=== PATIENT | male | born 1940 | race Caucasian/White ===

== ENCOUNTER 2017-03-24 10:57 | Inpatient (IN) | payer MEDICARE ==
[2017-03-24] MEDS ORDERED: SODIUM CHLORIDE 0.9% 500 ML IV STA (11:04)
[2017-03-24] MEDS ORDERED: DIPH,PERTUS(ACELL)TETVAC-LF 0.5 ML VIAL IM ONE (11:04)
--- NOTE | 2017-03-24 11:08 | ED ---
General Adult HPI <Lizz Birmingham - Last Filed: 03/24/17 13:44> - General Source: RN notes reviewed <Pablo Baker - Last Filed: 03/24/17 17:13> - General Stated complaint: Fall Time Seen by Provider: 03/24/17 10:57 - History of Present Illness Initial comments: This is a 76-year-old male presents emergency department after having passed out at [facility]. Patient states he just walked 4 miles which is not that unusual for him. Patient states she got into [facility] started feeling lightheaded and started feeling as though he might pass out. Patient states he should've sat down but he did not he fell forward and now has 3 lacerations on the right frontal aspect of his head. Patient denied any headache prior to the fall. Patient denies any numbness or weakness prior to the fall. Patient states he has a little bit of left-sided neck pain at this time. Patient denied any chest pain or palpitations or shortness of breath prior to the fall. Patient states she has had no recent nausea vomiting diarrhea. Patient states he normally does not eat in the morning and today was no different he had nothing to eat this morning. Patient denies any abdominal pain patient denies any back pain. Currently patient denies any symptoms besides left-sided neck pain. (Pablo Baker) - Related Data Home Medications Medication Instructions Recorded Confirmed Ascorbic Acid [Vitamin C] 500 mg PO DAILY 03/24/17 03/24/17 Calcium/Magnesium/Zinc 1 tab PO DAILY 03/24/17 03/24/17 [Vxevuwr-Ckwoqabhr-Bxhf Tablet] Glucosamine Sulfate 500 mg PO DAILY 03/24/17 03/24/17 Multivitamins, Thera [Multivitamin 1 tab PO DAILY 03/24/17 03/24/17 (formulary)] [place]-3 Fatty Acids/Fish Oil [Fish 1 cap PO DAILY 03/24/17 03/24/17 Oil 1,000 mg Softgel] Potassium 99 mg PO DAILY 03/24/17 03/24/17 Allergies Allergy/AdvReac Type Severity Reaction Status Date / Time No Known Allergies Allergy Verified 03/24/17 11:33 Review of Systems ROS Other: All systems not noted in ROS Statement are negative. <Lizz Birmingham - Last Filed: 08/10/17 13:44> ROS Other: All systems not noted in ROS Statement are negative. <Pablo Baker - Last Filed: 03/24/17 17:13> ROS Statement: Those systems with pertinent positive or pertinent negative responses have been documented in the HPI. General Exam <Lizz Birmingham - Last Filed: 03/24/17 13:44> <Pablo Baker - Last Filed: 03/24/17 17:13> - General Exam Comments Initial Comments: GENERAL: Patient is well-developed and well-nourished. Patient is nontoxic and well- hydrated and is in mild distress. ENT: Neck is soft and supple. No significant lymphadenopathy is noted. Oropharynx is clear. Moist mucous membranes. Neck has full range of motion without eliciting any pain. EYES: The sclera were anicteric and conjunctiva were pink and moist. Extraocular movements were intact and pupils were equal round and reactive to light. Eyelids were unremarkable. PULMONARY: Unlabored respirations. Good breath sounds bilaterally. No audible rales rhonchi or wheezing was noted. CARDIOVASCULAR: There is a regular rate and rhythm without any murmurs gallops or rubs. ABDOMEN: Soft and nontender with normal bowel sounds. No palpable organomegaly was noted. There is no palpable pulsatile mass. SKIN: Patient has a laceration in the middle of his forehead between his eyebrows that measures about 2 cm in length. Patient also has a laceration to the lateral aspect of his upper right eyelid which measures about 2-1/2 cm in length. Patient has a third laceration on the right parietal region of the scalp which measures about 1.5 cm. Patient has an abrasion to the right knee is superficial NEUROLOGIC: Patient is alert and oriented x3. Cranial nerves II through XII are grossly intact. Motor and sensory are also intact. Normal speech, volume and content. Symmetrical smile. Cerebellar exam grossly intact. MUSCULOSKELETAL: Normal extremities with adequate strength and full range of motion. No lower extremity swelling or edema. No calf tenderness. LYMPHATICS: No significant lymphadenopathy is noted PSYCHIATRIC: Normal psychiatric evaluation. Normal interpersonal interactions appears functionally intact in deals appropriately with others. No signs of depression. No signs of anxiety. (Pablo Baker) Procedures - Laceration Laceration #1 Consent Obtained: verbal consent Time Out Performed: Yes Indication: laceration Site: face, other (Medial forehead) Description: linear Depth: simple, single layer Pre-repair: irrigated extensively Size of Sutures: other (Dermabond) Laceration #2 Consent Obtained: verbal consent Time Out Performed: Yes Indication: laceration Site: face (Right forehead) Description: linear Pre-repair: irrigated extensively Size of Sutures: other (Dermabond) Laceration #3 Consent Obtained: verbal consent Time Out Performed: Yes Indication: laceration Site: eyelid (Right) Description: linear Depth: simple, single layer Size of Sutures: other (Dermabond) <Lizz Birmingham - Last Filed: 03/24/17 13:44> Medical Decision Making - Lab Data Result diagrams: 03/24/17 11:07 03/24/17 11:07 <Lizz Birmingham - Last Filed: 03/24/17 13:44> - Lab Data Result diagrams: 03/24/17 11:07 03/24/17 11:07 <Pablo Baker - Last Filed: 03/24/17 17:13> - Medical Decision Making EKG shows atrial fibrillation 72 bpm QRS is 94 Q-T intervals 410 QTC is 448. Patient's EKG shows no ST segment elevation or depression. CT of the brain and C-spine are negative. Lacerations were repaired. Patient's chest x-ray possible lymphadenopathy.. Patient has been asymptomatic I spoke with Dr. Madrid I admitted the patient I wrote admit orders. Patient converted to a normal sinus rhythm and EKG was showed a normal sinus rhythm at 69 bpm NV interval is on a 148 QRS is 96 QT interval 422 QTC is 452. Patient's EKG shows no ST segment elevation or depression or T-wave abnormality she noted. (Pablo Baker) - Lab Data Lab Results 03/24/17 03/24/17 03/24/17 Range/Units 11:07 11:07 11:07 WBC 4.4 (3.8-10.6) k/uL RBC 3.73 L (4.30-5.90) m/uL Hgb 12.8 L (13.0-17.5) gm/dL Hct 35.5 L (39.0-53.0) % MCV 95.2 (80.0-100.0) fL MCH 34.4 (25.0-35.0) pg MCHC 36.1 (31.0-37.0) g/dL RDW 14.7 (11.5-15.5) % Plt Count 153 (150-450) k/uL Neutrophils % 49 % Lymphocytes % 35 % Monocytes % 4 % Eosinophils % 8 % Basophils % 1 % Neutrophils # 2.1 (1.3-7.7) k/uL Lymphocytes # 1.5 (1.0-4.8) k/uL Monocytes # 0.2 (0-1.0) k/uL Eosinophils # 0.4 (0-0.7) k/uL Basophils # 0.0 (0-0.2) k/uL PT (9.0-12.0) sec INR (<1.2) APTT (22.0-30.0) sec Sodium 140 (137-145) mmol/L Potassium 4.1 (3.5-5.1) mmol/L Chloride 106 (98-107) mmol/L Carbon Dioxide 25 (22-30) mmol/L Anion Gap 9 mmol/L BUN 18 (9-20) mg/dL Creatinine 0.90 (0.66-1.25) mg/dL Est GFR (MDRD) Af Amer >60 (>60 ml/min/1.73 sqM) Est GFR (MDRD) Non-Af >60 (>60 ml/min/1.73 sqM) Glucose 134 H (74-99) mg/dL Calcium 9.3 (8.4-10.2) mg/dL Magnesium 1.9 (1.6-2.3) mg/dL Total Bilirubin 0.9 (0.2-1.3) mg/dL AST 25 (17-59) U/L ALT 35 (21-72) U/L Alkaline Phosphatase 72 (38-126) U/L Total Creatine Kinase 41 L (55-170) U/L CK-MB (CK-2) 1.8 (0.0-2.4) ng/mL CK-MB (CK-2) Rel Index 4.4 Troponin I <0.012 (0.000-0.034) ng/mL Total Protein 5.9 L (6.3-8.2) g/dL Albumin 3.6 (3.5-5.0) g/dL Urine Color Urine Appearance (Clear) Urine pH (5.0-8.0) Ur Specific [place] (1.001-1.035) Urine Protein (Negative) Urine Glucose (UA) (Negative) Urine Ketones (Negative) Urine Blood (Negative) Urine Nitrite (Negative) Urine Bilirubin (Negative) Urine Urobilinogen (<2.0) mg/dL Ur Leukocyte Esterase (Negative) 03/24/17 03/24/17 Range/Units 11:07 13:45 WBC (3.8-10.6) k/uL RBC (4.30-5.90) m/uL Hgb (13.0-17.5) gm/dL Hct (39.0-53.0) % MCV (80.0-100.0) fL MCH (25.0-35.0) pg MCHC (31.0-37.0) g/dL RDW (11.5-15.5) % Plt Count (150-450) k/uL Neutrophils % % Lymphocytes % % Monocytes % % Eosinophils % % Basophils % % Neutrophils # (1.3-7.7) k/uL Lymphocytes # (1.0-4.8) k/uL Monocytes # (0-1.0) k/uL Eosinophils # (0-0.7) k/uL Basophils # (0-0.2) k/uL PT 10.4 (9.0-12.0) sec INR 1.0 (<1.2) APTT 20.1 L (22.0-30.0) sec Sodium (137-145) mmol/L Potassium (3.5-5.1) mmol/L Chloride (98-107) mmol/L Carbon Dioxide (22-30) mmol/L Anion Gap mmol/L BUN (9-20) mg/dL Creatinine (0.66-1.25) mg/dL Est GFR (MDRD) Af Amer (>60 ml/min/1.73 sqM) Est GFR (MDRD) Non-Af (>60 ml/min/1.73 sqM) Glucose (74-99) mg/dL Calcium (8.4-10.2) mg/dL Magnesium (1.6-2.3) mg/dL Total Bilirubin (0.2-1.3) mg/dL AST (17-59) U/L ALT (21-72) U/L Alkaline Phosphatase (38-126) U/L Total Creatine Kinase (55-170) U/L CK-MB (CK-2) (0.0-2.4) ng/mL CK-MB (CK-2) Rel Index Troponin I (0.000-0.034) ng/mL Total Protein (6.3-8.2) g/dL Albumin (3.5-5.0) g/dL Urine Color Yellow Urine Appearance Clear (Clear) Urine pH 8.5 H (5.0-8.0) Ur Specific [place] 1.011 (1.001-1.035) Urine Protein Negative (Negative) Urine Glucose (UA) Negative (Negative) Urine Ketones 1+ H (Negative) Urine Blood Negative (Negative) Urine Nitrite Negative (Negative) Urine Bilirubin Negative (Negative) Urine Urobilinogen <2.0 (<2.0) mg/dL Ur Leukocyte Esterase Negative (Negative) Disposition <Lizz Birmingham - Last Filed: 03/24/17 13:44> Time of Disposition: 14:20 <Pablo Baker - Last Filed: 03/24/17 17:13> Clinical Impression: Syncope, Multiple lacerations, New onset a-fib Disposition: ADMITTED IP TO THIS HOSP
[2017-03-24 11:25] LABS: Basophils % (A) 1 %; CH 34.2; Eosinophils # (A) 0.4 k/uL (0-0.7); Eosinophils % (A) 8 %; HCT 35.5 % (39.0-53.0); HDW 3.22; HGB 12.8 gm/dL (13.0-17.5); Luc # (Auto) 0.16; Luc % (Auto) 4; Lymphocytes # (A) 1.5 k/uL (1.0-4.8); Lymphocytes % (A) 35 %; MCH 34.4 pg (25.0-35.0); MCHC 36.1 g/dL (31.0-37.0); MCV 95.2 fL (80.0-100.0); Mean Platelet Volume 7.5; Monocytes # (A) 0.2 k/uL (0-1.0); Monocytes % (A) 4 %; Neutrophils # (A) 2.1 k/uL (1.3-7.7); Neutrophils % (A) 49 %; RBC 3.73 m/uL (4.30-5.90); RDW 14.7 % (11.5-15.5); WBC 4.4 k/uL (3.8-10.6)
[2017-03-24 11:37] LABS: Prothrombin Time 10.4 sec (9.0-12.0)
[2017-03-24 11:39] LABS: ALT 35 U/L (21-72); AST 25 U/L (17-59); Alkaline Phosphatase 72 U/L (38-126); Anion Gap 9 mmol/L; Blood Urea Nitrogen 18 mg/dL (9-20); Calcium 9.3 mg/dL (8.4-10.2); Carbon Dioxide 25 mmol/L (22-30); Chloride 106 mmol/L (98-107); Glucose 134 mg/dL (74-99); Magnesium 1.9 mg/dL (1.6-2.3); Non-African American GFR(MDRD) >60 (>60 ml/min/1.73 sqM); Potassium 4.1 mmol/L (3.5-5.1); Sodium 140 mmol/L (137-145); Total Bilirubin 0.9 mg/dL (0.2-1.3); Total Protein 5.9 g/dL (6.3-8.2)
[2017-03-24 12:01] LABS: Partial Thromboplastin Time 20.1 sec (22.0-30.0)
[2017-03-24 12:03] LABS: Creatine Kinase 41 U/L (55-170)
--- NOTE | 2017-03-24 12:13 | CT ---
EXAMINATION TYPE: CT brain bruce petersen DATE OF EXAM: 03/24/2017 COMPARISON: NONE HISTORY: fall injury with headache and neck pain CT DLP: 1650 mGycm. Automated Exposure Control for Dose Reduction was Utilized. TECHNIQUE: CT scan of the head and cervical spine are performed without contrast. FINDINGS: There is no acute intracranial hemorrhage or midline shift identified. There is ventricul ar and sulcal prominence consistent with diffuse cerebral atrophy.. The globes are intact and the vi sualized sinuses are clear. The calvarium is intact. There is small right frontal acute scalp hematom a near axial image 31. Scattered foci of air right masseter and temporal level is noted of uncertain etiology. Cervical spine is visualized in its entirety from C1 through upper thoracic levels and demonstrates s atisfactory alignment without evidence of acute fracture or dislocation. Prevertebral soft tissue ap pears within normal limits. The C1-C2 articulation is within normal limits on the coronal images. Osseous structures are demineralized. Vertebral body heights are maintained. Disc space heights are f airly well preserved. Calcified the C2-C3 level is noted. There is no significant spurring identified . Review of axial images shows multilevel uncovertebral facet degenerative changes bilaterally, contr ibuting to multilevel neural foraminal narrowing. Thyroid gland is felt within normal limits. Visuali zed lung apices are clear. IMPRESSION: 1. There is no acute fracture or dislocation evident in the cervical spine. 2. No acute intracranial hemorrhage or midline shift is seen.
[2017-03-24 12:15] LABS: Creatine Kinase MB 1.8 ng/mL (0.0-2.4); Troponin I <0.012 ng/mL (0.000-0.034)
--- NOTE | 2017-03-24 13:18 | XR ---
EXAMINATION TYPE: XR chest 2V DATE OF EXAM: 03/24/2017 COMPARISON: NONE HISTORY: Chest pain after fall. TECHNIQUE: Frontal and lateral views of the chest are obtained. FINDINGS: There is background of chronic emphysematous change. There is suspected tiny left pleural effusion with blunting of posterior costophrenic angle. There is no suspicious focal airspace opacit y or pneumothorax seen bilaterally. There is however suspicious left suprahilar nodular opacity adjac ent to aortic knob. There is bilateral hilar prominence appreciated on frontal and lateral images. Th e cardiac silhouette size is within normal limits with atherosclerotic thoracic aorta. The osseous structures are demineralized. IMPRESSION: Chronic emphysematous change with tiny left pleural effusion and no definitive suspiciou s focal acute process. Cannot exclude left suprahilar nodule and hilar adenopathy versus pulmonary ar jakob enlargement, CT follow-up is advised.
[2017-03-24] MEDS: TOPICAL SKIN ADHESIVE 1 EACH AMP TOPICAL ONE ×2 (13:25→13:26)
[2017-03-24] MEDS ORDERED: TOPICAL SKIN ADHESIVE 1 EACH AMP TOPICAL ONE (13:26)
[2017-03-24 14:08] LABS: Appearance,Urine Clear (Clear); Bilirubin,Urine Negative (Negative); Glucose,Urine (UA) Negative (Negative); Ketones,Urine 1+ (Negative); Leukocyte Esterase,Urine Negative (Negative); Nitrite,Urine Negative (Negative); PH, Urine 8.5 (5.0-8.0); Protein,Urine Negative (Negative); Specific Gravity,Urine 1.011 (1.001-1.035); UA Billing (MACRO vs. MICRO) CHEM; Urobilinogen,Urine <2.0 mg/dL (<2.0)
[2017-03-24] MEDS ORDERED: HEPARIN SODIUM,PORCINE 5,000 UNIT/ML 1 ML VIAL IV ONE (14:17)
[2017-03-24] MEDS ORDERED: NITROGLYCERIN SL TABS 0.4 MG TAB SUBLINGUAL PRN (14:20)
[2017-03-24] MEDS: HEPARIN SODIUM,PORCINE/D5W PMX 25,000 UNIT in DEXTROSE/WATER 1 500ML.BAG IV SCH (14:32)
[2017-03-24] MEDS: SODIUM CHLORIDE 0.9% 1,000 ML IV SCH (14:32)
--- NOTE | 2017-03-24 18:47 | P.HPIM ---
History of Present Illness Patient is a pleasant 76-year-old gentleman came in after he passed out at [employer]. Patient walked [employer] for 4 mild which is not uncommon for him. Patient is a very pleasant healthy gentleman with no major medical problems in the past. Patient was lightheaded. On upon arrival to ER patient has multiple lacerations now presently not bleeding for which she is receiving local wound care. Patient had 3 lacerations on the right frontal aspect of the forehead. CAT scan of the head did not show any intracranial bleed. Patient denied any seizure-like activity. Patient is found to be in atrial fibrillation by the time he arrived to ER its rate controlled but in A. fib. Patient orthostatics are positive. Patient blood pressure was extremely low with systolics as low as 70 when he EMS arrived at the scene. Patient received IV normal saline. Patient has positive orthostatic vitals although denied any diarrhea, fever, chills patient has some dry cough 2 days ago. Although patient admits to have some occasional episodes of palpitations recently for about a week. On and off. Patient is presently sinus rhythm spontaneously converted without any medications. Patient's John Vasc2 score is 1. Patient is presently on IV heparin. We will obtain echocardiogram monitored overnight possibly day of discharge tomorrow. Cardiology evaluation tomorrow. Review of Systems REVIEW OF SYSTEMS: CONSTITUTIONAL: No fever, no malaise, no fatigue. HEENT: No recent visual problems or hearing problems. Denied any sore throat. CARDIOVASCULAR: No chest pain, orthopnea, PND, . PULMONARY: No shortness of breath, no cough, no hemoptysis. GASTROINTESTINAL: No diarrhea, no nausea, no vomiting, no abdominal pain. Normoactive bowel sounds. NEUROLOGICAL: No headaches, no weakness, no numbness. HEMATOLOGICAL: Denies any bleeding or petechiae. GENITOURINARY: Denies any burning micturition, frequency, or urgency. MUSCULOSKELETAL/RHEUMATOLOGICAL: Denies any joint pain, swelling, or any muscle pain. ENDOCRINE: Denies any polyuria or polydipsia. The rest of the 14-point review of systems is negative. 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 History of Any Multi-Drug Resistant Organisms: None Reported Past Surgical History: Hernia Repair Additional Past Surgical History / Comment(s): Pt states he has had 3 inguinal hernia repairs but does not recall laterality, skin cancer removed L arm. Past Anesthesia/Blood Transfusion Reactions: No Reported Reaction Smoking Status: Never smoker - Past Family History Father Family Medical History: CVA/TIA, Myocardial Infarction ([place]) Additional Family Medical History / Comment(s): Pt did not have much contact with his father for years but knows that his father had MIs and strokes. He at the age of 65yrs. Mother Family Medical History: No Reported History Additional Family Medical History / Comment(s): Mother was healthy and at the age of 86yrs. Medications and Allergies Home Medications Medication Instructions Recorded Confirmed Type Ascorbic Acid [Vitamin C] 500 mg PO DAILY 03/24/17 03/24/17 History Calcium/Magnesium/Zinc 1 tab PO DAILY 03/24/17 03/24/17 History [Mmxrobh-Tjmvygekh-Zxzh Tablet] Glucosamine Sulfate 500 mg PO DAILY 03/24/17 03/24/17 History Multivitamins, Thera [Multivitamin 1 tab PO DAILY 03/24/17 03/24/17 History (formulary)] [place]-3 Fatty Acids/Fish Oil [Fish 1 cap PO DAILY 03/24/17 03/24/17 History Oil 1,000 mg Softgel] Potassium 99 mg PO DAILY 03/24/17 03/24/17 History Allergies Allergy/AdvReac Type Severity Reaction Status Date / Time No Known Allergies Allergy Verified 03/24/17 11:33 Physical Exam Vitals: Vital Signs Temp Pulse Pulse Resp BP BP Pulse Ox 03/24/17 17:00 98.1 F 70 20 103/56 99 03/24/17 16:30 71 20 112/55 99 03/24/17 15:30 86 20 127/53 99 03/24/17 14:56 97.5 F L 70 14 104/61 98 03/24/17 14:20 98.3 F 75 20 105/58 100 03/24/17 13:30 68 20 109/59 99 03/24/17 12:42 70 18 106/63 99 03/24/17 11:29 70 20 117/58 98 03/24/17 11:14 72 18 95/65 99 Intake and Output 03/24/17 03/24/17 03/24/17 06:59 14:59 22:59 Output Total 400 Balance -400 Output: Urine 400 Other: Weight 80.739 kg 73.3 kg Patient Weight 03/25/17 06:59 Weight 73.3 kg PHYSICAL EXAMINATION: GENERAL: The patient is alert and oriented x3, not in any acute distress. Well developed, well nourished. HEENT: Pupils are round and equally reacting to light. EOMI. No scleral icterus. No conjunctival pallor. Normocephalic, atraumatic. No pharyngeal erythema. No thyromegaly. CARDIOVASCULAR: S1 and S2 present. No murmurs, rubs, or gallops. PULMONARY: Chest is clear to auscultation, no wheezing or crackles. ABDOMEN: Soft, nontender, nondistended, normoactive bowel sounds. No palpable organomegaly. MUSCULOSKELETAL: No joint swelling or deformity. EXTREMITIES: No cyanosis, clubbing, or pedal edema. NEUROLOGICAL: Gross neurological examination did not reveal any focal deficits. SKIN: No rashes. Results CBC & Chem 7: 03/24/17 11:07 03/24/17 11:07 Labs: Abnormal Lab Results - Last 24 Hours (Table) 03/24/17 03/24/17 03/24/17 Range/Units 11:07 11:07 11:07 RBC 3.73 L (4.30-5.90) m/uL Hgb 12.8 L (13.0-17.5) gm/dL Hct 35.5 L (39.0-53.0) % APTT (22.0-30.0) sec Glucose 134 H (74-99) mg/dL Total Creatine Kinase 41 L (55-170) U/L Total Protein 5.9 L (6.3-8.2) g/dL Urine pH (5.0-8.0) Urine Ketones (Negative) 03/24/17 03/24/17 Range/Units 11:07 13:45 RBC (4.30-5.90) m/uL Hgb (13.0-17.5) gm/dL Hct (39.0-53.0) % APTT 20.1 L (22.0-30.0) sec Glucose (74-99) mg/dL Total Creatine Kinase (55-170) U/L Total Protein (6.3-8.2) g/dL Urine pH 8.5 H (5.0-8.0) Urine Ketones 1+ H (Negative) Thrombosis Risk Factor Assmnt - Choose All That Apply Any of the Below Risk Factors Present?: Yes Other Risk Factors: Yes Each Risk Factor Represents 2 Points: Malignancy Each Risk Factor Represents 3 Points: Age 75 years or older Other congenital or acquired thrombophilia - If yes, enter type in comment: No Thrombosis Risk Factor Assessment Total Risk Factor Score: 5 Thrombosis Risk Factor Assessment Level: High Risk Assessment and Plan Plan: #1 syncopal episode: Appears to be secondary to atrial fibrillation although patient has positive orthostatic vitals. Patient will be continued on IV fluids. Patient is not requiring any medications for atrial fibrillation patient probably has proximal A. fib. Patient will be continued on anti- correlation for now. Monitor overnight. Echocardiogram tomorrow morning. #2 atrial fibrillation presently rate controlled patient is presently sinus rhythm #3 multiple laceration for which local Wound Care, #4 squamous cell skin cancer of the left arm which was removed. In the past
[2017-03-24 19:08] LABS: Creatine Kinase 62 U/L (55-170)
[2017-03-24 19:22] LABS: Creatine Kinase MB 2.6 ng/mL (0.0-2.4); Troponin I <0.012 ng/mL (0.000-0.034)
[2017-03-24] MEDS ORDERED: HEPARIN SODIUM,PORCINE 5,000 UNIT/ML 1 ML VIAL IV STA (21:58)
[2017-03-24 22:39] LABS: Cholesterol 150 mg/dL (<200); HDL Cholesterol 42 mg/dL (40-60)
[2017-03-24 23:34] LABS: Creatine Kinase 60 U/L (55-170)
[2017-03-24 23:46] LABS: Troponin I <0.012 ng/mL (0.000-0.034)
[2017-03-24 23:47] LABS: Creatine Kinase MB 2.8 ng/mL (0.0-2.4)
[2017-03-25] MEDS: SODIUM CHLORIDE 0.9% 1,000 ML IV SCH ×4 (07:42→08:00)
[2017-03-25 08:01] VITALS: RESP 18
[2017-03-25] MEDS: HEPARIN SODIUM,PORCINE/D5W PMX 25,000 UNIT in DEXTROSE/WATER 1 500ML.BAG IV SCH (08:49)
[2017-03-25] MEDS ORDERED: ASPIRIN 325 MG TAB PO SCH (09:00)
--- NOTE | 2017-03-25 11:43 | P.CRDCN ---
History of Present Illness Consult date: 03/25/17 Requesting physician: Kevin Madrid Consult reason: sycope Chief complaint: Syncope History of present illness: This is a pleasant 76-year-old gentleman with no prior documented history of hypertension, no diabetes, no hyperlipidemia, he is a nonsmoker, states he used to drink alcohol heavily in the past but has not done so for over 15 years, he presents to the hospital following a syncopal episode. According to the patient he walks long distances regularly, yesterday morning he walked approximately 4 miles, went in to [facility], states that he became extremely lightheaded and shortly thereafter passed out and fell down onto the floor. He denies any significant dizziness prior to passing out, no palpitations. Patient states he does get episodes in this past one week where he feels in his chest that he's anxious, does not describe it as palpitations, but states he gets an anxious feeling that comes and goes. On presentation here the initial EKG showed atrial fibrillation with a slow ventricular response. Subsequent EKG performed this morning shows a sinus bradycardia with no specific changes. Patient does state he's had one similar episode to this in the past, he states that he chipped a tooth at that time. Chest x-ray reveals chronic emphysema changes with tiny left pleural effusion and no definite suspicious focal process. Cannot exclude left suprahilar nodule and hilar adenopathy. CAT scan of the head neck and spine did not reveal any acute fracture or dislocation. Blood pressure on arrival here 95/60 with a heart rate in the 70s, 99% on room air. Orthostatics were obtained which did not come back to be significant. WBC 4.4, hemoglobin 12.8, platelet count 153, potassium 4.1, BUN 18, creatinine 0.9. Troponins have been negative 3. Patient is currently in a normal sinus rhythm with a heart rate in the 50s. He' s also initiated on a heparin drip, IV fluids going at 100 mL per hour. 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 History of Any Multi-Drug Resistant Organisms: None Reported Past Surgical History: Hernia Repair Additional Past Surgical History / Comment(s): Pt states he has had 3 inguinal hernia repairs but does not recall laterality, skin cancer removed L arm. Past Anesthesia/Blood Transfusion Reactions: No Reported Reaction Smoking Status: Never smoker - Past Family History Father Family Medical History: CVA/TIA, Myocardial Infarction ([place]) Additional Family Medical History / Comment(s): Pt did not have much contact with his father for years but knows that his father had MIs and strokes. He at the age of 65yrs. Mother Family Medical History: No Reported History Additional Family Medical History / Comment(s): Mother was healthy and at the age of 86yrs. Medications and Allergies Home Medications Medication Instructions Recorded Confirmed Type Ascorbic Acid [Vitamin C] 500 mg PO DAILY 03/24/17 03/24/17 History Calcium/Magnesium/Zinc 1 tab PO DAILY 03/24/17 03/24/17 History [Obolynl-Puamsrare-Ajwy Tablet] Glucosamine Sulfate 500 mg PO DAILY 03/24/17 03/24/17 History Multivitamins, Thera [Multivitamin 1 tab PO DAILY 03/24/17 03/24/17 History (formulary)] [place]-3 Fatty Acids/Fish Oil [Fish 1 cap PO DAILY 03/24/17 03/24/17 History Oil 1,000 mg Softgel] Potassium 99 mg PO DAILY 03/24/17 03/24/17 History Allergies Allergy/AdvReac Type Severity Reaction Status Date / Time No Known Allergies Allergy Verified 03/24/17 11:33 Physical Exam Vitals: Vital Signs Temp Pulse Pulse Pulse Pulse Pulse Resp 03/25/17 11:18 98.1 F 53 L 18 03/25/17 07:58 97 F L 58 L 18 03/25/17 04:00 97 F L 60 16 03/24/17 23:44 74 16 03/24/17 23:43 98 F 74 16 03/24/17 20:00 97.4 F L 71 16 03/24/17 18:45 72 80 65 03/24/17 17:00 98.1 F 70 20 03/24/17 16:30 71 20 03/24/17 15:30 86 20 03/24/17 14:56 97.5 F L 70 14 03/24/17 14:20 98.3 F 75 20 03/24/17 13:30 68 20 03/24/17 12:42 70 18 BP BP BP BP BP Pulse Ox 03/25/17 11:18 104/58 100 03/25/17 07:58 99/61 96 03/25/17 04:00 103/55 98 03/24/17 23:44 03/24/17 23:43 112/57 100 03/24/17 20:00 96/53 100 03/24/17 18:45 105/63 99/65 98/59 03/24/17 17:00 103/56 99 03/24/17 16:30 112/55 99 03/24/17 15:30 127/53 99 03/24/17 14:56 104/61 98 03/24/17 14:20 105/58 100 03/24/17 13:30 109/59 99 03/24/17 12:42 106/63 99 Intake and Output 03/24/17 03/25/17 03/25/17 22:59 06:59 14:59 Intake Total 334.314 955 233.157 Output Total 100 Balance 234.314 955 233.157 Intake: IV 955 Heparin Sodium,Porcine/ 155 D5w Pmx 25,000 unit In Dextrose/Water 1 500ml. bag @ 12 UNITS/KG/HR 19. 37 mls/hr IV .Q24H [facility] Rx #:[id number] Sodium Chloride 0.9% 1, 800 000 ml @ 100 mls/hr IV . Q10H [facility]URI Rx#:[id number] Intake, IV Titration 154.314 233.157 Amount Heparin Sodium,Porcine/ 154.314 233.157 D5w Pmx 25,000 unit In Dextrose/Water 1 500ml. bag @ 12 UNITS/KG/HR 19. 37 mls/hr IV .Q24H [facility] Rx #:[id number] Oral 180 Output: Urine 100 Other: Voiding Method Toilet Toilet Toilet Urinal Urinal Urinal # Voids 1 1 Weight 73.3 kg 70.9 kg PHYSICAL EXAMINATION: HEENT: Head is atraumatic, normocephalic. Pupils equal, round. Neck is supple. There is no elevated jugular venous pressure. HEART EXAMINATION: Heart S1, S2 normal. No murmur or gallop heard. CHEST EXAMINATION: Lungs are clear to auscultation and precussion. No chest wall tenderness is noted on palpation or with deep breathing. ABDOMEN: Soft, nontender. Bowel sounds are heard. No organomegaly noted. EXTREMITIES: 2+ peripheral pulses with no evidence of peripheral edema and no calf tenderness noted. NEUROLOGIC patient is awake, alert and oriented -3. . Results 03/24/17 11:07 03/24/17 11:07 Cardiac Enzymes 03/24/17 03/24/17 03/24/17 Range/Units 11:07 11:07 18:11 AST 25 (17-59) U/L CK-MB (CK-2) 1.8 2.6 H* (0.0-2.4) ng/mL Troponin I <0.012 <0.012 (0.000-0.034) ng/mL 03/24/17 Range/Units 22:57 AST (17-59) U/L CK-MB (CK-2) 2.8 H* (0.0-2.4) ng/mL Troponin I <0.012 (0.000-0.034) ng/mL Coagulation 03/24/17 03/24/17 03/25/17 Range/Units 11:07 20:42 04:20 PT 10.4 (9.0-12.0) sec APTT 20.1 L 42.7 H 54.2 H (22.0-30.0) sec Lipids 03/24/17 Range/Units 06:00 Triglycerides 91 (<150) mg/dL Cholesterol 150 (<200) mg/dL HDL Cholesterol 42 (40-60) mg/dL Comprehensive Metabolic Panel 03/24/17 Range/Units 11:07 Sodium 140 (137-145) mmol/L Potassium 4.1 (3.5-5.1) mmol/L Chloride 106 (98-107) mmol/L Carbon Dioxide 25 (22-30) mmol/L BUN 18 (9-20) mg/dL Creatinine 0.90 (0.66-1.25) mg/dL Glucose 134 H (74-99) mg/dL Calcium 9.3 (8.4-10.2) mg/dL AST 25 (17-59) U/L ALT 35 (21-72) U/L Alkaline Phosphatase 72 (38-126) U/L Total Protein 5.9 L (6.3-8.2) g/dL Albumin 3.6 (3.5-5.0) g/dL Current Medications Generic Name Dose Route Start Last Admin Trade Name Freq PRN Reason Stop Dose Admin Aspirin 325 mg 03/25/17 09:00 03/25/17 07:58 Aspirin PO 325 mg DAILY MAYURI Administration Heparin Sodium/Dextrose 25,000 500 mls @ 19.37 mls/hr 03/24/17 14:30 08:49 unit/ IV Solution IV 14 units/kg/hr .Q24H MAYURI 22.6 mls/hr Protocol Administration 12 UNITS/KG/HR Sodium Chloride 1,000 mls @ 20 mls/hr 03/24/17 14:30 03/25/17 08:00 Saline 0.9% IV Not Given .Q24H [facility]URI Sodium Chloride 1,000 mls @ 100 mls/hr 03/24/17 19:00 03/25/17 07:58 Saline 0.9% IV 100 mls/hr .Q10H MAYURI Administration Nitroglycerin 0.4 mg 03/24/17 14:20 Nitrostat SUBLINGUAL Q5M PRN Chest Pain Intake and Output 03/24/17 03/25/17 03/25/17 22:59 06:59 14:59 Intake Total 334.314 955 233.157 Output Total 100 Balance 234.314 955 233.157 Intake: IV 955 Heparin Sodium,Porcine/ 155 D5w Pmx 25,000 unit In Dextrose/Water 1 500ml. bag @ 12 UNITS/KG/HR 19. 37 mls/hr IV .Q24H [facility] Rx #:[id number] Sodium Chloride 0.9% 1, 800 000 ml @ 100 mls/hr IV . Q10H MAUYRI Rx#:[id number] Intake, IV Titration 154.314 233.157 Amount Heparin Sodium,Porcine/ 154.314 233.157 D5w Pmx 25,000 unit In Dextrose/Water 1 500ml. bag @ 12 UNITS/KG/HR 19. 37 mls/hr IV .Q24H [facility] Rx #:[id number] Oral 180 Output: Urine 100 Other: Voiding Method Toilet Toilet Toilet Urinal Urinal Urinal # Voids 1 1 Weight 73.3 kg 70.9 kg 03/24/17 11:07 03/24/17 11:07 EKG Interpretations (text) Initial EKG shows atrial fibrillation with a slow ventricular response. Subsequent EKG shows a normal sinus rhythm with no acute changes. Assessment and Plan Plan: Assessment and plan #1 syncopal episode, rule out cardiac causes. Patient was noted to be in atrial fibrillation with a slow ventricular response on arrival here, it is possible that the patient may be in and out of atrial fibrillation and may be having postconversion pauses. We will continue to monitor. #2 no prior documented history of hypertension, no diabetes, no hyperlipidemia, patient is a nonsmoker #3 atrial fibrillation, appears to be of new onset, paroxysmal in nature. Plan We will obtain an echocardiogram with Doppler study. We will also request a free T4 and TSH level be obtained. Continue to monitor for any bradycardia arrhythmias or pauses. Continue IV heparin, see if the patient has coverage for one of the newer anticoagulants. Further recommendations to follow. DNP note has been reviewed, I agree with a documented findings and plan of care. Patient was seen and examined.
[2017-03-25 15:32] VITALS: BMI 21.8
[2017-03-25 15:43] VITALS: BP 102/65; PULSE 57; TEMP 97.8
--- NOTE | 2017-03-25 17:01 | P.DS ---
Providers Date of admission: 03/24/17 14:20 Attending physician: Kevin Madrid Consults: 03/24/17 14:20 Consult Physician Urgent Consulting Provider: [facility] Consult Reason/Comments: New-onset A. fib Do you want consulting provider notified?: Yes Primary care physician: Josue Nolasco [facility] Course: Patient is on-year-old gentleman admitted for atrial fibrillation and syncopal episode. Patient is presently rate controlled spontaneous reconverted to sinus rhythm. Patient was a valid by cardiology and cleared for discharge. Echocardiogram results are pending. TSH essentially within normal limits. Cardiology is recommending aspirin 81 mg patient will be discharged on 81 mg of aspirin. #1 syncopal episode: Appears to be secondary to atrial fibrillation although patient has positive orthostatic vitals. Patient received IV fluids as today #2 atrial fibrillation presently rate controlled patient is presently sinus rhythm as postconversion pauses. #3 multiple laceration for which local Wound Care, #4 squamous cell skin cancer of the left arm which was removed. In the past Plan - Discharge Summary New Discharge Prescriptions: New Aspirin 81 mg PO DAILY #30 chewable No Action Multivitamins, Thera [Multivitamin (formulary)] 1 tab PO DAILY Glucosamine Sulfate 500 mg PO DAILY Ascorbic Acid [Vitamin C] 500 mg PO DAILY Potassium 99 mg PO DAILY [place]-3 Fatty Acids/Fish Oil [Fish Oil 1,000 mg Softgel] 1 cap PO DAILY Calcium/Magnesium/Zinc [Xwbtioh-Iqkjzmhif-Hoku Tablet] 1 tab PO DAILY Discharge Medication List Ascorbic Acid [Vitamin C] 500 mg PO DAILY 03/24/17 [History] Calcium/Magnesium/Zinc [Elfkdzl-Bcuchkusg-Gmfe Tablet] 1 tab PO DAILY 03/24/17 [ History] Glucosamine Sulfate 500 mg PO DAILY 03/24/17 [History] Multivitamins, Thera [Multivitamin (formulary)] 1 tab PO DAILY 03/24/17 [History ] [place]-3 Fatty Acids/Fish Oil [Fish Oil 1,000 mg Softgel] 1 cap PO DAILY [History] Potassium 99 mg PO DAILY 03/24/17 [History] Aspirin 81 mg PO DAILY #30 chewable 03/25/17 [Rx] Follow up Appointment(s)/Referral(s): Josue Nolasco DO [Primary Care Provider] - 3 Days (Please call to make an appointment during normal business hours) Patient Instructions/Handouts: Atrial Fibrillation (DC), Syncope (DC) Activity/Diet/Wound Care/Special Instructions: [facility] and will need a 30 day event monitor. Please have [facility] follow up with ordering event monitor. Discharge Disposition: HOME SELF-CARE
--- NOTE | 2017-03-25 19:35 | ECHOF ---
Referral Reason:A. Fib MEASUREMENTS -------- HEIGHT: 157.5 cm WEIGHT: 70.8 kg BP: RVIDd: 2.5 cm (< 3.3) IVSd: 1.1 cm (0.6 - 1.1) LVIDd: 4.8 cm (3.9 - 5.3) LVPWd: 1.2 cm (0.6 - 1.1) IVSs: 1.2 cm LVIDs: 4.1 cm LVPWs: 1.4 cm LA Diam: 3.5 cm (2.7 - 3.8) LAESV Index (A-L): 34.42 ml/m Ao Diam: 3.1 cm (2.0 - 3.7) AV Cusp: 1.6 cm (1.5 - 2.6) LA Diam: 3.5 cm (2.7 - 3.8) MV EXCURSION: 12.690 mm (> 18.000) MV EF SLOPE: 84 mm/s (70 - 150) EPSS: 0.2 cm MV E Db: 0.79 m/s MV DecT: 200 ms MV A Db: 0.73 m/s MV E/A Ratio: 1.08 AR PHT: 955 ms RAP: 5.00 mmHg RVSP: 30.05 mmHg FINDINGS -------- Sinus rhythm. This was a technically good study. There is borderline concentric left ventricular hypertrophy. Overall left ventricular systolic function is normal with, an EF between 55 - 60 %. The right ventricle is normal in size. LA is moderately dilated 34-39 ml/m2 The right atrial size is normal. Trace amount of aortic regurgitation. Mild mitral annular calcification present. Jpos-iq-qalzfjmi mitral regurgitation is present. Mild tricuspid regurgitation present. Right ventricular systolic pressure is normal at < 35 mmHg. There is no evidence of pulmonary hypertension. There is no pulmonic regurgitation present. The aortic root size is normal. There is no pericardial effusion. CONCLUSIONS -------- 1. There is borderline concentric left ventricular hypertrophy. 2. There is no pulmonic regurgitation present. 3. Overall left ventricular systolic function is normal with, an EF between 55 - 60 %. 4. LA is moderately dilated 34-39 ml/m2 5. Trace amount of aortic regurgitation. 6. Mild mitral annular calcification present. 7. Opja-io-zexjygjn mitral regurgitation is present. 8. Mild tricuspid regurgitation present. 9. Right ventricular systolic pressure is normal at < 35 mmHg. 10. There is no evidence of pulmonary hypertension. SECTION LABORER: Renee King RDCS
[2017-03-26] MEDS ORDERED: ASPIRIN 81 MG CHEW PO SCH (09:00)
== END 2017-03-25 17:03 | disposition home or self-care (01) | DRG 310 ==
LOC: EC 10:57 → 6SEL 14:20
PROVIDERS: ADMIT Internal Medicine; ATTEND Internal Medicine
PROC: 3E0234Z Introduction of Serum, Toxoid and Vaccine into Muscle, Percutaneous Approach (ICD-10-PCS; principal; 2017-03-24)
PROC: 0HQ1XZZ Repair Face Skin, External Approach (ICD-10-PCS; 2017-03-24)
PROC: 08QNXZZ Repair Right Upper Eyelid, External Approach (ICD-10-PCS; 2017-03-24)
DX: I48.0 Paroxysmal atrial fibrillation (principal); J43.9 Emphysema, unspecified; M54.2 Cervicalgia; S01.81XA Laceration without foreign body of other part of head, initial encounter; S01.111A Laceration without foreign body of right eyelid and periocular area, initial encounter; S80.211A Abrasion, right knee, initial encounter; Z23 Encounter for immunization; Z79.899 Other long term (current) drug therapy; Z85.828 Personal history of other malignant neoplasm of skin; W19.XXXA Unspecified fall, initial encounter
CPT/HCPCS: 12014; 36415; 70450; 71020; 72125; 80053; 80061; 81003; 82550; 82553; 83735; 84436; 84443; 84484; 85025; 85610; 85730; 90471; 90715; 93005; 93306; 96361; 96365; 96366; 96376; 99285

== ENCOUNTER → 2018-02-02 | Outpatient (CLI) | payer OTHER ==
--- NOTE | 2018-02-02 15:53 | US ---
EXAMINATION TYPE: US scrotum with doppler. Grayscale and color Doppler Duplex imaging performed of t steve scrotum. DATE OF EXAM: 02/02/2018 COMPARISON: NONE CLINICAL HISTORY: N45.2 Orchitis. Pt has been on antibiotics 10 days no change lump rt inguinal area prior hernia surgeries years ago EXAM MEASUREMENTS: TESTICLES: Right Testicle: 5.4 x 4.0 x 4.2 cm Left Testicle: 4.3x2.0x3.0 cm EPIDIDYMIS HEAD: Right Epididymis: 4.8 cm Left Epididymis: 2.5 cm Doppler performed to assess for testicular vascularity; good bilateral color flow and waveforms are s een. There is no evidence of testicular torsion. Presence of hydroceles: ann Presence of varicoceles: ann , hard palpable large vascular mass inguinal extending to rt teste. 3.2 x 6.1 x 2.6 cm , no peristalsis seen rt teste heterogenous left test wnl IMPRESSION: 1. Enlarged and heterogenous hypervascular right epididymis and testes are most notable with epididym oorchitis. Additionally there is a right-sided moderate hydrocele, likely reactive. 2. Small left hydrocele. 3. Heterogenous mass within the left inguinal canal although does not demonstrate peristalsis is favo red to represent a hernia and further evaluation with CT and physical exam is recommended.
== END | disposition home or self-care (01) ==
LOC: RADUSWWP 13:21
DX: N43.3 Hydrocele, unspecified (principal); N45.3 Epididymo-orchitis
CPT/HCPCS: 76870; 93975

== ENCOUNTER 2018-02-13 10:51 | Inpatient (IN) | payer OTHER, MEDICARE ==
[2018-02-13] MEDS ORDERED: IPRATROPIUM-ALBUTEROL 3 ML NEB INHALATION STA (11:18)
--- NOTE | 2018-02-13 11:22 | ED ---
SOB HPI - General Chief Complaint: Shortness of Breath Stated Complaint: SWELLING ON LEGS, ORLIN Time Seen by Provider: 02/13/18 11:06 Source: patient, family, RN notes reviewed Mode of arrival: ambulatory Limitations: no limitations - History of Present Illness Initial Comments: This is a 77-year-old male with a history of skin cancer who apparently has been healthy up until about a year ago he started developing edema to his lower extremities been having intermittent shortness of breath he was brought in for evaluation by his daughter today stating at the [place] has given them permission be evaluated here. He has dyspnea some exertional dyspnea she states that he sounds like he is breathing through a straw when he tries to breathe he denies any chest pain he has peripheral edema which is been going on for a while he states he denies any current chest pain fevers chills nausea vomiting sweats or other symptoms. 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 He did apparently have some history of atrial fibrillation he denies being in atrial fibrillation at this time. MD Complaint: shortness of breath - Related Data Home Medications Medication Instructions Recorded Confirmed Ascorbic Acid [Vitamin C] 500 mg PO DAILY 03/24/17 02/13/18 Calcium/Magnesium/Zinc 1 tab PO DAILY 03/24/17 02/13/18 [Gqxkphx-Mgsxjrbnf-Kjct Tablet] Glucosamine Sulfate 2,000 mg PO DAILY 03/24/17 02/13/18 Multivitamins, Thera [Multivitamin 1 tab PO DAILY 03/24/17 02/13/18 (formulary)] [place]-3 Fatty Acids/Fish Oil [Fish 1 cap PO BID 03/24/17 02/13/18 Oil 1,000 mg Softgel] Potassium 99 mg PO DAILY 03/24/17 02/13/18 Levofloxacin [Levaquin] 500 mg PO DAILY 02/13/18 02/13/18 Previous Rx's Medication Instructions Recorded Aspirin 81 mg PO DAILY #30 chewable 03/25/17 Allergies Allergy/AdvReac Type Severity Reaction Status Date / Time No Known Allergies Allergy Verified 02/13/18 11:03 Review of Systems ROS Statement: Those systems with pertinent positive or pertinent negative responses have been documented in the HPI. ROS Other: All systems not noted in ROS Statement are negative. 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 History of Any Multi-Drug Resistant Organisms: None Reported Past Surgical History: Hernia Repair Additional Past Surgical History / Comment(s): Pt states he has had 3 inguinal hernia repairs but does not recall laterality, skin cancer removed L arm. Past Anesthesia/Blood Transfusion Reactions: No Reported Reaction Past Psychological History: No Psychological Hx Reported Smoking Status: Never smoker Past Alcohol Use History: None Reported Past Drug Use History: None Reported - Past Family History Father Family Medical History: CVA/TIA, Myocardial Infarction ([place]) Additional Family Medical History / Comment(s): Pt did not have much contact with his father for years but knows that his father had MIs and strokes. He at the age of 65yrs. Mother Family Medical History: No Reported History Additional Family Medical History / Comment(s): Mother was healthy and at the age of 86yrs. General Exam - General Exam Comments Initial Comments: This is a well-developed well-nourished awake alert oriented 3 male Limitations: no limitations General appearance: alert, in no apparent distress Head exam: Present: atraumatic, normocephalic, normal inspection Eye exam: Present: normal appearance, PERRL, EOMI. Absent: scleral icterus, conjunctival injection, periorbital swelling ENT exam: Present: normal exam, mucous membranes moist Neck exam: Present: normal inspection. Absent: tenderness, meningismus, lymphadenopathy Respiratory exam: Present: wheezes, decreased breath sounds. Absent: respiratory distress, rales, rhonchi, stridor Cardiovascular Exam: Present: regular rate, normal rhythm, normal heart sounds. Absent: systolic murmur, diastolic murmur, rubs, gallop, clicks GI/Abdominal exam: Present: soft, normal bowel sounds. Absent: distended, tenderness, guarding, rebound, rigid Extremities exam: Present: full ROM, normal capillary refill, pedal edema. Absent: tenderness, joint swelling, calf tenderness Back exam: Present: normal inspection Neurological exam: Present: alert, oriented X3, CN II-XII intact Psychiatric exam: Present: normal affect, normal mood Skin exam: Present: warm, dry, intact, normal color. Absent: rash Course Vital Signs 02/13/18 02/13/18 02/13/18 11:00 11:37 11:46 Temperature 98.3 F Pulse Rate 78 82 84 Respiratory 16 Rate Blood Pressure 104/71 O2 Sat by Pulse 98 Oximetry 02/13/18 02/13/18 02/13/18 12:27 12:53 13:49 Temperature Pulse Rate 87 86 85 Respiratory 18 18 18 Rate Blood Pressure 124/79 117/75 117/74 O2 Sat by Pulse 97 98 97 Oximetry 02/13/18 15:01 Temperature Pulse Rate 81 Respiratory 18 Rate Blood Pressure 112/74 O2 Sat by Pulse 95 Oximetry - Reevaluation(s) Reevaluation #1: 02/13/18 14:34 I did discuss [employer] the patient and his family member. The patient is a 's administration patient it is unclear whether he can be admitted to this facility or not the Bed control service will proceed with this information Reevaluation #2: 02/13/18 15:30 [facility] was contacted there are no beds available at this time the patient will be admitted to this facility. Medical Decision Making - Lab Data Result diagrams: 02/13/18 11:27 02/13/18 11:27 Lab Results 02/13/18 02/13/18 02/13/18 Range/Units 11:27 11:27 11:27 WBC 3.2 L (3.8-10.6) k/uL RBC 3.99 L (4.30-5.90) m/uL Hgb 13.0 (13.0-17.5) gm/dL Hct 38.5 L (39.0-53.0) % MCV 96.5 (80.0-100.0) fL MCH 32.5 (25.0-35.0) pg MCHC 33.7 (31.0-37.0) g/dL RDW 17.5 H (11.5-15.5) % Plt Count 122 L (150-450) k/uL Neutrophils % 57 % Lymphocytes % 32 % Monocytes % 6 % Eosinophils % 1 % Basophils % 1 % Neutrophils # 1.8 (1.3-7.7) k/uL Lymphocytes # 1.0 (1.0-4.8) k/uL Monocytes # 0.2 (0-1.0) k/uL Eosinophils # 0.0 (0-0.7) k/uL Basophils # 0.0 (0-0.2) k/uL Anisocytosis Slight Macrocytosis Slight PT (9.0-12.0) sec INR (<1.2) APTT (22.0-30.0) sec D-Dimer (<0.60) mg/L FEU Sodium 135 L (137-145) mmol/L Potassium 5.0 (3.5-5.1) mmol/L Chloride 97 L (98-107) mmol/L Carbon Dioxide 30 (22-30) mmol/L Anion Gap 8 mmol/L BUN 31 H (9-20) mg/dL Creatinine 1.45 H (0.66-1.25) mg/dL Est GFR (CKD-EPI)AfAm 54 (>60 ml/min/1.73 sqM) Est GFR (CKD-EPI)NonAf 46 (>60 ml/min/1.73 sqM) Glucose 89 (74-99) mg/dL Calcium 9.6 (8.4-10.2) mg/dL Magnesium 2.2 (1.6-2.3) mg/dL Total Bilirubin 1.0 (0.2-1.3) mg/dL AST 102 H (17-59) U/L ALT 54 (21-72) U/L Alkaline Phosphatase 96 (38-126) U/L Total Creatine Kinase 31 L (55-170) U/L CK-MB (CK-2) 1.9 (0.0-2.4) ng/mL CK-MB (CK-2) Rel Index 6.1 Troponin I <0.012 (0.000-0.034) ng/mL NT-Pro-B Natriuret Pep pg/mL Total Protein 6.0 L (6.3-8.2) g/dL Albumin 3.4 L (3.5-5.0) g/dL 02/13/18 02/13/18 Range/Units 11:27 11:27 WBC (3.8-10.6) k/uL RBC (4.30-5.90) m/uL Hgb (13.0-17.5) gm/dL Hct (39.0-53.0) % MCV (80.0-100.0) fL MCH (25.0-35.0) pg MCHC (31.0-37.0) g/dL RDW (11.5-15.5) % Plt Count (150-450) k/uL Neutrophils % % Lymphocytes % % Monocytes % % Eosinophils % % Basophils % % Neutrophils # (1.3-7.7) k/uL Lymphocytes # (1.0-4.8) k/uL Monocytes # (0-1.0) k/uL Eosinophils # (0-0.7) k/uL Basophils # (0-0.2) k/uL Anisocytosis Macrocytosis PT 10.9 (9.0-12.0) sec INR 1.1 (<1.2) APTT 22.5 (22.0-30.0) sec D-Dimer 17.09 H (<0.60) mg/L FEU Sodium (137-145) mmol/L Potassium (3.5-5.1) mmol/L Chloride (98-107) mmol/L Carbon Dioxide (22-30) mmol/L Anion Gap mmol/L BUN (9-20) mg/dL Creatinine (0.66-1.25) mg/dL Est GFR (CKD-EPI)AfAm (>60 ml/min/1.73 sqM) Est GFR (CKD-EPI)NonAf (>60 ml/min/1.73 sqM) Glucose (74-99) mg/dL Calcium (8.4-10.2) mg/dL Magnesium (1.6-2.3) mg/dL Total Bilirubin (0.2-1.3) mg/dL AST (17-59) U/L ALT (21-72) U/L Alkaline Phosphatase (38-126) U/L Total Creatine Kinase (55-170) U/L CK-MB (CK-2) (0.0-2.4) ng/mL CK-MB (CK-2) Rel Index Troponin I (0.000-0.034) ng/mL NT-Pro-B Natriuret Pep 1750 pg/mL Total Protein (6.3-8.2) g/dL Albumin (3.5-5.0) g/dL - EKG Data -: EKG Interpreted by Me EKG shows normal: sinus rhythm (Sinus rhythm rate of 84. We'll 142 QRS duration 90 QT since QTC 374/441 possible left atrial enlargement no acute ST-T wave changes) - Radiology Data Radiology results: report reviewed (I did review the imaging and report or is evidence of mediastinal lymphadenopathy. CAT scan shows no evidence of pulmonary and was in there is marked lymphadenopathy consistent with lymphoma however.), image reviewed Disposition Clinical Impression: Lymphoma involving lung, Peripheral edema, Dyspnea, Renal insufficiency Disposition: ADMITTED IP TO THIS HOSP Condition: Stable Referrals: [facility],Clinic [Primary Care Provider] - 1-2 days
[2018-02-13 11:48] LABS: Anisocytosis Slight; Basophils % (A) 1 %; Eosinophils % (A) 1 %; HCT 38.5 % (39.0-53.0); Lymphocytes % (A) 32 %; MCH 32.5 pg (25.0-35.0); MCHC 33.7 g/dL (31.0-37.0); MCV 96.5 fL (80.0-100.0); Macrocytosis Slight; Mean Platelet Volume 7.2; Monocytes # (A) 0.2 k/uL (0-1.0); Monocytes % (A) 6 %; Neutrophils # (A) 1.8 k/uL (1.3-7.7); Neutrophils % (A) 57 %; Platelet Count 122 k/uL (150-450); RBC 3.99 m/uL (4.30-5.90); RDW 17.5 % (11.5-15.5); WBC 3.2 k/uL (3.8-10.6)
[2018-02-13 11:58] LABS: Albumin 3.4 g/dL (3.5-5.0); Calcium 9.6 mg/dL (8.4-10.2); Magnesium 2.2 mg/dL (1.6-2.3)
[2018-02-13 12:10] LABS: Creatine Kinase 31 U/L (55-170)
[2018-02-13 12:11] LABS: INR 1.1 (<1.2); Partial Thromboplastin Time 22.5 sec (22.0-30.0); Prothrombin Time 10.9 sec (9.0-12.0)
[2018-02-13 12:19] LABS: D-Dimer 17.09 mg/L FEU (<0.60)
[2018-02-13 12:24] LABS: Creatine Kinase MB 1.9 ng/mL (0.0-2.4); Troponin I <0.012 ng/mL (0.000-0.034)
[2018-02-13] MEDS ORDERED: SODIUM CHLORIDE 0.9% 500 ML IV STA (12:28)
--- NOTE | 2018-02-13 12:33 | XR ---
EXAMINATION TYPE: XR chest 2V DATE OF EXAM: 02/13/2018 COMPARISON: 03/24/2017 HISTORY: 77-year-old male difficulty breathing, shortness of breath TECHNIQUE: PA and lateral views FINDINGS: New left suprahilar/AP window mass like density. Heart upper limits of normal in size. There may be a dditional nodularity at the right tracheobronchial angle. No consolidation or pleural effusion. IMPRESSION: Findings suspicious for enlarging mediastinal lymphadenopathy. Underlying neoplasm is not excluded. A ppropriate CT and clinical workup is recommended.
--- NOTE | 2018-02-13 13:35 | CT ---
EXAMINATION TYPE: CT angio chest DATE OF EXAM: 02/13/2018 COMPARISON: Chest x-ray same date HISTORY: SOB, elevated d dimer, bilateral lower ext swelling CT DLP: 444 mGycm Automated exposure control for dose reduction was used. CONTRAST: CTA scan of the thorax is performed with IV Contrast, patient injected with 80 mL of Isovue 370, pulm onary embolism protocol. MIP images are created and reviewed. 3D reconstructed images are created o n an independent workstation and reviewed. FINDINGS: LUNGS: There is endobronchial nodularity seen in the left mainstem bronchus, mass effect noted container washer iorly in the right mainstem bronchus. Minimal pleural effusion on the left, there is some basilar ate lectatic change. AORTA: No additional significant abnormality is seen. MEDIASTINUM: There is massive mediastinal adenopathy present, there is mass effect on the left atrium as well as pulmonary veins, some encasement of the pulmonary arteries, superior mediastinal adenopat hy partially encases the thoracic aorta, there is mass effect causing narrowing of the superior vena cava. Largest node in the retrocaval pretracheal mediastinum measures 3 cm. Large prevascular node is present which is confluent with intestinal mediastinal adenopathy and extending towards the left hil ar region, largest subcarinal abnormal soft tissue present. The confluent soft tissue in the mediasti num measures approximately 12 cm in greatest transverse dimension by 10 cm in anterior posterior dime nsion by 11 cm in cephalad to caudal dimension. There are 4 super aortic branch vessels. No evident f illing defect within the pulmonary arteries to suggest pulmonary embolism. OTHER: Suspect some ascites present about the liver. IMPRESSION: Extensive mediastinal adenopathy, correlate for possible lymphoma, metastatic disease. No evident pulmonary embolism.
[2018-02-13] MEDS ORDERED: NALOXONE 0.4 MG/ML 1 ML VIAL IV PRN (15:31)
[2018-02-13] MEDS ORDERED: FUROSEMIDE 10 MG/ML 4 ML VIAL IV STA (15:32)
[2018-02-13 16:59] VITALS: RESP 16
--- NOTE | 2018-02-13 17:47 | P.HPIM ---
History of Present Illness 77-year-old pleasant gentleman came in with bilateral pedal edema was complaining of some shortness of breath. Although saturating well at this point of time. Patient was also company of generalized weakness although unable to take care of himself at home. Patient is found to have bilateral pedal edema. In month of March are solid patient at that time patient had a normal ejection fraction. Patient presently doesn't have any elevated JVD. Patient does not have any signs or symptoms of congestive heart failure. Patient BNP 1750 albumin is 3.4 INR is 1.1 patient does not have any signs or symptoms of cirrhosis will often radiate to see of there is any proteinuria. Patient had a CAT scan of the chest which showed significant mediastinal lymphadenopathy concerning for lymphoma. Patient will be admitted for overnight monitoring will give a dose of Lasix patient's creatinine is 1.45 will do gentle Lasix because of elevated creatinine patient baseline creatinine from her pill from his previous hospitalization is around 1 now around 1.45 will see its trend with Lasix. We'll repeat basic metabolic profile tomorrow PT and OT consultation since he is to be monitored overnight OPINION of pulmonology will definitely need a bronchoscopy and biopsy which can also be done as an outpatient. CAT scan did not show any pulmonary edema, no evidence of pulmonary embolism. Patient had a recent scrotal ultrasound on February 02 which showed ill-defined mass with a possible inguinal lymphadenopathy because of which there is concern for testicular malignancy. I'll obtain also fetoprotein, CEA levels as well. Consult neurology regarding this. Patient is on levofloxacin for possible epididymitis is 02 of February . Will probably also get oncology opinion. Although most his signature was uncommon at this age. Review of Systems REVIEW OF SYSTEMS: CONSTITUTIONAL: No fever, HEENT: No recent visual problems or hearing problems. Denied any sore throat. CARDIOVASCULAR: No chest pain, orthopnea, PND, no palpitations, no syncope. PULMONARY: No shortness of breath, no cough, no hemoptysis. GASTROINTESTINAL: No diarrhea, no nausea, no vomiting, no abdominal pain. Normoactive bowel sounds. NEUROLOGICAL: No headaches, no weakness, no numbness. HEMATOLOGICAL: Denies any bleeding or petechiae. GENITOURINARY: Denies any burning micturition, frequency, or urgency. MUSCULOSKELETAL/RHEUMATOLOGICAL: Denies any joint pain, swelling, or any muscle pain. ENDOCRINE: Denies any polyuria or polydipsia. The rest of the 14-point review of systems is negative. 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 History of Any Multi-Drug Resistant Organisms: None Reported Past Surgical History: Hernia Repair Additional Past Surgical History / Comment(s): Pt states he has had 3 inguinal hernia repairs but does not recall laterality, skin cancer removed L arm. Past Anesthesia/Blood Transfusion Reactions: No Reported Reaction Smoking Status: Never smoker - Past Family History Father Family Medical History: CVA/TIA, Myocardial Infarction ([place]) Additional Family Medical History / Comment(s): Pt did not have much contact with his father for years but knows that his father had MIs and strokes. He at the age of 65yrs. Mother Family Medical History: No Reported History Additional Family Medical History / Comment(s): Mother was healthy and at the age of 86yrs. Medications and Allergies Home Medications Medication Instructions Recorded Confirmed Type Ascorbic Acid [Vitamin C] 500 mg PO DAILY 03/24/17 02/13/18 History Calcium/Magnesium/Zinc 1 tab PO DAILY 03/24/17 02/13/18 History [Uycubuh-Aybuklmdy-Eiwb Tablet] Glucosamine Sulfate 2,000 mg PO DAILY 03/24/17 02/13/18 History Multivitamins, Thera [Multivitamin 1 tab PO DAILY 03/24/17 02/13/18 History (formulary)] [place]-3 Fatty Acids/Fish Oil [Fish 1 cap PO BID 03/24/17 02/13/18 History Oil 1,000 mg Softgel] Potassium 99 mg PO DAILY 03/24/17 02/13/18 History Aspirin 81 mg PO DAILY #30 chewable 03/25/17 02/13/18 Rx Levofloxacin [Levaquin] 500 mg PO DAILY 02/13/18 02/13/18 History Allergies Allergy/AdvReac Type Severity Reaction Status Date / Time No Known Allergies Allergy Verified 02/13/18 11:03 Physical Exam Vitals: Vital Signs Temp Pulse Pulse Resp BP BP Pulse Ox 02/13/18 16:58 98 F 85 16 129/81 96 02/13/18 15:56 98.1 F 89 18 115/75 96 02/13/18 15:01 81 18 112/74 95 02/13/18 13:49 85 18 117/74 97 02/13/18 12:53 86 18 117/75 98 02/13/18 12:27 87 18 124/79 97 02/13/18 11:46 84 02/13/18 11:37 82 02/13/18 11:00 98.3 F 78 16 104/71 98 Intake and Output 02/13/18 02/13/18 02/13/18 06:59 14:59 22:59 Other: Weight 74.843 kg PHYSICAL EXAMINATION: GENERAL: The patient is alert and oriented x3, not in any acute distress. Well developed, well nourished. HEENT: Pupils are round and equally reacting to light. EOMI. No scleral icterus. No conjunctival pallor. Normocephalic, atraumatic. No pharyngeal erythema. No thyromegaly. CARDIOVASCULAR: S1 and S2 present. No murmurs, rubs, or gallops. PULMONARY: Chest is clear to auscultation, no wheezing or crackles. ABDOMEN: Soft, nontender, nondistended, normoactive bowel sounds. No palpable organomegaly. MUSCULOSKELETAL: No joint swelling or deformity. EXTREMITIES: No cyanosis, clubbing, patient does have bilateral minimal pitting pedal edema extending little above the ankles NEUROLOGICAL: Gross neurological examination did not reveal any focal deficits. SKIN: No rashes. Results CBC & Chem 7: 02/13/18 11:27 02/13/18 11:27 Labs: Abnormal Lab Results - Last 24 Hours (Table) 02/13/18 02/13/18 02/13/18 Range/Units 11:27 11:27 11:27 WBC 3.2 L (3.8-10.6) k/uL RBC 3.99 L (4.30-5.90) m/uL Hct 38.5 L (39.0-53.0) % RDW 17.5 H (11.5-15.5) % Plt Count 122 L (150-450) k/uL D-Dimer (<0.60) mg/L FEU Sodium 135 L (137-145) mmol/L Chloride 97 L (98-107) mmol/L BUN 31 H (9-20) mg/dL Creatinine 1.45 H (0.66-1.25) mg/dL AST 102 H (17-59) U/L Total Creatine Kinase 31 L (55-170) U/L Total Protein 6.0 L (6.3-8.2) g/dL Albumin 3.4 L (3.5-5.0) g/dL 02/13/18 Range/Units 11:27 WBC (3.8-10.6) k/uL RBC (4.30-5.90) m/uL Hct (39.0-53.0) % RDW (11.5-15.5) % Plt Count (150-450) k/uL D-Dimer 17.09 H (<0.60) mg/L FEU Sodium (137-145) mmol/L Chloride (98-107) mmol/L BUN (9-20) mg/dL Creatinine (0.66-1.25) mg/dL AST (17-59) U/L Total Creatine Kinase (55-170) U/L Total Protein (6.3-8.2) g/dL Albumin (3.5-5.0) g/dL Assessment and Plan Plan: -Bilateral pedal edema: Etiology of bilateral pedal edema is unclear at this time. Patient will be symptomatically treated with with the Lasix. Will recheck the basic metabolic profile and kidney function tomorrow. We'll obtain ua to see there is any proteinuria. Patient does not appear to have congestive heart failure or liver failure at this time. And serum albumin is little bit low. -Acute renal failure: Probably prerenal azotemia patient does have hypervolemia because of which I started him on Lasix will check his creatinine tomorrow. If it gets worse Lasix will be started and will use compression socks. If it's If it gets better patient will be started on oral Lasix and probably can be discharged tomorrow. -Generalized weakness and deconditioning we'll obtain PT and OT consultation. -Incidental finding of mediastinal lymphadenopathy: Will obtain pulmonology OP knee and patient will eventually will need biopsy which can be done as an outpatient. -Scrotal lesion patient was treated for epididymitis, I still have concern although low possibility of testicle or tumor. Because of the which I'm obtaining able to above-mentioned tumor markers and urology consultation is being obtained
[2018-02-13] MEDS ORDERED: NON-FORMULARY DRUG (Omega-3 Fatty Acids/Fish Oil [Fish Oil 1,000 Mg Softgel] 1 CAP) PO SCH (21:00)
[2018-02-13] MEDS: HEPARIN SODIUM,PORCINE 5,000 UNIT/ML 1 ML VIAL SQ SCH (22:09)
[2018-02-13] MEDS: FUROSEMIDE 10 MG/ML 4 ML VIAL IV SCH (22:09)
[2018-02-14 02:20] LABS: Appearance,Urine Clear (Clear); Bilirubin,Urine Negative (Negative); Blood,Urine Negative (Negative); Color,Urine Colorless; Glucose,Urine (UA) Negative (Negative); Ketones,Urine Negative (Negative); Leukocyte Esterase,Urine Negative (Negative); Nitrite,Urine Negative (Negative); Protein,Urine Negative (Negative); Specific Gravity,Urine 1.007 (1.001-1.035); Urobilinogen,Urine <2.0 mg/dL (<2.0)
--- NOTE | 2018-02-14 07:00 | P.GSCN ---
History of Present Illness Consult date: 02/14/18 History of present illness: This is a pleasant 77-year-old gentleman who came in the hospital for multiple reasons including a scrotal mass lower extremity edema shortness of breath and A. fib. I was asked to see the patient for the scrotal mass. He states that he has had a painless scrotal mass since November. He apparently had a scrotal ultrasound the results of which I am uncertain. He also has had a recurrent inguinal hernia that he thought has recurred. He has no nausea vomiting and weight loss. He has no other lumps that he can identify. He had a computed tomography scan of the chest that identified multiple lymph node enlargement. He has a mass in the chest. There is concern for either metastatic disease or adenopathy. He also apparently has a fair amount of retroperitoneal lymph nodes. His no problems urinating he has had no hematuria dysuria. Review of Systems - Cardiovascular Reports irregular heart beat - Respiratory Reports as per HPI, Reports dyspnea - Genitourinary Reports as per HPI Past Medical History Past Medical History: Atrial Fibrillation, Cancer, Syncope Additional Past Medical History / Comment(s): Squamous cell skin cancer removed from L arm. History of Any Multi-Drug Resistant Organisms: None Reported Past Surgical History: Hernia Repair Additional Past Surgical History / Comment(s): Pt states he has had 3 inguinal hernia repairs but does not recall laterality, skin cancer removed L arm. Past Anesthesia/Blood Transfusion Reactions: No Reported Reaction Smoking Status: Never smoker - Past Family History Father Family Medical History: CVA/TIA, Myocardial Infarction ([place]) Additional Family Medical History / Comment(s): Pt did not have much contact with his father for years but knows that his father had MIs and strokes. He at the age of 65yrs. Mother Family Medical History: No Reported History Additional Family Medical History / Comment(s): Mother was healthy and at the age of 86yrs. Medications and Allergies Home Medications Medication Instructions Recorded Confirmed Type Ascorbic Acid [Vitamin C] 500 mg PO DAILY 03/24/17 02/13/18 History Calcium/Magnesium/Zinc 1 tab PO DAILY 03/24/17 02/13/18 History [Awrohbd-Ubzduvecu-Qmuc Tablet] Glucosamine Sulfate 2,000 mg PO DAILY 03/24/17 02/13/18 History Multivitamins, Thera [Multivitamin 1 tab PO DAILY 03/24/17 02/13/18 History (formulary)] [place]-3 Fatty Acids/Fish Oil [Fish 1 cap PO BID 03/24/17 02/13/18 History Oil 1,000 mg Softgel] Potassium 99 mg PO DAILY 03/24/17 02/13/18 History Aspirin 81 mg PO DAILY #30 chewable 03/25/17 02/13/18 Rx Levofloxacin [Levaquin] 500 mg PO DAILY 02/13/18 02/13/18 History Allergies Allergy/AdvReac Type Severity Reaction Status Date / Time No Known Allergies Allergy Verified 02/13/18 11:03 Surgical - Exam Vital Signs Temp Pulse Resp BP Pulse Ox 98.3 F 78 16 104/71 98 02/13/18 11:00 02/13/18 11:00 02/13/18 11:00 02/13/18 11:00 02/13/18 11:00 - General well developed, well nourished, no distress - Eyes PERRL, normal ocular movement - ENT decreased hearing - Neck no masses, trachea midline - Respiratory normal expansion, normal respiratory effort - Cardiovascular Rhythm: irregularly irregular - Abdomen Abdomen: soft, non tender - Genitourinary The scrotum was normal. There is a mass effect in the right testicular region. It almost feels confluence to the epididymis. There is a very large lymph node in the external ring area. There is no hernia. There is no erythema or tenderness. This is all on the right side. The left side is normal. - Integumentary no rash, no growths - Neurologic normal coordination, normal sensation - Musculoskeletal normal posture - Psychiatric oriented to time, oriented to person, oriented to place, speech is normal, memory intact Results - Labs 02/13/18 11:27 02/13/18 11:27 Abnormal Lab Results - Last 24 Hours (Table) 02/13/18 02/13/18 02/13/18 Range/Units 11:27 11:27 11:27 WBC 3.2 L (3.8-10.6) k/uL RBC 3.99 L (4.30-5.90) m/uL Hct 38.5 L (39.0-53.0) % RDW 17.5 H (11.5-15.5) % Plt Count 122 L (150-450) k/uL D-Dimer (<0.60) mg/L FEU Sodium 135 L (137-145) mmol/L Chloride 97 L (98-107) mmol/L BUN 31 H (9-20) mg/dL Creatinine 1.45 H (0.66-1.25) mg/dL AST 102 H (17-59) U/L Lactate Dehydrogenase (313-618) U/L Total Creatine Kinase 31 L (55-170) U/L Total Protein 6.0 L (6.3-8.2) g/dL Albumin 3.4 L (3.5-5.0) g/dL 02/13/18 02/13/18 Range/Units 11:27 11:27 WBC (3.8-10.6) k/uL RBC (4.30-5.90) m/uL Hct (39.0-53.0) % RDW (11.5-15.5) % Plt Count (150-450) k/uL D-Dimer 17.09 H (<0.60) mg/L FEU Sodium (137-145) mmol/L Chloride (98-107) mmol/L BUN (9-20) mg/dL Creatinine (0.66-1.25) mg/dL AST (17-59) U/L Lactate Dehydrogenase 1455 H (313-618) U/L Total Creatine Kinase (55-170) U/L Total Protein (6.3-8.2) g/dL Albumin (3.5-5.0) g/dL Diabetes panel 02/13/18 Range/Units 11:27 Sodium 135 L (137-145) mmol/L Potassium 5.0 (3.5-5.1) mmol/L Chloride 97 L (98-107) mmol/L Carbon Dioxide 30 (22-30) mmol/L BUN 31 H (9-20) mg/dL Creatinine 1.45 H (0.66-1.25) mg/dL Glucose 89 (74-99) mg/dL Calcium 9.6 (8.4-10.2) mg/dL AST 102 H (17-59) U/L ALT 54 (21-72) U/L Alkaline Phosphatase 96 (38-126) U/L Total Protein 6.0 L (6.3-8.2) g/dL Albumin 3.4 L (3.5-5.0) g/dL Calcium panel 02/13/18 Range/Units 11:27 Calcium 9.6 (8.4-10.2) mg/dL Albumin 3.4 L (3.5-5.0) g/dL Pituitary panel 02/13/18 Range/Units 11:27 Sodium 135 L (137-145) mmol/L Potassium 5.0 (3.5-5.1) mmol/L Chloride 97 L (98-107) mmol/L Carbon Dioxide 30 (22-30) mmol/L BUN 31 H (9-20) mg/dL Creatinine 1.45 H (0.66-1.25) mg/dL Glucose 89 (74-99) mg/dL Calcium 9.6 (8.4-10.2) mg/dL Adrenal panel 02/13/18 Range/Units 11:27 Sodium 135 L (137-145) mmol/L Potassium 5.0 (3.5-5.1) mmol/L Chloride 97 L (98-107) mmol/L Carbon Dioxide 30 (22-30) mmol/L BUN 31 H (9-20) mg/dL Creatinine 1.45 H (0.66-1.25) mg/dL Glucose 89 (74-99) mg/dL Calcium 9.6 (8.4-10.2) mg/dL Total Bilirubin 1.0 (0.2-1.3) mg/dL AST 102 H (17-59) U/L ALT 54 (21-72) U/L Alkaline Phosphatase 96 (38-126) U/L Total Protein 6.0 L (6.3-8.2) g/dL Albumin 3.4 L (3.5-5.0) g/dL - Imaging CT scan - chest: report reviewed US - pelvic: report reviewed, image reviewed Assessment and Plan Assessment: Impression: Right testicular mass. Right inguinal adenopathy. Chest and retroperitoneal adenopathy. Lower extremity edema. Shortness of breath. Cardiac arrhythmia. Recommendations: Testicular cancer markers have been obtained a. Primary testicular cancer, non-seminoma or seminoma in this age group is extremely rare. Lymphoma or spermato cystic seminoma are more probable. Records are going to be negative most likely. Testicular cancer does not spread to the inguinal region. This pattern is more consistent with a lymphoma however. I will discuss with oncology and further decisions as to how to handle the testis will be made. Most likely a biopsy the groin would be the most effective in trying to determine the pathology of this.
[2018-02-14] MEDS: ASCORBIC ACID 500 MG TAB PO SCH (08:00)
[2018-02-14] MEDS: CALCIUM CARB-MAG CARB-FOLIC 1 EACH TAB PO SCH (08:00)
[2018-02-14] MEDS: ASPIRIN 81 MG PO SCH (08:00)
[2018-02-14 08:01] LABS: Calcium 9.2 mg/dL (8.4-10.2); Potassium 4.1 mmol/L (3.5-5.1)
[2018-02-14] MEDS: FUROSEMIDE 10 MG/ML 4 ML VIAL IV SCH (08:01)
[2018-02-14] MEDS: HEPARIN SODIUM,PORCINE 5,000 UNIT/ML 1 ML VIAL SQ SCH ×2 (08:01→21:00)
[2018-02-14] MEDS ORDERED: LEVOFLOXACIN 500 MG TAB PO SCH (09:00)
[2018-02-14] MEDS ORDERED: NON-FORMULARY DRUG (Potassium [Potassium] 99 MG) PO SCH (09:00)
[2018-02-14] MEDS ORDERED: NON-FORMULARY DRUG (Glucosamine Sulfate 2,000 MG) PO SCH (09:00)
[2018-02-14 10:16] VITALS: BMI 22.4
--- NOTE | 2018-02-14 10:20 | P.PN ---
Subjective 77-year-old gentleman was admitted Secondary to bilateral pedal edema which may be related to chronic venous insufficiency. Patient was given Lasix with minimal worsening in creatinine because of which Lasix will be discussed in your patient will be discharged on Lasix tomorrow on as-needed basis will use compression socks for now. Patient does not appear to have cardiac renal or liver disease. Patient has Rajinder lymphadenopathy along with an inguinal lymph node and testicular mass which is also probably lymph node and the patient will need a biopsy. Discuss with surgery patient the will get excisional biopsy tomorrow after that patient will be discharged to follow with oncology as an outpatient and most probably diagnosis is lymphoma. We'll get a digoxin will ablate the patient make sure patient is strong enough to be discharged by tomorrow. The tumor markers AFP carcinogenic antigen are negative LDH is elevated but it's a nonspecific test Constitutional: Denied any fatigue denied any fever. Cardio vascular: denied any chest pain, palpitations Gastrointestinal denied any nausea vomiting Pulmonary: Denied any shortness of breath cough Neurologic denied any new focal deficits Objective - Vital Signs Vital signs: Vital Signs Temp 97.5 F L 02/14/18 06:33 Pulse 77 02/14/18 06:33 Resp 16 02/14/18 06:33 BP 101/65 02/14/18 06:33 Pulse Ox 99 02/14/18 09:24 Intake & Output 02/13/18 02/14/18 02/14/18 18:59 06:59 18:59 Intake Total 590 Balance 590 Weight 74.843 kg 74.843 kg Intake: Oral 590 Other: Voiding Method Toilet Toilet Toilet Urinal Urinal Urinal # Voids 2 - Exam PHYSICAL EXAMINATION: GENERAL: The patient is alert and oriented x3, not in any acute distress. Well developed, well nourished. HEENT: Pupils are round and equally reacting to light. EOMI. No scleral icterus. No conjunctival pallor. Normocephalic, atraumatic. No pharyngeal erythema. No thyromegaly. CARDIOVASCULAR: S1 and S2 present. No murmurs, rubs, or gallops. PULMONARY: Chest is clear to auscultation, no wheezing or crackles. ABDOMEN: Soft, nontender, nondistended, normoactive bowel sounds. No palpable organomegaly. MUSCULOSKELETAL: No joint swelling or deformity. EXTREMITIES: No cyanosis, clubbing, still has some pedal edema and improvement of Lasix. NEUROLOGICAL: Gross neurological examination did not reveal any focal deficits. SKIN: No rashes. - Labs CBC & Chem 7: 02/13/18 11:27 02/14/18 06:55 Labs: Abnormal Lab Results - Last 24 Hours (Table) 02/13/18 02/13/18 02/13/18 Range/Units 11:27 11:27 11:27 WBC 3.2 L (3.8-10.6) k/uL RBC 3.99 L (4.30-5.90) m/uL Hct 38.5 L (39.0-53.0) % RDW 17.5 H (11.5-15.5) % Plt Count 122 L (150-450) k/uL D-Dimer (<0.60) mg/L FEU Sodium 135 L (137-145) mmol/L Chloride 97 L (98-107) mmol/L Carbon Dioxide (22-30) mmol/L BUN 31 H (9-20) mg/dL Creatinine 1.45 H (0.66-1.25) mg/dL AST 102 H (17-59) U/L Lactate Dehydrogenase (313-618) U/L Total Creatine Kinase 31 L (55-170) U/L Total Protein 6.0 L (6.3-8.2) g/dL Albumin 3.4 L (3.5-5.0) g/dL 02/13/18 02/13/18 02/14/18 Range/Units 11:27 11:27 06:55 WBC (3.8-10.6) k/uL RBC (4.30-5.90) m/uL Hct (39.0-53.0) % RDW (11.5-15.5) % Plt Count (150-450) k/uL D-Dimer 17.09 H (<0.60) mg/L FEU Sodium (137-145) mmol/L Chloride 96 L (98-107) mmol/L Carbon Dioxide 33 H (22-30) mmol/L BUN 29 H (9-20) mg/dL Creatinine 1.52 H (0.66-1.25) mg/dL AST (17-59) U/L Lactate Dehydrogenase 1455 H (313-618) U/L Total Creatine Kinase (55-170) U/L Total Protein (6.3-8.2) g/dL Albumin (3.5-5.0) g/dL Assessment and Plan Plan: -Bilateral pedal edema: Secondary to chronic venous insufficiency ruled out, cardiac, nephrotic and hepatic causes. -Acute renal failure: May have chronic kidney disease stage III mild worsening of creatinine secondary to diuretic therapy which will be held Will use compression socks breath or pedal edema -Generalized weakness and deconditioning we'll obtain PT and OT consultation. -Incidental finding of mediastinal lymphadenopathy: Excisional biopsy by surgery for the inguinal node -Scrotal lesion patient was treated for epididymitis, probably lymphoma lesion tumor markers for testicular cancer are negative except for LDH which is a nonspecific test for that, was evaluated by urology and oncology
--- NOTE | 2018-02-14 11:14 | P.CNPUL ---
History of Present Illness Consult date: 02/14/18 Reason for consult: dyspnea, lung mass, abnormal CXR/CT, other Chief complaint: Diffuse adenopathy History of present illness: Primary consult dated 02/14/2018 This is a 77-year-old male with a history of skin cancer was healthy up until about 1 year ago which time he started developing some lower extremity edema and some shortness of breath. The patient typically gets his medical care at the [facility] and sees a nurse practitioner there but name of Lurdes Pleitez. He also sees a PA there but name of Dr. Emanuel. Anyway, he comes in with complaints of shortness of breath mostly on exertion. He also has lower extremity edema. He had a chest x-ray and CAT scan was suggested diffuse thoracic adenopathy possibly consistent with either metastatic disease or lymphoma. He also has a history of atrial fibrillation. Anyway, the patient will need a biopsy. He does have some peripheral adenopathy is well prickly involving the right groin area. The patient will likely have the biopsy done tomorrow and be discharged home. His medical problem list includes atrial fibrillation squamous cell cancer of the skin and a history of previous hernia repair. He was seen by urology and his can have an inguinal lymph node biopsy done tomorrow by Dr. Jesus in the right inguinal area. Review of Systems A 12 point review of system is positive for lower extremity edema as well as shortness of breath typically on exertion. He is feeling a bit better today but not certainly back to baseline. 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 History of Any Multi-Drug Resistant Organisms: None Reported Past Surgical History: Hernia Repair Additional Past Surgical History / Comment(s): Pt states he has had 3 inguinal hernia repairs but does not recall laterality, skin cancer removed L arm. Past Anesthesia/Blood Transfusion Reactions: No Reported Reaction Smoking Status: Never smoker - Past Family History Father Family Medical History: CVA/TIA, Myocardial Infarction ([place]) Additional Family Medical History / Comment(s): Pt did not have much contact with his father for years but knows that his father had MIs and strokes. He at the age of 65yrs. Mother Family Medical History: No Reported History Additional Family Medical History / Comment(s): Mother was healthy and at the age of 86yrs. Medications and Allergies Home Medications Medication Instructions Recorded Confirmed Type Ascorbic Acid [Vitamin C] 500 mg PO DAILY 03/24/17 02/13/18 History Calcium/Magnesium/Zinc 1 tab PO DAILY 03/24/17 02/13/18 History [Adacvdi-Hdqfbxtin-Rbtd Tablet] Glucosamine Sulfate 2,000 mg PO DAILY 03/24/17 02/13/18 History Multivitamins, Thera [Multivitamin 1 tab PO DAILY 03/24/17 02/13/18 History (formulary)] [place]-3 Fatty Acids/Fish Oil [Fish 1 cap PO BID 03/24/17 02/13/18 History Oil 1,000 mg Softgel] Potassium 99 mg PO DAILY 03/24/17 02/13/18 History Aspirin 81 mg PO DAILY #30 chewable 03/25/17 02/13/18 Rx Levofloxacin [Levaquin] 500 mg PO DAILY 02/13/18 02/13/18 History Allergies Allergy/AdvReac Type Severity Reaction Status Date / Time No Known Allergies Allergy Verified 02/13/18 11:03 Physical Exam Osteopathic Statement: *. No significant issues noted on an osteopathic structural exam other than those noted in the History and Physical/Consult. Vitals: Vital Signs Temp Pulse Pulse Resp BP BP Pulse Ox 02/14/18 10:30 95 02/14/18 09:24 02/14/18 06:33 97.5 F L 77 16 101/65 100 02/13/18 23:00 16 02/13/18 16:58 98 F 85 16 129/81 96 02/13/18 15:56 98.1 F 89 18 115/75 96 02/13/18 15:01 81 18 112/74 95 02/13/18 13:49 85 18 117/74 97 02/13/18 12:53 86 18 117/75 98 02/13/18 12:27 87 18 124/79 97 02/13/18 11:46 84 02/13/18 11:37 82 Pulse Ox Pulse Ox 02/14/18 10:30 02/14/18 09:24 99 98 02/14/18 06:33 02/13/18 23:00 02/13/18 16:58 02/13/18 15:56 02/13/18 15:01 02/13/18 13:49 02/13/18 12:53 02/13/18 12:27 02/13/18 11:46 02/13/18 11:37 Intake and Output 02/13/18 02/14/18 02/14/18 22:59 06:59 14:59 Intake Total 590 Balance 590 Intake: Oral 590 Other: Voiding Method Toilet Toilet Toilet Urinal Urinal Urinal # Voids 2 2 Weight 74.843 kg No acute distress, oriented 3. HEENT examination is grossly unremarkable. Mucous membranes are moist. No oral lesions. Neck supple. Full range of motion. No adenopathy thyromegaly or neck vein distention. Cardiovascular examination reveals regular rhythm rate. S1-S2 normal. No S3 or S4. No discernible murmur noted. Lungs reveal clear breath sounds. Her sounds are equal bilaterally. No adventitious lung sounds including wheezes rhonchi or crackles. Abdomen soft bowel sounds are heard. No masses or tenderness. The patient has a very large abnormality in the right inguinal area. It appears to be a lymph node. It is very firm to touch. He does not have anything in the left inguinal area. Extremities are intact. No cyanosis or clubbing. There is 1+ pitting edema noted bilaterally. Skin is without rash or lesion. Neurologic examination is brief but nonfocal. Results - Laboratory Findings CBC and BMP: 02/13/18 11:27 02/14/18 06:55 PT/INR, D-dimer PT 10.9 sec (9.0-12.0) 02/13/18 11:27 INR 1.1 (<1.2) 02/13/18 11:27 D-Dimer 17.09 mg/L FEU (<0.60) H 02/13/18 11:27 Abnormal lab findings: Abnormal Labs 02/13/18 02/13/18 02/13/18 11:27 11:27 11:27 WBC 3.2 L RBC 3.99 L Hct 38.5 L RDW 17.5 H Plt Count 122 L D-Dimer Sodium 135 L Chloride 97 L Carbon Dioxide BUN 31 H Creatinine 1.45 H AST 102 H Lactate Dehydrogenase Total Creatine Kinase 31 L Total Protein 6.0 L Albumin 3.4 L 02/13/18 02/13/18 02/14/18 11:27 11:27 06:55 WBC RBC Hct RDW Plt Count D-Dimer 17.09 H Sodium Chloride 96 L Carbon Dioxide 33 H BUN 29 H Creatinine 1.52 H AST Lactate Dehydrogenase 1455 H Total Creatine Kinase Total Protein Albumin - Diagnostic Findings Chest x-ray: report reviewed, image reviewed CT scan - chest: report reviewed, image reviewed (Chest x-ray labs and CAT scans and medications are reviewed.) Assessment and Plan Assessment: Assessment Diffuse thoracic adenopathy, likely most consistent with lymphoma although metastatic cancer cannot be excluded. Right inguinal adenopathy, to be biopsied tomorrow by urology Lower extremity edema possibly related to lymphatic obstruction Shortness of breath, secondary to obstruction of the airways by enlarged lymph nodes History of atrial fibrillation Plan: Plan dated 02/14/2018 Currently the patient seems relatively comfortable. We'll await the biopsy tomorrow. No additional recommendations are made. The biopsy to be done by urology in the right inguinal area. We'll continue to follow. The patient should be seen by oncology. Additional recommendations and suggestions are forthcoming. Time with Patient: Greater than 30
[2018-02-14 12:55] LABS: Phosphorus 4.8 mg/dL (2.5-4.5); Uric Acid 7.2 mg/dL (3.5-8.5)
[2018-02-14] MEDS: MULTIVITAMINS, THERA 1 EACH TAB PO SCH (13:21)
--- NOTE | 2018-02-14 14:08 | P.GSCN ---
History of Present Illness Consult date: 02/14/18 Reason for Consult: Inguinal adenopathy History of present illness: 77-year-old male presents to the hospital complaining of bilateral lower extremity swelling as well as shortness of breath. Patient is being followed for a mass in the right groin. Apparently he has an outpatient CAT scan ordered. CAT scan of the chest performed here shows extensive mediastinal adenopathy. Patient was seen on consultation by urology. Consideration for biopsy of the groin mass was advised. Patient also has retroperitoneal adenopathy. No significant weight loss. He has had a few episodes of night sweats. Appetite is slightly diminished. Review of Systems The patient denies any acute changes in vision or hearing, no dysphagia or odynophagia, no chest pain, no dysuria or hematuria, no headache, no runny nose , no rectal bleeding or melena, no unexplained weight loss Past Medical History Past Medical History: Atrial Fibrillation, Cancer, Syncope Additional Past Medical History / Comment(s): Squamous cell skin cancer removed from L arm. History of Any Multi-Drug Resistant Organisms: None Reported Past Surgical History: Hernia Repair Additional Past Surgical History / Comment(s): Pt states he has had 3 inguinal hernia repairs but does not recall laterality, skin cancer removed L arm. Past Anesthesia/Blood Transfusion Reactions: No Reported Reaction Smoking Status: Never smoker - Past Family History Father Family Medical History: CVA/TIA, Myocardial Infarction ([place]) Additional Family Medical History / Comment(s): Pt did not have much contact with his father for years but knows that his father had MIs and strokes. He at the age of 65yrs. Mother Family Medical History: No Reported History Additional Family Medical History / Comment(s): Mother was healthy and at the age of 86yrs. Medications and Allergies Home Medications Medication Instructions Recorded Confirmed Type Ascorbic Acid [Vitamin C] 500 mg PO DAILY 03/24/17 02/13/18 History Calcium/Magnesium/Zinc 1 tab PO DAILY 03/24/17 02/13/18 History [Nsoflqy-Kfjphxsrj-Mcvm Tablet] Glucosamine Sulfate 2,000 mg PO DAILY 03/24/17 02/13/18 History Multivitamins, Thera [Multivitamin 1 tab PO DAILY 03/24/17 02/13/18 History (formulary)] [place]-3 Fatty Acids/Fish Oil [Fish 1 cap PO BID 03/24/17 02/13/18 History Oil 1,000 mg Softgel] Potassium 99 mg PO DAILY 03/24/17 02/13/18 History Aspirin 81 mg PO DAILY #30 chewable 03/25/17 02/13/18 Rx Levofloxacin [Levaquin] 500 mg PO DAILY 02/13/18 02/13/18 History Allergies Allergy/AdvReac Type Severity Reaction Status Date / Time No Known Allergies Allergy Verified 02/13/18 11:03 Surgical - Exam Vital Signs Temp Pulse Resp BP Pulse Ox 98.3 F 78 16 104/71 98 02/13/18 11:00 02/13/18 11:00 02/13/18 11:00 02/13/18 11:00 02/13/18 11:00 Physical exam: General: Elderly somewhat malnourished-appearing male in no distress HEENT: Normocephalic, sclerae nonicteric Abdomen: Nontender, nondistended, right groin mass noted elongated seems to be involving the inguinal canal, nontender, quite firm, right testicular swelling also noted which is minimally tender Extremities: Mild edema Neuro: Alert and oriented Results - Labs 02/13/18 11:27 02/14/18 06:55 Abnormal Lab Results - Last 24 Hours (Table) 02/13/18 02/14/18 02/14/18 Range/Units 11:27 06:55 06:55 Chloride 96 L (98-107) mmol/L Carbon Dioxide 33 H (22-30) mmol/L BUN 29 H (9-20) mg/dL Creatinine 1.52 H (0.66-1.25) mg/dL Phosphorus 4.8 H (2.5-4.5) mg/dL Lactate Dehydrogenase 1455 H (313-618) U/L Diabetes panel 02/14/18 Range/Units 06:55 Sodium 137 (137-145) mmol/L Potassium 4.1 (3.5-5.1) mmol/L Chloride 96 L (98-107) mmol/L Carbon Dioxide 33 H (22-30) mmol/L BUN 29 H (9-20) mg/dL Creatinine 1.52 H (0.66-1.25) mg/dL Glucose 85 (74-99) mg/dL Calcium 9.2 (8.4-10.2) mg/dL Calcium panel 02/14/18 02/14/18 Range/Units 06:55 06:55 Calcium 9.2 (8.4-10.2) mg/dL Phosphorus 4.8 H (2.5-4.5) mg/dL Pituitary panel 02/14/18 Range/Units 06:55 Sodium 137 (137-145) mmol/L Potassium 4.1 (3.5-5.1) mmol/L Chloride 96 L (98-107) mmol/L Carbon Dioxide 33 H (22-30) mmol/L BUN 29 H (9-20) mg/dL Creatinine 1.52 H (0.66-1.25) mg/dL Glucose 85 (74-99) mg/dL Calcium 9.2 (8.4-10.2) mg/dL Adrenal panel 02/14/18 Range/Units 06:55 Sodium 137 (137-145) mmol/L Potassium 4.1 (3.5-5.1) mmol/L Chloride 96 L (98-107) mmol/L Carbon Dioxide 33 H (22-30) mmol/L BUN 29 H (9-20) mg/dL Creatinine 1.52 H (0.66-1.25) mg/dL Glucose 85 (74-99) mg/dL Calcium 9.2 (8.4-10.2) mg/dL Assessment and Plan Assessment: Will order CT of the groin at this time. We'll discuss with interventional radiology regarding percutaneous biopsy.
--- NOTE | 2018-02-14 14:09 | P.CONS ---
History of Present Illness - Reason for Consult Consult date: 02/14/18 Mediastinal Lymphadenopathy/?Malignancy Requesting physician: Vini Landers - Chief Complaint Shortness of Breath and Weakness - History of Present Illness Mr Quevedo is a 77 year old male patient who originally presented to [facility] with complains of increasing shortness of breath and bilateral lower extremity swelling. He states he was having increasing weakness and fatigue as well, which persisted and progressed over the past few days. Three weeks he noticed his right testicle was increased in size and he was evaluated by PCP, he completed a 10 day course of antibiotics with no change, therefore an Ultrasound was ordered and completed on 02/02/18. Scrotal Ultrasound with Doppler revealed large right inguinal mass extending to the right testes: 3.2X6.1X2.6cm. During initial evaluation at [facility] a CTA was performed and revealed extensive mediastinal adenopathy with associated mass-effect on the left atrium as well as pulmonary veins, some encasement in the pulmonary arterieries and superior mediastinal adenopathy partially encases thoracic mass effect causing narrowing of the SVC. Largest retrocaval pretrachael node identified at 3cm. Confluenent soft tissue mass in mediastinum measures approx [id number]. During evaluation today he does not have any symptoms associated with a superior vena cava syndrome. No chest pressure. No noted swelling in neck or face. No significant cough, No JVD, No changes in Voice (i.e. hoarseness). He has a known history of squamous cell carcinoma of the skin (left arm) that had been removed. He has a penitentiary history of heavy, daily alcohol use, admits to greater than 30 years. Patient states he quit drinking alcohol greater than 15 years ago. He denies tobacco or illicit drug use. He has had hernia repair x3. WBC = 3.2, Hgb/Hct - 13/38.5, Platelet = 122, CO2 = 33 BUN = 29, Creat = 1.52 (Incr from 02/13/18 1.45) AST = 106, LDH = 1455 Review of Systems A 14 point review of systems assessed and completed and all negative except HPI. 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 History of Any Multi-Drug Resistant Organisms: None Reported Past Surgical History: Hernia Repair Additional Past Surgical History / Comment(s): Pt states he has had 3 inguinal hernia repairs but does not recall laterality, skin cancer removed L arm. Past Anesthesia/Blood Transfusion Reactions: No Reported Reaction Smoking Status: Never smoker - Past Family History Father Family Medical History: CVA/TIA, Myocardial Infarction ([place]) Additional Family Medical History / Comment(s): Pt did not have much contact with his father for years but knows that his father had MIs and strokes. He at the age of 65yrs. Mother Family Medical History: No Reported History Additional Family Medical History / Comment(s): Mother was healthy and at the age of 86yrs. Medications and Allergies Home Medications Medication Instructions Recorded Confirmed Type Ascorbic Acid [Vitamin C] 500 mg PO DAILY 03/24/17 02/13/18 History Calcium/Magnesium/Zinc 1 tab PO DAILY 03/24/17 02/13/18 History [Iqfztvz-Rlkjflwfb-Ozxw Tablet] Glucosamine Sulfate 2,000 mg PO DAILY 03/24/17 02/13/18 History Multivitamins, Thera [Multivitamin 1 tab PO DAILY 03/24/17 02/13/18 History (formulary)] [place]-3 Fatty Acids/Fish Oil [Fish 1 cap PO BID 03/24/17 02/13/18 History Oil 1,000 mg Softgel] Potassium 99 mg PO DAILY 03/24/17 02/13/18 History Aspirin 81 mg PO DAILY #30 chewable 03/25/17 02/13/18 Rx Levofloxacin [Levaquin] 500 mg PO DAILY 02/13/18 02/13/18 History Allergies Allergy/AdvReac Type Severity Reaction Status Date / Time No Known Allergies Allergy Verified 02/13/18 11:03 Physical Exam Vitals: Vital Signs Temp Pulse Pulse Resp BP BP Pulse Ox 02/14/18 10:30 95 02/14/18 09:24 02/14/18 06:33 97.5 F L 77 16 101/65 100 02/13/18 23:00 16 02/13/18 16:58 98 F 85 16 129/81 96 02/13/18 15:56 98.1 F 89 18 115/75 96 02/13/18 15:01 81 18 112/74 95 02/13/18 13:49 85 18 117/74 97 02/13/18 12:53 86 18 117/75 98 02/13/18 12:27 87 18 124/79 97 Pulse Ox Pulse Ox 02/14/18 10:30 02/14/18 09:24 99 98 02/14/18 06:33 02/13/18 23:00 02/13/18 16:58 02/13/18 15:56 02/13/18 15:01 02/13/18 13:49 02/13/18 12:53 02/13/18 12:27 Intake and Output 02/13/18 02/14/18 02/14/18 22:59 06:59 14:59 Intake Total 590 Balance 590 Intake: Oral 590 Other: Voiding Method Toilet Toilet Toilet Urinal Urinal Urinal # Voids 2 2 Weight 74.843 kg - Constitutional General appearance: average body habitus, cooperative, no acute distress - EENT Eyes: EOMI, dentition normal ENT: NA/AT - Neck Supple, No JVD Neck: lymphadenopathy - Respiratory Respiratory: bilateral: diminished (Bilateral Bases), wheezing (Scattered expiratory wheezes) - Cardiovascular Heart rate: 104 Rhythm: regular leg Peripheral Edema: bilateral: 1+ - Gastrointestinal General gastrointestinal: normal bowel sounds, soft, tenderness - Genitourinary Approx 4-5cm Right Testicular palpable mass with right inguinal fullness on exam Male genitourinary: right inguinal lymphadenopathy - Integumentary Integumentary: pale - Neurologic No focal Defects Neurologic: CNII-XII intact - Musculoskeletal Musculoskeletal: generalized weakness, strength equal bilaterally - Psychiatric Psychiatric: A&O x's 3, appropriate affect, intact judgment & insight Results CBC & Chem 7: 02/13/18 11:27 02/14/18 06:55 Labs: Abnormal Lab Results - Last 24 Hours (Table) 02/13/18 02/13/18 02/13/18 Range/Units 11:27 11:27 11:27 D-Dimer 17.09 H (<0.60) mg/L FEU Sodium 135 L (137-145) mmol/L Chloride 97 L (98-107) mmol/L Carbon Dioxide (22-30) mmol/L BUN 31 H (9-20) mg/dL Creatinine 1.45 H (0.66-1.25) mg/dL AST 102 H (17-59) U/L Lactate Dehydrogenase (313-618) U/L Total Creatine Kinase 31 L (55-170) U/L Total Protein 6.0 L (6.3-8.2) g/dL Albumin 3.4 L (3.5-5.0) g/dL 02/13/18 02/14/18 Range/Units 11:27 06:55 D-Dimer (<0.60) mg/L FEU Sodium (137-145) mmol/L Chloride 96 L (98-107) mmol/L Carbon Dioxide 33 H (22-30) mmol/L BUN 29 H (9-20) mg/dL Creatinine 1.52 H (0.66-1.25) mg/dL AST (17-59) U/L Lactate Dehydrogenase 1455 H (313-618) U/L Total Creatine Kinase (55-170) U/L Total Protein (6.3-8.2) g/dL Albumin (3.5-5.0) g/dL CT scan - chest: report reviewed Assessment and Plan Plan: Assessment and Recommendations: 1. Massive Mediastinal Lymphadenopathy with concern of encasement of the pulmonary arteries and partial encasement of thoracic aorta with mass effect narrowing of SVC. - Found on CTA Chest concern for malignant picture, likely differential Lymphoma - LDH Elevated 1455, Check Uric acid and Phosphorus for Tumor Lysis - Surgical Consult for Lymph Node Biopsy will be needed as well as full diagnostic imaging. - If lymphoma is determined a PET scan will be needed for initial staging, this can be completed as outpatient as renal function is not ideal for CT scan of abdomen and pelvis at this time 2. Mild Leukopenia - Monitor CBC 3. Mild Thrombocytopenia - Patient has a long winder tender history of alcohol abuse ( quit 15 years ago), if he is not discharged today please recheck CBC and CMP ( for re-evaluation of liver function) today or in am. 4. Acute Renal Insufficiency - Not Improving (Baseline in 03/2017 creat 0.9) - Await Uric acid and Phosphorus Today 5. Right Inguinal Vascular Mass Extending to the Right Testes - - Uncommon presentation and candidate for testicular malignancy diagnosis - AFP and Beta HCG Pending. Again unlikely picture of testicular cancer. - Urology is following. 6. Increased AST - Please recheck Liver function in am if patient is not discharged today. 7. Bilateral Lower Extremity Edema - Appears to have improved since admission - Recommend a lower extremity doppler if edema worsens as in a picture of probable malignant etiology a risk for increased hypercoagulable state.
--- NOTE | 2018-02-14 17:20 | CT ---
EXAMINATION TYPE: CT pelvis w con DATE OF EXAM: 02/14/2018 COMPARISON: NONE HISTORY: Lower pelvic pain/mass. Lymphoma. CT DLP: 920 mGycm Automated exposure control for dose reduction was used. CONTRAST: Performed with IV Contrast, patient injected with 80 mL of Isovue 300. FINDINGS: Multiple axial sections were obtained from the mid kidneys to the floor the pelvis with intravenous c ontrast. There is a large retroperitoneal mass extending from the level of the right kidney into the scrotum. This measures 8 x 5 cm in transverse dimension. There is a large mass involving the right hemiscrotum that measures 8.5 x 4.7 cm. This is contiguous with the retroperitoneal right-sided mass. The mass i s encasing the inferior vena cava. Inferior vena cava is not obstructed. There is right-sided hydronephrosis and proximal hydroureter. Right ureter appears to be obstructed d ue to the retroperitoneal mass at the level of the upper sacroiliac joint. There is no ascites. Left kidney shows no evidence of obstruction. There is no renal atrophy. There i s no evidence of a bowel obstruction. There is some free fluid in the cul-de-sac. Bladder is distends smoothly. I see no intestinal wall thickening. There is no evidence of a bony destructive process. T here are spondylotic changes in the lower lumbar spine. Abdominal aorta is atheromatous. Inguinal lym ph nodes do not appear enlarged. IMPRESSION: LARGE RETROPERITONEAL MASS EXTENDS FROM THE RIGHT KIDNEY INTO THE SCROTUM. CONSIDER POSSIBILITIES OF LYMPHOMA AND TESTICULAR TUMOR. MILD FREE FLUID IN THE ABDOMEN. THERE IS MODERATE OBSTRUCTION OF THE R IGHT KIDNEY DUE TO THE MASS.
[2018-02-15 06:10] VITALS: BP 99/68; PULSE 75; TEMP 97.3
[2018-02-15 07:17] LABS: Anisocytosis Slight; Basophils % (A) 0 %; Eosinophils # (A) 0.1 k/uL (0-0.7); Eosinophils % (A) 1 %; HCT 36.4 % (39.0-53.0); HGB 12.3 gm/dL (13.0-17.5); Lymphocytes # (A) 1.4 k/uL (1.0-4.8); Lymphocytes % (A) 38 %; MCH 32.1 pg (25.0-35.0); MCHC 33.9 g/dL (31.0-37.0); MCV 94.7 fL (80.0-100.0); Mean Platelet Volume 7.5; Monocytes # (A) 0.2 k/uL (0-1.0); Monocytes % (A) 5 %; Neutrophils # (A) 1.9 k/uL (1.3-7.7); Neutrophils % (A) 53 %; Platelet Count 124 k/uL (150-450); RBC 3.84 m/uL (4.30-5.90); RDW 17.1 % (11.5-15.5); WBC 3.7 k/uL (3.8-10.6)
[2018-02-15 07:26] LABS: Calcium 9.1 mg/dL (8.4-10.2)
[2018-02-15] MEDS: CALCIUM CARB-MAG CARB-FOLIC 1 EACH TAB PO SCH (08:18)
[2018-02-15] MEDS: HEPARIN SODIUM,PORCINE 5,000 UNIT/ML 1 ML VIAL SQ SCH (08:18)
[2018-02-15] MEDS: ASPIRIN 81 MG PO SCH (08:18)
[2018-02-15] MEDS: ASCORBIC ACID 500 MG TAB PO SCH (09:10)
--- NOTE | 2018-02-15 09:10 | P.PN ---
Subjective Progress Note Date: 02/15/18 Principal diagnosis: Right groin mass Patient feels tired today. Mild shortness of breath. No pain. Objective - Vital Signs Vital signs: Vital Signs Temp 97.3 F L 02/15/18 05:00 Pulse 75 02/15/18 05:00 Resp 16 02/15/18 05:00 BP 99/68 02/15/18 05:00 Pulse Ox 98 02/15/18 05:00 Intake & Output 02/14/18 02/15/18 02/15/18 18:59 06:59 18:59 Intake Total 680 600 235 Balance 680 600 235 Weight 74.843 kg 74.843 kg Intake: Oral 680 600 235 Other: Voiding Method Toilet Toilet # Voids 3 2 - Exam Right groin mass unchanged. Minimal tenderness - Labs CBC & Chem 7: 02/15/18 06:52 02/15/18 06:52 Labs: Abnormal Lab Results - Last 24 Hours (Table) 02/14/18 02/15/18 02/15/18 Range/Units 06:55 06:52 06:52 WBC 3.7 L (3.8-10.6) k/uL RBC 3.84 L (4.30-5.90) m/uL Hgb 12.3 L (13.0-17.5) gm/dL Hct 36.4 L (39.0-53.0) % RDW 17.1 H (11.5-15.5) % Plt Count 124 L (150-450) k/uL Sodium 136 L (137-145) mmol/L Chloride 97 L (98-107) mmol/L Carbon Dioxide 32 H (22-30) mmol/L BUN 40 H (9-20) mg/dL Creatinine 1.53 H (0.66-1.25) mg/dL Glucose 102 H (74-99) mg/dL Phosphorus 4.8 H (2.5-4.5) mg/dL AST 103 H (17-59) U/L Assessment and Plan (1) Right groin mass Narrative/Plan: Patient I discussed the CAT scan findings. We'll consult radiology for core biopsy right groin mass Current Visit: Yes Status: Acute Code(s): R19.09 - OTHER INTRA-ABDOMINAL AND PELVIC SWELLING, MASS AND LUMP SNOMED Code(s): 387682339
--- NOTE | 2018-02-15 10:31 | P.PN ---
Subjective Progress Note Date: 02/15/18 Principal diagnosis: Diffuse adenopathy Patient is seen today 02/15/2018 in follow-up on the oncology unit. He remains awake and alert in no acute distress. He is maintaining good O2 saturations in the 90s on 1 L/m per nasal cannula. He had been seen and evaluated by surgical services. They'll be speaking with radiology for a core biopsy of the right coronary mass. White count 3.7. Hemoglobin 12.3. Creatinine 1.53. Objective - Vital Signs Vital signs: Vital Signs Temp 97.3 F L 02/15/18 05:00 Pulse 75 02/15/18 05:00 Resp 16 02/15/18 05:00 BP 99/68 02/15/18 05:00 Pulse Ox 98 02/15/18 05:00 Intake & Output 02/14/18 02/15/18 02/15/18 18:59 06:59 18:59 Intake Total 680 600 235 Balance 680 600 235 Weight 74.843 kg 74.843 kg Intake: Oral 680 600 235 Other: Voiding Method Toilet Toilet # Voids 3 2 - Exam No acute distress, oriented 3. HEENT examination is grossly unremarkable. Mucous membranes are moist. No oral lesions. Neck supple. Full range of motion. No adenopathy thyromegaly or neck vein distention. Cardiovascular examination reveals regular rhythm rate. S1-S2 normal. No S3 or S4. No discernible murmur noted. Lungs reveal clear breath sounds. Her sounds are equal bilaterally. No adventitious lung sounds including wheezes rhonchi or crackles. Abdomen soft bowel sounds are heard. No masses or tenderness. The patient has a very large abnormality in the right inguinal area. It appears to be a lymph node. It is very firm to touch. He does not have anything in the left inguinal area. Extremities are intact. No cyanosis or clubbing. There is 1+ pitting edema noted bilaterally. Skin is without rash or lesion. Neurologic examination is brief but nonfocal. - Labs CBC & Chem 7: 02/15/18 06:52 02/15/18 06:52 Labs: Abnormal Lab Results - Last 24 Hours (Table) 02/14/18 02/15/18 02/15/18 Range/Units 06:55 06:52 06:52 WBC 3.7 L (3.8-10.6) k/uL RBC 3.84 L (4.30-5.90) m/uL Hgb 12.3 L (13.0-17.5) gm/dL Hct 36.4 L (39.0-53.0) % RDW 17.1 H (11.5-15.5) % Plt Count 124 L (150-450) k/uL Sodium 136 L (137-145) mmol/L Chloride 97 L (98-107) mmol/L Carbon Dioxide 32 H (22-30) mmol/L BUN 40 H (9-20) mg/dL Creatinine 1.53 H (0.66-1.25) mg/dL Glucose 102 H (74-99) mg/dL Phosphorus 4.8 H (2.5-4.5) mg/dL AST 103 H (17-59) U/L Assessment and Plan Assessment: Assessment Diffuse thoracic adenopathy, likely most consistent with lymphoma although metastatic cancer cannot be excluded. Right inguinal adenopathy, to be biopsied tomorrow by urology Lower extremity edema possibly related to lymphatic obstruction Shortness of breath, secondary to obstruction of the airways by enlarged lymph nodes History of atrial fibrillation Plan: The patient was seen and evaluated by Dr. Bains. He is cleared for discharge from the pulmonary standpoint. If the biopsy is not able to be performed today he may be discharged and this could be performed in the outpatient setting. I, the cosigning physician, performed a history & physical examination of the patient. Lungs sounds are clear. Maintaining good O2 saturations in the 90s on room air. I discussed the assessment and plan of care with my nurse practitioner, Manasa Palmer. I attest to the above note as dictated by her.
--- NOTE | 2018-02-15 11:05 | P.DS ---
Providers Date of admission: 02/13/18 15:31 Attending physician: Kevin Madrid Consults: 02/13/18 15:33 Consult Physician Routine Consulting Provider: Karsten Hyman Consult Reason/Comments: Diagnosis lymphoma Do you want consulting provider notified?: Yes 02/13/18 15:36 Consult Physician Routine Consulting Provider: Merlin Katz Consult Reason/Comments: medistinal lymphadenopathy Do you want consulting provider notified?: Yes 02/13/18 17:33 Consult Physician Routine Consulting Provider: Augustine Jesus Consult Reason/Comments: Scrotal mass Do you want consulting provider notified?: Yes 02/13/18 17:36 Consult Physician Routine Consulting Provider: Robi Gould Consult Reason/Comments: mediastinal lymphadenopathy Do you want consulting provider notified?: Yes 02/14/18 09:42 Consult Physician Routine Consulting Provider: Robles Reardon Consult Reason/Comments: Biopsy of inguinal lymph Do you want consulting provider notified?: Yes Primary care physician: [facility] Hospital Course: 77-year-old gentleman was admitted Secondary to bilateral pedal edema which may be related to chronic venous insufficiency. Patient was given Lasix with minimal worsening in creatinine because of which Lasix will be discussed in your patient will be discharged on Lasix tomorrow on as-needed basis will use compression socks for now. Patient does not appear to have cardiac renal or liver disease. Patient has significant lymphadenopathy along with an inguinal lymph node and testicular mass which is also probably lymph node and the patient will need a biopsy. Discuss with surgery patient the will get excisional biopsy tomorrow after that patient will be discharged to follow with oncology as an outpatient and most probably diagnosis is lymphoma. We'll get a digoxin will ablate the patient make sure patient is strong enough to be discharged by tomorrow. The tumor markers AFP carcinogenic antigen are negative LDH is elevated but it's a nonspecific test 02/15/2018 Patient evaluated by surgery patient underwent a CAT scan patient appears to have a large mass extending from the retroperitoneum until regularly area it is best to this is biopsied by interventional radiology as per the assessment of surgery. Patient will be discharged today with an outpatient appointment for interventional radiology patient procedure for ultrasound guided biopsy. Results will be faxed Dr. Gould's clinic and patient will follow with Dr. Gould in 10-14 days. Patient will be asked to hold off on aspirin until the the biopsies done. I'm unsure if the interventional radiologist will require this because of which I'm holding aspirin at this time. I tried to reach the interventional radiologist without any luck today. PHYSICAL EXAMINATION: GENERAL: The patient is alert and oriented x3, not in any acute distress. Well developed, well nourished. HEENT: Pupils are round and equally reacting to light. EOMI. No scleral icterus. No conjunctival pallor. Normocephalic, atraumatic. No pharyngeal erythema. No thyromegaly. CARDIOVASCULAR: S1 and S2 present. No murmurs, rubs, or gallops. PULMONARY: Chest is clear to auscultation, no wheezing or crackles. ABDOMEN: Soft, nontender, nondistended, normoactive bowel sounds. No palpable organomegaly. MUSCULOSKELETAL: No joint swelling or deformity. EXTREMITIES: No cyanosis, clubbing, no significant edema today. NEUROLOGICAL: Gross neurological examination did not reveal any focal deficits. SKIN: No rashes. Assessment and Plan Plan: -Bilateral pedal edema: Secondary to chronic venous insufficiency ruled out, cardiac, nephrotic and hepatic causes. -Acute renal failure: May have chronic kidney disease stage III mild worsening of creatinine secondary to diuretic therapy which will be held Will use compression socks breath or pedal edema -Generalized weakness and deconditioning we'll obtain PT and OT consultation. -Incidental finding of mediastinal lymphadenopathy: IR guided biopsy -Scrotal lesion patient was treated for epididymitis,, patient probably doesn't have epididymitis patient lesion is secondary to lymphoma and medics will be discussed in your. Patient Condition at Discharge: Stable Plan - Discharge Summary Discharge Rx Participant: No New Discharge Prescriptions: Continue Multivitamins, Thera [Multivitamin (formulary)] 1 tab PO DAILY Glucosamine Sulfate 2,000 mg PO DAILY Ascorbic Acid [Vitamin C] 500 mg PO DAILY Potassium 99 mg PO DAILY Winner-3 Fatty Acids/Fish Oil [Fish Oil 1,000 mg Softgel] 1 cap PO BID Calcium/Magnesium/Zinc [Fkgzkoh-Dfcbvxpla-Vizg Tablet] 1 tab PO DAILY Aspirin 81 mg PO DAILY #30 chewable Discontinued Levofloxacin [Levaquin] 500 mg PO DAILY Discharge Medication List Ascorbic Acid [Vitamin C] 500 mg PO DAILY 03/24/17 [History] Calcium/Magnesium/Zinc [Eklkasr-Tflefjeta-Vsdf Tablet] 1 tab PO DAILY 03/24/17 [ History] Glucosamine Sulfate 2,000 mg PO DAILY 03/24/17 [History] Multivitamins, Thera [Multivitamin (formulary)] 1 tab PO DAILY 03/24/17 [History ] Winner-3 Fatty Acids/Fish Oil [Fish Oil 1,000 mg Softgel] 1 cap PO BID 03/24/17 [ History] Potassium 99 mg PO DAILY 03/24/17 [History] Aspirin 81 mg PO DAILY #30 chewable 02/15/18 [Rx] Follow up Appointment(s)/Referral(s): [facility],Clinic [Primary Care Provider] - 3 Days Discharge Disposition: HOME SELF-CARE
[2018-02-15] MEDS: MULTIVITAMINS, THERA 1 EACH TAB PO SCH (11:53)
== END 2018-02-15 14:20 | disposition home or self-care (01) | DRG 841 ==
LOC: EC 10:51 → 5ONC 15:31
PROVIDERS: ADMIT Internal Medicine; ATTEND Internal Medicine
DX: C85.98 Non-Hodgkin lymphoma, unspecified, lymph nodes of multiple sites (principal); N17.9 Acute kidney failure, unspecified; I48.91 Unspecified atrial fibrillation; E87.70 Fluid overload, unspecified; N18.3 Chronic kidney disease, stage 3 (moderate); Z79.82 Long term (current) use of aspirin; Z79.899 Other long term (current) drug therapy; Z85.828 Personal history of other malignant neoplasm of skin; Z79.890 Hormone replacement therapy; Z82.3 Family history of stroke; Z82.49 Family history of ischemic heart disease and other diseases of the circulatory system
CPT/HCPCS: 36415; 71046; 71275; 72193; 80048; 80053; 81003; 82105; 82378; 82550; 82553; 83615; 83735; 83880; 84100; 84450; 84460; 84484; 84550; 84702; 85025; 85379; 85610; 85730; 93005; 94640; 99285

== ENCOUNTER 2018-02-20 09:08 | Day surgery (SDC) | payer OTHER ==
[2018-02-20 09:30] LABS: Mean Platelet Volume 7.5; Platelet Count 144 k/uL (150-450)
[2018-02-20 09:31] VITALS: TEMP 97.6
[2018-02-20 09:43] LABS: Prothrombin Time 10.2 sec (9.0-12.0)
--- NOTE | 2018-02-20 11:01 | CT ---
EXAMINATION TYPE: CT biopsy lymph node, CT guided core biopsy, fine-needle aspiration abdominal mass DATE OF EXAM: 02/20/2018 HISTORY: Abdominal mass COMPARISON: CT pelvis 02/14/2018 Maximal barrier technique was utilized. The skin overlying a suitable path to the lesion was localiz ed using CT and the overlying skin was prepped and draped. Lidocaine used for local anesthesia. A s kin richard made with a scalpel. Using CT guidance, access was gained to the lesion with a 22-gauge nee dle through a 17-gauge guide. Aspirated specimen submitted to cytology. 3 core specimens obtained wi th an 18-gauge needle coaxially. 4 passes were performed in all. Following the procedure no immediat e complications. The patient is discharged in stable condition. Hemostasis achieved. IMPRESSION: SUCCESSFUL CT GUIDED CORE BIOPSY, fine-needle aspiration. PATHOLOGY PENDING. THIS PROCEDURE WAS PER FORMED BY THE UNDERSIGNED.
[2018-02-20 11:07] VITALS: RESP 16
[2018-02-20 11:34] VITALS: BP 95/52; PULSE 73
--- NOTE | 2018-02-20 17:23 | US ---
EXAMINATION TYPE: US carotid duplex BILAT DATE OF EXAM: 02/20/2018 COMPARISON: NONE CLINICAL HISTORY: 77-year-old male Syncope. TECHNIQUE: Carotid duplex ultrasound examination. Indirect Doppler criteria was utilized. FINDINGS: EXAM MEASUREMENTS: RIGHT: Peak Systolic Velocity (PSV) cm/sec ----- Right CCA: 103.1 ----- Right ICA: 72.7 ----- Right ECA: 84.5 ICA/CCA ratio: 0.7 RIGHT: End Diastole cm/sec ----- Right CCA: 21.7 ----- Right ICA: 25.4 ----- Right ECA: 3.2 LEFT: Peak Systolic Velocity (PSV) cm/sec ----- Left CCA: 80.5 ----- Left ICA: 98.4 ----- Left ECA: 72.5 ICA/CCA ratio: 1.2 LEFT: End Diastole cm/sec ----- Left CCA: 17.1 ----- Left ICA: 19.2 ----- Left ECA: 9.5 VERTEBRALS (direction of flow): Right Vertebral: Antegrade Left Vertebral: Antegrade Rhythm: Normal President [employer] Chief [employer] notes: Mild plaque visualized bilateral bulbs. No elevated velocities, no significant mahendra nosis. IMPRESSION: No hemodynamically significant stenosis appreciated in either internal carotid artery. Criteria for Assigning % of Stenosis / Diameter reduction (Estimation based on the indirect measurements of the internal carotid artery velocities (ICA PSV). 1. Normal (no stenosis)=ICA PSV < 125 cm/s: ratio < 2.0: ICA EDV<40 cm/s. 2. Less than 50% stenosis=ICA PSV < 125 cm/s: ratio < 2.0: ICA EDV<40 cm/s. 3. 50 to 69% stenosis=ICA PSV of 125 to 230 cm/s: ration 2.0 ? 4.0: ICA EDV 40-100 cm/s. 4. Greater than 70% stenosis to near occlusion= ICA PSV > 230 cm/s: ratio > 4.0: ICA EDV > 100 cm/s. 5. Near occlusion= ICA PSV velocities may be low or undetectable: variable ratio and ICA EDV. 6. Total occlusion=unable to detect flow.
== END 2018-02-20 11:55 | disposition home or self-care (01) ==
LOC: RADPROMAIN 09:08
PROVIDERS: ATTEND Internal Medicine
DX: R59.1 Generalized enlarged lymph nodes (principal)
CPT/HCPCS: 10022; 38505; 77012; 85049; 85610; 88173; 88305; 88341; 88342; 93880

== ENCOUNTER → 2022-04-09 | Outpatient (CLI) | payer OTHER ==
--- NOTE | 2022-04-09 13:03 | US ---
EXAMINATION TYPE: US abdomen limited DATE OF EXAM: 04/09/2022 COMPARISON: NONE CLINICAL HISTORY: R22.2 LOCALIZED SWELLING, MASS AND LUMP, TRUNK. palpable right flank for 2 months Scanned within patient's area of concern, right flank, large complex mass like area = 13.0 x 13.0 x 1 3.7cm, adjacent to liver and right kidney IMPRESSION: 1. Complex mass at the area of concern right upper quadrant. Contrast CT recommended for additional e valuation.
== END | disposition home or self-care (01) ==
LOC: RADUSWWP 12:15
DX: R22.2 Localized swelling, mass and lump, trunk (principal)
CPT/HCPCS: 76705

== ENCOUNTER → 2022-04-21 | Outpatient (CLI) | payer OTHER ==
[2022-04-21 10:50] LABS: African American GFR (CKD) >90 (>60 ml/min/1.73 sqM); Blood Urea Nitrogen 27 mg/dL (9-20); Non-African American GFR(CKD) 82 (>60 ml/min/1.73 sqM)
--- NOTE | 2022-04-28 12:26 | CT ---
EXAMINATION TYPE: CT abdomen wo/w con CT DLP: 1061 mGycm, Automated exposure control for dose reduction was used. DATE OF EXAM: 04/21/2022 11:32 AM COMPARISON: CT angiogram chest 02/13/2018, CT biopsy 02/20/2018 CLINICAL INDICATION:Male, 81 years old with history of R19.00 intra-abdominal swelling; TECHNIQUE: Axial CT of the abdomen . Sagittal and coronal reformats were created on a separate works tation. Contrast used: 50 cc of Isovue-300 Oral contrast used: without Oral Contrast FINDINGS: LOWER CHEST: Coronary artery atherosclerosis. There is aortic valve calcifications. ABDOMEN LIVER: Posterior right calcified hepatic dome granuloma. GALLBLADDER AND BILE DUCTS: Unremarkable. PANCREAS: Unremarkable. SPLEEN: Unremarkable. ADRENAL GLANDS: Unremarkable. KIDNEYS AND URETERS: No evidence of hydronephrosis or renal calculus. The ureters are unremarkable. STOMACH AND BOWEL: No evidence of bowel obstruction. PERITONEUM: No evidence of pneumoperitoneum or free fluid. There is a conglomerate retroperitoneal ma ss with multiple lobulations along the right retroperitoneum measuring 14.7 x 9.5 x 13.2 cm. Mass int o the right chest wall. The mass does not clearly and feed into any structures but it abuts the right kidney right and liver. Extends into right rib #10 with series 10 image 49 showing erosive changes t o the superior aspect of the rib. There is a ring-enhancing fluid collection on the left retroperitoneum measuring 1.7 x 4.9 x 7.6 cm. VASCULATURE: No evidence of aortic aneurysm. Scattered atherosclerosis of the arterial vasculature. I VC filter in place. MUSCULOSKELETAL: No acute osseous abnormalities, multilevel disc degeneration changes and degeneratio n of the sacroiliac joints is evident. There is questionable osseous erosion of the rib at series 10 image 49 LYMPH NODES: No gross evidence for lymphadenopathy. SOFT TISSUE/ABDOMINAL WALL: Unremarkable IMPRESSION: 1. Conglomerate right retroperitoneal mass which extends through the abdominal wall and possibly ero ding into the right rib #10. Correlate with clinical history consider tissue sampling. Findings may r epresent prior masses seen in 2018. 2. Left retroperitoneum fluid collection along the posterior retroperitoneum/diaphragm is indetermin ate could represent a seroma or hematoma. Not definitively visualized on imaging 2018. Consider clini gia correlation possible aspiration.
== END | disposition home or self-care (01) ==
LOC: RADCTMAIN 10:06
DX: R19.01 Right upper quadrant abdominal swelling, mass and lump (principal)
CPT/HCPCS: 82565; 84520; 74170; 36415; Q9967

== ENCOUNTER → 2022-05-06 | Outpatient (CLI) | payer OTHER ==
--- NOTE | 2022-05-06 19:29 | US ---
EXAMINATION TYPE: US scrotum with doppler. DATE OF EXAM: 05/06/2022 COMPARISON: 02/02/2018 CLINICAL HISTORY: 81-year-old male N49.2 SCROTAL MASS. Patient has had swelling for 2-3 months. No pain. TECHNIQUE: Grayscale and color Doppler Duplex imaging performed of the scrotum. FINDINGS: EXAM MEASUREMENTS: TESTICLES: Right Testicle: 1.9 x 1.2 x 1.4 cm (previously much larger in 2018). There is overall decreased bloo d flow. Left Testicle: 7.3 x 5.2 x 6.5 cm (versus normal appearance measuring 4.3 x 2.0 x 3.0 cm, previously ). There is diffuse hyperemia noted and extensive heterogeneity. On the right, venous flow is detected. Faint arterial flow appears to be present as well. On the left , there is both arterial and venous flow demonstrated. EPIDIDYMIS HEAD: Right Epididymis: 0.7 cm Left Epididymis: 0.7 cm Left hydrocele measuring : 6.2 x 3.4 x 2.1 Presence of varicoceles: no MACHINE [employer] NOTES: Right testicle is atrophied with reduced blood flow compared to left. Left testicle is grossly heterogeneous with increased blood flow, this may be due to large mass vs ot her etiology. IMPRESSION: 1. Interval atrophy of the right testicle. 2. Now markedly enlarged left testicle with severe heterogeneity and increased blood flow. There is a lso a moderate to large left hydrocele. Correlate for diffuse testicular mass versus severe orchitis. Urology evaluation advised.
== END | disposition home or self-care (01) ==
LOC: RADUSWWP 14:37
DX: N50.0 Atrophy of testis (principal); N43.3 Hydrocele, unspecified
CPT/HCPCS: 76870; 93975

== ENCOUNTER 2022-07-14 08:57 | Day surgery (SDC) | payer OTHER | END 2022-07-14 11:00 | disposition home or self-care (01) | LOC: RADPROMAIN 08:57 | PROVIDERS: ATTEND Internal Medicine | DX: Z53.9 Procedure and treatment not carried out, unspecified reason (principal); Z85.72 Personal history of non-Hodgkin lymphomas ==

== ENCOUNTER 2022-07-14 10:06 | Inpatient (IN) | payer OTHER, MEDICARE ==
[2022-07-14] MEDS ORDERED: DILTIAZEM 125 MG in SODIUM CHLORIDE 0.9% 100 ML IV SCH (10:30)
--- NOTE | 2022-07-14 10:44 | ED ---
General Adult HPI - General Chief complaint: Arrhythmia/Palpitations Stated complaint: high heart rate Time Seen by Provider: 07/14/22 10:10 Source: patient, RN notes reviewed, old records reviewed Mode of arrival: ambulatory Limitations: no limitations - History of Present Illness Initial comments: This is an 81-year-old male has a history of lymphoma. Patient was coming to the hospital today to get a biopsy. Patient was in atrial fibrillation so they sent him to the ER. Patient states he had this years ago but it is been under control and normal sinus for quite a while. Patient states he is not on any thinners or anything to slow the heart rate down. Patient states he does occasionally feel some palpitations today as heart rate races. Patient denies any chest pain patient denies difficulty breathing shortness of breath. Patient does have a history of anemia. Patient denies any recent fever chills or cough per patient's lightheadedness dizziness per patient denies headache patient denies numbness weakness. Patient denies any abdominal pain patient denies nausea vomiting diarrhea. Patient denies any swelling in the legs or calf tenderness. - Related Data Home Medications Medication Instructions Recorded Confirmed No Known Home Medications 07/14/22 07/14/22 Allergies Allergy/AdvReac Type Severity Reaction Status Date / Time No Known Allergies Allergy Verified 07/14/22 11:22 Review of Systems ROS Statement: Those systems with pertinent positive or pertinent negative responses have been documented in the HPI. ROS Other: All systems not noted in ROS Statement are negative. 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 History of Any Multi-Drug Resistant Organisms: None Reported Past Surgical History: Hernia Repair Additional Past Surgical History / Comment(s): Pt states he has had 3 inguinal hernia repairs but does not recall laterality, skin cancer removed L arm, IVC filter Past Anesthesia/Blood Transfusion Reactions: No Reported Reaction Past Psychological History: No Psychological Hx Reported Smoking Status: Never smoker Past Alcohol Use History: None Reported Past Drug Use History: None Reported - Past Family History Father Family Medical History: CVA/TIA, Myocardial Infarction ([place]) Additional Family Medical History / Comment(s): Pt did not have much contact with his father for years but knows that his father had MIs and strokes. He at the age of 65yrs. Mother Family Medical History: No Reported History Additional Family Medical History / Comment(s): Mother was healthy and at the age of 86yrs. General Exam - General Exam Comments Initial Comments: GENERAL: Patient is well-developed and well-nourished. Patient is nontoxic and well- hydrated and is in mild distress. ENT: Neck is soft and supple. No significant lymphadenopathy is noted. Oropharynx is clear. Moist mucous membranes. Neck has full range of motion without eliciting any pain. EYES: The sclera were anicteric and conjunctiva were pink and moist. Extraocular movements were intact and pupils were equal round and reactive to light. Eyelids were unremarkable. PULMONARY: Unlabored respirations. Good breath sounds bilaterally. No audible rales rhonchi or wheezing was noted. CARDIOVASCULAR: Patient is tachycardic and it is irregular and about 140 beats minute ABDOMEN: Soft and nontender with normal bowel sounds. SKIN: Skin is clear with no lesions or rashes and otherwise unremarkable. NEUROLOGIC: Patient is alert and oriented x3. Cranial nerves II through XII are grossly intact. Motor and sensory are also intact. Normal speech, volume and content. Symmetrical smile. MUSCULOSKELETAL: Normal extremities with adequate strength and full range of motion. LYMPHATICS: No significant lymphadenopathy is noted PSYCHIATRIC: Normal psychiatric evaluation. Limitations: no limitations Course Vital Signs 07/14/22 07/14/22 10:08 10:16 Temperature 97.7 F Pulse Rate 121 H Pulse Rate [ 78 Bolt Sorter ] Respiratory 18 Rate Blood Pressure 112/73 O2 Sat by Pulse 98 Oximetry Medical Decision Making - Medical Decision Making I interpret EKG EKG shows atrial fibrillation with rapid ventricular response at 115 bpm QRS is 89 QT interval 350 QTC is 383. EKG shows no ST segment elevation. A second EKG was done because the patient's heart rate went up from 115-143. I interpreted the EKG. EKG shows atrial flutter at a rate of 143 bpm QRS is 86 QT interval is 293 QTC is 376. Patient's EKG shows no ST segment elevation. I interpreted the chest x-ray chest x-ray showed no acute normalities. Patient was started on a Cardizem drip was not given a bolus secondary to the patient's lower blood pressure. Patient is also started on heparin. Spoke with some physicians agreed to admit the patient admitted the patient wrote admitting orders. - Lab Data Result diagrams: 07/14/22 10:45 07/14/22 10:45 Lab Results 07/14/22 07/14/22 07/14/22 Range/Units 10:45 10:45 10:45 WBC 5.0 (3.8-10.6) k/uL RBC 3.35 L (4.30-5.90) m/uL Hgb 11.1 L (13.0-17.5) gm/dL Hct 32.9 L (39.0-53.0) % MCV 98.2 (80.0-100.0) fL MCH 33.2 (25.0-35.0) pg MCHC 33.8 (31.0-37.0) g/dL RDW 15.2 (11.5-15.5) % Plt Count 263 (150-450) k/uL MPV 7.6 Neutrophils % 69 % Lymphocytes % 16 % Monocytes % 7 % Eosinophils % 4 % Basophils % 1 % Neutrophils # 3.5 (1.3-7.7) k/uL Lymphocytes # 0.8 L (1.0-4.8) k/uL Monocytes # 0.3 (0-1.0) k/uL Eosinophils # 0.2 (0-0.7) k/uL Basophils # 0.0 (0-0.2) k/uL PT 9.7 (9.0-12.0) sec INR 0.9 (<1.2) APTT 23.0 (22.0-30.0) sec Sodium 137 (137-145) mmol/L Potassium 4.7 (3.5-5.1) mmol/L Chloride 103 (98-107) mmol/L Carbon Dioxide 31 H (22-30) mmol/L Anion Gap 3 mmol/L BUN 16 (9-20) mg/dL Creatinine 0.83 (0.66-1.25) mg/dL Est GFR (CKD-EPI)AfAm >90 (>60 ml/min/1.73 sqM) Est GFR (CKD-EPI)NonAf 83 (>60 ml/min/1.73 sqM) Glucose 89 (74-99) mg/dL Calcium 9.4 (8.4-10.2) mg/dL Magnesium 2.0 (1.6-2.3) mg/dL Total Bilirubin 0.6 (0.2-1.3) mg/dL AST 49 (17-59) U/L ALT 36 (4-49) U/L Alkaline Phosphatase 97 (38-126) U/L Troponin I (0.000-0.034) ng/mL Total Protein 5.7 L (6.3-8.2) g/dL Albumin 3.3 L (3.5-5.0) g/dL 07/14/22 Range/Units 10:45 WBC (3.8-10.6) k/uL RBC (4.30-5.90) m/uL Hgb (13.0-17.5) gm/dL Hct (39.0-53.0) % MCV (80.0-100.0) fL MCH (25.0-35.0) pg MCHC (31.0-37.0) g/dL RDW (11.5-15.5) % Plt Count (150-450) k/uL MPV Neutrophils % % Lymphocytes % % Monocytes % % Eosinophils % % Basophils % % Neutrophils # (1.3-7.7) k/uL Lymphocytes # (1.0-4.8) k/uL Monocytes # (0-1.0) k/uL Eosinophils # (0-0.7) k/uL Basophils # (0-0.2) k/uL PT (9.0-12.0) sec INR (<1.2) APTT (22.0-30.0) sec Sodium (137-145) mmol/L Potassium (3.5-5.1) mmol/L Chloride (98-107) mmol/L Carbon Dioxide (22-30) mmol/L Anion Gap mmol/L BUN (9-20) mg/dL Creatinine (0.66-1.25) mg/dL Est GFR (CKD-EPI)AfAm (>60 ml/min/1.73 sqM) Est GFR (CKD-EPI)NonAf (>60 ml/min/1.73 sqM) Glucose (74-99) mg/dL Calcium (8.4-10.2) mg/dL Magnesium (1.6-2.3) mg/dL Total Bilirubin (0.2-1.3) mg/dL AST (17-59) U/L ALT (4-49) U/L Alkaline Phosphatase (38-126) U/L Troponin I <0.012 (0.000-0.034) ng/mL Total Protein (6.3-8.2) g/dL Albumin (3.5-5.0) g/dL Disposition Clinical Impression: Atrial flutter with rapid ventricular response, History of lymphoma Disposition: ADMITTED IP TO THIS HOSP Referrals: [facility],Clinic [Primary Care Provider] - 1-2 days Time of Disposition: 13:05
[2022-07-14 10:49] LABS: Basophils % (A) 1 %; Eosinophils # (A) 0.2 k/uL (0-0.7); Eosinophils % (A) 4 %; HCT 32.9 % (39.0-53.0); HGB 11.1 gm/dL (13.0-17.5); Lymphocytes # (A) 0.8 k/uL (1.0-4.8); Lymphocytes % (A) 16 %; MCH 33.2 pg (25.0-35.0); MCHC 33.8 g/dL (31.0-37.0); MCV 98.2 fL (80.0-100.0); Mean Platelet Volume 7.6; Monocytes # (A) 0.3 k/uL (0-1.0); Monocytes % (A) 7 %; Neutrophils # (A) 3.5 k/uL (1.3-7.7); Neutrophils % (A) 69 %; Platelet Count 263 k/uL (150-450); RBC 3.35 m/uL (4.30-5.90); RDW 15.2 % (11.5-15.5)
[2022-07-14 10:58] LABS: ALT 36 U/L (4-49); AST 49 U/L (17-59); African American GFR (CKD) >90 (>60 ml/min/1.73 sqM); Albumin 3.3 g/dL (3.5-5.0); Alkaline Phosphatase 97 U/L (38-126); Anion Gap 3 mmol/L; Blood Urea Nitrogen 16 mg/dL (9-20); Calcium 9.4 mg/dL (8.4-10.2); Carbon Dioxide 31 mmol/L (22-30); Chloride 103 mmol/L (98-107); Glucose 89 mg/dL (74-99); Non-African American GFR(CKD) 83 (>60 ml/min/1.73 sqM); Potassium 4.7 mmol/L (3.5-5.1); Sodium 137 mmol/L (137-145); Total Bilirubin 0.6 mg/dL (0.2-1.3); Total Protein 5.7 g/dL (6.3-8.2)
[2022-07-14 11:09] LABS: INR 0.9 (<1.2); Prothrombin Time 9.7 sec (9.0-12.0)
[2022-07-14] MEDS ORDERED: HEPARIN SODIUM 1,000 UN/ML (10ML VL) IV ONE (11:40)
[2022-07-14] MEDS ORDERED: HEPARIN SOD,PORK IN 0.45% NACL 25,000 UNIT in 0.45% NACL 1 250ML.BAG IV SCH (11:45)
--- NOTE | 2022-07-14 13:02 | XR ---
EXAMINATION TYPE: XR chest 2V DATE OF EXAM: 07/14/2022 COMPARISON: 02/13/2018 HISTORY: 81-year-old male with chest pain, elevated heart rate today TECHNIQUE: PA and lateral views FINDINGS: Heart normal size. Atherosclerotic arch calcifications. Mild interstitial prominence. Mild atheroscle rotic arch calcifications. Bridging anterior endplate spondylosis suggested mid and lower thoracic sp ine, possible dish. Interstitial prominence is unchanged. Unchanged prominent left anterior rib end. No consolidation or pleural effusion. Left perihilar/AP window mass seen on 02/13/2018 has resolved. IMPRESSION: The left perihilar/AP window mass seen on 02/13/2018 has resolved. Suspect underlying COPD. No definite acute process.
[2022-07-14] MEDS ORDERED: NITROGLYCERIN SL TABS 0.4 MG TAB SUBLINGUAL PRN (13:16)
[2022-07-14] MEDS ORDERED: HYDROcodone/APAP 5-325MG 1 EACH TAB PO PRN (17:02)
[2022-07-14] MEDS ORDERED: NALOXONE 0.4 MG/ML 1 ML VIAL IV PRN (17:02)
[2022-07-14] MEDS ORDERED: ONDANSETRON 4 MG/2 ML VIAL IVP PRN (17:02)
[2022-07-14] MEDS ORDERED: ACETAMINOPHEN TAB 325 MG TAB PO PRN (17:02)
--- NOTE | 2022-07-14 17:08 | P.HPIM ---
History of Present Illness H&P Date: 07/14/22 Patient is a 81 year old male with PMH of atrial fibrillation not on any medication, history of large B cell lymphoma presents to the ED after being sent in by radiology during a biopsy for elevated heart rate. Patient reports a diagnosis of large B cell lymphoma in 2018 that was treated with RCHOP in 2018. This resulted in a prolonged hospital course which involved cardiac arrest and having an IVC filter placed for blood clots. [facility]. He had noticed some pain and swelling in his groin which prompted evaluation. Recently, he has had a PET scan done at [facility] which was positive for metastatic disease. He was scheduled to have a biopsy today which was cancelled today due to tachycardia. Patient reports a history of atrial fibrillation that has been under control without any medications. He used to take aspirin but has since discontinued this as well. He currently reports no symptoms besides groin pain. He denies any headache, lower extremity edema, nausea or vomiting, fever or chills, cough, chest pain, shortness of breath, p alpitations, changes in urination or bowel habits. No changes in appetite or weight. He denies any dizziness, numbness/weakness/tinging of the extremities. In the ED, he was noted to be tachycardic with a heart rate as high as 149. Vital signs were otherwise stable. CBC showed Hg of 11.1. Coag panel was negative. CMP showed bicarb of 31, and albumin of 3.3. Initial troponin was less than 0.012 with EKG showing atrial fibrillation with RVR HR of 143. Magnesium was 2.0. CXR showed resolved left perihilar window mass since 2018 and suspected underlying COPD. Patient is admitted for atrial fibrillation with RVR with cardiology on consultation. Pertinent positives and negatives as discussed in HPI, a complete review of systems was performed and all other systems are negative. General: non toxic, no distress, appears at stated age Derm: warm, dry Head: atraumatic, normocephalic, symmetric Eyes: EOMI, no lid lag, anicteric sclera Mouth: no lip lesion, mucus membranes moist Cardiovascular: Irregularly regular, no murmur, positive posterior tibial pulse bilateral Lungs: CTA bilateral, no rhonchi, no rales , no accessory muscle use Abdominal: soft, nontender to palpation, no guarding, no appreciable organomegaly Ext: no gross muscle atrophy, no edema, no contractures Neuro: CN II-XI grossly intact, no focal neuro deficits Psych: Alert, oriented, appropriate affect #Atrial fibrillation with RVR Cardizem drip. YUE VASC score is 2. Heparin drip. Maintain K > 4 and Mg > 2. Obtain echocardiogram. TSH with reflex to T4. Cardiology consult. #History of large B-cell lymphoma #Groin pain Pain control with Tylenol and Holden PRN. Oncology consult. #Normocytic anemia Unknown etiology. No active signs of bleeding. Continue to monitor. DVT prophylaxis: Heparin drip Discussed with: Patient, daughter, ED physician Anticipated discharge: 2-[address]: Home A total of 30 minutes was spent on the care of this complex patient more than 50% of the time was spent in counseling and care coordination. 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 History of Any Multi-Drug Resistant Organisms: None Reported Past Surgical History: Hernia Repair Additional Past Surgical History / Comment(s): Pt states he has had 3 inguinal hernia repairs but does not recall laterality, skin cancer removed L arm, IVC filter Past Anesthesia/Blood Transfusion Reactions: No Reported Reaction Past Psychological History: No Psychological Hx Reported Smoking Status: Never smoker Past Alcohol Use History: None Reported Past Drug Use History: None Reported - Past Family History Father Family Medical History: CVA/TIA, Myocardial Infarction (NM) Additional Family Medical History / Comment(s): Pt did not have much contact with his father for years but knows that his father had MIs and strokes. He at the age of 65yrs. Mother Family Medical History: No Reported History Additional Family Medical History / Comment(s): Mother was healthy and at the age of 86yrs. Medications and Allergies Home Medications Medication Instructions Recorded Confirmed Type No Known Home Medications 07/14/22 07/14/22 History Allergies Allergy/AdvReac Type Severity Reaction Status Date / Time No Known Allergies Allergy Verified 07/14/22 11:22 Physical Exam Vitals: Vital Signs Temp Pulse Pulse Resp BP Pulse Ox 07/14/22 14:00 87 16 112/76 100 07/14/22 13:00 149 H 16 107/76 99 07/14/22 11:10 140 H 16 99 07/14/22 10:16 78 07/14/22 10:08 97.7 F 121 H 18 112/73 98 Intake and Output 07/14/22 07/14/22 07/14/22 06:59 14:59 22:59 Other: Weight 80.286 kg Results CBC & Chem 7: 07/14/22 10:45 07/14/22 10:45 Labs: Abnormal Lab Results - Last 24 Hours (Table) 07/14/22 07/14/22 Range/Units 10:45 10:45 RBC 3.35 L (4.30-5.90) m/uL Hgb 11.1 L (13.0-17.5) gm/dL Hct 32.9 L (39.0-53.0) % Lymphocytes # 0.8 L (1.0-4.8) k/uL Carbon Dioxide 31 H (22-30) mmol/L Total Protein 5.7 L (6.3-8.2) g/dL Albumin 3.3 L (3.5-5.0) g/dL
[2022-07-14] MEDS: AMIODARONE 200 MG TAB PO SCH (20:49)
[2022-07-15 08:24] VITALS: TEMP 98
[2022-07-15] MEDS: AMIODARONE 200 MG TAB PO SCH (08:25)
[2022-07-15] MEDS ORDERED: APIXABAN 5 MG TAB PO SCH (09:00)
[2022-07-15] MEDS ORDERED: ASPIRIN 325 MG TAB PO SCH (09:00)
[2022-07-15] MEDS ORDERED: ASPIRIN 81 MG PO SCH (09:00)
--- NOTE | 2022-07-15 11:52 | P.DS ---
Providers Date of admission: 07/14/22 13:16 Expected date of discharge: 07/15/22 Attending physician: Stefanie Clark MD Consults: 07/14/22 13:16 Consult Physician Urgent Consulting Provider: [facility] Consult Reason/Comments: atrial flutter with rapid ventricular response Do you want consulting provider notified?: Yes 07/14/22 16:57 Consult Physician Urgent Consulting Provider: Karsten Hyman Consult Reason/Comments: Continuity of care Do you want consulting provider notified?: Yes Primary care physician: [facility] Hospital Course: Patient is a 81 year old male with PMH of atrial fibrillation not on any medication, history of large B cell lymphoma presents to the ED after being sent in by radiology during a biopsy for elevated heart rate. Patient reports a diagnosis of large B cell lymphoma in 2018 that was treated with RCHOP in 2018. This resulted in a prolonged hospital course which involved cardiac arrest and having an IVC filter placed for blood clots. He follows up with the [facility] for all of his medical care. He had noticed some pain and swelling in his groin which prompted evaluation. Recently, he has had a PET scan done at [facility] which was positive for metastatic disease. He was scheduled to have a biopsy today which was cancelled today due to tachycardia. Patient reports a history of atrial fibrillation that has been under control without any medications. He used to take aspirin but has since discontinued this as well. He currently reports no symptoms besides groin pain. He denies any headache, lower extremity edema, nausea or vomiting, fever or chills, cough, chest pain, shortness of breath, palpitations, changes in urination or bowel habits. No changes in appetite or weight. He denies any dizziness, numbness/weakness/tinging of the extremities. In the ED, he was noted to be tachycardic with a heart rate as high as 149. Vital signs were otherwise stable. CBC showed Hg of 11.1. Coag panel was negative. CMP showed bicarb of 31, and albumin of 3.3. Initial troponin was less than 0.012 with EKG showing atrial fibrillation with RVR HR of 143. Magnesium was 2.0. CXR showed resolved left perihilar window mass since 2018 and suspected underlying COPD. Patient is admitted for atrial fibrillation with RVR with cardiology on consultation. Patient's heart rate improved to the 70s on Cardizem drip. Cardiology was consulted and started the patient on amiodarone. Heparin was discontinued for Eliquis. Cardiology cleared the patient for discharge. Patient was seen and examined. No acute events overnight. Patient reports no symptoms. He would like to follow-up in the outpatient setting first biopsy and oncology follow-up. Pertinent studies include chest x-ray and EKG. General: non toxic, no distress, appears at stated age Derm: warm, dry Head: atraumatic, normocephalic, symmetric Eyes: EOMI, no lid lag, anicteric sclera Mouth: no lip lesion, mucus membranes moist Cardiovascular: Irregularly regular, no murmur Lungs: CTA bilateral, no rhonchi, no rales , no accessory muscle use Ext: no gross muscle atrophy, no edema, no contractures Neuro: no focal neuro deficits Psych: Alert, oriented, appropriate affect Discharge diagnoses: #Atrial fibrillation with RVR #History of large B-cell lymphoma #Groin pain Patient is advised to follow-up with cardiology within 1 week of discharge. Is advised to follow-up with his oncologist with the appointment given to him. His biopsy has been rescheduled for Tuesday. He'll be discharged home on amiodarone 400 mg by mouth twice a day, aspirin 81 mg by mouth daily, Eliquis 5 mg by mouth twice a day. This complex discharge took 35 minutes to complete. Patient Condition at Discharge: Stable Plan - Discharge Summary Discharge Rx Participant: No New Discharge Prescriptions: New Apixaban [Eliquis] 5 mg PO BID #60 tab Aspirin 81 mg PO DAILY #30 tab Apixaban [Eliquis] 5 mg PO BID #60 tab Amiodarone [Cordarone] 400 mg PO BID-W/MEALS #60 tablet Discharge Medication List Amiodarone [Cordarone] 400 mg PO BID-W/MEALS #60 tablet 07/15/22 [Rx] Apixaban [Eliquis] 5 mg PO BID #60 tab 07/15/22 [Rx] Apixaban [Eliquis] 5 mg PO BID #60 tab 07/15/22 [Rx] Aspirin 81 mg PO DAILY #30 tab 07/15/22 [Rx] Follow up Appointment(s)/Referral(s): [facility] [Primary Care Provider] - 1-2 days (PLEASE CALL AND SCHEDULE APPOINTMENT.) Eduard Prince MD [STAFF PHYSICIAN] - 1 Week Patient Instructions/Handouts: Aspirin (By mouth), Amiodarone (By mouth), Apixaban (By mouth), A-fib (Atrial Fibrillation) (DC), Heart Healthy Diet (DC) Activity/Diet/Wound Care/Special Instructions: Diet:Cardiac FU PCP within 1-2 days of DC. FU Cardiology within 1 week of DC. FU Oncology with the appointment given to you. Discharge Disposition: HOME SELF-CARE
[2022-07-15 12:17] VITALS: BP 114/63; PULSE 67; RESP 16
--- NOTE | 2022-07-15 13:15 | CA ---
Transthoracic Echo Report Name: Juan Quevedo Age: 81 Gender: M : 1940 Exam Date: 07/15/2022 11:07 Exam Location: [place] [facility] Ht (in): 70 Wt (lb): 177 Ordering Physician: Stefanie Clark MD Attending/Referring Phys: Sap Pi Developer Lilliana Schmitt RDCS Procedure CPT: Indications: afib Cardiac Hx: Technical Quality: Contrast 1: Total Dose (mL): Contrast 2: Total Dose (mL): MEASUREMENTS (Male / Female) Normal Values 2D ECHO LV Diastolic Diameter PLAX 4.9 cm 4.2 - 5.9 / 3.9 - 5.3 cm LV Systolic Diameter PLAX 3.1 cm IVS Diastolic Thickness 1.1 cm 0.6 - 1.0 / 0.6 - 0.9 cm LVPW Diastolic Thickness 1.1 cm 0.6 - 1.0 / 0.6 - 0.9 cm LV Relative Wall Thickness 0.5 RV Internal Dim ED PLAX 2.9 cm LA Systolic Diameter LX 3.9 cm 3.0 - 4.0 / 2.7 - 3.8 cm LA Volume 56.9 cm??? 18 - 58 / 22 - 52 cm??? M-MODE Aortic Root Diameter MM 3.7 cm MV E Point Septal Separation 0.4 cm AV Cusp Separation MM 1.7 cm DOPPLER AV Peak Velocity 172.0 cm/s AV Peak Gradient 11.8 mmHg AI Peak Velocity 326.0 cm/s AI Peak Gradient 42.5 mmHg AI Pressure Half Time 712.7 ms MV Area PHT 4.0 cm??? Mitral E Point Velocity 107.4 cm/s Mitral A Point Velocity 69.6 cm/s Mitral E to A Ratio 1.5 MV Deceleration Time 188.4 ms MV E' Velocity 10.5 cm/s Mitral E to MV E' Ratio 10.2 TR Peak Velocity 251.5 cm/s TR Peak Gradient 25.3 mmHg Right Ventricular Systolic Press 29.5 mmHg FINDINGS Left Ventricle Left ventricular ejection fraction is estimated at 55-60 %. Left ventricular cavity size normal. Mildly increased septal wall thickness. Right Ventricle Normal right ventricular size. Right ventricular systolic pressure within normal limits. Right Atrium Normal right atrial size. Left Atrium Normal left atrial size. No evidence for an atrial septal defect. Mitral Valve Mitral valve thickened. Mitral annular calcification. Aortic Valve Trileaflet aortic valve. Mild aortic regurgitation. Aortic valve sclerosis. Tricuspid Valve Structurally normal tricuspid valve. Mild tricuspid regurgitation. Pulmonic Valve Structurally normal pulmonic valve. Trace pulmonic regurgitation. Pericardium Normal pericardium. No pericardial effusion. Aorta Normal size aortic root and proximal ascending aorta. CONCLUSIONS Normal left frontal signs and systolic function. Mild mitral calcification and aortic valve sclerosis without restriction. Mild mitral and tricuspid insufficiency and mild aortic insufficiency. No pericardial effusion Previewed by: Dr. Jassi Franks MD (Electronically Signed) Final Date: 15 July 2022 13:15
[2022-07-15] MEDS ORDERED: AMIODARONE 200 MG TAB PO STA (14:16)
--- NOTE | 2022-07-15 16:13 | PN ---
PROGRESS NOTE SUBJECTIVE: Juan is an 81-year-old gentleman, who is admitted to hospital with a new-onset atrial flutter with poorly-controlled ventricular rate, and I evaluated him in the emergency room yesterday. I started him on amiodarone, and he converted back to sinus rhythm and remains in sinus rhythm. I will stop the Cardizem on him. He is on Eliquis 5 b.i.d., and I will continue the amiodarone. He is awaiting biopsy for a possible lymphoma. OBJECTIVE: GENERAL: Comfortable at rest. VITAL SIGNS: Stable. CHEST: Reveals good air entry bilaterally. HEART: Reveals first and second heart sounds. No gallop. Has a systolic murmur at the left lower sternal border. ABDOMEN: Soft. EXTREMITIES: Examination of extremities did not reveal any edema. Peripheral pulses are felt. LABORATORY DATA: Show that the hemoglobin is 11.1, platelet count is 263. Potassium is 4.7, creatinine is 0.8. Troponins are negative. TSH is normal. ASSESSMENT AND PLAN: Typical atrial flutter. The patient converted to sinus rhythm. He will continue the amiodarone. I will decrease the dose to 200 b.i.d. I will follow the echo results. I will stop the IV Cardizem. I will continue the Eliquis. MMODL / IJN: [id number] /
--- NOTE | 2022-07-15 22:23 | CONS ---
CONSULTATION HISTORY OF PRESENT ILLNESS: Juan is an 81-year-old gentleman who presented to hospital to undergo a biopsy for possible recurrence of a lymphoma, was found to have a fast heart rate and was sent to the emergency room. He has a history of large B-cell lymphoma and was at [facility] for a biopsy. The patient has history of large B-cell lymphoma and had therapy and that time had a cardiac arrest. I evaluated the patient in the emergency room. He was going in and out of atrial flutter. I started him on amiodarone following which he converted to sinus and stayed in sinus. PAST MEDICAL HISTORY: Significant for lymphoma. MEDICATIONS: None. ALLERGIES: None. FAMILY HISTORY: Negative for premature coronary artery disease. SOCIAL HISTORY: Negative for current smoking, EtOH abuse, or drug abuse. REVIEW OF SYSTEMS: HEENT: Unremarkable. CARDIAC: As described above. RESPIRATORY: Negative. GI: Negative. GENITOURINARY: Negative. ALLERGY/IMMUNOLOGY: Negative. SKIN: Negative. MUSCULOSKELETAL: Significant for arthritis. PSYCHOSOCIAL: Negative. DERM: Negative. CONSTITUTIONAL: Negative. ONCOLOGICAL: Negative. PIPE FOREMAN: Negative. PHYSICAL EXAMINATION: GENERAL: The patient is comfortable at rest. VITAL SIGNS: Stable. There is no jugular venous distention. Carotid upstroke is normal. There is no bruit. CHEST: Reveals good air entry bilaterally. HEART: Reveals first and second heart sounds. No gallop, no murmur. ABDOMEN: Soft. EXTREMITIES: Did not reveal any edema. Peripheral pulses are felt. LABS: Show that the hemoglobin is 11.1, platelet count is 260, potassium is 4.7, creatinine is 0.8. Three sets of troponins are negative. TSH is normal. ASSESSMENT AND PLAN: 1. Typical atrial flutter. 2. History of lymphoma with possible recurrence. PLAN: I am going to treat the patient with amiodarone, start the patient on heparin and switch him to Eliquis and obtain a 2D echo. MMODL / IJN: [id number] /
--- NOTE | 2022-07-15 22:51 | P.CONS ---
History of Present Illness - Reason for Consult Consult date: 07/15/22 Scrotal , retroperitoneal mass, Afib with RVR - History of Present Illness the patient is an 81-year-old white male, with multiple medical problems. He was seen earlier this month by our group, Dr Brittney Hyman, in the office. The patient has a history of diffuse large B-cell lymphoma initially diagnosed in 2018. He was treated with 1 cycle of R CHOP, but had multiple side effects requiring prolonged ICU admission. During the time he also had an IVC filter placed for blood clots. The patient subsequently signed on for hospice, but at home had progressive improvement and recovery of his performance status back to normal. He developed some left-sided groin pain in late 04/05, and sought attention for the same. He was evaluated with ultrasound and then CT of the abdomen and pelvis, showing atrophia the right testicle, enlargement of the left testicle with possibility of diffuse swelling or infiltration. CT scan showed large retroperitoneal mass that appeared to be conglomerate lymph nodes, infiltrating into the right chest wall. patient's PET scan done at [facility] had shown uptake in the left testicle diffusely, as well as in the retroperitoneal mass. The patient had a biopsy recommended, which was to be performed on the day of admission. However the patient was found to have tachycardia with atrial fibrillation due to which the the procedure was canceled and he was admitted to the hospital. He does have a history of paroxysmal atrial fibrillation at baseline but is not on any specific treatment. the patient continues to have left-sided groin pain but denies any other symptoms. EKG reveals reviewed, showing atrial flutter with ventricular rate of 143. Chest x-ray compared to 2018 showed resolution of left hilar mass with no new pathology. at the time of evaluation the patient's rate was controlled and he had reverted back to normal sinus rhythm. Review of Systems Constitutional: Denies chills, Denies fever Eyes: denies blurred vision, denies pain Ears: deny: decreased hearing, ear discharge, earache, tinnitus Ears, nose, mouth and throat: Denies headache, Denies sore throat Cardiovascular: Reports palpitations Respiratory: Denies cough Gastrointestinal: Denies abdominal pain, Denies diarrhea, Denies nausea, Denies vomiting Genitourinary: Reports as per HPI, Reports testicular lump, Reports testicular pain Musculoskeletal: Denies myalgias Integumentary: Denies pruritus, Denies rash Neurological: Denies numbness, Denies weakness Psychiatric: Denies anxiety, Denies depression Endocrine: Denies fatigue, Denies weight change Hematologic/Lymphatic: Reports as per HPI 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 He is independent Smoking Status: Never smoker Past Alcohol Use History: None Reported Additional Past Alcohol Use History / Comment(s): Pt states he was a heavy drinker but has not had any alcohol since 2000. Past Drug Use History: None Reported - Past Family History Father Family Medical History: CVA/TIA, Myocardial Infarction (DC) Additional Family Medical History / Comment(s): Pt did not have much contact with his father for years but knows that his father had MIs and strokes. He at the age of 65yrs. Mother Family Medical History: No Reported History Additional Family Medical History / Comment(s): Mother was healthy and at the age of 86yrs. Medications and Allergies Home Medications Medication Instructions Recorded Confirmed Type Amiodarone [Cordarone] 400 mg PO BID-W/MEALS #60 tablet 07/15/22 07/15/22 Rx Apixaban [Eliquis] 5 mg PO BID #60 tab 07/15/22 07/15/22 Rx Aspirin 81 mg PO DAILY #30 tab 07/15/22 07/15/22 Rx Allergies Allergy/AdvReac Type Severity Reaction Status Date / Time No Known Allergies Allergy Verified 07/15/22 16:15 Physical Exam Vitals: Vital Signs Temp Pulse Pulse Resp BP BP Pulse Ox 07/14/22 20:00 97.9 F 147 H 18 115/75 98 07/14/22 18:37 97.8 F 149 H 18 154/80 94 L 07/14/22 18:35 90 18 118/72 99 07/14/22 14:00 87 16 112/76 100 07/14/22 13:00 149 H 16 107/76 99 07/14/22 11:10 140 H 16 99 07/14/22 10:16 78 07/14/22 10:08 97.7 F 121 H 18 112/73 98 Intake and Output 07/14/22 07/14/22 07/14/22 06:59 14:59 22:59 Intake Total 282.127 Balance 282.127 Intake: IV 20 Invasive Line 1 10 Invasive Line 2 10 Intake, IV Titration 112.127 Amount Diltiazem 125 mg In 36.5 Sodium Chloride 0.9% 100 ml @ 5 MG/HR 5 mls/hr IV .Q24H [facility] Rx#:[id number] Heparin Sod,Pork in 0.45% 75.627 NaCl 25,000 unit In 0.45 % NaCl 1 250ml.bag @ 12 UNITS/KG/HR 9.634 mls/hr IV .Q24H [facility] Rx#: [id number] Oral 150 Other: # Voids 2 Weight 80.286 kg 80.286 kg - Constitutional General appearance: no acute distress - EENT Eyes: EOMI, PERRLA ENT: hearing grossly normal, normal oropharynx - Neck Neck: no lymphadenopathy Thyroid: bilateral: normal size - Respiratory Respiratory: bilateral: CTA - Cardiovascular Rhythm: regular Heart sounds: normal: S1, S2 - Gastrointestinal General gastrointestinal: normal bowel sounds, soft - Genitourinary left testicle is markedly enlarged, hard - Integumentary Integumentary: normal - Neurologic Neurologic: CNII-XII intact - Musculoskeletal Musculoskeletal: strength equal bilaterally - Psychiatric Psychiatric: A&O x's 3, appropriate affect Results CBC & Chem 7: 07/14/22 10:45 07/14/22 10:45 Labs: Abnormal Lab Results - Last 24 Hours (Table) 07/14/22 07/14/22 07/14/22 Range/Units 10:45 10:45 19:23 RBC 3.35 L (4.30-5.90) m/uL Hgb 11.1 L (13.0-17.5) gm/dL Hct 32.9 L (39.0-53.0) % Lymphocytes # 0.8 L (1.0-4.8) k/uL APTT 40.7 H (22.0-30.0) sec Carbon Dioxide 31 H (22-30) mmol/L Total Protein 5.7 L (6.3-8.2) g/dL Albumin 3.3 L (3.5-5.0) g/dL Comments: EKG image reviewed Chest x-ray: report reviewed Assessment and Plan (1) Atrial flutter with rapid ventricular response Narrative/Plan: the patient has a known history of paroxysmal atrial fibrillation/flutter. He is not on any specific treatment for the same. He was not on any anticoagulation since his initial treatment for lymphoma. After his first cycle of chemotherapy and suffered severe hemorrhage while on and declaration and and therefore decided not to resume it even after recovery. - The patient's rate was controlled with treatment and at the time of evaluation he had reverted back to normal sinus rhythm. - At this time he has been placed on an declaration by cardiology, which appears to be appropriate. Anticoagulation can be continued as long as platelet counts remain above 50,000 during treatment. - Cardiology had a question about holding his anticoagulation for his upcoming biopsy, which has been rescheduled. It was discussed with them that this would be held for one day for the biopsy. While and declaration have been started recently, the patient has had this condition now for some years without any anticoagulant or antiplatelet treatment previously. Therefore his risk of any event with holding anticoagulation for 1 day would be considered quite low. Status: Acute Code(s): I48.92 - UNSPECIFIED ATRIAL FLUTTER SNOMED Code(s): 3467085 (2) Mass Narrative/Plan: the patient has marked enlargement of the left testicle, as well as a large retroperitoneal mass with invasion into the right chest wall. The symptoms appear to be related only to the left testicle, which is causing left groin pain. The clinical presentation is quite compatible with malignancy. By recurrence of lymphoma is clinically more likely, a different primary such as testicular cancer is not ruled out. Therefore repeat biopsy was ordered. - Biopsy could not be performed because of his rapid ventricular response. The patient is reverted back to normal sinus rhythm and medications adjusted by ca rdiology. His biopsy will be rescheduled to next week. Anticoagulation issues from the hematology standpoint clarified with cardiology as noted above. - the patient has outpatient follow-up already scheduled with Dr. Joesph Hyman Status: Acute Code(s): IXM8572 - SNOMED Code(s): 956340889
[2022-07-16 02:41] LABS: Chol/HDL Ratio 3.34 Ratio; LDL Cholesterol,Calculated 88.2 mg/dL (0.0-131.0)
== END 2022-07-15 14:54 | disposition home or self-care (01) | DRG 309 ==
LOC: EC 10:06 → 3SCARD 13:16
PROVIDERS: ADMIT Family Medicine; ATTEND Family Medicine
DX: I48.0 Paroxysmal atrial fibrillation (principal); C79.82 Secondary malignant neoplasm of genital organs; C85.10 Unspecified B-cell lymphoma, unspecified site; J44.9 Chronic obstructive pulmonary disease, unspecified; D63.0 Anemia in neoplastic disease; I08.3 Combined rheumatic disorders of mitral, aortic and tricuspid valves; Z86.74 Personal history of sudden cardiac arrest; I48.3 Typical atrial flutter; R00.0 Tachycardia, unspecified; R91.8 Other nonspecific abnormal finding of lung field; R01.1 Cardiac murmur, unspecified; Z85.828 Personal history of other malignant neoplasm of skin; Z95.818 Presence of other cardiac implants and grafts; Z79.01 Long term (current) use of anticoagulants; Z79.82 Long term (current) use of aspirin; Z79.899 Other long term (current) drug therapy; Z28.310 Unvaccinated for COVID-19; Z92.21 Personal history of antineoplastic chemotherapy
CPT/HCPCS: 36415; 71046; 80053; 80061; 83735; 84443; 84484; 85025; 85610; 85730; 93306; 96365; 96366; 96368; 96376; 99285

== ENCOUNTER 2022-07-21 12:51 | Day surgery (SDC) | payer MEDICARE, OTHER ==
[2022-07-21 13:47] VITALS: RESP 16; TEMP 98.1
--- NOTE | 2022-07-21 14:23 | US ---
ULTRASOUND GUIDED CORE BIOPSY RIGHT FLANK MASS: CLINICAL HISTORY: History of lymphoma with right flank mass FINDINGS: The procedure was explained to the patient. The risks, complications, benefits and alternatives were discussed and any questions were answered. Informed consent was obtained. Patient was placed supin e on the ultrasound table and prepped and draped in the usual sterile fashion. Utilizing a 18 gauge needle, four passes were made into the right flank mass. Patient was stable throughout the procedure. Pathology is pending. All elements of maximal barrier technique were utilized. IMPRESSION: 1. Successful ultrasound guided core biopsy right flank mass.
[2022-07-21 14:28] VITALS: BP 129/79; PULSE 66
== END 2022-07-21 14:20 | disposition home or self-care (01) ==
LOC: RADPROMAIN 12:51
PROVIDERS: ATTEND Internal Medicine
DX: C83.30 Diffuse large B-cell lymphoma, unspecified site (principal)
CPT/HCPCS: 20206; 76942; 88184; 88185; 88305; 88341; 88342

== ENCOUNTER 2022-08-12 10:45 | Day surgery (SDC) | payer MEDICARE, OTHER ==
[2022-08-12] MEDS ORDERED: LACTATED RINGERS 1,000 ML IV ONE (11:01)
[2022-08-12 11:19] VITALS: RESP 16; TEMP 96.9
[2022-08-12] MEDS ORDERED: fentaNYL (PF) 50 MCG/ML 2 ML AMP ONE (11:35)
[2022-08-12] MEDS ORDERED: IV FLUID CONTINUATION 1,000 ML IV ONE (12:02)
--- NOTE | 2022-08-12 12:02 | P.PCN ---
Date of Procedure: 08/12/22 Description of Procedure: Procedure: Lumbar Puncture . Preoperative Diagnoses: B-cell lymphoma Postoperative Diagnosis: B-cell lymphoma Anesthesia: IV sedation with 50 g of fentanyl and local Condition: stable. Complications: none. Description of the procedure: Informed consent was achieved and patient are stands the risks and benefits of the procedure. He understands the risks of infection, bleeding, epidural/spinal hematoma, and rare nerve injury. Patient wasn't brought to the procedure room and all appropriate monitors were placed. Patient was referred from his motor mechanic to rule out epistatic B-cell lymphoma in the cerebral spinal fluid. Patient takes eliquis was last taken 5 days ago. Most recent labs were appropriate platelet count was appropriate INR was appropriate Patient was brought to the procedure room and placed in the left lateral due to disposition the L4-L5 lumbar space was prepped with Betadine 3. 2 ML's of 1% lidocaine was then infiltrated to provide local anesthesia. Then a 21-gauge spinal needle which came in the lumbar puncture kit was then utilized and advanced until cerebral spinal fluid was identified. Initial opening pressure was 21 cm water. Then 12 ML's of fluid were divided into 4 vials and the closing pressure wasn't measured to be 16 cm water. Patient tolerated procedure well without any significant issues.
[2022-08-12 12:38] VITALS: BP 121/67; PULSE 78
[2022-08-12 17:25] LABS: Appearance,CSF Clear; CSF Tube Number 3; Nucleated Cells, CSF 1 u/L (0-5)
[2022-08-12 17:26] LABS: Red Blood Cell,CSF 0 u/L (0-10)
[2022-08-12 18:50] LABS: Glucose,CSF 51 mg/dL (40-70); Total Protein,CSF 58 mg/dL (12-60)
== END 2022-08-12 12:52 | disposition home or self-care (01) ==
LOC: ORPAIN 10:45
PROVIDERS: ATTEND Anesthesiology
DX: C83.30 Diffuse large B-cell lymphoma, unspecified site (principal); J45.909 Unspecified asthma, uncomplicated; I48.91 Unspecified atrial fibrillation; Z79.899 Other long term (current) drug therapy; Z79.82 Long term (current) use of aspirin
CPT/HCPCS: 84157; 82945; 89050; 62270; J3010; 99152

== ENCOUNTER 2022-08-18 09:30 | Emergency (ER) | payer OTHER ==
[2022-08-18 09:49] VITALS: RESP 18
--- NOTE | 2022-08-18 10:28 | ED ---
General Adult HPI - General Chief complaint: Weakness Stated complaint: weakness, trouble walking Time Seen by Provider: 08/18/22 09:55 Source: patient, family, RN notes reviewed Mode of arrival: ambulatory Limitations: no limitations - History of Present Illness Initial comments: Patient is an 81-year-old male presenting to the emergency room with complaints of generalized weakness and fatigue ongoing for approximately 24 hours. He denies any focal neurological deficits, headaches, chest pain, shortness of breath, abdominal pain, nausea, vomiting, fevers or chills. He has a history of atrial fibrillation but has been off of his Eliquis for the last 48 hours due to plans for Mediport insertion to treat B-cell lymphoma which is dif fuse. He also underwent a lumbar puncture 6 days ago to evaluate for metastases to the CSF. This test was negative and symptoms did not occur immediately following the lumbar puncture. He has a large left-sided testicular mass that is invading the left inguinal area causing subsequent lower extremity edema most significantly to the left lower extremity. In addition to his lymphoma and A. fib history he has a past medical history significant for anemia and non- Hodgkin's lymphoma. - Related Data Home Medications Medication Instructions Recorded Confirmed Amiodarone [Cordarone] 200 mg PO DAILY 08/10/22 08/26/22 Multivitamins, Thera [Multivitamin 1 tab PO DIRECTED 08/13/22 08/26/22 (formulary)] Apixaban [Eliquis] 5 mg PO DIRECTED 08/18/22 08/26/22 Aspirin 81 mg PO DAILY 08/18/22 08/26/22 Calcium Carb/Mag Ox/Zinc Sulf 1 tab PO DAILY 08/18/22 08/26/22 [Aot-Qzy-Xckv 334-134-5 mg Tab] Glucosamine Sulfate 500 mg PO DIRECTED 08/18/22 08/26/22 Potassium Gluconate [Potassium 99 mg PO DIRECTED 08/18/22 08/26/22 Gluconate ER] Allergies Allergy/AdvReac Type Severity Reaction Status Date / Time No Known Allergies Allergy Verified 08/26/22 09:33 Review of Systems ROS Statement: Those systems with pertinent positive or pertinent negative responses have been documented in the HPI. ROS Other: All systems not noted in ROS Statement are negative. 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 2018- had one round of chemo but developed complications and ended up on life support, developed DVT after chemo, AFIB with RVR History of Any Multi-Drug Resistant Organisms: None Reported Past Surgical History: Hernia Repair Additional Past Surgical History / Comment(s): Pt states he has had 3 inguinal hernia repairs but does not recall laterality, skin cancer removed L arm, IVC filter Past Anesthesia/Blood Transfusion Reactions: No Reported Reaction Additional Past Anesthesia/Blood Transfusion Reaction / Comment(s): no hx. blood transfusion reactions Past Psychological History: No Psychological Hx Reported Smoking Status: Never smoker Past Alcohol Use History: None Reported Past Drug Use History: None Reported - Past Family History Father Family Medical History: CVA/TIA, Myocardial Infarction (SD) Additional Family Medical History / Comment(s): Pt did not have much contact with his father for years but knows that his father had MIs and strokes. He at the age of 65yrs. Mother Family Medical History: No Reported History Additional Family Medical History / Comment(s): Mother was healthy and at the age of 86yrs. General Exam - General Exam Comments Initial Comments: GENERAL: No acute distress, well developed, well nourished. HEENT: Normocephalic, atraumatic. Pupils equal, round, reactive to light. EOMI. Moist mucous membranes. LUNGS: No respiratory distress. Clear to auscultation, no adventitious sounds, no use of accessory muscles. HEART: Regular rate and rhythm without murmur, rub, or gallop. ABDOMEN: Normal bowel sounds. Soft, non-tender, non-distended. : Large left sided testicular mass invading the left inguinal region. Scrotal redness noted without wounds EXTREMITIES: Bilateral lower extremity edema, left +2 right +1. No tenderness. Moves all extremities. NEUROLOGIC: Alert & oriented x 3. CN II-XII grossly intact. Gait not assessed however motor strength in all extremities strong equal. PSYCHIATRIC: Normal affect and behavior. DERMATOLOGIC: Scrotal erythremia. Course Vital Signs 08/18/22 08/18/22 08/18/22 09:44 10:11 11:34 Temperature 99 F Pulse Rate 72 71 70 Respiratory 18 18 18 Rate Blood Pressure 118/61 134/67 107/59 O2 Sat by Pulse 96 94 L 93 L Oximetry 08/18/22 13:17 Temperature 99.0 F Pulse Rate 68 Respiratory 18 Rate Blood Pressure 113/65 O2 Sat by Pulse 95 Oximetry Medical Decision Making - Medical Decision Making Was pt. sent in by a medical professional or institution? @ -No Did you speak to anyone other than the patient for history? @ -Daughter Did you review nursing and triage notes? @ -Yes and agree Were old charts reviewed? @ -Previous EKG and most recent H&P from oncology reviewed Differential Diagnosis? @ -Differential Weakness: Hypoglycemia, shock, sepsis, hyponatremia, anemia, infection, SD, ETOH, adverse medicine reaction, overdose, stroke, this is not meant to be an all-inclusive list. EKG interpreted by me (3pts min.)? @ -EKG interpreted by me demonstrates sinus rhythm with intraventricular conduction delay, ventricular rate 72 bpm, [place] interval 127 ms, QRS duration 126 ms, QT/QTC 409/433 ms, PRT axes 58, 34, 50 X-rays interpreted by me (1pt min.)? @ -None CT interpreted by me (1pt min.)? @ -CT of the brain interpreted by me demonstrates cerebral atrophy. No intracranial hemorrhage or mass noted. U/S interpreted by me (1pt. min.)? @ -None What testing was considered but not performed? (CT, X-rays, U/S, labs)? Why? @ None What meds were considered but not given? Why? @ -None Did you discuss the management of the patient with other professionals? @ -No Did you reconcile home meds? @ -No discharged home Was smoking cessation discussed for >3mins.? @ -none Was critical care preformed (if so, how long)? @ -none Were there social determinants of health that impacted care today? How? (Homelessness, low income, unemployed, alcoholism, drug addiction, transportation, low edu. Level, literacy, decrease access to med. care, snf, rehab)? @ -No Was there de-escalation of care discussed even if they declined? (Discuss DNR or withdrawal of care, Hospice)? @ -No What co-morbidities impacted this encounter? (DM, HTN, Smoking, COPD, CAD, Cancer, CVA, Hep., AIDS, mental health diagnosis, sleep apnea, morbid obesity)? @ -Lymphoma Was patient admitted / discharged? @ -82-year-old male presenting with generalized weakness without any focal neurological deficits inciting factors or specific complaints. Known diffuse B-cell lymphoma with multiple testing and plan for treatment initiation soon. No recent CT or MRI of the brain. Will obtain CT of the brain to evaluate for metastatic disease and or stroke. Will obtain basic labs of BMP, CBC along with urinalysis and viral swab. Will obtain an EKG as well. No indication for any medication administration. Laboratory studies revealed mildly elevated BUN indicating some dehydration however given bilateral lower extremity swelling initiation of IV fluids deferred. CBC demonstrates mild anemia without any leukocytosis. Urinalysis with trace ketones otherwise no significant abnormalities, viral swab negative for Covid RSV and influenza. CT of the brain demonstrates atrophy no evidence of mass or infarct. Findings discussed with patient and daughter at bedside. No indication for further diagnostic imaging or laboratory studies. Discussed options of admission due to progressive weakness and further evaluation of treatment versus discharge home. Patient would like to be discharged home and daughter is agreeable. Will discharge home in stable condition with follow-up with his oncologist along with his primary care provider. Undiagnosed new problem with uncertain prognosis? @ -none Drug Therapy requiring intensive monitoring for toxicity (Heparin, Nitro, Insulin, Cardizem)? @ -none Were any procedures done? @ -none Diagnosis/symptom? @ -Generalized weakness Acute, or Chronic, or Acute on Chronic? @ -Acute Uncomplicated (without systemic symptoms) or Complicated (systemic symptoms)? @ -Complicated Side effects of treatment? @ -[none] Exacerbation, Progression, or Severe Exacerbation] @ -no Poses a threat to life or bodily function? @ -no Case discussed with Dr. Harper - Lab Data Result diagrams: 08/18/22 10:18 08/18/22 10:18 Lab Results 08/18/22 08/18/22 08/18/22 Range/Units 10:18 10:18 10:18 WBC 10.3 (3.8-10.6) k/uL RBC 3.32 L (4.30-5.90) m/uL Hgb 11.1 L (13.0-17.5) gm/dL Hct 31.9 L (39.0-53.0) % MCV 96.2 (80.0-100.0) fL MCH 33.5 (25.0-35.0) pg MCHC 34.9 (31.0-37.0) g/dL RDW 16.0 H (11.5-15.5) % Plt Count 258 (150-450) k/uL MPV 7.6 Neutrophils % 84 % Lymphocytes % 8 % Monocytes % 5 % Eosinophils % 0 % Basophils % 0 % Neutrophils # 8.7 H (1.3-7.7) k/uL Lymphocytes # 0.8 L (1.0-4.8) k/uL Monocytes # 0.5 (0-1.0) k/uL Eosinophils # 0.0 (0-0.7) k/uL Basophils # 0.0 (0-0.2) k/uL Anisocytosis Slight Sodium 134 L (137-145) mmol/L Potassium 4.2 (3.5-5.1) mmol/L Chloride 99 (98-107) mmol/L Carbon Dioxide 32 H (22-30) mmol/L Anion Gap 3 mmol/L BUN 26 H (9-20) mg/dL Creatinine 1.12 (0.66-1.25) mg/dL Est GFR (CKD-EPI)AfAm 72 (>60 ml/min/1.73 sqM) Est GFR (CKD-EPI)NonAf 62 (>60 ml/min/1.73 sqM) Glucose 106 H (74-99) mg/dL Calcium 9.2 (8.4-10.2) mg/dL Urine Color Urine Appearance (Clear) Urine pH (5.0-8.0) Ur Specific [place] (1.001-1.035) Urine Protein (Negative) Urine Glucose (UA) (Negative) Urine Ketones (Negative) Urine Blood (Negative) Urine Nitrite (Negative) Urine Bilirubin (Negative) Urine Urobilinogen (<2.0) mg/dL Ur Leukocyte Esterase (Negative) Urine RBC (0-5) /hpf Urine WBC (0-5) /hpf Urine Mucus (None) /hpf Influenza Type A (PCR) Not Detected (Not Detectd) Influenza Type B (PCR) Not Detected (Not Detectd) RSV (PCR) Not Detected (Not Detectd) SARS-CoV-2 (PCR) Not Detected (Not Detectd) 08/18/22 Range/Units 10:25 WBC (3.8-10.6) k/uL RBC (4.30-5.90) m/uL Hgb (13.0-17.5) gm/dL Hct (39.0-53.0) % MCV (80.0-100.0) fL MCH (25.0-35.0) pg MCHC (31.0-37.0) g/dL RDW (11.5-15.5) % Plt Count (150-450) k/uL MPV Neutrophils % % Lymphocytes % % Monocytes % % Eosinophils % % Basophils % % Neutrophils # (1.3-7.7) k/uL Lymphocytes # (1.0-4.8) k/uL Monocytes # (0-1.0) k/uL Eosinophils # (0-0.7) k/uL Basophils # (0-0.2) k/uL Anisocytosis Sodium (137-145) mmol/L Potassium (3.5-5.1) mmol/L Chloride (98-107) mmol/L Carbon Dioxide (22-30) mmol/L Anion Gap mmol/L BUN (9-20) mg/dL Creatinine (0.66-1.25) mg/dL Est GFR (CKD-EPI)AfAm (>60 ml/min/1.73 sqM) Est GFR (CKD-EPI)NonAf (>60 ml/min/1.73 sqM) Glucose (74-99) mg/dL Calcium (8.4-10.2) mg/dL Urine Color Yellow Urine Appearance Clear (Clear) Urine pH 6.5 (5.0-8.0) Ur Specific [place] 1.022 (1.001-1.035) Urine Protein 1+ H (Negative) Urine Glucose (UA) Negative (Negative) Urine Ketones Trace H (Negative) Urine Blood Negative (Negative) Urine Nitrite Negative (Negative) Urine Bilirubin Negative (Negative) Urine Urobilinogen <2.0 (<2.0) mg/dL Ur Leukocyte Esterase Negative (Negative) Urine RBC <1 (0-5) /hpf Urine WBC <1 (0-5) /hpf Urine Mucus Rare H (None) /hpf Influenza Type A (PCR) (Not Detectd) Influenza Type B (PCR) (Not Detectd) RSV (PCR) (Not Detectd) SARS-CoV-2 (PCR) (Not Detectd) - Radiology Data Radiology results: report reviewed, image reviewed Disposition Clinical Impression: Generalized weakness Disposition: HOME SELF-CARE Condition: Stable Instructions (If sedation given, give patient instructions): Weakness (ED) Additional Instructions: Please continue to follow with your oncologist and primary care provider for treatment for your diffuse large cell lymphoma. Please maintain safety, change in positions slowly. It is recommended that you alternate periods of activity with rest. Please return to the Emergency Department if symptoms worsen or any other concerns. Is patient prescribed a controlled substance at d/c from ED?: No Referrals: [facility],Clinic [Primary Care Provider] - 1-2 days Time of Disposition: 13:07
[2022-08-18 10:37] LABS: Anisocytosis Slight; Basophils % (A) 0 %; Eosinophils % (A) 0 %; HCT 31.9 % (39.0-53.0); HGB 11.1 gm/dL (13.0-17.5); Lymphocytes # (A) 0.8 k/uL (1.0-4.8); Lymphocytes % (A) 8 %; MCH 33.5 pg (25.0-35.0); MCHC 34.9 g/dL (31.0-37.0); MCV 96.2 fL (80.0-100.0); Mean Platelet Volume 7.6; Monocytes # (A) 0.5 k/uL (0-1.0); Monocytes % (A) 5 %; Neutrophils # (A) 8.7 k/uL (1.3-7.7); Neutrophils % (A) 84 %; Platelet Count 258 k/uL (150-450); RBC 3.32 m/uL (4.30-5.90); WBC 10.3 k/uL (3.8-10.6)
[2022-08-18 10:46] LABS: Appearance,Urine Clear (Clear); Bilirubin,Urine Negative (Negative); Blood,Urine Negative (Negative); Color,Urine Yellow; Glucose,Urine (UA) Negative (Negative); Ketones,Urine Trace (Negative); Leukocyte Esterase,Urine Negative (Negative); Mucus,Urine Rare /hpf; Nitrite,Urine Negative (Negative); PH, Urine 6.5 (5.0-8.0); Protein,Urine 1+ (Negative); RBC,Urine <1 /hpf (0-5); Specific Gravity,Urine 1.022 (1.001-1.035); Urobilinogen,Urine <2.0 mg/dL (<2.0); WBC,Urine <1 /hpf (0-5)
[2022-08-18 10:47] LABS: Calcium 9.2 mg/dL (8.4-10.2); Potassium 4.2 mmol/L (3.5-5.1)
--- NOTE | 2022-08-18 12:32 | CT ---
EXAMINATION TYPE: CT brain wo con DATE OF EXAM: 08/18/2022 COMPARISON: 03/24/2017 HISTORY: 81-year-old male Weakness TECHNIQUE: Examination was done in axial plane without intravenous contrast. Coronal and sagittal r econstructions performed. CT DLP: 1111.4 mGycm Automated exposure control for dose reduction was used. FINDINGS: There is no evidence of acute intracranial hemorrhage, acute ischemic changes, mass, mass-effect, or extra-axial fluid collection. There is no effacement of cerebral sulci or basal subarachnoid cister ns. There is no hydrocephalus. There is no midline shift. Kenney-white matter distinction is preserv ed. Mild generalized supratentorial volume loss. Mild patchy white matter hypodensities in both cerebral hemispheres. Scattered calcifications in the carotid siphons Mild mucosal thickening ethmoid air cells. Leftward nasal septal deviation. Mastoid air cells well pn eumatized. Orbits and globes appear intact. IMPRESSION: Mild generalized atrophy and mild burden of chronic small vessel ischemic disease. No acute intracran ial abnormality seen.
[2022-08-18 13:19] VITALS: BP 113/65; PULSE 68; TEMP 99
== END 2022-08-18 13:24 | disposition home or self-care (01) ==
LOC: EC 09:30
DX: R53.1 Weakness (principal); I48.91 Unspecified atrial fibrillation; Z20.822 Contact with and (suspected) exposure to COVID-19; Z79.82 Long term (current) use of aspirin
CPT/HCPCS: 36415; 70450; 80048; 81001; 85025; 87636; 93005; 99285

== ENCOUNTER 2022-08-19 10:44 | Day surgery (SDC) | payer OTHER ==
[2022-08-13 14:50] VITALS: BMI 23.8
[~2022-08-19 10:44] MED LIST: ACETAMINOPHEN TAB 500 MG TAB PO PRN; DEXAMETHASONE SOD PHOSPHATE 4 MG/ML 1 ML VIAL IV ONE; HEPARIN SODIUM,PORCINE/PF 5,000 UNIT/0.5 ML SYRINGE SQ PRN; LACTATED RINGERS 1,000 ML IV SCH; ONDANSETRON 4 MG/2 ML VIAL IVP ONE; Pre Op ABX Message 1 EACH MISC MISCELLANE ONE; fentaNYL (PF) 50 MCG/ML 2 ML AMP IV PRN
[2022-08-19] MEDS ORDERED: LACTATED RINGERS 1,000 ML IV ONE (11:04)
[2022-08-19 11:11] VITALS: RESP 16; TEMP 98.2
[2022-08-19] MEDS ORDERED: DEXAMETHASONE SOD PHOSPHATE 4 MG/ML 1 ML VIAL IVP ONE (11:37)
[2022-08-19] MEDS ORDERED: ONDANSETRON 4 MG/2 ML VIAL IVP ONE (11:37)
[2022-08-19] MEDS ORDERED: LIDOCAINE (PF) 10 MG/ML 2 ML VIAL SQ ONE ×2 (11:59→12:34)
[2022-08-19] MEDS ORDERED: HEPARIN SODIUM,PORCINE 100 UNIT/ML 5 ML VIAL IV ONE ×2 (11:59)
[2022-08-19] MEDS ORDERED: LIDOCAINE 2% INJ 20 MG/ML (2 ML VIAL) ONE (12:15)
[2022-08-19] MEDS ORDERED: fentaNYL (PF) 50 MCG/ML 2 ML AMP ONE (12:15)
[2022-08-19] MEDS ORDERED: KETAMINE 10 MG/ML 20 ML VIAL ONE (12:15)
[2022-08-19] MEDS ORDERED: MIDAZOLAM 2 MG/2 ML VIAL ONE (12:15)
[2022-08-19] MEDS ORDERED: SODIUM CHLORIDE 0.9% 50 ML with ceFAZolin 2,000 MG IV ONE ×2 (12:15)
[2022-08-19] MEDS ORDERED: PROPOFOL 10 MG/ML 20 ML VIAL IV ONE (12:15)
--- NOTE | 2022-08-19 12:15 | P.GSHP ---
History of Present Illness H&P Date: 08/19/22 Chief Complaint: Lymphoma 81-year-old male with recent recurrence of lymphoma. Here today for Port-A-Cath placement. Had received chemotherapy a year or 2 ago through a PICC line. Never had a port before. Was in the ER yesterday with some balance and weakness issues. He was discharged home. 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 2018- had one round of chemo but developed complications and ended up on life support, developed DVT after chemo, AFIB with RVR History of Any Multi-Drug Resistant Organisms: None Reported Past Surgical History: Hernia Repair Additional Past Surgical History / Comment(s): Pt states he has had 3 inguinal hernia repairs but does not recall laterality, skin cancer removed L arm, IVC filter Past Anesthesia/Blood Transfusion Reactions: No Reported Reaction Additional Past Anesthesia/Blood Transfusion Reaction / Comment(s): no hx. blood transfusion reactions Past Psychological History: No Psychological Hx Reported Smoking Status: Never smoker Past Alcohol Use History: None Reported Past Drug Use History: None Reported - Past Family History Father Family Medical History: CVA/TIA, Myocardial Infarction ([place]) Additional Family Medical History / Comment(s): Pt did not have much contact with his father for years but knows that his father had MIs and strokes. He at the age of 65yrs. Mother Family Medical History: No Reported History Additional Family Medical History / Comment(s): Mother was healthy and at the age of 86yrs. Medications and Allergies Home Medications Medication Instructions Recorded Confirmed Type Amiodarone [Cordarone] See Taper PO DIRECTED 08/10/22 08/19/22 History Multivitamins, Thera [Multivitamin 1 tab PO DIRECTED 08/13/22 08/19/22 History (formulary)] Apixaban [Eliquis] 5 mg PO DIRECTED 08/18/22 08/19/22 History Aspirin 81 mg PO DIRECTED 08/18/22 08/19/22 History Calcium Carb/Mag Ox/Zinc Sulf 1 tab PO DAILY 08/18/22 08/19/22 History [Lks-Art-Lihn 334-134-5 mg Tab] Glucosamine Sulfate 500 mg PO DIRECTED 08/18/22 08/19/22 History Potassium Gluconate [Potassium 99 mg PO DIRECTED 08/18/22 08/19/22 History Gluconate ER] Allergies Allergy/AdvReac Type Severity Reaction Status Date / Time No Known Allergies Allergy Verified 08/19/22 11:08 Surgical - Exam Vital Signs Temp Pulse Resp BP Pulse Ox 98.2 F 70 16 103/67 97 08/19/22 11:10 08/19/22 11:10 08/19/22 11:10 08/19/22 11:10 08/19/22 11:10 Physical exam: General: Well-developed, well-nourished HEENT: Normocephalic, sclerae nonicteric Abdomen: Nontender, nondistended Extremities: No edema Neuro: Alert and oriented Assessment and Plan (1) History of lymphoma Narrative/Plan: Will proceed with Port-A-Cath placement at this time. Risks of bleeding, infection, DVT, pneumothorax, catheter malfunction, anesthesia related complications were discussed. The patient understands and wishes to proceed. Current Visit: No Status: Acute Code(s): Z85.79 - PRSNL HX OF MALIG NEOPLM OF LYMPHOID, HEMATPOETC & REL TISS SNOMED Code(s): 091956195
[2022-08-19] MEDS ORDERED: traMADol 50 MG TAB PO PRN (13:00)
[2022-08-19] MEDS ORDERED: NALOXONE 0.4 MG/ML 1 ML VIAL IV PRN (13:00)
--- NOTE | 2022-08-19 13:02 | P.OP ---
Date of Procedure: 08/19/22 Procedure(s) Performed: PREOPERATIVE DIAGNOSIS: Lymphoma POSTOPERATIVE DIAGNOSIS: Same PROCEDURE: Port-A-Cath placement with fluoroscopic and ultrasound guidance SURGEON: Alexys EBL: Minimal ANESTHESIA: Sedation COMPLICATIONS: None OPERATIVE PROCEDURE: Patient was brought and placed on the operative table in the supine position. The patient was sedated per anesthesia that time. The chest and neck were prepped and draped in usual sterile fashion. The ultrasound probe was used to identify the location of the right internal jugular vein. The skin was localized with lidocaine. The Seldinger needle was advanced into the IJ under ultrasound guidance. The wire was advanced through the needle under fluoroscopic guidance into the superior vena cava. A port pocket was created in the right infraclavicular location. The catheter was tunneled from the wire entrance site to the port pocket. The port was then connected to the catheter. The dilator introducer was threaded over the guidewire. The guidewire and dilator were then removed. The catheter was advanced through the introducer and introducer was then removed. The tip was seen to be in the right atrial junction via fluoroscopy. A picture of the radiograph showing the tip at the radial digital junction was taken. Port was flushed with both saline and a Hep- Lock solution. There was good flow both in and out of the port. The port was sutured in underlying tissues using 3-0 silk sutures. The subcutaneous tissues were reapproximated using 3-0 Vicryl sutures and the skin at both locations using 4-0 Monocryl sutures. Skin glue and sterile dressings then applied. DISPOSITION: Stable to recovery room
[2022-08-19 13:06] VITALS: PULSE 59
--- NOTE | 2022-08-19 13:17 | FL ---
Intraoperative/procedural fluoroscopic services were provided for right chest Port-A-Cath placement. Total fluoroscopy time is 5 seconds with a total of 5 submitted images to PACS. Please see the operat joey note for further details.
[2022-08-19 13:20] VITALS: BP 99/61
[2022-08-19] MEDS ORDERED: ACETAMINOPHEN TAB 325 MG TAB PO PRN (18:00)
== END 2022-08-19 13:48 | disposition home or self-care (01) ==
LOC: OR 10:44
PROVIDERS: ATTEND Surgery
DX: C85.90 Non-Hodgkin lymphoma, unspecified, unspecified site (principal); I48.91 Unspecified atrial fibrillation; Z86.718 Personal history of other venous thrombosis and embolism; Z82.49 Family history of ischemic heart disease and other diseases of the circulatory system; Z79.899 Other long term (current) drug therapy
CPT/HCPCS: 77001; 36561; C1788; J2250; J2001 ×2; J1642; J1100; J2405; J0690; J3010; J2704; J1644

== ENCOUNTER 2022-08-26 07:45 | Day surgery (SDC) | payer OTHER ==
[2022-08-26] MEDS ORDERED: diazePAM 5 MG TAB PO STA (08:41)
[2022-08-26 09:02] VITALS: TEMP 97.5
[2022-08-26] MEDS: METHOTREXATE SODIUM (PF) 25 MG/ML 2 ML VIAL INTRATHECA NR ×2 (09:42→09:43)
[2022-08-26 11:39] VITALS: RESP 16
--- NOTE | 2022-08-26 12:36 | FL ---
EXAMINATION TYPE: FL guided lumbar puncture LP DATE OF EXAM: 08/26/2022 CLINICAL HISTORY: Metastatic Testicular lymphoma. TECHNIQUE: Fluoroscopy. COMPARISON: None. FINDINGS: Fluoroscopic guidance was provided during lumbar puncture procedure for intrathecal chemot herapy performed by myself. A total of 31 seconds of fluoroscopic time was utilized during the proce dure and 0 spot images are saved. Procedure explained to patient. Benefits, alternatives, and risks were discussed. Informed consent wa s then obtained. Overlying skin is cleansed with Betadine. Lidocaine is used as anesthetic into the skin and deeper ti ssue. Under fluoroscopic guidance, a spinal needle was advanced into the spinal canal using a paraspi nal approach at roughly L3-L4 level. There is slow return of clear CSF. Approximately 3.5 cc of CSF w as removed as requested by oncology nurse practitioner. Oncology nurse practitioner then gave intrath ecal chemotherapy with 1 cc flush. After this needle and catheter are removed and discarded. Patient tolerated procedure well without any immediate complication. Patient was kept in the hospital for a short stay after the procedure and then discharge home in stable and satisfactory condition. V ital signs were monitored before during and after the procedure. IMPRESSION: As Above.
--- NOTE | 2022-08-26 17:49 | P.PCN ---
Date of Procedure: 08/26/22 Preoperative Diagnosis: testicular DLBCL Postoperative Diagnosis: testicluar DLBCL Procedure(s) Performed: LP with intrathecal methotrexate, prophylaxis Estimated Blood Loss (ml): 0 IV fluids (ml): 0 Pathology: other (CSF fluid sent for cytology) Condition: stable Disposition: same day Indications for Procedure: testicular DLBCL Description of Procedure: LP performed by Interventional Radiologist, 3.5cc CSF removed. 12mg of sterile preservative free methotrexate diluted with sterile NS to volume of 2.5 cc was instilled over 2 minutes, line flushed with 1cc sterile NS for a total instilled volume of 3.5cc. IR removed LP needle, needle disposed of in sharps container, other materials gathered and placed in chemo safe bag for proper disposal in yellow hazardous materials container. Pt tolerate procedure well, VS remained stable.
[2022-08-26 18:43] VITALS: BP 118/73; PULSE 62
== END 2022-08-26 14:06 | disposition home or self-care (01) ==
LOC: RADPROMAIN 07:45
PROVIDERS: ATTEND Internal Medicine
DX: G96.9 Disorder of central nervous system, unspecified (principal); Z85.72 Personal history of non-Hodgkin lymphomas; I48.91 Unspecified atrial fibrillation; D64.9 Anemia, unspecified; Z79.02 Long term (current) use of antithrombotics/antiplatelets; Z79.01 Long term (current) use of anticoagulants; Z79.899 Other long term (current) drug therapy; Z79.891 Long term (current) use of opiate analgesic; Z79.1 Long term (current) use of non-steroidal anti-inflammatories (NSAID); Z79.83 Long term (current) use of bisphosphonates
CPT/HCPCS: 88108; 62328; 96450; J2001; J9260

== ENCOUNTER 2022-10-07 07:43 | Day surgery (SDC) | payer OTHER ==
[~2022-10-07 07:43] MED LIST changes: -ACETAMINOPHEN TAB 500 MG TAB PO PRN; -DEXAMETHASONE SOD PHOSPHATE 4 MG/ML 1 ML VIAL IV ONE; -HEPARIN SODIUM,PORCINE/PF 5,000 UNIT/0.5 ML SYRINGE SQ PRN; -LACTATED RINGERS 1,000 ML IV SCH; +METHOTREXATE SODIUM (PF) 25 MG/ML 2 ML VIAL INTRATHECA NR; -ONDANSETRON 4 MG/2 ML VIAL IVP ONE; -Pre Op ABX Message 1 EACH MISC MISCELLANE ONE; -fentaNYL (PF) 50 MCG/ML 2 ML AMP IV PRN
[2022-10-07] MEDS ORDERED: diazePAM 5 MG TAB PO STA (08:29)
[2022-10-07 08:35] VITALS: TEMP 97.5
--- NOTE | 2022-10-07 09:47 | P.PCN ---
Date of Procedure: 10/07/22 Preoperative Diagnosis: DLBCL Postoperative Diagnosis: DLBCL Procedure(s) Performed: LP with administration of IT MTX Estimated Blood Loss (ml): 0 IV fluids (ml): 0 Pathology: other Condition: stable Disposition: same day Indications for Procedure: DLBCL testicular Description of Procedure: LP performed by Interventional Radiologist. 3.5cc CSF removed. 12mg preservative free methotrexate diluted with sterile NS to a volume of 2.4cc was instilled over 2 minutes. The catheter was flushed with 1.1cc sterile NS in a latex free syringe. Pt tolerated procedure well. Taken to recovery.
[2022-10-07 09:53] VITALS: RESP 16
[2022-10-07 12:31] VITALS: BP 119/74; PULSE 67
--- NOTE | 2022-10-07 13:28 | FL ---
EXAMINATION TYPE: FL guided lumbar puncture LP DATE OF EXAM: 10/07/2022 CLINICAL HISTORY: Metastatic testicular lymphoma. TECHNIQUE: Fluoroscopic assisted lumbar puncture. COMPARISON: Prior study September 16 2022. FINDINGS: Fluoroscopic guidance was provided during lumbar puncture procedure for intrathecal chemot herapy performed by myself. A total of 38 seconds of fluoroscopic time was utilized during the proce dure and 1 spot image is saved. Procedure explained to patient. Benefits, alternatives, and risks were discussed. Informed consent wa s then obtained. Overlying skin is cleansed with Betadine. Lidocaine is used as anesthetic into the skin and deeper ti ssue. Under fluoroscopic guidance, a spinal needle was advanced into the spinal canal using a paraspi nal approach at superior L4 level. There is slow return of clear CSF. Approximately 3.5 cc of clear C SF was removed as requested by oncology nurse practitioner. Oncology nurse practitioner then gave int rathecal chemotherapy with saline flush. After this needle and catheter are removed and discarded by oncology. Patient tolerated procedure well without any immediate complication. Patient was kept in the hospital for a short stay after the procedure and then discharge home in stable and satisfactory condition. V ital signs were monitored before during and after the procedure. Incidental overlying IVC filter rede monstrated. IMPRESSION: As Above. .
== END 2022-10-07 12:29 | disposition home or self-care (01) ==
LOC: RADPROMAIN 07:43
PROVIDERS: ATTEND Internal Medicine
DX: C83.30 Diffuse large B-cell lymphoma, unspecified site (principal); I48.91 Unspecified atrial fibrillation; D64.9 Anemia, unspecified; Z98.890 Other specified postprocedural states; Z79.01 Long term (current) use of anticoagulants; Z79.899 Other long term (current) drug therapy
CPT/HCPCS: 88108; 88184; 88185; 62328; J9260

== ENCOUNTER → 2022-10-28 | Day surgery (SDC) | payer OTHER ==
[~2022-10-28] MED LIST changes: +diazePAM 5 MG TAB PO STA
[2022-10-28 08:18] VITALS: RESP 16; TEMP 97.4
[2022-10-28 09:39] VITALS: BP 127/67; PULSE 77
--- NOTE | 2022-10-28 12:11 | FL ---
EXAMINATION TYPE: FL guided lumbar puncture LP DATE OF EXAM: October 28, 2022 CLINICAL HISTORY: Metastatic testicular lymphoma. TECHNIQUE: Fluoroscopic assisted lumbar puncture. COMPARISON: Prior study October 07 2022 and older studies. FINDINGS: Fluoroscopic guidance was provided during lumbar puncture procedure for intrathecal chemot herapy performed by myself. A total of 8 seconds of fluoroscopic time was utilized during the proced ure and 0 spot images are saved to PACS. Procedure was explained to patient. Benefits, alternatives, and risks were discussed. Informed consen t was then obtained. Overlying skin is cleansed with Betadine. Lidocaine is used as anesthetic into the skin and deeper ti ssue. Under fluoroscopic guidance, a spinal needle was advanced into the spinal canal using a paraspi nal approach at superior L4 level. There is slow return of clear CSF. Approximately 4.0 cc of clear C SF was removed as requested by oncology nurse practitioner. Fluid was retained for further analysis. Oncology nurse practitioner then gave intrathecal chemotherapy with saline flush. After this needle a nd catheter are removed and discarded. Patient tolerated procedure well without any immediate complication. Patient was kept in the hospital for a short stay after the procedure and then discharge home in stable and satisfactory condition. V ital signs were monitored before during and after the procedure. Incidental overlying IVC filter rede monstrated. IMPRESSION: As Above. .
== END ==
LOC: RADPROMAIN 07:49
PROVIDERS: ATTEND Internal Medicine
DX: C83.30 Diffuse large B-cell lymphoma, unspecified site (principal); I48.91 Unspecified atrial fibrillation; Z92.21 Personal history of antineoplastic chemotherapy; D64.9 Anemia, unspecified; Z79.01 Long term (current) use of anticoagulants; Z79.82 Long term (current) use of aspirin; Z79.899 Other long term (current) drug therapy; Z80.8 Family history of malignant neoplasm of other organs or systems; Z80.49 Family history of malignant neoplasm of other genital organs; Z98.890 Other specified postprocedural states; Z95.828 Presence of other vascular implants and grafts
CPT/HCPCS: 77003; 88108; 88184; 88185; 96450; J9260; 62328

== ENCOUNTER 2022-11-18 08:16 | Day surgery (SDC) | payer OTHER ==
[~2022-11-18 08:16] MED LIST changes: -diazePAM 5 MG TAB PO STA
[2022-11-18] MEDS ORDERED: diazePAM 5 MG TAB PO PRN (08:40)
[2022-11-18 08:43] VITALS: RESP 16; TEMP 98
[2022-11-18] MEDS ORDERED: HYDROcodone/APAP 5-325MG 1 EACH TAB PO STA (09:10)
--- NOTE | 2022-11-18 11:12 | FL ---
EXAMINATION TYPE: FL guided lumbar puncture LP DATE OF EXAM: 11/18/2022 COMPARISON: NONE HISTORY: Lumbar puncture for intrathecal chemotherapy injection TECHNIQUE: Fluoroscopy. FINDINGS: Informed consent was obtained and all the patient's questions were answered. Under fluorosc opic guidance the L2-3 level was localized. The standard sterile technique was utilized as well as ap propriate local anesthesia with 1% lidocaine. A 22-gauge spinal needle was introduced into the thecal sac and 3 cc of spinal fluid was obtained and submitted. Subsequently Dr.Fares Hyman administered the chemotherapeutic agent. The patient tolerated the procedure well and left the department in stabl e condition. IMPRESSION: Successful lumbar puncture and intrathecal chemotherapy infusion.
--- NOTE | 2022-11-18 11:32 | P.PCN ---
Date of Procedure: 11/18/22 Preoperative Diagnosis: DLBCL Postoperative Diagnosis: DLBCL Procedure(s) Performed: LP with IT chemotherapy administration Estimated Blood Loss (ml): 0 IV fluids (ml): 0 Pathology: other (cytology and flow cytometry) Condition: stable Disposition: same day Indications for Procedure: testicular DLBCL, prophylactic IT chemo Description of Procedure: LP performed by Radiologist. 3cc of CSF removed. 12mg of Preservative free MTX and sterile NS diluted to volume of 2.4cc was instilled by slow push over 2 minutes, catheter was flushed with 0.6cc sterile NS in latex free syringe over 1 min. LP needle removed by Radiologist. Pt tolerate procedure well.
[2022-11-18 15:12] VITALS: PULSE 70
[2022-11-18 15:13] VITALS: BP 121/68
== END 2022-11-18 12:35 | disposition home or self-care (01) ==
LOC: RADPROMAIN 08:16
PROVIDERS: ATTEND Internal Medicine
DX: C83.30 Diffuse large B-cell lymphoma, unspecified site (principal)
CPT/HCPCS: 96450; 88108; 88184; 88185; J9260; 62328

== ENCOUNTER → 2022-11-19 | Outpatient (CLI) | payer OTHER ==
--- NOTE | 2022-11-19 14:18 | CT ---
EXAMINATION TYPE: CT lumbar spine wo con DATE OF EXAM: 11/19/2022 2:11 PM COMPARISON: NONE. HISTORY: Severe Low back pain for 6-[address] DLP: 573.20 mGycm Automated exposure control for dose reduction was used. Unenhanced CT of the lumbar spine was performed. Bone and soft tissue window settings are submitted as well as coronal and sagittal reconstructions. There are 5 lumbar-type vertebra. There is lucency and sclerosis through the L1 vertebra suggesting s ubacute compression type fracture. No posterior vertebral body margin extension or retropulsion is pr esent. Alignment is satisfactory on coronal and sagittal images. [id number] disc space narrow ing and anterior spurring with vacuum disc phenomenon at L4-L5 level. Severe disc space narrowing and calcification at L5-S1 level. Vacuum disc phenomenon at L3-L4 level. No large posterior disc herniat ions are present on sagittal images. Axial images at L3-L4 level show mild to moderate broad disc bulge mildly effaces the anterior thecal sac along with mild/moderate facet arthropathy bilaterally effacing the posterolateral thecal sac. T here is mild to moderate bilateral neural foraminal narrowing. Axial images at L4-L5 level show posterior spur disc complex effaces the anterior thecal sac and mild facet arthropathy bilaterally. There is [id number] bilateral neural foraminal narrowing seen. Axial images at L5-S1 level shows moderate facet arthropathy bilaterally. There is an infrarenal IVC filter at the L5 3 level. There is moderate calcified plaque in the ectati c abdominal aorta. The aorta measures up to 2.6 cm transversely axial image 53. IMPRESSION: Subacute mild to moderate compression type fracture of L1 level is felt present which co rrelates with patient's history of severe pain for 6-7 week.
== END | disposition home or self-care (01) ==
LOC: RADCTMAIN 13:44
DX: M48.54XA Collapsed vertebra, not elsewhere classified, thoracic region, initial encounter for fracture (principal)
CPT/HCPCS: 72131

== ENCOUNTER → 2022-11-29 | Outpatient (CLI) | payer OTHER ==
[2022-11-29 16:18] LABS: African American GFR (CKD) 86.6 (60.0-200.0); Anion Gap 6.3 mmol/L (10.00-18.00); BUN/Creat Ratio 19.45 Ratio (12.00-20.00); Blood Urea Nitrogen 18.5 mg/dL (9.0-27.0); Calcium 9.7 mg/dL (8.7-10.3); Carbon Dioxide 30.8 mmol/L (20.0-27.5); HCT 34.7 % (39.6-50.0); HGB 11.5 g/dL (13.0-17.0); MCH 33.7 pg (27.0-32.0); MCHC 33.1 g/dL (32.0-37.0); MCV 101.8 fL (80.0-97.0); Mean Platelet Volume 10.9 fL (9.5-12.2); NRBC Per 100 WBC 0 /100 WBCS (0.0-0.0); Non-African American GFR(CKD) 74.7 (60.0-200.0); Platelet Count 113 X 10*3/uL (140-440); Potassium 4.8 mmol/L (3.5-5.5); RBC 3.41 X 10*6/uL (4.40-5.60); RDW 16.7 % (11.5-14.5); WBC 5.37 X 10*3/uL (4.50-10.00)
[2022-11-29 18:13] LABS: Acanthocytes 2+; Basophils # (M) 0.11 X 10*3/uL (0.00-0.10); Elliptocytes 2+; Eosinophils # (M) 0.16 X 10*3/uL (0.04-0.35); Lymphocytes # (M) 0.27 X 10*3/uL (0.90-5.00); Metamyelocytes % 1 % (0-0); Monocytes # (M) 0.27 X 10*3/uL (0.20-1.00); Myelocytes % 2 % (0-0); Neutrophils % (M) 82 %
[2022-11-29 19:51] LABS: INR 0.94 (0.90-1.11); Prothrombin Time 10.6 sec (9.9-11.9)
== END | disposition home or self-care (01) ==
LOC: LABPAT 09:37
PROVIDERS: ATTEND Orthopaedic Surgery
DX: Z01.812 Encounter for preprocedural laboratory examination (principal)
CPT/HCPCS: 36415; 80048; 85025; 85610; 87070

== ENCOUNTER 2022-12-06 08:30 | Day surgery (SDC) | payer OTHER ==
[2022-12-02 12:06] VITALS: BMI 22.0
--- NOTE | 2022-12-06 06:39 | P.HPOR ---
History of Present Illness H&P Date: 11/24/22 .D:Date: 11/24/22 : 11:19am .T:Title: [facility] Date of :[birth year] R14 Allergies: Age: 82 year Height: Weight: BP:/ BMI: Occupation: Retired VAS: 8 CHIEF COMPLAINT: Low back pain, L1 VCF DOI: 2 months DOS: n/a Duration of current treatment regiment: n/a HISTORY : Xrays New xrays taken in office Trauma or injury No Work-Related No Pain description sharp, shooting Location posterior Patient notes that their pain radiates to bilat groin Activity Modification yes Hand Dominance right TREATMENTS COMPLETED: 6 weeks of PT completed? Month and Year of last PT date? No Physician directed home exercise completed? No Medications yes List: Vardaman, lidoderm patches Alternative interventions Chiropractic: No Massage therapy: No R.I.C.E: yes Brace: No Injections No RFA: No SUBJ ECTIVE: Ms. Quevedo presents to the office for an evaluation of their low back pain and L1 vertebral compression fracture. Patient reports a sharp and shooting lumbar pain ongoing for approx 2 months. Patient had a CT scan of the lumbar spine perfromed from his PCP due to his sudden onset of pain on 11/19/22. 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 Patient has had 5 cycles of chemotherapy, his last treatment was on 11/19/22. In addition to their lumbar pain, they do report that it radiates into the bilateral groin. Patient denies any numbness or tingling to the bilateral lower extremities. Overall the patient has seen a progressive increase in symptoms since their onset. Ms. Quevedo symptoms are exacerbated with any increased activity, due to this they notes that it is increasingly difficult for Ms. Quevedo to complete many of their daily tasks. Patient is having moderate sleep disturbances as well due to their ongoing pain and associated symptoms. Regarding treatments, the patient denies trialing any modalities at this time. For their symptoms, the patient has been taking Vardaman and Lidoderm patches. Otherwise the patient denies any f/c/sob/cp, no bladder or bowel retention/incontinence, no perineal numbness/tingling, and ambulates independently. The patients' past social, medical, family, surgical history, as well as review of systems, have been reviewed. Please refer to the Neurosurgery History and Physical form that has been scanned in to our electronic medical record system. 14 points review of systems completed and as stated in HPI, all other systems reviewed are negative. Social History: P3 Social History: .CE:Clinical Elements:Clinical Elements: Smoking: never a smoker P3 .CE:Clinical Elements:Clinical Elements: Alcohol: none P3 Family History: Reviewed, see appropriate section of the chart for details. P2 Past Medical History: Reviewed, see appropriate section of the chart for details. P1 P1 Current Medications: Rx: amiodarone 100 mg tablet Ref: 0 Instructions: take 1 tablet (100 mg) by oral route 2 times per day Rx: Eliquis 5 mg tablet Ref: 0 Instructions: take 1 tablet (5 mg) by oral route 2 times per day Rx: HYDROcodone 10 mg-acetaminophen 325 mg tablet Ref: 0 Instructions: take 1 tablet by oral route every 4-6 hours as needed for pain Rx: Lidoderm 5 % topical patch Ref: 0 Instructions: apply 1 patch by topical route once daily (May wear up to 12hours.) Rx: metHOTREXate Ref: 0 Instructions: INTRATHECAL INFUSION Rx: multivitamin tablet Ref: 0 Rx: Neulasta Ref: 0 Rx: Stool Softener Ref: 0 P1 PHYSICAL EXAMINATION: General: Awake, alert, appropriate for age, in no acute distress. HEENT: No unusual neck masses around region of lateral neck triangle, thyroid, supraclavicular groove Heart: Regular rate and rhythm, normal S1, S2 and no murmur/gallop. Lungs: Clear to auscultation bilaterally with no use of accessory muscles. Extremities: Skin warm and dry without acute lesions, coloration, temperature, skin intact, no tenderness or erythema Integument: Hairy patches: ABSENT Dorsal skin dimples: ABSENT Cafe au lait spots: ABSENT Surgical incisions: n/a Palpation: Please see Pain drawing on Intake sheet for further detail. Midline spinal tenderness:Yes E6 Cervical Tenderness: No E6 Paralumbar tenderness: No E6 Parathoracic tenderness: No E6 Buttocks tenderness: No E6 Sacroilliac Tenderness: No POSTURAL and MUSCULO-SKELETAL EVALUATION: Coronal Balance: NEUTRAL Recumbent testing: Patient is able to lay flat on back Sagittal Balance: NEUTRAL Shoulder Profile: LEVEL Pelvic Girdle: LEVEL Neck ROM: UNRESTRICTED Lumbar ROM: RESTRICTED Shoulder ROM: Symmetrical Hip ROM: Symmetrical Knee ROM: Symmetrical Hands: Normal appearance, symmetrical Feet: Normal appearance, Symmetrical VASCULAR STATUS : LEFT RIGHT Wrist Pulses INTACT INTACT Pedal Pulses (Dors. pedis & post.tibialis) INTACT INTACT Color NORMAL NORMAL Edema Absent Absent NEUROLOGIC EXAMINATION: Mental Status:Awake and alert, fully oriented, with normal attention, concentration and memory, and fluent, appropriate speech. Cranial Nerves: I: Olfactory not tested. II: Visual acuity normal, no visual field deficit noted with confrontation. III,IV: Normal pupillary reflexes & intact extraocular movements without nystagmus. V,: Intact symmetrical facial sensation. VII: Intact symmetrical facial motor movement VIII: Hearing intact. IX,X: Intact gag, swallow, & normal voice. XI: Sternocleidomastoid, trapezius function intact. XII: Tongue midline with normal movements. L'hermitte's Sign: Negative / absent Spurling'Sign: Absent bilaterally. Cubital percussion test: Absent bilaterally. Kaiser-Tinel sign - Carpal region: Absent bilaterally. Straight Leg Raising: Absent bilaterally. Crossed straight leg raise: negative O8 MOTOR EXAM (0-5/5, N/T Muscle appearance: Symmetrical, without signs of atrophy or dystrophy UPPER EXTREMITY RIGHT LEFT Shoulder Abduction 5/5 5/5 Biceps 5/5 5/5 Triceps 5/5 5/5 Wrist Extension 5/5 5/5 Hand Intrnsics 5/5 5/5 Glass Furnace Operator 5/5 5/5 Hand and finger dexterity intact bilaterally? yes Disdiadochokinesis examination negative bilaterally? yes LOWER EXTREMITY RIGHT LEFT Hip Flexion 5/5 5/5 Knee Extension 5/5 5/5 Knee Flexion 5/5 5/5 Dorsiflexion 5/5 5/5 Plantarflexion 5/5 5/5 EHL 5/5 5/5 FHL 5/5 5/5 Toe heel walk / heel-toe walk intact while maintaining satisfactory balance? yes Squatting/straightening w/o assistance to a min of 60 degree knee flexion? No Single leg stance: intact Trendelenburg sign negative bilaterally REFLEXES(0-4/2, NT)Upper ExtremityLower Extremity Right 2 2 Left 2 2 Pathological Reflexes RIGHT LEFT Kaiser's Absent Absent Clonus Absent Absent Babinski Absent Absent Sensory system (0-4, N/T) Test type RU DAVID RL LL Joint-Position 2 2 2 2 Vibration 2 2 2 2 Pain & LT sense 2 2 2 2 Dermatomal Deficit: None None None None Gait and Functional Evaluation: Ambulatory aids: Independent Romberg's test: Intact bilaterally Steady Gait RADIOGRAPHIC STUDIES: XRay Lumbar Multiview (AP, Lateral, Flexion, Extension) with AP pelvis; 5 views taken at [facility] on 11/24/22: moderate multilevel spondylitic and degenerative changes with slight flattening of the normal lordosis. Chronic T11 compression fracture noted. Acute L1 compression fracture with >50% vertebral height loss. Multilevel diminished disc height. CT [facility] LumbarSpine: IMPRESSION: Subacute mild to moderate compression type fracture of L1 level is felt present which correlates with patient's history of severe pain for 6-7 week. IMPRESSION: It was my pleasure to have seen and examined Juan. I reviewed the patient's clinical syndrome, physical findings, and imaging studies during the appointment today. It is my impression that the patient has a diagnosis of. 1. Chronic T11 compression fracture 2.Acute L1 compression fracture 3. Lumbar spondylosis 4. Mechanical low back pain I outlined the natural course history without intervention and various interventional options. PLAN: Based on my findings I suggest the following course of action: I discussed treatment options with the patient, including operative and non- operative options, and they have elected to proceed with the following surgical procedure: Lumbar L1 Kyphoplasty with biopsy The indications, risks, benefits, and alternatives to surgery were discussed with the patient and family at length. Specifically, but not limited to the risks of infection, stiffness, recurrence of symptoms, need for revision surgery, local numbness, neurovascular injury, and blood clots were discussed. The patient's questions were answered. The decision to proceed was made. Consent will be obtained for the procedure. -A new prescription was given for LSO brace -Ambulate daily -Take medications as directed -Ice and rest for pain and swelling control. Follow- up: Post procedure Patient Education: (Informational booklet, instructions, etc) given at today's appointment: Yes .ED:Patient Education: Y Plan at next visit: Medications Reviewed: YES In our visit today Ms. Quevedo and I have had a chance to go over my understanding of the patient's current condition, the natural course history without intervention and various interventional options. Questions were invited and answered, and the patient wishes to proceed as outlined above. I will be sure to keep you updated afterMsMilagro Quevedo returns here for further follow-up. Thank you again for your referral. Please do not hesitate to contact me if you have any further questions. Signed and authenticated by: Marcella Whitley MSN, HIGH FREQUENC[employer] MILL OPERATOR-C [facility] [address] [facility], [address] [address] This message is confidential, intended only for the named recipient(s) and may contain information that is privileged or exempt from disclosure under applicable law. If you are not the intended recipient(s), you are notified that the dissemination, distribution or copying of this information is strictly prohibited. If you received this message in error, please notify the sender then delete this message. #Orders: Xray Pelvis #Orders: XrayLumbar Spine, 3v # SIGNED BY Marcella Whitley, SAVANNAH-C, Nurse Practitioner (STO)11/29/2022 10:36A Past Medical History Past Medical History: Atrial Fibrillation, Cancer, Deep Vein Thrombosis (DVT), Syncope Additional Past Medical History / Comment(s): Squamous cell skin cancer., stage 3 large B cell lymphoma dx. 2018- 1st round of chemo he developed bleeding complications and ended up on life support., developed blood clot after chemo and filter inserted., hx falls -uses walker., has port-a-cath for chemo., last chemo november 19 2022., daughter states oxygen usually drops when sleeping at hospital and requires oxygen. History of Any Multi-Drug Resistant Organisms: None Reported Past Surgical History: Hernia Repair Additional Past Surgical History / Comment(s): 3 inguinal hernia repairs ., skin cancer removed L arm, IVC filter, port a cath Past Anesthesia/Blood Transfusion Reactions: No Reported Reaction Additional Past Anesthesia/Blood Transfusion Reaction / Comment(s): no hx. blood transfusion reactions Past Psychological History: No Psychological Hx Reported Additional Psychological History / Comment(s): Pt resides alone. Smoking Status: Never smoker Past Alcohol Use History: None Reported Additional Past Alcohol Use History / Comment(s): hx of heavy alcohol use but quit 2000. Past Drug Use History: None Reported - Past Family History Father Family Medical History: CVA/TIA, Myocardial Infarction ([place]) Additional Family Medical History / Comment(s): Pt did not have much contact with his father for years but knows that his father had MIs and strokes. He at the age of 65yrs. Mother Family Medical History: No Reported History Additional Family Medical History / Comment(s): . Medications and Allergies Home Medications Medication Instructions Recorded Confirmed Type Multivitamins, Thera [Multivitamin 1 tab PO DAILY 08/13/22 12/02/22 History (formulary)] Apixaban [Eliquis] 5 mg PO BID 08/18/22 12/02/22 History predniSONE 80 mg PO DIRECTED 10/07/22 12/02/22 History Amiodarone [Cordarone] 100 mg PO DAILY 12/02/22 12/02/22 History Docusate [Colace] 100 mg PO TID 12/02/22 12/02/22 History HYDROcodone/APAP 10-325MG [Vardaman 1 tab PO Q4HR PRN 12/02/22 12/02/22 History 10-325] Allergies Allergy/AdvReac Type Severity Reaction Status Date / Time No Known Allergies Allergy Verified 12/02/22 11:27 Physical Examination Osteopathic Statement: *. No significant issues noted on an osteopathic structural exam other than those noted in the History and Physical/Consult.
[~2022-12-06 08:30] MED LIST changes: +DEXAMETHASONE SOD PHOSPHATE 4 MG/ML 1 ML VIAL IV ONE; +LACTATED RINGERS 1,000 ML IV SCH; +LIDOCAINE 1% (10MG/ML) FOR IV START INTRADERMA PRN; -METHOTREXATE SODIUM (PF) 25 MG/ML 2 ML VIAL INTRATHECA NR; +MIDAZOLAM 2 MG/2 ML VIAL IV PRN; +ONDANSETRON 4 MG/2 ML VIAL IVP ONE
[2022-12-06 09:00] LABS: Glucose,Whole Blood 114 mg/dL (70-110)
[2022-12-06] MEDS ORDERED: LACTATED RINGERS 1,000 ML IV ONE (09:06)
[2022-12-06] MEDS ORDERED: BUPIVACAINE (PF) 0.25% 30 ML VIAL SQ ONE (10:31)
[2022-12-06] MEDS ORDERED: CYCLOBENZAPRINE 5 MG TAB PO PRN (10:57)
[2022-12-06] MEDS ORDERED: HYDROmorphone 1 MG/ML 1 ML SYRINGE IVP PRN (10:57)
[2022-12-06] MEDS ORDERED: HYDROcodone/APAP 10-325MG 1 EACH TAB PO PRN (10:57)
[2022-12-06] MEDS ORDERED: HYDROcodone/APAP 5-325MG 1 EACH TAB PO PRN (10:57)
[2022-12-06] MEDS ORDERED: MAGNESIUM HYDROXIDE 2,400 MG/10 ML CUP PO PRN (10:57)
[2022-12-06] MEDS ORDERED: SENNOSIDES-DOCUSATE SODIUM 1 EACH TAB PO PRN (10:57)
[2022-12-06] MEDS ORDERED: HYDROmorphone 0.5 MG/0.5 ML SYRINGE IVP PRN (10:57)
[2022-12-06 11:02] VITALS: TEMP 97.1
[2022-12-06] MEDS: HYDROmorphone 0.5 MG/0.5 ML SYRINGE IVP PRN ×2 (11:19→11:33)
[2022-12-06] MEDS ORDERED: ACETAMINOPHEN TAB 325 MG TAB PO SCH (12:00)
[2022-12-06 13:26] VITALS: BP 145/90; PULSE 96; RESP 20
--- NOTE | 2022-12-06 14:12 | FL ---
EXAMINATION TYPE: FL guidance operating room, XR lumbar spine 2 or 3V DATE OF EXAM: 12/06/2022 CLINICAL HISTORY: Low back pain. TECHNIQUE: Fluoroscopy. Lumbar spine 2 views intraoperatively. COMPARISON: Prior side lumbar spine x-ray November 24, 2022. FINDINGS: Fluoroscopic guidance was provided during kyphoplasty procedure performed by Dr. Darlin nelson A total of 70 seconds of fluoroscopic time was utilized during the procedure and 6 spot images wa s acquired. Total dose area product (DAP) : 5.0783 Gy x cm2. Images acquired show kyphoplasty at L1 level and moderate compression type fracture. Alignment is sta ble. Overlying IVC filter is redemonstrated. IMPRESSION: As Above.
--- NOTE | 2022-12-06 19:57 | P.OP ---
Date of Procedure: 12/06/22 Preoperative Diagnosis: 1. L1 VCF 50% compression with wedge component 2. Low back pain, mechanical 3. Inability to complete ADLs due to fracture Postoperative Diagnosis: 1. L1 VCF 50% compression with wedge component 2. Low back pain, mechanical 3. Inability to complete ADLs due to fracture Procedure(s) Performed: 1. L1 biopsy with kyphoplasty (75793) 2. Treatment of VCF with intravertebral body spine lucita system ([id number]) Implants: Lynn Cement Anesthesia: GETA Surgeon: Fito Burton Chief Engineer Production #1: Cem Alamo (Was present and assisted with all aspects of the case from positioning to dressing placement) Estimated Blood Loss (ml): 2 IV fluids (ml): 300 Urine output (ml): 0 Pathology: other (L1 vertebral body) Condition: stable Disposition: PACU Indications for Procedure: Spine Surgery Clinical and Risk Review Juan Quevedo is a 82 yo male presenting for evaluation of Lumbar 1 VCF, low back pain s/p injury. It was my pleasure to have seen and examined Juan Quevedo . In our visit today we have had a chance to go over subjective complaints, physical examination findings and treatments including the natural course history without intervention and various interventional options. The patients imaging demonstrates L1 VCF 50% copmpressed with wedge component causing kyphosis.. On physical exam, Juan Quevedo demonstrates severe pain and TTP over the L1 region with pain on movement and with ADLs that is limiting his ability to care for himself. I have explained to the patient that as their condition progresses it will cause further neurological deficits and eventual paralysis. Based on the patients imaging, physical exam, and the rapid progression and disabling nature of their symptoms, at this time I recommend surgery in the form or a: Lumbar 1 kyphoplasty and biopsy. I discussed the risk and benefits of this procedure at length with Juan Quevedo. The patient and agreed to considered pursuing the procedure abovementioned. Prior to surgery, she should follow up with her PCP (Cardio, ID, IM etc) for clearance. Questions were invited and answered, and the patient wishes to proceed as outlined below. Currently, I am recommendin. Lumbar 1 kyophoplasty and biopsy 2. Review of surgical risks and benefits as well as an educational packet on the proposed surgical procedure. Risks: All surgical procedures come with inherent risks, including those related to positioning, anesthesia, intraoperative findings, and postoperative complications. It is important to understand that surgery does not come with any guarantee of a successful outcome as complications and adverse events are always possible. The patient was given a handout in office today discussing the surgical procedure and risks associated with the intervention, both of which were discussed with the patient. These risks include but are not limited to the following: * Experiencing same, different or even worse symptoms in back, neck, arms, or legs compared to before surgery. * Requiring further surgery or other forms of treatment presently or at some time in the future at same or other levels of the intended spine surgery. * On an extreme but fortunately relatively rare basis severe complication such as blindness, stroke, heart attack, temporary and/or permanent nerve injury, paralysis, coma, or may occur, sometimes without known e xplanation. * Surgical complications may include but are not limited to risk of infection, fluid accumulation in the surgical dissection site, including a seroma or hematoma, that requires additional surgery, wound drainage, bleeding, new numbness or weakness, vision changes/loss, spinal fluid leakage, non-healing and/or infected incision, headaches, difficulty or inability to swallow, hoarseness, hemopneumothorax, pneumothorax, impotence, retrograde ejaculation, vaginal dryness; injury to nerves, spinal cord, blood vessels, lymphatics or other vital organs (i.e., bowel injury, injury to the great vessels); heterotopic bone formation; complications related to the hardware such as screws, rods, cages including misplaced hardware, device failure, instrumentation at the wrong spine level, hardware fracture/breakage, or hardware loosening; vertebral failure of the spinal column above or below the newly placed hardware; retained surgical instrumentations or devices and the need for further surgery. * Medical risks of the planned spine surgery include but are not limited to generalized Infections to the whole body or local areas outside of the surgical site (sepsis), heart attack, bleeding, anaphylaxis, meningitis, seizure, epilepsy, hearing loss, burn anderson, laceration of the head or other areas of the body, bruising, hypersensitivity of the skin, bladder over distension; allergic reaction; shoulder injury related to positioning; fat, blood and air clots to other areas of the body like heart, lungs, brain; failure of internal organs such as lungs, kidneys, liver and excessive bleeding. If blood transfusions are necessary, note that transfusions may cause intolerance reactions such as anaphylaxis or other complex reactions. * Despite best efforts, the results of spine surgery might not heal in terms of bone, soft tissues such as skin, fascia, ligaments, and joints. Additionally, in order to achieve best possible results, spine surgery may be carried out beyond the initially planned levels and involve decompression, fusion including insertion of hardware at levels other than the original intended area of surgical interest change some portions of the procedure in order to ensure the best possible outcomes. * With spine surgery and spinal fusion, there are different off label uses of instrumentation (devices, implants and hardware) as well as biological substances (bone morphogenic proteins, demineralized bone matrix) as well as using extra bone from allograft sources (i.e. cadaver bone) or autograft (iliac crest bone, ribs, or the spine itself). The patient has been given information about these practices and their inherent risks and benefits. The patient has had a chance to review all the listed information, has been given print outs detailing this information, and has had all his/her questions answered to their satisfaction. It was my pleasure to have seen and examined Juan Quevedo. In our visit today w e have had a chance to go over my understanding of our patient's current condition, the natural course history without intervention and various interventional options. Questions were invited and answered, and the patient wishes to proceed as outlined above. I have seen and examined the patient for 25 minutes and we have spent more than 50% of the time in repeat and detailed counseling about the patient's condition, its natural course history with out and as much as can be predicted with surgery and re-review of various surgical treatment options. In conclusion, Juan Queen and requested we proceed with the above suggested surgery and are willing to accept risks and limitations of the suggested surgery as nature of the disease process and our best attempts at treatment for the condition. Thank you again for allowing us to be part of your patient's care. Please don't hesitate to contact me if you have any further questions. Signed and authenticated by: Fito Mercedes [facility] [address] [place], [address] [address] Description of Procedure: L1 Kyphoplasty The patient was seen and examined in the preoperative area. All preoperative protocols were followed. Informed consent was obtained, risks and benefits of the procedure were discussed at length. Risks including bleeding infection damage to the surrounding tissue and risk of re-operation were discussed with the patient. Risk of anesthesia up to and including was discussed with the patient. These are outlined in the risk review. They were willing to accept these risks and all the risks of surgery. The patient was given a weight-based dose of antibiotics in the form of 2 g Ancef. The patient was seen and evaluated by the anesthesia team who deemed them fit for surgery. The site was marked, the patient was willing to proceed with the procedure. The patient was transferred to the operative suite by the Department of anesthesia. They were then drifted off to sleep by the department anesthesia and GETA was performed. The patient tolerated this well. Once confirmation of lines and ventilation the patient was transferred to a prone Sky table very carefully. All bony prominences including wrists, elbows, axilla, chest, hips, and thighs, and feet were padded very well. Special attention was paid to the genitalia, and these were padded accordingly. SCDs were placed on bilateral lower extremities and were connected. Arms were well padded and placed on arm boards up and out in the 90/90 position. Once in position, again we confirmed good ventilation capabilities and that lines were running appropriately. The patients Lumbar spine was then exposed. 1010s were placed outlining the incision site. Standard alcohol was used to clean the incision site and allowed to dry. C-arm was used to needle localize the pedicles at L1 and bio-selene the patient and confirm level for incision which was marked with a skin marker. Operative briefing was performed with all teams and everyone in agreement to proceed. The patient was then prepped and draped in a normal sterile fashion. Timeout was then performed, and all parties agreed with the procedure to be performed. Skin richard was made bilaterally. Jamshitdis were passed into the L1 vertebral body via the pedicle. This was done with biplane fluoroscopy. Once in good position in the body the trochar removed and wire placed. The spine lucita cannula system was then passed into the body. Biopsy needle was passed into the body and biopsy taken. Drill was then passed and biopsy material taken from drill as well. Trial was then placed and AP taken and this showed good b/l placement. Spine jacks were then expanded sequentially and showed good reduction of the fracture. The cement was then injected into the body to fill the spine jacks and the void of the fracture and pt remained stable. Good fill of cement was seen without extravasation. Once good fill, the Jamshedi was removed and the wound irrigated. The skin was closed with a simple stitch and dressed with a bandaid. The patient was then transferred off the table back to their hospital bed a- traumatically. They were extubated by the department of anesthesia. They were then transferred to PACU in stable condition having tolerated the procedure with no complications.
== END 2022-12-06 13:39 | disposition home or self-care (01) ==
LOC: OR 08:30
PROVIDERS: ATTEND Orthopaedic Surgery
DX: S32.010A Wedge compression fracture of first lumbar vertebra, initial encounter for closed fracture (principal); M31.19 Other thrombotic microangiopathy; I48.91 Unspecified atrial fibrillation; Z79.01 Long term (current) use of anticoagulants; Z79.899 Other long term (current) drug therapy
CPT/HCPCS: 22514; 86900; 86901; 86850; 72100; J2250; J1100; J0690; J2405; J1170; 88307; 88311; 88341; 88342

== ENCOUNTER 2022-12-16 12:32 | Inpatient (IN) | payer OTHER, MEDICARE ==
--- NOTE | 2022-12-16 13:09 | ED ---
Back Pain HPI - General Chief Complaint: Back Pain/Injury Stated Complaint: back pain Time Seen by Provider: 12/16/22 12:33 Source: patient, EMS, RN notes reviewed Limitations: no limitations - History of Present Illness Initial Comments: 82-year-old male presents emergency Department with chief complaint of increasing weakness, back pain. Patient states he had a kyphoplasty by Dr. Burton last week. Patient's been having increasing weakness, falls. Their concern he injured his back. He states is barely able to get out of his bed. He did contact office stating he has come emergency department. Patient sent in by [place] [facility] for possible inpatient physical therapy at a facility. Patient denies any incontinence. Patient does have current cancer on chemotherapy. - Related Data Home Medications Medication Instructions Recorded Confirmed Multivitamins, Thera [Multivitamin 1 tab PO DAILY 08/13/22 12/02/22 (formulary)] Apixaban [Eliquis] 5 mg PO BID 08/18/22 12/02/22 predniSONE 80 mg PO DIRECTED 10/07/22 12/02/22 Amiodarone [Cordarone] 100 mg PO DAILY 12/02/22 12/02/22 Docusate [Colace] 100 mg PO TID 12/02/22 12/02/22 HYDROcodone/APAP 10-325MG [[place] 1 tab PO Q4HR PRN 12/02/22 12/02/22 10-325] Previous Rx's Medication Instructions Recorded Cyclobenzaprine [Flexeril] 5 mg PO TID #30 tablet 12/06/22 Gabapentin 300 mg PO TID #30 cap 12/06/22 Allergies Allergy/AdvReac Type Severity Reaction Status Date / Time No Known Allergies Allergy Verified 12/16/22 12:46 Review of Systems ROS Statement: Those systems with pertinent positive or pertinent negative responses have been documented in the HPI. ROS Other: All systems not noted in ROS Statement are negative. 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 2018- had one round of chemo but developed complications and ended up on life support, developed DVT after chemo, AFIB with RVR History of Any Multi-Drug Resistant Organisms: None Reported Past Surgical History: Hernia Repair Additional Past Surgical History / Comment(s): Pt states he has had 3 inguinal hernia repairs but does not recall laterality, skin cancer removed L arm, IVC filter, spinal surgery 12/06/22 Past Anesthesia/Blood Transfusion Reactions: No Reported Reaction Additional Past Anesthesia/Blood Transfusion Reaction / Comment(s): no hx. blood transfusion reactions Past Psychological History: No Psychological Hx Reported Smoking Status: Never smoker Past Alcohol Use History: None Reported Past Drug Use History: None Reported - Past Family History Father Family Medical History: CVA/TIA, Myocardial Infarction (DE) Additional Family Medical History / Comment(s): Pt did not have much contact with his father for years but knows that his father had MIs and strokes. He d ied at the age of 65yrs. Mother Family Medical History: No Reported History Additional Family Medical History / Comment(s): . General Exam Limitations: no limitations General appearance: alert, in no apparent distress Head exam: Present: atraumatic, normocephalic, normal inspection Eye exam: Present: normal appearance, PERRL, EOMI. Absent: scleral icterus, conjunctival injection, periorbital swelling ENT exam: Present: normal exam, normal oropharynx, mucous membranes moist Neck exam: Present: normal inspection, full ROM. Absent: tenderness, meningismus, lymphadenopathy Respiratory exam: Present: normal lung sounds bilaterally. Absent: respiratory distress, wheezes, rales, rhonchi, stridor Cardiovascular Exam: Present: regular rate, normal rhythm, normal heart sounds. Absent: systolic murmur, diastolic murmur, rubs, gallop, clicks GI/Abdominal exam: Present: soft, normal bowel sounds. Absent: distended, tenderness, guarding, rebound, rigid Extremities exam: Present: normal inspection, full ROM. Absent: tenderness Back exam: Present: tenderness. Absent: full ROM Neurological exam: Present: alert Course Vital Signs 12/16/22 12:35 Temperature 97.9 F Pulse Rate 87 Respiratory 18 Rate Blood Pressure 129/83 O2 Sat by Pulse 99 Oximetry Medical Decision Making - Medical Decision Making Was pt. sent in by a medical professional or institution (, PA, EGG PROCESSING SUPERVISOR, urgent care, hospital, or correction...) When possible be specific @ -No Did you speak to anyone other than the patient for history (EMS, parent, family, police, friend...)? What history was obtained from this source @ -No Did you review nursing and triage notes (agree or disagree)? Why? @ -I reviewed and agree with nursing and triage notes Were old charts reviewed (outside hosp., previous admission, EMS record, old EKG, old radiological studies, urgent care reports/EKG's, correction records)? Report findings @ -Reviewed prior labs in recent surgical intervention Differential Diagnosis (chest pain, altered mental status, abdominal pain women, abdominal pain men, vaginal bleeding, weakness, fever, dyspnea, syncope, headache, dizziness, GI bleed, back pain, seizure, CVA, palpatations, mental health, musculoskeletal)? @ -nDifferential Weakness: Hypoglycemia, shock, sepsis, hyponatremia, anemia, infection, DE, ETOH, adverse medicine reaction, overdose, stroke, this is not meant to be an all-inclusive list.e EKG interpreted by me (3pts min.). @ -As above X-rays interpreted by me (1pt min.). @ -None done CT interpreted by me (1pt min.). @ -None done U/S interpreted by me (1pt. min.). @ -None done What testing was considered but not performed or refused? (CT, X-rays, U/S, labs)? Why? @ -None What meds were considered but not given or refused? Why? @ -None Did you discuss the management of the patient with other professionals (professionals i.e. , PA, EGG PROCESSING SUPERVISOR, lab, RT, psych nurse, long term care social worker, lead generation marketing manager, teacher, operations officer, caser up)? Give summary @ -[Dr. Rowe for admission to hospital for placement to rehab facility. Was smoking cessation discussed for >3mins.? @ -No Was critical care preformed (if so, how long)? @ -No Were there social determinants of health that impacted care today? How? (Homelessness, low income, unemployed, alcoholism, drug addiction, transportation, low edu. Level, literacy, decrease access to med. care, fci, rehab)? @ -No Was there de-escalation of care discussed even if they declined (Discuss DNR or withdrawal of care, Hospice)? DNR status @ -No What co-morbidities impacted this encounter? (DM, HTN, Smoking, COPD, CAD, Cancer, CVA, ARF, Chemo, Hep., AIDS, mental health diagnosis, sleep apnea, morbid obesity)? @ -None Was patient admitted / discharged? Hospital course, mention meds given and route, prescriptions, significant lab abnormalities, going to OR and other pertinent info. @ -Admitted to the hospital for denies weakness, multiple falls status post kyphoplasty. Patient will be placed for rehab. Undiagnosed new problem with uncertain prognosis? @ -No Drug Therapy requiring intensive monitoring for toxicity (Heparin, Nitro, Insulin, Cardizem)? @ -No Were any procedures done? @ -No Diagnosis/symptom? @ -Weakness, multiple falls, status post kyphoplasty Acute, or Chronic, or Acute on Chronic? @ -Acute Uncomplicated (without systemic symptoms) or Complicated (systemic symptoms)? @ -Uncomplicated Side effects of treatment? @ -No Exacerbation, Progression, or Severe Exacerbation? @ -No Poses a threat to life or bodily function? How? (Chest pain, [place], DE, pneumonia, PE, COPD, DKA, ARF, appy, cholecystitis, CVA, Diverticulitis, Homicidal, Suicidal, threat to staff... and all critical care pts) @ -No - Lab Data Result diagrams: 12/16/22 13:12 12/16/22 13:12 Lab Results 12/16/22 12/16/22 Range/Units 13:12 13:12 WBC 5.2 (3.8-10.6) k/uL RBC 3.74 L (4.30-5.90) m/uL Hgb 12.3 L (13.0-17.5) gm/dL Hct 36.9 L (39.0-53.0) % MCV 98.6 (80.0-100.0) fL MCH 32.8 (25.0-35.0) pg MCHC 33.2 (31.0-37.0) g/dL RDW 15.8 H (11.5-15.5) % Plt Count 261 (150-450) k/uL MPV 7.2 Neutrophils % 76 % Lymphocytes % 10 % Monocytes % 9 % Eosinophils % 1 % Basophils % 0 % Neutrophils # 3.9 (1.3-7.7) k/uL Lymphocytes # 0.5 L (1.0-4.8) k/uL Monocytes # 0.5 (0-1.0) k/uL Eosinophils # 0.1 (0-0.7) k/uL Basophils # 0.0 (0-0.2) k/uL Macrocytosis Slight Sodium 135 L (137-145) mmol/L Potassium 4.8 (3.5-5.1) mmol/L Chloride 97 L (98-107) mmol/L Carbon Dioxide 34 H (22-30) mmol/L Anion Gap 4 mmol/L BUN 16 (9-20) mg/dL Creatinine 0.90 (0.66-1.25) mg/dL Est GFR (CKD-EPI)AfAm >90 (>60 ml/min/1.73 sqM) Est GFR (CKD-EPI)NonAf 80 (>60 ml/min/1.73 sqM) Glucose 128 H (74-99) mg/dL Calcium 9.5 (8.4-10.2) mg/dL Magnesium 1.9 (1.6-2.3) mg/dL Total Bilirubin 0.5 (0.2-1.3) mg/dL AST 27 (17-59) U/L ALT 23 (4-49) U/L Alkaline Phosphatase 178 H (38-126) U/L Total Protein 5.6 L (6.3-8.2) g/dL Albumin 3.3 L (3.5-5.0) g/dL Disposition Clinical Impression: Multiple falls, Status post kyphoplasty, Weakness Disposition: ADMITTED IP TO THIS [facility] Condition: Fair Referrals: [facility],Clinic [Primary Care Provider] - 1-2 days Time of Disposition: 15:15
--- NOTE | 2022-12-16 13:30 | XR ---
EXAMINATION TYPE: XR lumbar spine 2 or 3V DATE OF EXAM: 12/16/2022 1:24 PM INDICATION: Patient age:Male; 82 years old; Reason for study: FALL, Recent surgery; [facility]. COMPARISON: CT 11/19/2022 TECHNIQUE: Frontal, lateral and coned in L5-S1 lateral views of the spine. FINDINGS: Vertebroplasty changes at L1. IVC filter is in place. Atherosclerosis of the arterial vascu lature. Similar compression/wedge deformity of T11, L2 and L3. No evidence of any acute osseous patho logy. No evidence of loss of vertebral body height is seen. There is stable alignment of the lumbar vertebral bodies. Mild scattered disc space narrowing. Multilevel marginal osteophyte formation throu ghout the visualized spine. There is facet joint arthropathy throughout the spine. Scattered at least mild neural foraminal stenosis. IMPRESSION: Postsurgical changes with vertebroplasty of L1. There remains similar compression deformities of T11, L2 and L3. No acute fractures definitively visualized.
[2022-12-16 14:16] LABS: Basophils % (A) 0 %; Eosinophils # (A) 0.1 k/uL (0-0.7); Eosinophils % (A) 1 %; HCT 36.9 % (39.0-53.0); HGB 12.3 gm/dL (13.0-17.5); Lymphocytes # (A) 0.5 k/uL (1.0-4.8); Lymphocytes % (A) 10 %; MCH 32.8 pg (25.0-35.0); MCHC 33.2 g/dL (31.0-37.0); MCV 98.6 fL (80.0-100.0); Macrocytosis Slight; Mean Platelet Volume 7.2; Monocytes # (A) 0.5 k/uL (0-1.0); Monocytes % (A) 9 %; Neutrophils # (A) 3.9 k/uL (1.3-7.7); Neutrophils % (A) 76 %; Platelet Count 261 k/uL (150-450); RBC 3.74 m/uL (4.30-5.90); RDW 15.8 % (11.5-15.5); WBC 5.2 k/uL (3.8-10.6)
[2022-12-16 14:19] LABS: ALT 23 U/L (4-49); AST 27 U/L (17-59); African American GFR (CKD) >90 (>60 ml/min/1.73 sqM); Albumin 3.3 g/dL (3.5-5.0); Alkaline Phosphatase 178 U/L (38-126); Anion Gap 4 mmol/L; Blood Urea Nitrogen 16 mg/dL (9-20); Calcium 9.5 mg/dL (8.4-10.2); Carbon Dioxide 34 mmol/L (22-30); Chloride 97 mmol/L (98-107); Glucose 128 mg/dL (74-99); Magnesium 1.9 mg/dL (1.6-2.3); Non-African American GFR(CKD) 80 (>60 ml/min/1.73 sqM); Potassium 4.8 mmol/L (3.5-5.1); Sodium 135 mmol/L (137-145); Total Bilirubin 0.5 mg/dL (0.2-1.3); Total Protein 5.6 g/dL (6.3-8.2)
[2022-12-16] MEDS ORDERED: NALOXONE 0.4 MG/ML 1 ML VIAL IV PRN (15:15)
[2022-12-16 15:22] LABS: Amorphous Sediment,Urine Rare /hpf; Appearance,Urine Cloudy (Clear); Bilirubin,Urine Negative (Negative); Blood,Urine Negative (Negative); Color,Urine Yellow; Glucose,Urine (UA) Negative (Negative); Ketones,Urine Negative (Negative); Leukocyte Esterase,Urine Negative (Negative); Mucus,Urine Rare /hpf; Nitrite,Urine Negative (Negative); Protein,Urine Negative (Negative); RBC,Urine <1 /hpf (0-5); Specific Gravity,Urine 1.016 (1.001-1.035); Urobilinogen,Urine <2.0 mg/dL (<2.0); WBC,Urine <1 /hpf (0-5)
[2022-12-16] MEDS ORDERED: bisacodyL 10 MG SUPP RECTAL PRN (16:48)
[2022-12-16] MEDS: GABAPENTIN 300 MG CAP PO SCH ×2 (16:48→22:45)
[2022-12-16] MEDS: DOCUSATE 100 MG CAP PO SCH ×2 (16:48→22:46)
--- NOTE | 2022-12-16 16:50 | P.HPIM ---
History of Present Illness H&P Date: 12/16/22 Chief Complaint: Multiple falls 82-year-old man with history of diffuse large B-cell lymphoma chemotherapy, paroxysmal atrial fibrillation, hypertension, recent kyphoplasty after L1 compression fracture presented with generalized weakness and multiple falls at home. Patient underwent vertebroplasty on 12/06 with spine surgery after having an L1 compression fracture causing significant pain. He was subsequently discharged home, where according to his [id number] who is his surgical brace maker, patient continued to have issues with multiple falls, increasing weakness, inability to ambulate safely without significant supervision. [facility] and his condition was discussed with [facility], who recommended that patient seek evaluation in the emergency room. Therefore, patient was brought in to the hospital by his [id number] for further evaluation. Patient himself denies any fevers, chills, nausea, vomiting, chest pain, palpitations, syncopal, presyncope, cough, dyspnea, diarrhea, dysuria, dyschezia, numbness/weakness of extremities. Patient does have constipation in the background of using [place] 10/325 approximately every 6 hours since his surgery. He does report to me that his pain is not significantly improved. In the emergency room, patient was afebrile, 129/83, heart rate 87, 99% on room air. CBC shows mild anemia 12.3, otherwise unremarkable. Basic metabolic panel shows sodium of 135, chloride 97, CO2 34. Liver function tests show alkaline phosphatase of 178, total protein 5.6, albumin of 3.3. UA is unremarkable. Erika mbar spine x-ray shows postsurgical changes with vertebroplasty of L1, similar T11, L2 and L3 compression deformities. Case was discussed with the emergency room provider and decision was made to him at the patient for further evaluation. All Systems reviewed and pertinent positives and negatives noted in HPI, all other symptoms are negative Gen: in no apparent distress, resting comfortably in bed Eyes: PERRL, no scleral injection or icterus HENT: normocephalic, atraumatic, good hearing acuity, moist mucous membranes Neck: no tracheal deviation, full range of motion Resp: good air exchange, breathing comfortably with no accessory muscle use, no tactile fremitus CVS: good distal perfusion x 4, no pitting edema GI: soft, NTTP, ND, no hepatosplenomegaly : no suprapubic tenderness, no CVAT, garcia catheter not present MSK: no clubbing, no cyanosis, no noted contractures of extremities Skin: no noted rashes, petechiae; temperature of skin is appropriate Neuro: moving all extremities without signs of weakness, CN II-XII intact Psych: cooperative, euthymic mood, insight and judgment intact Assessment: Generalized weakness Multiple falls Intractable pain T11, L1, L2, L3 compression deformities, status post L1 vertebral plasty Paroxysmal atrial fibrillation Hypertension Diffuse large B-cell lymphoma Plan: Vital signs reviewed and noted in the HPI Lab work reviewed and noted in the HPI Lumbar x-ray was reviewed and findings noted in HPI Case was discussed with the Emergency Room provider and decision was made to admit the patient for generalized weakness, multiple falls, intractable pain Resume patient's home [place] 10/325 every 4 hours when necessary Resume patient's home gabapentin 3 mg by mouth 3 times a day Resume patient's home Apixiban 5 mg by mouth 3 times a day Resume patient's home amiodarone 100 mg by mouth daily Add Senokot-S twice a day, MiraLAX daily If no bowel movement by 12/17, will consider methylnaltrexone Consult physical therapy, occupational therapy Patient is full code DVT prophylaxis is covered with Apixiban 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 2018- had one round of chemo but developed complications and ended up on life support, developed DVT after chemo, AFIB with RVR History of Any Multi-Drug Resistant Organisms: None Reported Past Surgical History: Hernia Repair Additional Past Surgical History / Comment(s): Pt states he has had 3 inguinal hernia repairs but does not recall laterality, skin cancer removed L arm, IVC filter, spinal surgery 12/06/22 Past Anesthesia/Blood Transfusion Reactions: No Reported Reaction Additional Past Anesthesia/Blood Transfusion Reaction / Comment(s): no hx. blood transfusion reactions Past Psychological History: No Psychological Hx Reported Smoking Status: Never smoker Past Alcohol Use History: None Reported Past Drug Use History: None Reported - Past Family History Father Family Medical History: CVA/TIA, Myocardial Infarction ([place]) Additional Family Medical History / Comment(s): Pt did not have much contact with his father for years but knows that his father had MIs and strokes. He at the age of 65yrs. Mother Family Medical History: No Reported History Additional Family Medical History / Comment(s): . Medications and Allergies Home Medications Medication Instructions Recorded Confirmed Type Apixaban [Eliquis] 5 mg PO BID 08/18/22 12/16/22 History Amiodarone [Cordarone] 100 mg PO DAILY 12/02/22 12/16/22 History Docusate [Colace] 300 mg PO DAILY 12/02/22 12/16/22 History HYDROcodone/APAP 10-325MG [[place] 1 tab PO Q4HR PRN 12/02/22 12/16/22 History 10-325] Cyclobenzaprine [Flexeril] 10 mg PO TID PRN 12/16/22 12/16/22 History Sennosides [Senokot] 17.2 mg PO DAILY 12/16/22 12/16/22 History Allergies Allergy/AdvReac Type Severity Reaction Status Date / Time No Known Allergies Allergy Verified 12/16/22 15:34 Physical Exam Osteopathic Statement: *. No significant issues noted on an osteopathic structural exam other than those noted in the History and Physical/Consult. Vitals: Vital Signs Temp Pulse Resp BP Pulse Ox 12/16/22 12:35 97.9 F 87 18 129/83 99 Intake and Output 12/16/22 12/16/22 12/16/22 06:59 14:59 22:59 Other: Weight 68.492 kg Results CBC & Chem 7: 12/16/22 13:12 12/16/22 13:12 Labs: Abnormal Lab Results - Last 24 Hours (Table) 12/16/22 12/16/22 12/16/22 Range/Units 13:12 13:12 14:57 RBC 3.74 L (4.30-5.90) m/uL Hgb 12.3 L (13.0-17.5) gm/dL Hct 36.9 L (39.0-53.0) % RDW 15.8 H (11.5-15.5) % Lymphocytes # 0.5 L (1.0-4.8) k/uL Sodium 135 L (137-145) mmol/L Chloride 97 L (98-107) mmol/L Carbon Dioxide 34 H (22-30) mmol/L Glucose 128 H (74-99) mg/dL Alkaline Phosphatase 178 H (38-126) U/L Total Protein 5.6 L (6.3-8.2) g/dL Albumin 3.3 L (3.5-5.0) g/dL Amorphous Sediment Rare H (None) /hpf Urine Mucus Rare H (None) /hpf
[2022-12-16] MEDS: HYDROcodone/APAP 10-325MG 1 EACH TAB PO PRN ×2 (18:52→22:46)
[2022-12-16] MEDS: APIXABAN 5 MG TAB PO SCH (22:45)
[2022-12-16] MEDS: SENNOSIDES-DOCUSATE SODIUM 1 EACH TAB PO SCH (22:46)
[2022-12-17] MEDS: SENNOSIDES-DOCUSATE SODIUM 1 EACH TAB PO SCH ×2 (08:47→21:50)
[2022-12-17] MEDS: HYDROcodone/APAP 10-325MG 1 EACH TAB PO PRN ×2 (08:47→17:42)
[2022-12-17] MEDS: polyethylene glycoL 3350 17 GM POWD.PACK PO SCH (08:48)
[2022-12-17] MEDS: APIXABAN 5 MG TAB PO SCH ×2 (08:48→21:50)
[2022-12-17] MEDS: GABAPENTIN 300 MG CAP PO SCH ×3 (08:48→21:50)
[2022-12-17] MEDS: AMIODARONE 100 MG TAB PO SCH (08:48)
[2022-12-17] MEDS: DOCUSATE 100 MG CAP PO SCH ×3 (08:48→21:50)
--- NOTE | 2022-12-17 11:01 | XR ---
EXAMINATION TYPE: AP view pelvis and 2 views right hip DATE OF EXAM: 12/17/2022 COMPARISON: NONE HISTORY: 82-year-old male TECHNIQUE: A single AP view of the pelvis is obtained. Two views of the hip are obtained. FINDINGS: Osteopenia. Mild to moderate degenerative change of both hips with axial joint space narrow ing, marginal spurring, and subchondral sclerosis. Pelvic phleboliths. SI joints appear symmetric and intact. Mild degenerative changes left SI joint. No acute fracture, subluxation, dislocation. IMPRESSION: [id number] bilateral hip OA. Mild left SI joint OA. Osteopenia. No acute osseous ab normality seen.
--- NOTE | 2022-12-17 12:45 | P.CNOR ---
History of Present Illness - [facility] Consult date: 12/17/22 Requesting physician: Josue Ahumada Consult reason: other (recent kyphoplasty) History of present illness: History of Presenting Illness Patient is a 82-year-old male who presented to the ER for frequent falls and weakness. Patient is known to our services, Dr. Burton had performed a L1 kyphoplasty on 12/06/2022. Patient is normally independent and lives alone, his daughter has been staying with him since his procedure last week helping him with his ADLs. Patient reports that he has had 2 semi-falls which he states he did not fall to the floor. He states one incident he fell into a recliner landing on his right side and the second incident is that he fell into the bathroom counter on his left side. Patient denies any other falls or injuries. He denies any other orthopedic history. Patient does have a medical history of atrial fibrillation, DVT, and skin cell cancer. Patient seen and examined this morning. He is resting comfortably in bed on his left side. Patient does report pain to the mid-lower back and right hip region. He denies any numbness or tingling to the bilateral lower extremities. Patient states that when he is ambulatory he states that his legs become weak and just seemed to give out. Patient denies any perineal numbness or tingling or loss/retention of bowel or bladder. LSO brace is present at bedside, although patient admits to not wearing this. Patient has remained afebrile, denies nausea/vomiting, or chest pain. Review of Systems Pertinent positives and negatives as discussed in HPI, a complete review of systems was performed and all other systems are negative. Physical Examination Inspection: Negative for any open fractures, ecchymosis, significant erythema/ulcers. Sensation: Sensation is equal, symmetric, bilaterally intact throughout the upper and lower extremities Palpation: TTP over paralumbar spine and over the right hip region Range of motion: Patient does have full range of motion bilateral upper and lower extremities on exam Motor: 4-/5 in all major motor groups in the bilateral upper and lower extremities Special tests: Negative Homans bilaterally. Negative Trinity bilaterally. Negative clonus bilaterally. Neurovascular: Radial pulse intact, 2+ bilaterally. Cap refill under 3 seconds in digits upper extremities. Assessment and Plan Generalized weakness Frequent falls s/p L1 kyphoplasty Spinal Osteopenia At this time we do not recommend any emergent/urgent orthopedic surgical intervention. Patient may follow-up with Dr. Burton's office for further evaluation in 2 weeks. Orthopedics is signing off at this time. Please do not hesitate to contact us for any further questions. Ordered xrays of Pelvis and right hip- awaiting results. 1. Patient may benefit from subacute rehab 2. Appreciate medical management 3. Pain management -[place] 4. GI prophylaxis - Miralax, senna 5. DVT prophylaxis - Eliquis 6. PT/OT - weightbearing as tolerated with a walker, LSO brace when up and about. Do not wear in bed or while showering. 7. Appreciate consult I reviewed and discussed this case with my attending Dr. Burton, whom has reviewed this chart and films and is in agreement with assessment and plan of care as outlined above. I have personally seen and examined the patient, performed the documentation and the assessment and plan as written. Number of minutes spent on the visit: 30m. 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 2018- had one round of chemo but developed complications and ended up on life support, developed DVT after chemo, AFIB with RVR History of Any Multi-Drug Resistant Organisms: None Reported Past Surgical History: Hernia Repair Additional Past Surgical History / Comment(s): Pt states he has had 3 inguinal hernia repairs but does not recall laterality, skin cancer removed L arm, IVC filter, spinal surgery 12/06/22 Past Anesthesia/Blood Transfusion Reactions: No Reported Reaction Additional Past Anesthesia/Blood Transfusion Reaction / Comm: no hx. blood transfusion reactions Past Psychological History: No Psychological Hx Reported Additional Psychological History / Comment(s): Pt resides alone. He is independent Smoking Status: Never smoker Past Alcohol Use History: None Reported Additional Past Alcohol Use History / Comment(s): Pt states he was a heavy drinker but has not had any alcohol since 2000. Past Drug Use History: None Reported - Past Family History Father Family Medical History: CVA/TIA, Myocardial Infarction ([place]) Additional Family Medical History / Comment(s): Pt did not have much contact with his father for years but knows that his father had MIs and strokes. He at the age of 65yrs. Mother Family Medical History: No Reported History Additional Family Medical History / Comment(s): . Medications and Allergies Home Medications Medication Instructions Recorded Confirmed Type Apixaban [Eliquis] 5 mg PO BID 08/18/22 12/16/22 History Amiodarone [Cordarone] 100 mg PO DAILY 12/02/22 12/16/22 History Docusate [Colace] 300 mg PO DAILY 12/02/22 12/16/22 History HYDROcodone/APAP 10-325MG [[place] 1 tab PO Q4HR PRN 12/02/22 12/16/22 History 10-325] Cyclobenzaprine [Flexeril] 10 mg PO TID PRN 12/16/22 12/16/22 History Sennosides [Senokot] 17.2 mg PO DAILY 12/16/22 12/16/22 History Allergies Allergy/AdvReac Type Severity Reaction Status Date / Time No Known Allergies Allergy Verified 12/16/22 15:34 Results - Labs Labs: Abnormal Lab Results - Last 24 Hours (Table) 12/16/22 12/16/22 12/16/22 Range/Units 13:12 13:12 14:57 RBC 3.74 L (4.30-5.90) m/uL Hgb 12.3 L (13.0-17.5) gm/dL Hct 36.9 L (39.0-53.0) % RDW 15.8 H (11.5-15.5) % Lymphocytes # 0.5 L (1.0-4.8) k/uL Sodium 135 L (137-145) mmol/L Chloride 97 L (98-107) mmol/L Carbon Dioxide 34 H (22-30) mmol/L Glucose 128 H (74-99) mg/dL Alkaline Phosphatase 178 H (38-126) U/L Total Protein 5.6 L (6.3-8.2) g/dL Albumin 3.3 L (3.5-5.0) g/dL Amorphous Sediment Rare H (None) /hpf Urine Mucus Rare H (None) /hpf H & H 12/16/22 Range/Units 13:12 Hgb 12.3 L (13.0-17.5) gm/dL Hct 36.9 L (39.0-53.0) % Result Diagrams: 12/16/22 13:12 12/16/22 13:12
--- NOTE | 2022-12-17 14:22 | P.PN ---
Subjective Progress Note Date: 12/17/22 Patient continues to have weakness, working with PT/OT. Gen: awake, alert HEENT: normocephalic, atraumatic, good hearing acuity, moist mucous membranes Resp: good air exchange, breathing comfortably with no accessory muscle use CVS: good distal perfusion x 4, GI: soft, NTTP, ND : no SPT, no CVAT, garcia catheter not present MSK: no pitting edema, no clubbing Neuro: non-focal, moving all extremities Psych: cooperative, euthymic mood Hospital course: 82-year-old man with history of diffuse large B-cell lymphoma chemotherapy, paroxysmal atrial fibrillation, hypertension, recent kyphoplasty after L1 compression fracture presented with generalized weakness and multiple falls at home. In the emergency room, patient was afebrile, 129/83, heart rate 87, 99% on room air. CBC shows mild anemia 12.3, otherwise unremarkable. Basic metabolic panel shows sodium of 135, chloride 97, CO2 34. Liver function tests show alkaline phosphatase of 178, total protein 5.6, albumin of 3.3. UA is unremarkable. Lumbar spine x-ray shows postsurgical changes with vertebroplasty of L1, similar T11, L2 and L3 compression deformities. Case was discussed with the emergency room provider and decision was made to him at the patient for further evaluation. Assessment: Generalized weakness Multiple falls Intractable pain T11, L1, L2, L3 compression deformities, status post L1 vertebral plasty Paroxysmal atrial fibrillation Hypertension Diffuse large B-cell lymphoma Plan: Today, patient is afebrile, 112/71, heart rate 84, 94% on room air Discussed with physical therapy today, patient continues to have significant weakness and requires moderate to maximum assist with supervision, will require subacute rehab for strengthening. Continue patient's home [place] 10/325 every 4 hours when necessary Continue patient's home gabapentin 3 mg by mouth 3 times a day Continue patient's home Apixiban 5 mg by mouth 3 times a day Continue patient's home amiodarone 100 mg by mouth daily Continue Senokot-S twice a day, MiraLAX daily Patient is full code DVT prophylaxis is covered with Apixiban Objective - Vital Signs Vital signs: Vital Signs Temp 97.6 F 12/17/22 11:47 Pulse 84 12/17/22 11:47 Resp 18 12/17/22 11:47 BP 112/71 12/17/22 11:47 Pulse Ox 94 L 12/17/22 11:47 FiO2 Intake & Output 12/16/22 12/17/22 12/17/22 18:59 06:59 18:59 Intake Total 590 Output Total 200 Balance 390 Weight 68.492 kg Intake: Oral 590 Output: Urine 200 Other: # Voids 1 # Bowel Movements 1 - Labs CBC & Chem 7: 12/16/22 13:12 12/16/22 13:12 Labs: Abnormal Lab Results - Last 24 Hours (Table) 12/16/22 Range/Units 14:57 Amorphous Sediment Rare H (None) /hpf Urine Mucus Rare H (None) /hpf
[2022-12-18] MEDS ORDERED: LACTATED RINGERS 1,000 ML IV SCH (09:00)
--- NOTE | 2022-12-18 09:01 | P.PN ---
Subjective Progress Note Date: 12/18/22 Patient continues to have weakness, working with PT/OT. Gen: awake, alert HEENT: normocephalic, atraumatic, good hearing acuity, moist mucous membranes Resp: good air exchange, breathing comfortably with no accessory muscle use CVS: good distal perfusion x 4, GI: soft, NTTP, ND : no SPT, no CVAT, garcia catheter not present MSK: no pitting edema, no clubbing Neuro: non-focal, moving all extremities Psych: cooperative, euthymic mood Hospital course: 82-year-old man with history of diffuse large B-cell lymphoma chemotherapy, paroxysmal atrial fibrillation, hypertension, recent kyphoplasty after L1 compression fracture presented with generalized weakness and multiple falls at home. In the emergency room, patient was afebrile, 129/83, heart rate 87, 99% on room air. CBC shows mild anemia 12.3, otherwise unremarkable. Basic metabolic panel shows sodium of 135, chloride 97, CO2 34. Liver function tests show alkaline phosphatase of 178, total protein 5.6, albumin of 3.3. UA is unremarkable. Lumbar spine x-ray shows postsurgical changes with vertebroplasty of L1, similar T11, L2 and L3 compression deformities. Case was discussed with the emergency room provider and decision was made to him at the patient for further evaluation. Assessment: Generalized weakness Multiple falls Intractable pain T11, L1, L2, L3 compression deformities, status post L1 vertebral plasty Paroxysmal atrial fibrillation Hypertension Diffuse large B-cell lymphoma Plan: Today, patient is afebrile, 82/51, heart rate 83, 92% on room air Given 1000 mL bolus of lactated Ringer's today Continue patient's home [place] 10/325 every 4 hours when necessary Continue patient's home gabapentin 3 mg by mouth 3 times a day Continue patient's home Apixiban 5 mg by mouth 3 times a day Continue patient's home amiodarone 100 mg by mouth daily Continue Senokot-S twice a day, MiraLAX daily Patient is full code DVT prophylaxis is covered with Apixiban Objective - Vital Signs Vital signs: Vital Signs Temp 98.6 F 12/18/22 07:53 Pulse 86 12/18/22 07:53 Resp 16 12/18/22 07:53 BP 82/51 12/18/22 07:53 Pulse Ox 91 L 12/18/22 07:53 FiO2 Intake & Output 05/05/23 05/06/23 05/06/23 18:59 06:59 18:59 Intake Total 590 Output Total 300 Balance 290 Intake: Oral 590 Output: Urine 300 Other: Voiding Method Toilet # Voids 1 # Bowel Movements 1 - Labs CBC & Chem 7: 12/16/22 13:12 12/16/22 13:12
[2022-12-18] MEDS: SENNOSIDES-DOCUSATE SODIUM 1 EACH TAB PO SCH ×2 (10:38→21:45)
[2022-12-18] MEDS: DOCUSATE 100 MG CAP PO SCH ×3 (10:38→21:45)
[2022-12-18] MEDS: GABAPENTIN 300 MG CAP PO SCH ×3 (10:38→21:45)
[2022-12-18] MEDS: polyethylene glycoL 3350 17 GM POWD.PACK PO SCH (10:39)
[2022-12-18] MEDS: AMIODARONE 100 MG TAB PO SCH (10:39)
[2022-12-18] MEDS: APIXABAN 5 MG TAB PO SCH ×2 (10:39→21:45)
--- NOTE | 2022-12-18 11:10 | P.PN ---
Subjective Progress Note Date: 12/18/22 Principal diagnosis: Recent L1 vertebral body kyphoplasty Generalized weakness Recent falls Other medical comorbidities Patient evaluated at bedside today, he is resting in his hospital bed. Patient states he continues to have discomfort in the low back. He denies any obvious numbness or tingling or shooting pain down the bilateral lower extremities or upper extremities. Patient did have a bowel movement he states yesterday. He is having no obvious difficulties with urination. He denies any numbness or tingling of the peroneal or genital region. Objective - Vital Signs Vital signs: Vital Signs Temp 98.6 F 12/18/22 07:53 Pulse 86 12/18/22 07:53 Resp 16 12/18/22 07:53 BP 113/68 12/18/22 10:41 Pulse Ox 91 L 12/18/22 07:53 FiO2 Intake & Output 12/17/22 12/18/22 12/18/22 18:59 06:59 18:59 Intake Total 590 Output Total 300 Balance 290 Intake: Oral 590 Output: Urine 300 Other: Voiding Method Toilet # Voids 1 # Bowel Movements 1 - Exam Gen: AOx3, NAD VSS stable at this time Integument: Incision to the lower lumbar region is healing well, no obvious drainage, rednes s or fluctuance Palpation: Tenderness with palpation of the lower thoracic and lumbar paraspinal region ROM: Full range of motion in all major muscle groups of the bilateral upper and lower extremities, no focal deficits appreciated Sensory Exam: Senory exam to light touch is intact C5-T1 Senosry exam to light touch is intact L2-S1 Motor: 4/5 strength in bilateral lower extremities with flexion, knee extension, knee flexion, plantar flexion, dorsiflexion, EHL, FHL Reflexes: 2/4 in all UE and LE Negative Trinity's, Babinski, clonus bilaterally - Labs CBC & Chem 7: 12/16/22 13:12 12/16/22 13:12 Assessment and Plan Assessment: History of recent L1 vertebral body kyphoplasty Generalized weakness Recent falls Right hip osteoarthritis Other medical comorbidities Plan: Pain control, continue with his current medications DVT prophylaxis, continue with current medication Recommending weight-bear as tolerated with walker. Patient advised to utilize the LSO brace when up and ambulating Was able to review the images of the right hip, no acute fractures or dislocati ons were noted. Mild/moderate osteoarthritic signs were visualized Recommending subacute rehab placement at discharge Recommending follow-up with Dr. Burton the next 1014 days for evaluation Please contact our service with any questions regarding this patient Time with Patient: Less than 30
[2022-12-19] MEDS: GABAPENTIN 300 MG CAP PO SCH ×3 (09:20→21:18)
[2022-12-19] MEDS: APIXABAN 5 MG TAB PO SCH ×2 (09:20→21:18)
[2022-12-19] MEDS: polyethylene glycoL 3350 17 GM POWD.PACK PO SCH (09:20)
[2022-12-19] MEDS: SENNOSIDES-DOCUSATE SODIUM 1 EACH TAB PO SCH ×2 (09:20→21:18)
[2022-12-19] MEDS: AMIODARONE 100 MG TAB PO SCH (09:21)
[2022-12-19] MEDS: DOCUSATE 100 MG CAP PO SCH ×3 (09:21→21:18)
--- NOTE | 2022-12-19 13:26 | P.PN ---
Subjective Progress Note Date: 12/19/22 Patient continues to have weakness, working with PT/OT. Gen: awake, alert HEENT: normocephalic, atraumatic, good hearing acuity, moist mucous membranes Resp: good air exchange, breathing comfortably with no accessory muscle use CVS: good distal perfusion x 4, GI: soft, NTTP, ND : no SPT, no CVAT, garcia catheter not present MSK: no pitting edema, no clubbing Neuro: non-focal, moving all extremities Psych: cooperative, euthymic mood Hospital course: 82-year-old man with history of diffuse large B-cell lymphoma chemotherapy, paroxysmal atrial fibrillation, hypertension, recent kyphoplasty after L1 compression fracture presented with generalized weakness and multiple falls at home. In the emergency room, patient was afebrile, 129/83, heart rate 87, 99% on room air. CBC shows mild anemia 12.3, otherwise unremarkable. Basic metabolic panel shows sodium of 135, chloride 97, CO2 34. Liver function tests show alkaline phosphatase of 178, total protein 5.6, albumin of 3.3. UA is unremarkable. Lumbar spine x-ray shows postsurgical changes with vertebroplasty of L1, similar T11, L2 and L3 compression deformities. Case was discussed with the emergency room provider and decision was made to him at the patient for further evaluation. Assessment: Generalized weakness Multiple falls Intractable pain T11, L1, L2, L3 compression deformities, status post L1 vertebral plasty Paroxysmal atrial fibrillation Hypertension Diffuse large B-cell lymphoma Plan: Today, patient is afebrile, 135/81, heart rate 78, 97% on room air Continue patient's home [place] 10/325 every 4 hours when necessary Continue patient's home gabapentin 3 mg by mouth 3 times a day Continue patient's home Apixiban 5 mg by mouth 3 times a day Continue patient's home amiodarone 100 mg by mouth daily Continue Senokot-S twice a day, MiraLAX daily Patient is full code DVT prophylaxis is covered with Apixiban Objective - Vital Signs Vital signs: Vital Signs Temp 97.7 F 12/19/22 07:20 Pulse 78 12/19/22 07:20 Resp 18 12/19/22 07:20 BP 135/81 12/19/22 07:20 Pulse Ox 97 12/19/22 07:20 FiO2 Intake & Output 12/18/22 12/19/2212/19/23 18:59 06:59 18:59 Output Total 450 950 Balance -450 -950 Output: Urine 450 950 Other: Voiding Method Urinal Urinal Urinal # Voids 4 - Labs CBC & Chem 7: 12/16/22 13:12 12/16/22 13:12
[2022-12-19] MEDS: HYDROcodone/APAP 10-325MG 1 EACH TAB PO PRN ×2 (15:58→21:22)
[2022-12-20] MEDS: HYDROcodone/APAP 10-325MG 1 EACH TAB PO PRN (06:33)
[2022-12-20] MEDS: APIXABAN 5 MG TAB PO SCH ×2 (07:43→20:14)
[2022-12-20] MEDS: SENNOSIDES-DOCUSATE SODIUM 1 EACH TAB PO SCH ×2 (07:43→20:13)
[2022-12-20] MEDS: polyethylene glycoL 3350 17 GM POWD.PACK PO SCH (07:43)
[2022-12-20] MEDS: DOCUSATE 100 MG CAP PO SCH ×3 (07:43→20:13)
[2022-12-20] MEDS: AMIODARONE 100 MG TAB PO SCH (07:43)
[2022-12-20] MEDS: GABAPENTIN 300 MG CAP PO SCH ×3 (07:44→20:14)
[2022-12-20 10:18] LABS: Glucose,Whole Blood 110 mg/dL (70-110)
[2022-12-20] MEDS ORDERED: SODIUM CHLORIDE 0.9% 500 ML 500 ML IV ONE (10:25)
--- NOTE | 2022-12-20 10:36 | P.PN ---
Subjective Progress Note Date: 12/20/22 Hospital course: Patient is a very pleasant 82-year-old male with a past medical history of diffuse large B-cell lymphoma currently under treatment with chemotherapy, paroxysmal atrial fibrillation, hypertension, and recent kyphoplasty after L1 compression fracture. Patient presented to the hospital on 12/16/22 secondary to generalized weakness and recurrent falls at home. Patient underwent vertebroplasty on 12/06/22 with orthospine surgery after having an L1 compression fracture and was discharged home with [id number] who is online marketing specialist along with home care. However, despite care provided patient continued to have increasing weakness with inability to ambulate and recurrent falls so his [id number] had him come back to the hospital for further evaluation and assistance with possible placement. Patient underwent full evaluation in the emergency department. CBC revealed normocytic anemia with hemoglobin of 12.3. BMP showing hyponatremia sodium 135, hypochloremia with chloride of 97, an elevated CO2 of 34. Liver profile showing elevated alkaline phosphatase of 178. Urinalysis is negative for infection. Patient was admitted under our services with consultation to orthospine surgery team, physical therapy, and occupational therapy. Patient was evaluated by physical and occupational therapy recommending long-term facility placement for rehabilitation. Patient has been accepted to [facility], however we are awaiting [place] approval for rehab placement at this time. Physical exam: Patient was seen and fully evaluated at bedside this morning. Upon arrival in room patient was standing and holding onto table as he attempting to get out of chair and into bed himself. Patient appears to have worked himself up and was diaphoretic and appeared weak. Patient assisted back into bed and initial blood pressure 73/50 with repeat blood pressure 99/63. Called nursing staff too room and ordered for stat Blood glucose level to be drawn drawn at this time which resulted at 110. Once assisted safely back into bed order placed for patient to receive a 500 mL bolus of 0.9% normal saline. Patient had full resolution of previously noted symptoms. Fall precautions place at this time. Vital signs reviewed and stable. General: Nontoxic, no distress and appears stated age. Derm: Skin warm and dry, normal coloration for ethnicity. Head: Atraumatic, normocephalic and symmetric. Eyes: EOMs intact, no lid lag, and anicteric sclera Mouth: no lip lesions, mucus membranes moist Cardiovascular: regular rate and rhythm with normal S1S2, no murmur, positive posterior tibial pulses bilaterally, and cap refill < 2 seconds. Lungs: Respirations even, regular, and unlabored on room air. Lungs CTA bilaterally, no rhonchi, no rales, no wheezing, and no accessory muscle usage. Abdominal: soft, nontender to palpation, no guarding, no appreciable organomegaly Ext: ROM intact. No gross muscle atrophy, no edema, no contractures Neuro: Speech clear, face symmetrical and CN II-XII grossly intact with no noted focal neuro deficits Psych: Alert and oriented to person, place, time, and situation. Appropriate and pleasant affect. Assessment and Plan of Care: Generalized weakness Multiple falls Intractable pain T11, L1, L2, and L3 compression deformities status post L1 vertebroplasty on 12/06/22 Paroxysmal atrial fibrillation Diffuse large B-cell lymphoma -Upon arrival in room patient was standing and holding onto table as he attempting to get out of chair and into bed himself. Patient appeared to have worked himself up and was diaphoretic and appeared weak. Patient assisted back into bed and initial blood pressure 73/50 with repeat blood pressure 99/63. Called nursing staff too room and ordered for stat Blood glucose level to be drawn drawn at this time which resulted at 110. Once assisted safely back into bed order placed for 500 mL bolus of 0.9% normal saline. -Fall precautions place at this time. -PT/OT following. -Continue with symptomatic care and pain management, patient may continue [place] 10/325 every 4 hours as needed for moderate to severe pain. -Continue Neurontin 300 mg 3 times daily. -Continue Eliquis 5 mg twice daily -Continue MiraLAX 17 g by mouth daily with when necessary Dulcolax. -Discussed plan of care with case management, patient has been accepted to [facility] long-term [facility] for rehabilitation, however we are awaiting VA approval for rehab placement at this time. CODE STATUS: Full code DVT prophylaxis: Pam Discussed with: Patient, RN, and shelter case manager Anticipated discharge date: Patient medically stable for discharge, awaiting insurance authorization. Anticipated discharge place: Patient has been accepted to [facility], however we are awaiting VA approval for rehab placement at this time. Patient was seen independently by Nurse Pracitioner. This document was prepared using [employer] dictation software. Please allow for errors in engine assembly supervisor, while rare they do occur. Objective - Vital Signs Vital signs: Vital Signs Temp 97.6 F 12/20/22 07:30 Pulse 71 12/20/22 07:30 Resp 16 12/20/22 07:30 BP 135/78 12/20/22 07:30 Pulse Ox 98 12/20/22 07:30 FiO2 Intake & Output 12/19/22 12/20/22 12/20/22 18:59 06:59 18:59 Intake Total 400 Output Total 900 Balance -500 Intake: Oral 400 Output: Urine 900 Other: Voiding Method Urinal Urinal # Voids 4 0 # Bowel Movements 1 0 - Labs CBC & Chem 7: 12/16/22 13:12 12/16/22 13:12 Assessment and Plan Assessment: Frederick Montes NP rendered care for this patient independently, reviewed the findings and plan as documented in the note above. I did not physically speak with our examined the patient on this date.
[2022-12-21] MEDS: APIXABAN 5 MG TAB PO SCH ×2 (09:47→21:29)
[2022-12-21] MEDS: polyethylene glycoL 3350 17 GM POWD.PACK PO SCH (09:47)
[2022-12-21] MEDS: DOCUSATE 100 MG CAP PO SCH ×3 (09:47→21:29)
[2022-12-21] MEDS: AMIODARONE 100 MG TAB PO SCH (09:47)
[2022-12-21] MEDS: SENNOSIDES-DOCUSATE SODIUM 1 EACH TAB PO SCH ×2 (09:47→21:29)
[2022-12-21] MEDS: GABAPENTIN 300 MG CAP PO SCH ×3 (09:47→21:29)
[2022-12-21] MEDS: HYDROcodone/APAP 10-325MG 1 EACH TAB PO PRN ×2 (12:50→17:21)
--- NOTE | 2022-12-21 16:07 | P.PN ---
Subjective Progress Note Date: 12/21/22 Hospital course: Patient is a very pleasant 82-year-old male with a past medical history of diffuse large B-cell lymphoma currently under treatment with chemotherapy, paroxysmal atrial fibrillation, hypertension, and recent kyphoplasty after L1 compression fracture. Patient presented to the hospital on 12/16/22 secondary to generalized weakness and recurrent falls at home. Patient underwent vertebroplasty on 12/06/22 with orthospine surgery after having an L1 compression fracture and was discharged home with [id number] who is treatment coordinator along with home care. However, despite care provided patient continued to have increasing weakness with inability to ambulate and recurrent falls so his [id number] had him come back to the hospital for further evaluation and assistance with possible placement. Patient underwent full evaluation in the emergency department. CBC revealed normocytic anemia with hemoglobin of 12.3. BMP showing hyponatremia sodium 135, hypochloremia with chloride of 97, an elevated CO2 of 34. Liver profile showing elevated alkaline phosphatase of 178. Urinalysis is negative for infection. Patient was admitted under our services with consultation to orthospine surgery team, physical therapy, and occupational therapy. Patient was evaluated by physical and occupational therapy recommending residential facility placement for rehabilitation. Patient has been accepted to [facility], however we are awaiting VA approval for rehab placement at this time. Physical exam: Patient was seen and fully evaluated at bedside this morning. Patient was resting in bed visiting with his daughter at bedside. Patient does report lower back pain and encouraged to take pain medication previously ordered. Patient does have [place] 10/325 mg tablets available every 4 hours as needed for pain and has only had one dose in the past 24 hours. Vital signs reviewed and stable. General: Nontoxic, no distress and appears stated age. Derm: Skin warm and dry, normal coloration for ethnicity. Head: Atraumatic, normocephalic and symmetric. Eyes: EOMs intact, no lid lag, and anicteric sclera Mouth: no lip lesions, mucus membranes moist Cardiovascular: regular rate and rhythm with normal S1S2, no murmur, positive posterior tibial pulses bilaterally, and cap refill < 2 seconds. Lungs: Respirations even, regular, and unlabored on room air. Lungs CTA bilaterally, no rhonchi, no rales, no wheezing, and no accessory muscle usage. Abdominal: soft, nontender to palpation, no guarding, no appreciable organomegaly Ext: ROM intact. No gross muscle atrophy, no edema, no contractures Neuro: Speech clear, face symmetrical and CN II-XII grossly intact with no noted focal neuro deficits Psych: Alert and oriented to person, place, time, and situation. Appropriate and pleasant affect. Assessment and Plan of Care: Generalized weakness Multiple falls Intractable pain T11, L1, L2, and L3 compression deformities status post L1 vertebroplasty on 12/06/22 Paroxysmal atrial fibrillation Diffuse large B-cell lymphoma -Morning vitals reviewed and stable with blood pressure 130/77, heart rate 78, respiratory rate 16, SpO2 96% on room air, and temp of 97.6F. -Fall precautions remain in place at this time. -PT/OT following and reviewed documentation in chart, recommending SNF placement -Continue with symptomatic care and pain management, patient may continue [place] 10/325 every 4 hours as needed for moderate to severe pain. -Continue Neurontin 300 mg 3 times daily. -Continue Eliquis 5 mg twice daily -Continue MiraLAX 17 g by mouth daily with when necessary Dulcolax. -Discussed plan of care with case management, patient has been accepted to [facility] residential [facility] for rehabilitation, however we continue to await VA approval for rehab placement at this time. CODE STATUS: Full code DVT prophylaxis: Eliquis Discussed with: Patient, RN, and immigration case manager Anticipated discharge date: Patient medically stable for discharge, awaiting insurance authorization. Anticipated discharge place: Patient has been accepted to [facility], however we are awaiting VA approval for rehab placement at this time. Patient was seen independently by Nurse Pracitioner. This document was prepared using [employer] dictation software. Please allow for errors in beater worker helper, while rare they do occur. Objective - Vital Signs Vital signs: Vital Signs Temp 97.6 F 12/21/22 07:21 Pulse 78 12/21/22 07:21 Resp 16 12/21/22 07:21 BP 130/77 12/21/22 07:21 Pulse Ox 96 12/21/22 07:21 FiO2 Intake & Output 12/20/22 12/21/22 12/21/22 18:59 06:59 18:59 Output Total 700 800 175 Balance -700 -800 -175 Output: Urine 700 800 175 Other: Voiding Method Urinal # Voids 1 1 1 # Bowel Movements 0 - Labs CBC & Chem 7: 12/16/22 13:12 12/16/22 13:12
[2022-12-22 02:09] VITALS: RESP 16
[2022-12-22 08:09] VITALS: BMI 21.0
[2022-12-22] MEDS: HYDROcodone/APAP 10-325MG 1 EACH TAB PO PRN (08:52)
[2022-12-22] MEDS: SENNOSIDES-DOCUSATE SODIUM 1 EACH TAB PO SCH (08:52)
[2022-12-22] MEDS: AMIODARONE 100 MG TAB PO SCH (08:52)
[2022-12-22] MEDS: polyethylene glycoL 3350 17 GM POWD.PACK PO SCH (08:52)
[2022-12-22] MEDS: DOCUSATE 100 MG CAP PO SCH (08:53)
[2022-12-22] MEDS: APIXABAN 5 MG TAB PO SCH (08:53)
[2022-12-22] MEDS: GABAPENTIN 300 MG CAP PO SCH (08:53)
--- NOTE | 2022-12-22 09:45 | P.DS ---
Providers Date of admission: 12/16/22 15:26 Expected date of discharge: 12/22/22 Attending physician: Tiana Rowe MD Consults: 12/16/22 15:15 Consult Physician Routine Consulting Provider: Fito Burton Consult Reason/Comments: Status post kyphoplasty Do you want consulting provider notified?: Yes Primary care physician: [facility] Hospital Course: Discharge Diagnosis: Generalized weakness status post recent vertebroplasty, patient requiring assistance with ambulation. PT/OT evaluated recommending SNF placement. Jefferson cavazos in agreement and has been accepted to [facility]. Patient has received authorization from [place]. Patient stable for discharge to rehab at this time. Multiple falls Intractable pain T11, L1, L2, and L3 compression deformities status post L1 vertebroplasty on 12/06/22 Paroxysmal atrial fibrillation Diffuse large B-cell lymphoma Hospital Course: Patient is a very pleasant 82-year-old male with a past medical history of diffuse large B-cell lymphoma currently under treatment with chemotherapy, paroxysmal atrial fibrillation, hypertension, and recent kyphoplasty after L1 compression fracture. Patient presented to the hospital on 12/16/22 secondary to generalized weakness and recurrent falls at home. Patient underwent vert ebroplasty on 12/06/22 with orthospine surgery after having an L1 compression fracture and was discharged home with [id number] who is hand pleater along with home care. However, despite care provided patient continued to have increasing weakness with inability to ambulate and recurrent falls so his [id number]-[id number]-jvb had him come back to the hospital for further evaluation and assistance with possible placement. Patient underwent full evaluation in the emergency department. CBC revealed normocytic anemia with hemoglobin of 12.3. BMP showing hyponatremia sodium 135, hypochloremia with chloride of 97, an elevated CO2 of 34. Liver profile showing elevated alkaline phosphatase of 178. Urinalysis is negative for infection. Patient was admitted under our services with consultation to orthospine surgery team, physical therapy, and occupational therapy. Patient was evaluated by physical and occupational therapy recommending longterm facility placement for rehabilitation. Patient has been accepted to [facility], and received [place] authorization for rehab placement at this time. Patient was seen and evaluated at bedside this morning. He denies having any new complaints. Patient updated on plan for rehab and in agreement with plan of care. Patient medically stable for discharge at this time. Physical exam: Vital signs reviewed and stable. General: Nontoxic, no distress and appears stated age. Derm: Skin warm and dry, normal coloration for ethnicity. Head: Atraumatic, normocephalic and symmetric. Eyes: EOMs intact, no lid lag, and anicteric sclera Mouth: no lip lesions, mucus membranes moist Cardiovascular: regular rate and rhythm with normal S1S2, no murmur, positive posterior tibial pulses bilaterally, and cap refill < 2 seconds. Lungs: Respirations even, regular, and unlabored on room air. Lungs CTA bilaterally, no rhonchi, no rales, no wheezing, and no accessory muscle usage. Abdominal: soft, nontender to palpation, no guarding, no appreciable organomegaly Ext: ROM intact. No gross muscle atrophy, no edema, no contractures Neuro: Speech clear, face symmetrical and CN II-XII grossly intact with no noted focal neuro deficits Psych: Alert and oriented to person, place, time, and situation. Appropriate and pleasant affect. A total of 31 minutes of time were spent preparing this complex discharge summa ry. Pt was discharged on 12/22/22 at 9:44 AM Patient was seen independently by Nurse Practitioner. This document was prepared using [employer] dictation software. Please allow for errors in pearl peller while rare they do occur. Patient Condition at Discharge: Stable Plan - Discharge Summary Discharge Rx Participant: No New Discharge Prescriptions: New Gabapentin [Neurontin] 300 mg PO TID #9 cap Sennosides-Docusate Sodium [Senokot-S] 1 each PO BID tab bisacodyL [Dulcolax] 10 mg RECTAL DAILY PRN suppositor PRN Reason: Constipation polyethylene glycoL 3350 [Miralax] 17 gm PO DAILY packet Continue Amiodarone [Cordarone] 100 mg PO DAILY Docusate [Colace] 300 mg PO DAILY Sennosides [Senokot] 17.2 mg PO DAILY HYDROcodone/APAP 10-325MG [[place] 10-325] 1 tab PO Q4HR PRN #12 tab PRN Reason: Pain Apixaban [Eliquis] 5 mg PO BID Cyclobenzaprine [Flexeril] 10 mg PO TID PRN PRN Reason: Muscle Spasm Discharge Medication List Apixaban [Eliquis] 5 mg PO BID 08/18/22 [History] Amiodarone [Cordarone] 100 mg PO DAILY 12/02/22 [History] Docusate [Colace] 300 mg PO DAILY 12/02/22 [History] Cyclobenzaprine [Flexeril] 10 mg PO TID PRN 12/16/22 [History] Sennosides [Senokot] 17.2 mg PO DAILY 12/16/22 [History] Gabapentin [Neurontin] 300 mg PO TID #9 cap 12/22/22 [Rx] HYDROcodone/APAP 10-325MG [[place] 10-325] 1 tab PO Q4HR PRN #12 tab 12/22/22 [Rx] Sennosides-Docusate Sodium [Senokot-S] 1 each PO BID tab 12/22/22 [Rx] bisacodyL [Dulcolax] 10 mg RECTAL DAILY PRN suppositor 12/22/22 [Rx] polyethylene glycoL 3350 [Miralax] 17 gm PO DAILY packet 12/22/22 [Rx] Follow up Appointment(s)/Referral(s): Fito Burton DO [Doctor of Osteopathic Medicine] - 10 Days [facility] [Primary Care Provider] - 1-2 days Discharge Disposition: TRANSFER TO SNF/ECF
[2022-12-22 14:13] VITALS: BP 106/71; PULSE 77; TEMP 97.7
== END 2022-12-22 13:51 | DRG 552 ==
LOC: SUPCPDRO 12:32 → EC 12:32 → 5NMEDONC 15:26
PROVIDERS: ADMIT Internal Medicine; ATTEND Internal Medicine
DX: M54.50 Low back pain, unspecified (principal); E87.1 Hypo-osmolality and hyponatremia; C83.30 Diffuse large B-cell lymphoma, unspecified site; R53.1 Weakness; E87.8 Other disorders of electrolyte and fluid balance, not elsewhere classified; D64.9 Anemia, unspecified; I10 Essential (primary) hypertension; I48.0 Paroxysmal atrial fibrillation; K59.00 Constipation, unspecified; M16.11 Unilateral primary osteoarthritis, right hip; M85.88 Other specified disorders of bone density and structure, other site; R29.6 Repeated falls; Z79.01 Long term (current) use of anticoagulants; Z79.899 Other long term (current) drug therapy; Z85.828 Personal history of other malignant neoplasm of skin; Z98.890 Other specified postprocedural states
CPT/HCPCS: 36415; 72100; 73502; 80053; 81001; 83735; 85025; 99285

== ENCOUNTER → 2023-02-09 | Outpatient (CLI) | payer OTHER ==
--- NOTE | 2023-02-09 19:55 | CT ---
EXAMINATION TYPE: CT thor lumbar spine wo con CT DLP: 1590 mGycm, Automated exposure control for dose reduction was used. DATE OF EXAM: 02/09/2023 2:19 PM COMPARISON: Lumbar spine radiograph 12/16/2022, CT lumbar spine 11/19/2022, CTA chest 02/13/2018. CLINICAL INDICATION:Male, 82 years old with history of S32.009A, S22.009A; PHH, thoracic and lumbar f x TECHNIQUE: Axial images of the echo lumbar spine were obtained without contrast. Coronal and sagittal reformats were performed. FINDINGS: Diffuse bone mineralization limits evaluation. Healing right-sided posterior ninth through 12th rib f ractures with callus formation identified. Healing left L3 transverse process fracture. Vertebral aug mentation changes involving the L1 vertebral body from prior fracture. Acute/subacute appearing fracture involving the superior and anterior endplates of the L2 vertebral b david with approximately 30% height loss and no retropulsion. Increase sclerosis involving the superior endplate of the T12 vertebral body without height loss. Prominent Schmorl's node involving the infer ior endplate of the L3 vertebral body. Indeterminate anterior wedge compression deformity of the T11 vertebral body with approximately 25% h eight loss and 4 mm retropulsion. There is sclerosis identified. Multilevel degenerative changes of the thoracolumbar spine with disc space narrowing, endplate sclero sis, and anterior osteophytosis. This is most pronounced involving the lumbar spine. Mild levo scolio tic curvature of the lumbar spine. The thoracic vertebral bodies have appropriate alignment. I do not see any extradural defects of the thoracic spine. Broad-based disc bulge at L2-L3 with mild effaceme nt of the anterior thecal sac. There is associated bilateral facet arthropathy. Mild bilateral neural foraminal stenosis at this level. Broad-based disc bulge at L3-L4 with mild effacement of the anterior thecal sac. There is associated bilateral facet arthropathy. Mild bilateral neural foraminal stenosis at this level. Broad-based disc bulge at L4-L5 with mild effacement of the anterior thecal sac. There is associated bilateral facet arthropathy. Mild bilateral neural foraminal stenosis at this level. Broad-based disc bulge at L5-S1 with mild effacement of the anterior thecal sac. There is associated bilateral facet arthropathy without neural foraminal stenosis. Right chest wall IJ Mediport catheter with distal tip terminating at the low SVC. Coronary artery gia cifications. Atherosclerotic calcification of the aorta and its branches. The visualized lungs are cl ear. IVC filter identified. Ectasia of the infrarenal abdominal aorta measuring up to 2.6 cm. There is an organized fluid collection along the left iliopsoas muscle the level of the kidney measur ing 4.2 x 2.0 x 7.5 cm in TV by AP by CC dimensions (series 3, image 106). No internal gas identified . There is some partially visualized nodularity lateral and posterior to the right kidney (series 3, image 108 through 32. IMPRESSION: 1. Acute/subacute appearing fracture of the L2 vertebral body with approximately 30 % height loss wi thout retropulsion. 2. Healing posterior 9th through 12th rib fractures and left L3 transverse process fracture. 3. Development of increased sclerosis involving the superior endplate of the T12 vertebral body like ly representing nondisplaced healing fracture. Vertebral body height is maintained. 4. Age-indeterminate anterior wedge compression fracture of the T11 vertebral body with 25% height l oss and approximately 4 mm of retropulsion. Correlate with point tenderness. 5. Vertebral augmentation changes of the previously seen fractured L1 vertebral body. 6. Multilevel degenerative disc disease of the lumbar spine as described above. 7. Similar organized fluid collection along the left iliopsoas muscle measuring up to 7.5 cm without internal gas. Etiologies include a seroma versus hematoma versus abscess. 8. Partially visualized nonspecific nodularity lateral and posterior to the right kidney. Consider f urther evaluation with CT abdomen pelvis.
== END | disposition home or self-care (01) ==
LOC: RADCTMAIN 13:47
PROVIDERS: ATTEND Orthopaedic Surgery
DX: S32.039A Unspecified fracture of third lumbar vertebra, initial encounter for closed fracture (principal); S22.42XA Multiple fractures of ribs, left side, initial encounter for closed fracture; S22.080A Wedge compression fracture of T11-T12 vertebra, initial encounter for closed fracture; M51.36 Other intervertebral disc degeneration, lumbar region; M48.061 Spinal stenosis, lumbar region without neurogenic claudication; M47.816 Spondylosis without myelopathy or radiculopathy, lumbar region; N28.89 Other specified disorders of kidney and ureter; X58.XXXA Exposure to other specified factors, initial encounter
CPT/HCPCS: 72128; 72131

== ENCOUNTER 2023-03-14 08:26 | Inpatient (IN) | payer OTHER ==
--- NOTE | 2023-03-13 15:27 | P.HPOR ---
History of Present Illness H&P Date: 03/02/23 .D:Date: 03/02/23 : 10:13am .T:Title: [facility] Date of :42 H42Divyfptqz: NKDA Age: 82 year Height: 5'11" Weight: 150 lbs BMI: 20.92 kg/m2 Occupation: Retired VAS: 3 CHIEF COMPLAINT: Severe mid and low back pain / Status post falls DOI: 09/2022 DOS: 12/06/2022 (L1 Kyphoplasty wit [employer]) Duration of current treatment regiment:3 months HISTORY: Xrays brought xrays from outside facility which were reviewed New xrays taken in office Trauma or injury yes Work-Related No Pain description dull, sharp, throbbing . Location posterior Activity Modification yes Hand Dominance right TREATMENTS COMPLETED: 6 weeks of PT completed? Month and Year of last PT date? No Physician directed home exercise completed? yes Medications yes List: [place], Gabapentin, Flexeril Alternative interventions Chiropractic: No Massage therapy: No R.I.C.E: yes Brace: Yes How long was brace worn? 6 weeks Did it help? No Injections No RFA: No SUBJECTIVE: Mr. Quevedo Presents to the office for follow-up on his low back. The patient still residing in a care facility. He underwent a L1 kyphoplasty on 12/06/2022. He did well from this and it did control his pain however after this he sustained 3-4 different falls which has significantly increased his low back pain and made him even worse. On previous visits he presented and x-rays were taken showing new compression fractures within his back. He was given an LSO brace at this time and he has been wearing it however is fairly intolerant of the brace and it does not seem to help him as much as he wants. He continues to complain of severe low back pain. Difficulty with ambulating secondary to pain pain while sleeping and laying down difficulty getting in and out of bed. His daughter lives in the room with him states that this is a significant change for him. 6 months ago he was walking 3-5 miles a day and now he is barely able to ambulate around the room. He uses a walker for ambulation at this time. He did get better from the kyphoplasty but after these new falls he has gotten severely worse. He denies any bowel or bladder issues. He denies any perineal numbness or tingling. The patients' past social, medical, family, surgical history, as well as review of systems, have been reviewed. Please refer to the Neurosurgery History and Physical form that has been scanned in to our electronic medical record system. 14 points review of systems completed and as stated in HPI, all other systems reviewed are negative. Social History: Reviewed, see appropriate section of the chart for details. P3 Family History: Reviewed, see appropriate section of the chart for details. P2 Past Medical History: Reviewed, see appropriate section of the chart for details. P1 Current Medications: Rx: amiodarone 100 mg tablet Ref: 0 Instructions: take 1 tablet (100 mg) by oral route 2 times per day Rx: Eliquis 5 mg tablet Ref: 0 Instructions: take 1 tablet (5 mg) by oral route 2 times per day Rx: HYDROcodone 10 mg-acetaminophen 325 mg tablet Ref: 0 Instructions: take 1 tablet by oral route every 4-6 hours as needed for pain Rx: Lidoderm 5 % topical patch Ref: 0 Instructions: apply 1 patch by topical route once daily (May wear up to 12hours.) Rx: metHOTREXate Ref: 0 Instructions: INTRATHECAL INFUSION Rx: multivitamin tablet Ref: 0 Rx: Neulasta Ref: 0 Rx: Stool Softener Ref: 0 Rx: cyclobenzaprine 10 mg tablet Ref: 0 Instructions: take 1 tablet (10 mg) by oral route 3 times per day Rx: gabapentin 300 mg capsule Ref: 0 Instructions: take 1 capsule (300 mg) by oral route 3 times per day P1 PHYSICAL EXAMINATION: General: Awake, alert, appropriate for age, in no acute distress. HEENT: No unusual neck masses around region of lateral neck triangle, thyroid, supraclavicular groove Extremities: Skin warm and dry without acute lesions, coloration, temperature, skin intact, no tenderness or erythema Integument: Hairy patches: ABSENT Dorsal skin dimples: ABSENT Cafe au lait spots: ABSENT Surgical incisions: Well healed posterior stab incision for kyphoplasty Palpation: Please see Pain drawing on Intake sheet for further detail. Midline spinal tenderness: No E6 Cervical Tenderness: No E6 Paralumbar tenderness: yes E6 Parathoracic tenderness: he has E6 Buttocks tenderness: No E6 POSTURAL and MUSCULO-SKELETAL EVALUATION: Coronal Balance: NEUTRAL Recumbent testing: Patient is not able to lay flat on back Sagittal Balance: positive Shoulder Profile: LEVEL Pelvic Girdle: LEVEL Neck ROM: UNRESTRICTED Lumbar ROM: RESTRICTED Shoulder ROM: Symmetrical Hip ROM: Symmetrical Knee ROM: Symmetrical Hands: Normal appearance, symmetrical Feet: Normal appearance, Symmetrical VASCULAR STATUS : LEFT RIGHT Wrist Pulses INTACT INTACT Pedal Pulses (Dors. pedis & post.tibialis) INTACT INTACT Color NORMAL NORMAL Edema Absent Absent NEUROLOGIC EXAMINATION: Mental Status:Awake and alert, fully oriented, with normal attention, concentration and memory, and fluent, appropriate speech. Cranial Nerves: I: Olfactory not tested. II: Visual acuity normal, no visual field deficit noted with confrontation. III,IV: Normal pupillary reflexes & intact extraocular movements without nys tagmus. V,: Intact symmetrical facial sensation. VII: Intact symmetrical facial motor movement VIII: Hearing intact. IX,X: Intact gag, swallow, & normal voice. XI: Sternocleidomastoid, trapezius function intact. XII: Tongue midline with normal movements. L'hermitte's Sign: Negative / absent Spurling'Sign: Absent bilaterally. Cubital percussion test: Absent bilaterally. Kaiser-Tinel sign - Carpal region: Absent bilaterally. Straight Leg Raising: Absent bilaterally. Crossed straight leg raise: negative O8 MOTOR EXAM (0-5/5, N/T Muscle appearance: Symmetrical, without signs of atrophy or dystrophy UPPER EXTREMITY RIGHT LEFT Shoulder Abduction 5/5 5/5 Biceps 5/5 5/5 Triceps 5/5 5/5 Wrist Extension 5/5 5/5 Hand Intrnsics 5/5 5/5 Artificial Pearl Maker 5/5 5/5 Hand and finger dexterity intact bilaterally? yes Disdiadochokinesis examination negative bilaterally? yes LOWER EXTREMITY RIGHT LEFT Hip Flexion 4+/5 4+/5 Knee Extension 4/5 4/5 Knee Flexion 4/5 4/5 Dorsiflexion 4/5 4/5 Plantarflexion 4/5 4/5 EHL 4/5 4/5 FHL 4/5 4/5 Toe heel walk / heel-toe walk intact while maintaining satisfactory balance? No Squatting/straightening w/o assistance to a min of 60 degree knee flexion? No Single leg stance: Trendelenburg sign negative bilaterally all testing elicits pain in the low back REFLEXES(0-4/2, NT)Upper ExtremityLower Extremity Right 2 2 Left 2 2 Pathological Reflexes RIGHT LEFT Kaiser's Absent Absent Clonus Absent Absent Babinski Absent Absent Sensory system (0-4, N/T) Test type RU DAVID RL LL Joint-Position 2 2 2 2 Vibration 2 2 2 2 Pain & LT sense 2 2 2 2 Dermatomal Deficit: None None None None Gait and Functional Evaluation: Ambulatory aids: Walker unsteady and painful gait RADIOGRAPHIC STUDIES: XRay Thoracic AP/lateral 2 views Lumbar AP/lateral 2 views taken at [facility] on 03/02/23 of Lumbar Spine: images reviewed patient. Today this demonstrates status post kyphoplasty L1. Good filling good height of L1 however L2 is now completely collapsed. With a burst fracture type etiology. There is local kyphosis in the area secondary to the fracture. The visible thoracic spine above L1 shows a T12 fracture as well. This is better seen in the computed tomography scan. CT [facility] from 02/09/2023 of Lumbar, Thoracic Spine: images are reviewed with the patient This demonstrates status post L1 kyphoplasty with good cement placement no extrusion. There are interval fractures at T11-T12 and L2. T11 and T12 fractures of the compression type and there 40-50% compressed. There is some posterior involvement of the vertebral body with these compression fractures however there is no inferior endplate involvement. At L2 this is more of a burst-type fracture with superior and inferior endplate involvement as well as anterior and posterior. There is flattening of the normal lumbar lordosis as well as straightening of the thoracic kyphosis secondary to these fractures. There is a potential for instability at the L2 fracture. The remaining bone is noted in the spine to be somewhat fragile. There is however good anchor points at T9-T10 which above this is sclerosed as well as L3 and L4 which below this is sclerosed. This offers to reasonable anchors points. There are no other lesions noted at this time no other fractures. IMPRESSION: It was my pleasure to have seen and examined Juan. I reviewed the patient's clinical syndrome, physical findings, and imaging studies during the appointment today. It is my impression that the patient has a diagnosis of. 1.T11 compression fracture 50% compressed 2. T12 burst compression fracture 2% compressed 3.L2 burst fracture AO type A 3 4. Status post L1 kyphoplasty 5. 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 Severe low back pain with debility I outlined the natural course history without intervention and various interventional options. PLAN: Based on my findings I suggest the following course of action: - I discussed at length with the patient and his daughter in the room different options for treatment. The patient is fairly high risk for surgery however due to his current situation and his recurrent falls's debility due to his back pain as well as the multiple fractures within his back I did offer him surgical intervention. He has been trying his LSO brace however it has not been helping him and he refuses to wear the TLSO as it does not fit well.his daughter states that 6 months ago he was able to ambulate and walk 5 miles however now he is super debilitated secondary to these fractures and they just want him to be as comfortable as possible. I do feel that surgery will give him the best I discussed treatment options with the patient, including operative and non- operative options, and they have elected to proceed with the following surgical procedure: T9 to L4 minimally invasive stabilization with T11-T12 kyphoplasty and L2 ORIF The indications, risks, benefits, and alternatives to surgery were discussed with the patient and family at length. Specifically (but not limited to) the risks of infection, stiffness, recurrence of symptoms, need for revision surgery, local numbness, neurovascular injury, and blood clots were discussed. The patient's questions were answered. The decision to proceed was made. Consent will be obtained for the procedure. -preoperative labs and workup CBC BMP PT INR chest x-ray and EKG -Ambulate daily -Take medications as directed -Ice and rest for pain and swelling control. Surgical Procedure Risk Review Juan Quevedo is a 82 year old female presenting for evaluation of sudden onset of low back pain after several falls from standing after L1 kyphoplasty. It was my pleasure to have seen and examined Ms. Quevedo. In our visit today we have had a chance to go over subjective complaints, physical examination findings and treatments, including the natural course history without intervention and various interventional options. The imaging demonstrates multiple progressive fractures that T 11 T12 L2 which have gotten worse despite bracing and conservative measures. On physical exam, Ms. Quevedo demonstrates severe low back pain and debility difficulty with ambulation difficulty with day-to-day activity secondary to the pain . I explained to the patient that as her condition progresses it could cause progressive symptoms progressive pain fracture progression possible neurologic demise . At this time, based on the patients imaging and physical exam, I recommend surgery in the form or a: minimally invasive stabilization from T9 to L4 with ORIF and kyphoplasty . I discussed the risk and benefits of this procedure at length with Ms. Quevedo. The patient agreed to consider pursuing the procedure mentioned above. Plan: 1. Surgical plan: minimally invasive stabilization from T9 to L4 with ORIF and kyphoplasty T11, 12, L2 2. Follow up with PCP for surgical clearance 3. Review of surgical risks and benefits as well as an educational packet on the proposed surgical procedure. Risks: All surgical procedures come with inherent risks, including those related to positioning, anesthesia, intraoperative findings, and postoperative complications. It is important to understand that surgery does not come with any guarantee of a successful outcome as complications and adverse events are always possible. The patient was given a handout in office today discussing the surgical procedure and risks associated with the intervention, both of which were discussed with the patient. These risks include but are not limited to the following: ? Experiencing same, different or even worse symptoms in back, neck, arms, or legs compared to before surgery. ? Requiring further surgery or other forms of treatment presently or at some time in the future at same or other levels of the intended spine surgery. ? On an extreme but fortunately relatively rare basis severe complication such as blindness, stroke, heart attack, temporary and/or permanent nerve injury, paralysis, coma, or may occur, sometimes without known explanation. ? Surgical complications may include but are not limited to risk of infection, fluid accumulation in the surgical dissection site, including a seroma or hematoma, that requires additional surgery, wound drainage, bleeding, new numbness or weakness, vision changes/loss, spinal fluid leakage, non-healing and/or infected incision, headaches, difficulty or inability to swallow, hoarseness, hemopneumothorax, pneumothorax, impotence, retrograde ejaculation, vaginal dryness; injury to nerves, spinal cord, blood vessels, lymphatics or other vital organs (i.e., bowel injury, injury to the great vessels); heterotopic bone formation; complications related to the hardware such as screws, rods, cages including misplaced hardware, device failure, instrumentation at the wrong spine level, hardware fracture/breakage, or hardware loosening; vertebral failure of the spinal column above or below the newly placed hardware; retained surgical instrumentations or devices and the need for further surgery. ? Medical risks of the planned spine surgery include but are not limited to generalized Infections to the whole body or local areas outside of the surgical site (sepsis), heart attack, bleeding, anaphylaxis, meningitis, seizure, epilepsy, hearing loss, burn anderson, laceration of the head or other areas of the body, bruising, hypersensitivity of the skin, bladder over distension; allergic reaction; shoulder injury related to positioning; fat, blood and air clots to other areas of the body like heart, lungs, brain; failure of internal organs such as lungs, kidneys, liver and excessive bleeding. If blood transfusions are necessary, note that transfusions may cause intolerance reactions such as anaphylaxis or other complex reactions. Despite best efforts, the results of spine surgery might not heal in terms of bone, soft tissues such as skin, fascia, ligaments, and joints. Additionally, in order to achieve best possible results, spine surgery may be carried out beyond the initially planned levels and involve decompression, fusion including insertion of hardware at levels other than the original intended area of surgical interest change some portions of the procedure in order to ensure the best possible outcomes. With spine surgery and spinal fusion, there are different off label uses of instrumentation (devices, implants and hardware) as well as biological substances (bone morphogenic proteins, demineralized bone matrix) as well as using extra bone from allograft sources (i.e. cadaver bone) or autograft (iliac crest bone, ribs, or the spine itself). The patient has been given information about these practices and their inherent risks and benefits. [facility] are medically trained surgical providers who function in the outpatient, inpatient, and operating room setting under the direct supervision of the attending surgeon.They assist in the operating room with direct supervision of the attending surgeons. The patient has had a chance to review all the listed information, has been given print outs detailing this information, and has had all his/her questions answered to their satisfaction. It was my pleasure to have seen and examined Ms. Quevedo. In our visit today we have had a chance to go over my understanding of our patient's current condition, the natural course history without intervention and various interventional options. Questions were invited and answered, and the patient wishes to proceed as outlined above. I have seen and examined the patient for 25 minutes and we have spent more than 50% of the time in repeat and detailed c ounseling about the patient's condition, its natural course history with out and as much as can be predicted with surgery and re-review of various surgical treatment options. In conclusion,Ms. Quevedo and her spouse/partner requested we proceed with the above suggested surgery and are willing to accept risks and limitations of the suggested surgery as nature of the disease process and our best attempts at treatment for the condition. Thank you again for allowing us to be part of your patient's care. Please don't hesitate to contact me if you have any further questions. Follow- up: preoperative Patient Education: (Informational booklet, instructions, etc) given at today's appointment: Yes .ED:Patient Education: Y Plan at next visit: X-ray Medications Reviewed: YES In our visit today Ms. Quevedo and I have had a chance to go over my understanding of the patient's current condition, the natural course history without intervention and various interventional options. Questions were invited and answered, and the patient wishes to proceed as outlined above. I will be sure to keep you updated afterMs. Quevedo returns here for further follow-up. Thank you again for your referral. Please do not hesitate to contact me if you have any further questions. Signed and authenticated by: Fito Borja [facility] [address] [place] [id number] This message is confidential, intended only for the named recipient(s) and may contain information that is privileged or exempt from disclosure under applicable law. If you are not the intended recipient(s), you are notified that the dissemination, distribution or copying of this information is strictly prohibited. If you received this message in error, please notify the sender then delete this message. #Orders: Lumbar 2v xray # SIGNED BY Fito Burton ([facility])03/02/2023 10:45A Past Medical History Past Medical History: Atrial Fibrillation, Cancer, Deep Vein Thrombosis (DVT), Osteoarthritis (OA), Syncope Additional Past Medical History / Comment(s): Hx 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 Has had 5 cycles of chemo this year - last 2 months ago. History of Any Multi-Drug Resistant Organisms: None Reported Past Surgical History: Back Surgery, Hernia Repair Additional Past Surgical History / Comment(s): 3 inguinal hernia repairs(does not recall laterality), skin cancer removed from left arm, IVC filter placed, L1 kyphoplasty with biopsy. Past Anesthesia/Blood Transfusion Reactions: No Reported Reaction Additional Past Anesthesia/Blood Transfusion Reaction / Comment(s): Hx blood transfusion in 2018, no reaction. Past Psychological History: No Psychological Hx Reported Smoking Status: Never smoker Past Alcohol Use History: Heavy Additional Past Alcohol Use History / Comment(s): Hx of being a heavy drinker but has not had any alcohol since 2000. Past Drug Use History: None Reported - Past Family History Father Family Medical History: CVA/TIA, Myocardial Infarction ([place]) Additional Family Medical History / Comment(s): Pt did not have much contact with his father for years but knows that his father had MIs and strokes. He at the age of 65. Mother Family Medical History: No Reported History Additional Family Medical History / Comment(s): . Sister(s) Family Medical History: Cancer Additional Family Medical History / Comment(s): Cervical cancer. Brother(s) Family Medical History: Cancer Additional Family Medical History / Comment(s): 2 brother's had cancer, both . Medications and Allergies Home Medications Medication Instructions Recorded Confirmed Type Apixaban [Eliquis] 5 mg PO BID 08/18/22 03/08/23 History Amiodarone [Cordarone] 100 mg PO QAM 12/02/22 03/08/23 History Cyclobenzaprine [Flexeril] 10 mg PO HS 12/16/22 03/08/23 History Gabapentin [Neurontin] 300 mg PO TID #9 cap 12/22/22 03/08/23 Rx Acetaminophen [Tylenol Arthritis] 1,300 mg PO Q12H 03/08/23 03/08/23 History Ergocalciferol [Vitamin D2 (1250 1,250 mcg PO FR 03/08/23 03/08/23 History Mcg = [id number] Iu)] Allergies Allergy/AdvReac Type Severity Reaction Status Date / Time No Known Allergies Allergy Verified 03/08/23 09:25 Physical Examination Osteopathic Statement: *. No significant issues noted on an osteopathic structural exam other than those noted in the History and Physical/Consult.
[~2023-03-14 08:26] MED LIST changes: +ACETAMINOPHEN TAB 500 MG TAB PO PRN; -DEXAMETHASONE SOD PHOSPHATE 4 MG/ML 1 ML VIAL IV ONE; +GABAPENTIN 300 MG CAP PO PRN; +HYDROmorphone 0.5 MG/0.5 ML SYRINGE IVP PRN; -LACTATED RINGERS 1,000 ML IV SCH; -MIDAZOLAM 2 MG/2 ML VIAL IV PRN; -ONDANSETRON 4 MG/2 ML VIAL IVP ONE; +ONDANSETRON 4 MG/2 ML VIAL IVP PRN; +TRANEXAMIC 1,000 MG/100ML-NACL 1,000 MG in SALINE 1 100ML.BAG IVPB PRN
[2023-03-14] MEDS: LACTATED RINGERS 1,000 ML IV SCH (09:20)
[2023-03-14] MEDS ORDERED: ONDANSETRON 4 MG/2 ML VIAL IVP ONE (10:00)
[2023-03-14] MEDS ORDERED: MIDAZOLAM 2 MG/2 ML VIAL IVP ONE (10:15)
[2023-03-14] MEDS ORDERED: TRANEXAMIC 1,000 MG/100ML-NACL PREMIX BAG ONE (11:18)
[2023-03-14] MEDS ORDERED: ROCURONIUM 10 MG/ML (5 ML VIAL) IV ONE (11:18)
[2023-03-14] MEDS ORDERED: MIDAZOLAM 2 MG/2 ML VIAL ONE (11:18)
[2023-03-14] MEDS ORDERED: LIDOCAINE 2% INJ 20 MG/ML (2 ML VIAL) ONE (11:18)
[2023-03-14] MEDS ORDERED: SUCCINYLCHOLINE CHLORIDE 200 MG/10 ML VIAL IV ONE (11:18)
[2023-03-14] MEDS ORDERED: PROPOFOL 10 MG/ML 20 ML VIAL IV ONE (11:18)
[2023-03-14] MEDS ORDERED: PHENYLEPHRINE-0.9% NACL SYG 1,000 MCG/10 ML SYRINGE ONE (11:18)
[2023-03-14] MEDS ORDERED: fentaNYL (PF) 50 MCG/ML 2 ML AMP ONE (11:18)
[2023-03-14] MEDS ORDERED: LACTATED RINGERS 1,000 ML IV ONE ×3 (11:19→14:15)
[2023-03-14] MEDS ORDERED: GELATIN SPONGE,ABSORB (LARGE) 1 EACH SPONGE TOPICAL ONE (12:03)
[2023-03-14] MEDS ORDERED: THROMBIN (BOVINE) 5,000 UNIT VIAL TOPICAL ONE (12:04)
[2023-03-14] MEDS ORDERED: IOPAMIDOL M200 10 ML VIAL MISCELLANE ONE (12:05)
[2023-03-14] MEDS ORDERED: MINERAL OIL 1 APPLIC/ML OIL MISCELLANE ONE (12:05)
[2023-03-14] MEDS ORDERED: VANCOMYCIN 1,000 MG VIAL MISCELLANE ONE ×3 (12:06→13:40)
[2023-03-14] MEDS ORDERED: SENNOSIDES-DOCUSATE SODIUM 1 EACH TAB PO PRN (14:17)
[2023-03-14] MEDS ORDERED: HYDROcodone/APAP 5-325MG 1 EACH TAB PO PRN (14:17)
[2023-03-14] MEDS ORDERED: MAGNESIUM HYDROXIDE 2,400 MG/30 ML CUP PO PRN (14:17)
--- NOTE | 2023-03-14 14:36 | FL ---
Intraoperative/procedural fluoroscopic services were provided. Total fluoroscopy time is 1 minute 48 seconds with a total of 9 submitted images to PACS. Please see the operative/procedural note for furt her details. DAP: 4178.53 mGym2
--- NOTE | 2023-03-14 15:56 | P.OP ---
Date of Procedure: 03/14/23 Preoperative Diagnosis: 1. T11 VCF 50% COMPRESSED 2. L2 BURST FRACTURE 3. L3 VCF 30% COMPRESSED 4. S/P L1 KYPHOPLASTY 5. THORACOLUMBAR DEFORMITY DUE TO FRACTURE AND MULTIPLE FALL FROM STANDING 6. COMPLEX MEDICAL PATIENT Postoperative Diagnosis: 1. T11 VCF 50% COMPRESSED 2. L2 BURST FRACTURE 3. L3 VCF 30% COMPRESSED 4. S/P L1 KYPHOPLASTY 5. THORACOLUMBAR DEFORMITY DUE TO FRACTURE AND MULTIPLE FALL FROM STANDING 6. COMPLEX MEDICAL PATIENT Procedure(s) Performed: 1. OPEN TREATMENT T11, L2, L3 FRACTURES (24715, [id number]) 2. SEGMENTAL STABILIZATION T9-L4 (28158) 3. T11 BIOPSY WITH KYPHOPLASTY (70940) 4. USE OF [employer] NAVIGATION FOR SCREW PLACEMENT AND BIOPSY (42816) USE OF IONM ALL SCREWS TESTING 20 MA OR ABOVE Implants: -[employer] EVEREST SCREWS AND RODS Anesthesia: GETA Surgeon: Fito Burton School Director #1: Cem Alamo (Was present and assisted with all aspects of the case from position to closure. ) Estimated Blood Loss (ml): 200 IV fluids (ml): 1,200 Urine output (ml): 450 Pathology: none sent Condition: stable Disposition: PACU Indications for Procedure: Juan Quevedo is a 82 year old female presenting for evaluation of sudden onset of low back pain after several falls from standing after L1 kyphoplasty. It was my pleasure to have seen and examined Ms. Quevedo. In our visit today we have had a chance to go over subjective complaints, p hysical examination findings and treatments, including the natural course history without intervention and various interventional options. The imaging demonstrates multiple progressive fractures that T 11 T12 L2 which have gotten worse despite bracing and conservative measures. On physical exam, Ms. Quevedo demonstrates severe low back pain and debility difficulty with ambulation difficulty with day-to-day activity secondary to the pain . I explained to the patient that as her condition progresses it could cause progressive symptoms progressive pain fracture progression possible neurologic d emise . At this time, based on the patients imaging and physical exam, I recommend surgery in the form or a: minimally invasive stabilization from T9 to L4 with ORIF and kyphoplasty . I discussed the risk and benefits of this procedure at length with Ms. Quevedo. The patient agreed to consider pursuing the procedure mentioned above. Plan: 1. Surgical plan: minimally invasive stabilization from T9 to L4 with ORIF and kyphoplasty T11, 12, L2 Description of Procedure: T9-L4 stabilization DENG The patient was seen and examined in the preoperative area. All preoperative protocols were followed. Informed consent was obtained, risks and benefits of the procedure were discussed at length. Risks including bleeding infection damage to the surrounding tissue and risk of reoperation were discussed with the patient. Risk of anesthesia up to and including was discussed with the patient. These are outlined in the risk review. They were willing to accept these risks and all of the risks of surgery. The patient was given a weight- based dose of antibiotics in the form of 2 g Ancef. The patient was seen and evaluated by the anesthesia team who deemed them fit for surgery. The site was marked, the patient was willing to proceed with the procedure. The patient was transferred to the operative suite by the Department of anesthesia. They were then drifted off to sleep by the department anesthesia and GETA was performed. The patient tolerated this well. [Mireles catheter was placed by nursing staff, atraumatically]. Once confirmation of lines and ventilation the patient was transferred to a [prone Sky table very carefully]. All bony prominences including wrists, elbows, axilla, chest, hips, and thighs, and feet were padded very well. Special attention was paid to the genitalia and these were padded accordingly. SCDs were placed on bilateral lower extremities and were connected. Arms were well padded and placed [on arm boards up and out in the 90/90 position]. Once in position, again we confirmed good ventilation capabilities and that lines were running appropriately. The patient's thoracolumbar spine was then exposed. 1010s were placed outlining the incision site. Standard alcohol was used to clean the incision site and allowed to dry. C-arm was used to needle localize T12 and then biomark the patient and confirm level for incision which was marked with a skin marker. Operative briefing was performed with all teams and everyone in agreement to proceed. The patient was then prepped and draped in a normal sterile fashion. Timeout was then performed and all parties were in agreement with the procedure to be performed. Skin nicks were made over the PSIS on the right for the pins for [employer] Deng Tracker. Pins placed and tracker secured. The wound was then draped in a 3-D C-arm and was obtained from the area of interest for [employer] navigation. Once then was registered and confirmed to be accurate screws were placed bilateral at T9, T10, T12 in the first spine and then a second spin registered and screws placed at bilateral L2, L3, L4. A navigated Jamshidi was passed and wire placed. AP confirmed good placement and then screws were placed over the wire and confirmed to be in good position on AP. The screws were tested and all tested above 20 mA. We then passed jamshidi into b/l T11 pedicles and performed reduction of the fracture using curette, and kyphoplasty baloon. Biopsy was tken of T11 and L2. Once this was accomplished cement was then placed into T11 with good fill. Then screws were cemented under pulsed lateral fluroscopy of T9 and T12 with good fill. Attention was then drawn to L3 and L4 where screws were also cemented in a similar fashion. Once all this was completed, We then sized and selected rods for the area rods bent them were then placed them through the tulips of each screw and subfacially. Set screws were then placed and all screws to secure the rods bilaterally. Set screws were then final tightened which reduced the angie and spine as well as fractures stabilizing them. Tabs were then broken off. Final imaging confirmed good placement of rods and screws, good reduction and stabilization. We irrigated the wounds thoroughly with 3L ancef irrigation, 3L gentamycin irrigation and 3L NSS. Vancomycin powder placed deep in the wound. Surgicel placed over the dura. Deep drain placed. Decortication done of the TVP of L1-3 as wel as facet joints of T9-L3. MagnatOs , allograft and allocel placed for fusion. The deep fascia was closed with 0 vicrylin the deep subq and 2-0 in the superficial subq. Skin closed with ricardo the wound edges approximated very well. wounds were then cleaned and sterilely dressed with optifoam dressing. The patient was transferred back to their hospital bed atraumatically. Patient was then awakened and extubated by the department of anesthesia having tolerated the procedure very well with no complications. They were transferred to the postoperative care unit in stable condition.
--- NOTE | 2023-03-14 15:57 | P.PN ---
Progress Note - Text Progress Note Date: 03/14/23 POST OP: Pt s/e in PACU. Following commands but very sleepy. Moving all 4 ext well. VSS at this time. Dressing CDI. Nursing at bedside. Will be transferred to the floor when awake and stable per PACU and anesthesia staff. TLSO brace when up and about Dressing CDI PT/OT daily Med mgt, home meds GI/DVT ppx
[2023-03-14] MEDS ORDERED: GABAPENTIN 300 MG CAP PO SCH (16:00)
[2023-03-14] MEDS: HYDROmorphone 0.5 MG/0.5 ML SYRINGE IVP PRN (17:38)
--- NOTE | 2023-03-14 18:12 | P.HPIM ---
History of Present Illness H&P Date: 03/14/23 Chief Complaint: med management 82-year-old man with history of diffuse large B-cell lymphoma chemotherapy, paroxysmal atrial fibrillation, hypertension, recent kyphoplasty after L1 compression fracture presented for elective T9-L4 segmental stabilization. Medicine consulted for medical management. Pt is doing well with no complaints. Resting comfortably with well controlled pain, post operatively. Upon my evaluation, pt was afebrile, 117/57, HR 66, 99% on 3L NC. No labs or imaging to review. All Systems reviewed and pertinent positives and negatives noted in HPI, all other symptoms are negative Gen: in no apparent distress, resting comfortably in bed Eyes: PERRL, no scleral injection or icterus HENT: normocephalic, atraumatic, good hearing acuity, moist mucous membranes Neck: no tracheal deviation, full range of motion Resp: good air exchange, breathing comfortably with no accessory muscle use, no tactile fremitus CVS: good distal perfusion x 4, no pitting edema GI: soft, NTTP, ND, no hepatosplenomegaly : no suprapubic tenderness, no CVAT, garcia catheter not present MSK: no clubbing, no cyanosis, no noted contractures of extremities Skin: no noted rashes, petechiae; temperature of skin is appropriate Neuro: moving all extremities without signs of weakness, CN II-XII intact Psych: cooperative, euthymic mood, insight and judgment intact Assessment: T11, L1, L2, L3 compression deformities, status post L1 vertebral plasty on 12/05 and T9-L4 vertebral stabilization on 03/14. Paroxysmal atrial fibrillation Hypertension Diffuse large B-cell lymphoma Plan: Vital signs reviewed and noted in the HPI Case was discussed with the Orthopedic surgery team, and patient was accepted for medical consultation Resume patient's home Apixiban 5 mg by mouth 2 times a day once cleared to do so by orthopedic surgery Resume patient's home amiodarone 100 mg by mouth daily Pain control: patients home DUC 300mg TID will be resumed, home flexeril 5mg TID PRN will be resumed, dilaudid 1mg q3h PRN Bowel regimen: Senokot-S twice a day, MiraLAX daily Consult physical therapy Patient is full code Past Medical History Past Medical History: Atrial Fibrillation, Cancer, Deep Vein Thrombosis (DVT), Osteoarthritis (OA), Syncope Additional Past Medical History / Comment(s): Hx 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 Has had 5 cycles of chemo this year - last 2 months ago. History of Any Multi-Drug Resistant Organisms: None Reported Past Surgical History: Back Surgery, Hernia Repair Additional Past Surgical History / Comment(s): 3 inguinal hernia repairs(does not recall laterality), skin cancer removed from left arm, IVC filter placed, L1 kyphoplasty with biopsy. Past Anesthesia/Blood Transfusion Reactions: No Reported Reaction Additional Past Anesthesia/Blood Transfusion Reaction / Comment(s): Hx blood transfusion in 2018, no reaction. Past Psychological History: No Psychological Hx Reported Additional Psychological History / Comment(s): Pt resides alone. He is independent Smoking Status: Never smoker Past Alcohol Use History: Heavy Additional Past Alcohol Use History / Comment(s): Hx of being a heavy drinker but has not had any alcohol since 2000. Past Drug Use History: None Reported - Past Family History Father Family Medical History: CVA/TIA, Myocardial Infarction ([place]) Additional Family Medical History / Comment(s): Pt did not have much contact with his father for years but knows that his father had MIs and strokes. He at the age of 65. Mother Family Medical History: No Reported History Additional Family Medical History / Comment(s): . Sister(s) Family Medical History: Cancer Additional Family Medical History / Comment(s): Cervical cancer. Brother(s) Family Medical History: Cancer Additional Family Medical History / Comment(s): 2 brother's had cancer, both . Medications and Allergies Home Medications Medication Instructions Recorded Confirmed Type Apixaban [Eliquis] 5 mg PO BID 08/18/22 03/08/23 History Amiodarone [Cordarone] 100 mg PO QAM 12/02/22 03/08/23 History Cyclobenzaprine [Flexeril] 10 mg PO HS 12/16/22 03/08/23 History Gabapentin [Neurontin] 300 mg PO TID #9 cap 12/22/22 03/08/23 Rx Acetaminophen [Tylenol Arthritis] 1,300 mg PO Q12H 03/08/23 03/08/23 History Ergocalciferol [Vitamin D2 (1250 1,250 mcg PO FR 03/08/23 03/08/23 History Mcg = 75355 Iu)] Allergies Allergy/AdvReac Type Severity Reaction Status Date / Time No Known Allergies Allergy Verified 03/14/23 09:04 Physical Exam Osteopathic Statement: *. No significant issues noted on an osteopathic structural exam other than those noted in the History and Physical/Consult. Vitals: Vital Signs Temp Pulse Resp BP BP BP Pulse Ox 03/14/23 16:15 66 15 117/57 99 03/14/23 16:00 69 17 104/56 97 03/14/23 15:45 62 12 101/56 96/46 99 03/14/23 15:30 62 10 L 99/50 93/52 100 03/14/23 15:15 63 13 101/49 94/51 98 03/14/23 15:00 62 14 99/51 110/59 96 03/14/23 14:45 61 18 112/53 126/66 100 03/14/23 14:30 60 17 122/80 96/79 97 03/14/23 14:15 96.4 F L 58 L 16 115/72 103/70 94 L 03/14/23 11:00 72 16 141/81 100 03/14/23 10:30 72 16 146/78 100 03/14/23 09:13 97.2 F L 78 16 176/88 99 Intake and Output 03/14/23 03/14/23 03/14/23 06:59 14:59 22:59 Intake Total 3850 Output Total 500 Balance 3350 Intake: IV 3850 Output: Urine 300 Estimated Blood Loss 200 Other: Weight 79.1 kg 79.1 kg Thrombosis Risk Factor Assmnt - Choose All That Apply Other Risk Factors: Yes Each Risk Factor Represents 2 Points: Major surgery, Malignancy Each Risk Factor Represents 3 Points: Age 75 years or older, History of DVT/PE Other congenital or acquired thrombophilia - If yes, enter type in comment: No Thrombosis Risk Factor Assessment Total Risk Factor Score: 10 Thrombosis Risk Factor Assessment Level: High Risk
[2023-03-14] MEDS ORDERED: NON FORMULARY DRUG (Acetaminophen [Tylenol Arthritis] 650 MG Tablet) PO SCH (18:15)
[2023-03-14] MEDS: ACETAMINOPHEN TAB 325 MG TAB PO SCH ×2 (18:28→23:49)
[2023-03-14] MEDS: GABAPENTIN 300 MG CAP PO SCH (19:51)
[2023-03-14] MEDS: HYDROmorphone 1 MG/ML 1 ML SYRINGE IVP PRN (19:51)
[2023-03-14] MEDS: CYCLOBENZAPRINE 10 MG TAB PO SCH (19:51)
[2023-03-14] MEDS: CYCLOBENZAPRINE 5 MG TAB PO PRN (23:51)
[2023-03-14] MEDS: HYDROcodone/APAP 10-325MG 1 EACH TAB PO PRN (23:51)
[2023-03-15] MEDS: LACTATED RINGERS 1,000 ML IV SCH (05:45)
[2023-03-15] MEDS: CYCLOBENZAPRINE 5 MG TAB PO PRN (05:49)
[2023-03-15] MEDS: ACETAMINOPHEN TAB 325 MG TAB PO SCH ×3 (05:49→17:26)
[2023-03-15] MEDS: HYDROmorphone 1 MG/ML 1 ML SYRINGE IVP PRN (05:50)
--- NOTE | 2023-03-15 08:23 | CT ---
EXAMINATION TYPE: CT thor lumbar spine wo con CT DLP: 1434.4 mGycm, Automated exposure control for dose reduction was used. DATE OF EXAM: 03/15/2023 1:42 AM COMPARISON: CT thoracolumbar spine 02/09/2023, CT lumbar spine 11/19/2022 CLINICAL INDICATION:Male, 82 years old with history of s/p T9-L4 stabilization for fracture; PHH, Pos t op. TECHNIQUE: Axial images of the thoracolumbar spine were obtained without contrast. Coronal and sagitt al reformats were performed. FINDINGS: Partial visualization of Mediport catheter tip at the cavoatrial junction. Coronary artery calcificat ions. Trace bilateral pleural effusions with associated atelectasis. IVC filter identified. Atheroscl erotic calcification of the abdominal aorta and its branches. Ectasia of the infrarenal abdominal aor ta measuring up to 2.8 cm. Diffuse bone demineralization. Postsurgical changes from posterior T9-L4 is stabilization with bilate ral pedicular screws and rods. The bilateral pedicular screws and rods are demonstrated within the T9 , T10, T12, L2, L3, and L4 vertebral bodies. Hardware appears intact. Vertebral augmentation changes identified within the T9, T11, T12, L1, L3, and L4 vertebral bodies. Compression fractures redemonstr ated involving the T11, L1, L2, and L3 vertebral bodies. No spondylolisthesis. This creates streak ar tifact which limits evaluation. Multilevel degenerative disc disease with disc space narrowing, endpl ate sclerosis, and anterior osteophytosis. Extensive streak artifact limits evaluation. No gross evid ence for significant central canal stenosis within this limitation. Moderate bilateral neural foramin al stenosis at T11-T12, T12-L1. Mild bilateral neural foraminal stenosis at L1-L2, L2-L3, L3-L4, and L4-L5. Skin ricardo identified with a couple foci of gas within the soft tissues. No organized fluid collect ion within the soft tissues at the surgical site. Healing posterior right ninth through 12th rib fractures with callus formation. Stable peripheral hyperattenuating fluid collection within the left iliopsoas region measuring 4.0 x 2.0 x 7.5 cm. No internal gas. IMPRESSION: 1. Postsurgical changes from posterior fusion of T9-L4 for treatment of previously seen compression fractures of T11, L1, L2, and the L3 vertebral bodies. Hardware appears intact. Hardware creates stre ak artifact which was evaluation. No gross evidence for significant central canal stenosis. Multileve l mild to moderate bilateral neural foraminal stenosis as described above. 2. Vertebral augmentation changes identified involving T9, T11, T12, L1, L3, and L4 vertebral bodies . 3. Stable organized fluid collection along the left iliopsoas muscle measuring up to 7.5 cm without internal gas.
--- NOTE | 2023-03-15 09:26 | P.PN ---
Subjective Progress Note Date: 03/15/23 Principal diagnosis: 1. T11 compression fracture 50% compressed 2. T12 burst compression fracture 2% compressed 3. L2 burst fracture AO type A 3 4. Status post L1 kyphoplasty 5. 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 Severe low back pain with debility Patient seen and examined this morning. Patient is resting completely bed. Patient reports that his pain is managed on current regimen. He states that he has not been up since procedure. Informed patient that physical therapy will be into work with him today. Family has requested for assessment to inpatient rehab, Consult will be placed. Patient is able to move bilateral lower extremities with mild difficulty. No acute events overnight. Garcia catheter remains intact and patent, this may be removed when patient is up and about. Patient has been afebrile, denies nausea/vomiting, or chest pain. Objective - Vital Signs Vital signs: Vital Signs Temp 97.2 F L 03/15/23 07:26 Pulse 65 03/15/23 07:26 Resp 16 03/15/23 07:26 BP 120/77 03/15/23 07:26 Pulse Ox 95 03/15/23 07:26 FiO2 Intake & Output 03/14/23 03/15/23 03/15/23 18:59 06:59 18:59 Intake Total 3850 290 Output Total 500 900 Balance 3350 -610 Weight 79.1 kg Intake: IV 3850 Intake, IV Titration 290 Amount Lactated Ringers 1,000 ml 240 @ 20 mls/hr IV .Q24H [facility] Rx#:[id number] ceFAZolin 2 gm In Sodium 50 Chloride 0.9% 50 ml @ 100 mls/hr IVPB Q8H [facility] Rx#: [id number] Output: Urine 300 900 Estimated Blood Loss 200 Other: Voiding Method Indwelling Catheter Indwelling Catheter - Exam Physical Examination General: The patient is awake and alert, in no acute distress Skin: Skin is warm and dry with no obvious rashes or lesions. Surgical incisions to the sacral lumbar spine, dressings are intact. Eye: Pupils are equal, round and reactive to light, extra-ocular movements are intact; there is normal conjunctiva bilaterally. Neck: The neck is supple, there is no tenderness and ROM intact. Cardiovascular: There is a regular rate and rhythm. No murmur, rub or gallop is appreciated. Respiratory: Lungs are clear to auscultation, respirations are non-labored, breath sounds are equal. Gastrointestinal: Soft, non-distended, non-tender abdomen. Back: There is no tenderness to palpation in the midline, paralumbar, parathoracic or buttocks region. There is no obvious deformity . Musculoskeletal: ROM limited secondary to pain and stiffness from surgical procedure. Muscle strength in all major muscle groups of bilateral upper extremities 5/5, bilateral lower extremities 4-/5. Neurological: CN 2-12 intact. There are no obvious motor or sensory deficits. Movement and coordination equal and intact. Sensory exam to light touch intact C5-T1 and intact from L2-S1. Reflexes 2/4 in bilateral upper and lower extremities. Negative Hoffmans, babinski, and clonus signs. Psychiatric: Cooperative, appropriate mood & affect, normal judgment. - Labs CBC & Chem 7: 03/15/23 07:21 Assessment and Plan Assessment: Postop day 1: Minimally invasive stabilization from T9 to L4 with ORIF and kyphoplasty T11, T12, L2 1. T11 compression fracture 50% compressed 2. T12 burst compression fracture 2% compressed 3. L2 burst fracture AO type A 3 4. Status post L1 kyphoplasty 5. 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 Severe low back pain with debility Plan: -Appreciate device sales consultant and team management. -Activity: Ambulate QID, OOB all meals, up and about, limit lifting bending twisting to less than 5 lbs. Use walker or cane if needed for stability. -Daily PT/OT, increase ambulation strength and balance. -Brace when up and about, not needed in bed or chair -Pain control: Adequate at this time -Meds: reviewed -GI ppx: senna, Miralax -DC garcia when up and about, bedside commode if needed -DVT PPX: OK to restart Heparin tonight -Hygiene: Shower today. Maintain dressing clean and dry. Meticulous cleaning after BMs away from the incision site -Encourage IS 10x/hr -Dispo: Anticipate discharge to Inpatient rehab vs [facility] within the next 48hrs *I reviewed and discussed this case with my attending Dr. Burton, whom has reviewed this chart and films and is in agreement with assessment and plan of care as outlined above. I have personally seen and examined the patient, performed the documentation and the assessment and plan as written. Number of minutes spent on the visit: 20m.
[2023-03-15] MEDS: GABAPENTIN 300 MG CAP PO SCH ×3 (09:42→21:02)
[2023-03-15] MEDS: polyethylene glycoL 3350 17 GM POWD.PACK PO SCH (09:42)
[2023-03-15] MEDS: AMIODARONE 100 MG TAB PO SCH (10:54)
[2023-03-15 14:10] LABS: Basophils # (A) 0.01 X 10*3/uL (0.00-0.10); Basophils % (A) 0.1 %; Eosinophils # (A) 0.04 X 10*3/uL (0.04-0.35); Eosinophils % (A) 0.5 %; HCT 32.6 % (39.6-50.0); HGB 10.5 d/dL (13.0-17.0); Lymphocytes # (A) 0.82 X 10*3/uL (0.90-5.00); Lymphocytes % (A) 11.2 %; MCH 32.6 pg (27.0-32.0); MCHC 32.2 d/dL (32.0-37.0); MCV 101.2 FL (80.0-97.0); Mean Platelet Volume 9.9 FL (9.5-12.2); Monocytes # (A) 0.71 X 10*3/uL (0.20-1.00); Monocytes % (A) 9.7 %; NRBC Per 100 WBC 0 X 10*3/uL (0.00-0.01); Neutrophils # (A) 5.74 X 10*3/uL (1.80-7.70); Neutrophils % (A) 78.1 %; Platelet Count 159 X 10*3/uL (140-440); RBC 3.22 X 10*6/uL (4.40-5.60); RDW 13.5 % (11.5-14.5); WBC 7.35 X 10*3/uL (4.50-10.00)
--- NOTE | 2023-03-15 14:48 | P.CONS ---
History of Present Illness - Reason for Consult Consult date: 03/15/23 rehab recommendations - Chief Complaint fall with traumatic compression fractures - History of Present Illness Mr Juan Quevedo is an 82 y/o male who lives with his daughter in a SS home with 5 PERFECTO. Prior to admission, reports that he was independent with a cane and ADLs. Records state he has been having some issues over the last month with back pain and recurrent falls. He had an L1 kyphoplasty in December 06, 2022 and had been doing well until 3-4 subsequent falls since then. He has a walker and a cane at home. Patient presented to the [facility] for elective back surgery with Dr Burton. Patient had an outpatient CT scan which revealed T11, T12, and L2 compression fractures. He had tried an outpatient LSO brace with no improvements of his pain. On 03/14/23 he underwent T9-L4 segmental stabilization with kyphoplasty at T11, T12, and L2. Post surgical pain management with Tylenol 650 mg Q 6 hrs, Flexeril 5 mg TID prn and 10 mg QHS, Gabapentin 300 mg TID, [place] 5/325 mg Q hrs 6 prn (pain scale 4-6) and [place] 10/325 mg Q 6 hrs prn severe pain (7-10), Dilaudid prn. Of note, patient has Large B cell Lymphoma, undergoing treatment. PM&R consulted for rehab recommendations. Patient has been seen by physical therapy; min assist with transfers 2wwm, bed mobility mod I, gait 30 ft min assist 2ww; OT evaluations pending. Patient complains of severe back pain, non radiating. He feels his pain is his main limiting factor currently for progress in therapies. He lives in a mobile home with his daughter with 4 PERFECTO with b/l hand rails. He was independent with ADLs; he has not been driving in years. Daughter is his main support system. Review of Systems reviewed, negative unless mentioned above in HPI Past Medical History Past Medical History: Atrial Fibrillation, Cancer, Deep Vein Thrombosis (DVT), Osteoarthritis (OA), Syncope Additional Past Medical History / Comment(s): Hx Squamous Cell Skin Cancer removed from left arm and Stage 3 Large B Cell Lymphoma diagnosed in 2018, had o ne round of chemo, then developed complications, DVT, hemmorhagic shock,ended up on life support. Has had 5 cycles of chemo this year - last 2 months ago. History of Any Multi-Drug Resistant Organisms: None Reported Past Surgical History: Back Surgery, Hernia Repair Additional Past Surgical History / Comment(s): 3 inguinal hernia repairs(does not recall laterality), skin cancer removed from left arm, IVC filter placed, L1 kyphoplasty with biopsy. Past Anesthesia/Blood Transfusion Reactions: No Reported Reaction Additional Past Anesthesia/Blood Transfusion Reaction / Comm: Hx blood transfusion in 2018, no reaction. Past Psychological History: No Psychological Hx Reported Additional Psychological History / Comment(s): Pt resides alone. He is independent Smoking Status: Never smoker Past Alcohol Use History: Heavy Additional Past Alcohol Use History / Comment(s): Hx of being a heavy drinker but has not had any alcohol since 2000. Past Drug Use History: None Reported - Past Family History Father Family Medical History: CVA/TIA, Myocardial Infarction ([place]) Additional Family Medical History / Comment(s): Pt did not have much contact with his father for years but knows that his father had MIs and strokes. He at the age of 65. Mother Family Medical History: No Reported History Additional Family Medical History / Comment(s): . Sister(s) Family Medical History: Cancer Additional Family Medical History / Comment(s): Cervical cancer. Brother(s) Family Medical History: Cancer Additional Family Medical History / Comment(s): 2 brother's had cancer, both . Medications and Allergies Home Medications Medication Instructions Recorded Confirmed Type Apixaban [Eliquis] 5 mg PO BID 08/18/22 03/08/23 History Amiodarone [Cordarone] 100 mg PO QAM 12/02/22 03/08/23 History Cyclobenzaprine [Flexeril] 10 mg PO HS 12/16/22 03/08/23 History Gabapentin [Neurontin] 300 mg PO TID #9 cap 12/22/22 03/08/23 Rx Acetaminophen [Tylenol Arthritis] 1,300 mg PO Q12H 03/08/23 03/08/23 History Ergocalciferol [Vitamin D2 (1250 1,250 mcg PO FR 03/08/23 03/08/23 History Mcg = [id number] Iu)] Allergies Allergy/AdvReac Type Severity Reaction Status Date / Time No Known Allergies Allergy Verified 07/31/23 09:04 Physical Exam Vitals: Vital Signs Temp Pulse Resp BP BP BP Pulse Ox 03/15/23 13:46 97.9 F 89 16 96/59 98 03/15/23 12:43 65 03/15/23 08:52 96 03/15/23 07:26 97.2 F L 65 16 120/77 95 03/15/23 01:19 97.4 F L 86 18 139/65 95 03/14/23 18:45 72 129/78 98 03/14/23 18:30 71 127/76 100 03/14/23 18:15 70 113/70 100 03/14/23 18:00 69 106/58 100 03/14/23 17:45 67 107/66 100 03/14/23 17:30 97.5 F L 73 17 127/72 99 03/14/23 17:15 65 116/69 99 03/14/23 17:00 66 110/66 98 03/14/23 16:45 63 98/64 99 03/14/23 16:30 69 144/79 97 03/14/23 16:15 66 15 117/57 99 03/14/23 16:00 69 17 104/56 97 03/14/23 15:45 62 12 101/56 96/46 99 03/14/23 15:30 62 10 L 99/50 93/52 100 03/14/23 15:15 63 13 101/49 94/51 98 03/14/23 15:00 62 14 99/51 110/59 96 03/14/23 14:45 61 18 112/53 126/66 100 03/14/23 14:30 60 17 122/80 96/79 97 Intake and Output 03/14/23 03/15/23 03/15/23 22:59 06:59 14:59 Intake Total 290 Output Total 900 Balance -610 Intake: Intake, IV Titration 290 Amount Lactated Ringers 1,000 ml 240 @ 20 mls/hr IV .Q24H [facility] Rx#:[id number] ceFAZolin 2 gm In Sodium 50 Chloride 0.9% 50 ml @ 100 mls/hr IVPB Q8H [facility] Rx#: [id number] Output: Urine 900 Other: Voiding Method Indwelling Catheter Indwelling Catheter Indwelling Catheter Weight 79.1 kg General: Well-developed, well-nourished, male, in no acute distress HEENT: NC/AT, external ears intact, hearing aid in place Cardiovascular: B/L calves are supple, nontender, no cords, without peripheral edema Respiratory: Even and unlabored breathing on Nasal cannula. Abdomen: Soft, nontender, nondistended Genitourinary: garcia in place Musculoskeletal: ROM WFL MMT: B/L UE 5/5 throughout B/L LE HF 4/5 b/l, KE 5/5, ADF 5/5, APF 5/5 Neurological: Alert and oriented x 33. CN II-XII: Grossly intact. Speech is clear, fluent Reflexes: No ankle clonus b/l, patellar 1+ b/l Sensation: intact to light touch in b/l upper and lower ext Skin: Skin intact where visible to head, neck, and bilateral upper and lower extremities Psychiatric: Mood calm, affect appropriate, cooperative Results CBC & Chem 7: 03/15/23 07:21 03/15/23 07:21 Labs: Abnormal Lab Results - Last 24 Hours (Table) 03/15/23 Range/Units 07:21 RBC 3.22 L (4.40-5.60) X 10*6/uL Hgb 10.5 L (13.0-17.0) d/dL Hct 32.6 L (39.6-50.0) % MCV 101.2 H (80.0-97.0) FL MCH 32.6 H (27.0-32.0) pg Lymphocytes # 0.82 L (0.90-5.00) X 10*3/uL Assessment and Plan Assessment: # Traumatic T11, T12, and L2 compression fractures secondary to recurrent falls s/p T9-L4 segmental stabilization with T11, 12, L2 kyphoplasty -fall precautions -PT/OT -back precautions per Ortho Spine Recs # Recurrent Falls # Back pain secondary to above # Impaired gait and ADLs # Diffuse Large B Cell lymphoma- undergoing treatment # Recent L1 kyphoplasty (November 2022) # Anemia #Bowel/Bladder -garcia in place # Pain Management -Tylenol 650 mg Q 6 hrs, Flexeril 5 mg TID prn and 10 mg QHS, Gabapentin 300 mg TID, [place] 5/325 mg Q hrs 6 prn (pain scale 4-6) and [place] 10/325 mg Q 6 hrs prn severe pain (7-10), Dilaudid prn # Comorbidities: PAfib, History of DVT s/p IVC, OA # Your medical dx and management Dispo Recommendations: Patient pending full therapy evaluations. Patient could benefit from a short course of therapy on IPR. Patient has ongoing medical issues as above; pain control still is a barrier and he needs further pain mgmt. Patient seen and examined by Dr Aaron, consult note remotely prepped by Rosa Abad PA-C
[2023-03-15] MEDS: HYDROcodone/APAP 10-325MG 1 EACH TAB PO PRN (15:44)
[2023-03-15 16:15] LABS: BUN/Creat Ratio 21.12 Ratio (12.00-20.00); Blood Urea Nitrogen 16.9 mg/dL (9.0-27.0); Calcium 8.8 mg/dL (8.7-10.3); Carbon Dioxide 22.4 mmol/L (21.6-31.8); Chloride 100 mmol/L (96-109); Glucose 112 mg/dL (70-110); Potassium 5.1 mmol/L (3.5-5.5); Sodium 133 mmol/L (135-145)
--- NOTE | 2023-03-15 17:35 | P.PN ---
Subjective Progress Note Date: 03/15/23 82-year-old man with history of diffuse large B-cell lymphoma chemotherapy, paroxysmal atrial fibrillation, hypertension, recent kyphoplasty after L1 compression fracture presented for elective T9-L4 segmental stabilization. 03/15 Patient was seen and examined. No acute events overnight. BP 96/59 P 89, RR 16, 98% on 3L NC. CBC shows hemoglobin of 10.5 with MCV of 101.2. BMP shows sodium of 133 and glucose 112. PT and OT consultation pending. Plans for SNF vs inpatient rehab. Currently has garcia cathter. No bowel movement or passing gas. General: non toxic, no distress, appears at stated age Derm: warm, dry Head: atraumatic, normocephalic, symmetric Eyes: EOMI, no lid lag, anicteric sclera Cardiovascular: S1S2 reg, no murmur Lungs: CTA bilateral, no rhonchi, no rales , no accessory muscle use Abdominal: soft, nontender to palpation, no guarding, no appreciable organomegaly, + garcia catheter, + bowel sounds Ext: no gross muscle atrophy, no edema, no contractures Neuro: no focal neuro deficits Psych: Alert, oriented, appropriate affect T11, L1, L2, L3 compression deformities, status post L1 vertebral plasty on 12/05 and T9-L4 vertebral stabilization on 03/14. Paroxysmal atrial fibrillation Hypertension Diffuse large B-cell lymphoma Based on my assessment of this patient, this patient meets a moderate complexity level of care. Patient is status post T9-L4 segmental stabilization POD 1. T11, L1, L2, L3 compression deformities, status post L1 vertebral plasty on 12/05 and T9-L4 vertebral stabilization on 03/14: Management as per Orthopedic surgery. Paroxysmal atrial fibrillation: Amiodarone 100 mg by mouth daily. Restart Apixiban 5 mg by mouth 2 times a day once cleared to restart by Orthopedic surgery. Hypertension Diffuse large B-cell lymphoma I have reviewed the following regulatory affairs consultant notes: Orthopedic surgery and PMR note reviewed. I have reviewed the results of the following tests: CBC, BMP. I have ordered the following tests: CBC ordered for tomorrow morning. I have discussed the care of this patient with the following independent historian: I have independently interpreted the following test below: I have discussed the management of this patient with the following physician: Objective - Vital Signs Vital signs: Vital Signs Temp 97.9 F 03/15/23 13:46 Pulse 89 03/15/23 13:46 Resp 16 03/15/23 13:46 BP 96/59 03/15/23 13:46 Pulse Ox 98 03/15/23 13:46 FiO2 Intake & Output 03/14/23 03/15/23 03/15/23 18:59 06:59 18:59 Intake Total 3850 290 Output Total 500 900 Balance 3350 -610 Weight 79.1 kg Intake: IV 3850 Intake, IV Titration 290 Amount Lactated Ringers 1,000 ml 240 @ 20 mls/hr IV .Q24H [facility] Rx#:[id number] ceFAZolin 2 gm In Sodium 50 Chloride 0.9% 50 ml @ 100 mls/hr IVPB Q8H [facility] Rx#: [id number] Output: Urine 300 900 Estimated Blood Loss 200 Other: Voiding Method Indwelling Catheter Indwelling Catheter Indwelling Catheter - Labs CBC & Chem 7: 03/15/23 07:21 03/15/23 07:21 Labs: Abnormal Lab Results - Last 24 Hours (Table) 03/15/23 03/15/23 Range/Units 07:21 07:21 RBC 3.22 L (4.40-5.60) X 10*6/uL Hgb 10.5 L (13.0-17.0) d/dL Hct 32.6 L (39.6-50.0) % MCV 101.2 H (80.0-97.0) FL MCH 32.6 H (27.0-32.0) pg Lymphocytes # 0.82 L (0.90-5.00) X 10*3/uL Sodium 133 L (135-145) mmol/L BUN/Creatinine Ratio 21.12 H (12.00-20.00) Ratio Glucose 112 H (70-110) mg/dL
[2023-03-15] MEDS: HYDROmorphone 0.5 MG/0.5 ML SYRINGE IVP PRN (21:02)
[2023-03-15] MEDS: CYCLOBENZAPRINE 10 MG TAB PO SCH (21:02)
[2023-03-16] MEDS: ACETAMINOPHEN TAB 325 MG TAB PO SCH ×4 (00:31→17:21)
[2023-03-16] MEDS: LACTATED RINGERS 1,000 ML IV SCH (06:29)
[2023-03-16 07:31] LABS: HCT 30.4 % (39.0-53.0); HGB 10.5 gm/dL (13.0-17.5); MCH 33.9 pg (25.0-35.0); MCHC 34.4 g/dL (31.0-37.0); MCV 98.7 fL (80.0-100.0); Mean Platelet Volume 7.8; Platelet Count 138 k/uL (150-450); RBC 3.08 m/uL (4.30-5.90); RDW 13.6 % (11.5-15.5); WBC 6.4 k/uL (3.8-10.6)
[2023-03-16] MEDS: HYDROcodone/APAP 10-325MG 1 EACH TAB PO PRN ×2 (08:07→21:11)
[2023-03-16] MEDS: CYCLOBENZAPRINE 5 MG TAB PO PRN (08:07)
[2023-03-16] MEDS: GABAPENTIN 300 MG CAP PO SCH ×3 (08:07→21:11)
[2023-03-16] MEDS: AMIODARONE 100 MG TAB PO SCH (08:07)
[2023-03-16] MEDS: polyethylene glycoL 3350 17 GM POWD.PACK PO SCH (08:08)
--- NOTE | 2023-03-16 08:55 | P.PN ---
Subjective Progress Note Date: 03/16/23 Principal diagnosis: 1. T11 compression fracture 50% compressed 2. T12 burst compression fracture 2% compressed 3. L2 burst fracture AO type A 3 4. Status post L1 kyphoplasty 5. 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 Severe low back pain with debility Patient seen and examined this morning. Patient is resting completely bed. Surgical dressing are CDI, no shadowing present. Patient reports that his pain is managed on current regimen. He continues to have complaint of right hip pain that has been present prior to procedure. Patient is able to move bilateral lower extremities with mild difficulty. He states he worked with PT yesterday and tolerated activity well. No acute events overnight. Garcia catheter has been discontinued, voiding without difficulty. Patient states he has not had a BM in the past 3 days. Medications reviewed. Patient has been afebrile, denies nausea/vomiting, or chest pain. Objective - Vital Signs Vital signs: Vital Signs Temp 98.9 F 03/16/23 07:10 Pulse 89 03/16/23 07:10 Resp 17 03/16/23 07:10 BP 111/63 03/16/23 07:10 Pulse Ox 93 L 03/16/23 07:10 FiO2 Intake & Output 03/15/23 03/16/23 03/16/23 18:59 06:59 18:59 Output Total 2000 400 Balance -2000 -400 Output: Urine 2000 400 Other: Voiding Method Indwelling Catheter Indwelling Catheter # Voids 1 - Exam Physical Examination General: The patient is awake and alert, in no acute distress Skin: Skin is warm and dry with no obvious rashes or lesions. Surgical incisions to the sacral lumbar spine, dressings are intact. Eye: Pupils are equal, round and reactive to light, extra-ocular movements are intact; there is normal conjunctiva bilaterally. Neck: The neck is supple, there is no tenderness and ROM intact. Cardiovascular: There is a regular rate and rhythm. No murmur, rub or gallop is appreciated. Respiratory: Lungs are clear to auscultation, respirations are non-labored, breath sounds are equal. Gastrointestinal: Soft, non-distended, non-tender abdomen. Back: There is no tenderness to palpation in the midline, paralumbar, parathoracic or buttocks region. There is no obvious deformity . Musculoskeletal: ROM limited secondary to pain and stiffness from surgical procedure. Muscle strength in all major muscle groups of bilateral upper extremities 5/5, bilateral lower extremities 4-/5. Neurological: CN 2-12 intact. There are no obvious motor or sensory deficits. Movement and coordination equal and intact. Sensory exam to light touch intact C5-T1 and intact from L2-S1. Reflexes 2/4 in bilateral upper and lower extremities. Negative Hoffmans, babinski, and clonus signs. Psychiatric: Cooperative, appropriate mood & affect, normal judgment. - Labs CBC & Chem 7: 03/16/23 07:10 03/15/23 07:21 Labs: Abnormal Lab Results - Last 24 Hours (Table) 03/15/23 03/15/23 03/16/23 Range/Units 07:21 07:21 07:10 RBC 3.22 L 3.08 L (4.40-5.60) X 10*6/uL Hgb 10.5 L 10.5 L (13.0-17.0) d/dL Hct 32.6 L 30.4 L (39.6-50.0) % MCV 101.2 H (80.0-97.0) FL MCH 32.6 H (27.0-32.0) pg Plt Count 138 L (150-450) k/uL Lymphocytes # 0.82 L (0.90-5.00) X 10*3/uL Sodium 133 L (135-145) mmol/L BUN/Creatinine Ratio 21.12 H (12.00-20.00) Ratio Glucose 112 H (70-110) mg/dL Assessment and Plan Assessment: Postop day 2: Minimally invasive stabilization from T9 to L4 with ORIF and kyp hoplasty T11, T12, L2 1. T11 compression fracture 50% compressed 2. T12 burst compression fracture 2% compressed 3. L2 burst fracture AO type A 3 4. Status post L1 kyphoplasty 5. 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 Severe low back pain with debility Plan: -Appreciate independent marketing consultant and team management. -Activity: Ambulate QID, OOB all meals, up and about, limit lifting bending twis ting to less than 5 lbs. Use walker or cane if needed for stability. -Daily PT/OT, increase ambulation strength and balance. -Pain control: Adequate at this time -Meds: reviewed -GI ppx: senna, Miralax -DC garcia when up and about, bedside commode if needed -DVT PPX: Heparin -Hygiene: Shower today. Maintain dressing clean and dry. Meticulous cleaning after BMs away from the incision site -Encourage IS 10x/hr -Dispo: Anticipate discharge to Inpatient rehab vs [facility] within the next 24hrs *I reviewed and discussed this case with my attending Dr. Burton, whom has reviewed this chart and films and is in agreement with assessment and plan of care as outlined above. I have personally seen and examined the patient, performed the documentation and the assessment and plan as written. Number of minutes spent on the visit: 20m.
[2023-03-16] MEDS: HEPARIN SODIUM,PORCINE/PF 5,000 UNIT/0.5 ML SYRINGE SQ SCH ×2 (11:19→21:11)
[2023-03-16] MEDS: SENNOSIDES-DOCUSATE SODIUM 1 EACH TAB PO SCH (11:20)
--- NOTE | 2023-03-16 14:18 | P.PN ---
Subjective Progress Note Date: 03/16/23 82-year-old man with history of diffuse large B-cell lymphoma chemotherapy, paroxysmal atrial fibrillation, hypertension, recent kyphoplasty after L1 compression fracture presented for elective T9-L4 segmental stabilization. 03/15 Patient was seen and examined. No acute events overnight. BP 96/59 P 89, RR 16, 98% on 3L NC. CBC shows hemoglobin of 10.5 with MCV of 101.2. BMP shows sodium of 133 and glucose 112. PT and OT consultation pending. Plans for SNF vs inpatient rehab. Currently has garcia cathter. No bowel movement or passing gas. 03/16 Patient was seen and examined. No acute events overnight. BP 116/75 P 85, RR 17, 99% on 3L NC. CBC shows hemoglobin of 10.5 with Plt count of 138. Plans for SNF vs inpatient rehab. Garcia cathter discontinued. No bowel movement or passing gas. General: non toxic, no distress, appears at stated age Derm: warm, dry Head: atraumatic, normocephalic, symmetric Eyes: EOMI, no lid lag, anicteric sclera Cardiovascular: S1S2 reg, no murmur Lungs: CTA bilateral, no rhonchi, no rales , no accessory muscle use Abdominal: soft, nontender to palpation, no guarding, no appreciable organomegaly, + bowel sounds Ext: no gross muscle atrophy, no edema, no contractures Neuro: no focal neuro deficits Psych: Alert, oriented, appropriate affect T11, L1, L2, L3 compression deformities, status post L1 vertebral plasty on 12/05 and T9-L4 vertebral stabilization on 03/14. Paroxysmal atrial fibrillation Hypertension Diffuse large B-cell lymphoma Based on my assessment of this patient, this patient meets a moderate complexity level of care. Patient is status post T9-L4 segmental stabilization POD 2. T11, L1, L2, L3 compression deformities, status post L1 vertebral plasty on 12/05 and T9-L4 vertebral stabilization on 03/14: Management as per Orthopedic surgery. Paroxysmal atrial fibrillation: Amiodarone 100 mg by mouth daily. Restart Apixiban 5 mg by mouth 2 times a day once cleared to restart by Orthopedic surgery. Hypertension Diffuse large B-cell lymphoma I have reviewed the following organization development consultant notes: Orthopedic surgery note reviewed. I have reviewed the results of the following tests: CBC. I have ordered the following tests: I have discussed the care of this patient with the following independent historian: I have independently interpreted the following test below: I have discussed the management of this patient with the following physician: Objective - Vital Signs Vital signs: Vital Signs Temp 98.4 F 03/16/23 13:32 Pulse 85 03/16/23 13:32 Resp 17 03/16/23 13:32 BP 116/75 03/16/23 13:32 Pulse Ox 99 03/16/23 13:32 FiO2 Intake & Output 03/15/23 03/16/23 03/16/23 18:59 06:59 18:59 Output Total 1999 400 250 Balance -1999 -400 -250 Output: Urine 1999 400 250 Other: Voiding Method Indwelling Catheter Indwelling Catheter Toilet Urinal # Voids 1 - Labs CBC & Chem 7: 03/16/23 07:10 03/15/23 07:21 Labs: Abnormal Lab Results - Last 24 Hours (Table) 03/15/23 03/16/23 Range/Units 07:21 07:10 RBC 3.08 L (4.30-5.90) m/uL Hgb 10.5 L (13.0-17.5) gm/dL Hct 30.4 L (39.0-53.0) % Plt Count 138 L (150-450) k/uL Sodium 133 L (135-145) mmol/L BUN/Creatinine Ratio 21.12 H (12.00-20.00) Ratio Glucose 112 H (70-110) mg/dL
[2023-03-16] MEDS: CYCLOBENZAPRINE 10 MG TAB PO SCH (21:11)
[2023-03-17] MEDS: ACETAMINOPHEN TAB 325 MG TAB PO SCH ×4 (05:06→17:14)
[2023-03-17] MEDS: LACTATED RINGERS 1,000 ML IV SCH (05:10)
[2023-03-17] MEDS: AMIODARONE 100 MG TAB PO SCH (08:54)
[2023-03-17] MEDS: HEPARIN SODIUM,PORCINE/PF 5,000 UNIT/0.5 ML SYRINGE SQ SCH (08:54)
[2023-03-17] MEDS: SENNOSIDES-DOCUSATE SODIUM 1 EACH TAB PO SCH (08:54)
[2023-03-17] MEDS: GABAPENTIN 300 MG CAP PO SCH ×3 (08:54→21:58)
[2023-03-17] MEDS: polyethylene glycoL 3350 17 GM POWD.PACK PO SCH (08:54)
--- NOTE | 2023-03-17 09:40 | P.PN ---
Subjective Progress Note Date: 03/17/23 Principal diagnosis: 1. T11 compression fracture 50% compressed 2. T12 burst compression fracture 2% compressed 3. L2 burst fracture AO type A 3 4. Status post L1 kyphoplasty 5. 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 Severe low back pain with debility Patient seen and examined this morning. Patient is resting completely bed. Familia gical dressing are CDI, no shadowing present. Patient reports that his pain is managed on current regimen. He continues to have complaint of right hip pain that has been present prior to procedure. Patient is looking forward to going to rehab to regain strength and stability. No acute events overnight. Patient has been afebrile, denies nausea/vomiting, or chest pain. Objective - Vital Signs Vital signs: Vital Signs Temp 98.5 F 03/17/23 06:40 Pulse 84 03/17/23 06:40 Resp 17 03/17/23 06:40 BP 159/84 03/17/23 06:40 Pulse Ox 90 L 03/17/23 06:40 FiO2 Intake & Output 03/16/23 03/17/23 03/17/23 18:59 06:59 18:59 Output Total 250 300 600 Balance -250 -300 -600 Output: Urine 250 300 600 Other: Voiding Method Toilet Toilet Urinal Urinal # Voids 1 3 1 # Bowel Movements 1 - Exam Physical Examination General: The patient is awake and alert, in no acute distress Skin: Skin is warm and dry with no obvious rashes or lesions. Surgical incisions to the sacral lumbar spine, dressings are intact. Eye: Pupils are equal, round and reactive to light, extra-ocular movements are intact; there is normal conjunctiva bilaterally. Neck: The neck is supple, there is no tenderness and ROM intact. Cardiovascular: There is a regular rate and rhythm. No murmur, rub or gallop is appreciated. Respiratory: Lungs are clear to auscultation, respirations are non-labored, breath sounds are equal. Gastrointestinal: Soft, non-distended, non-tender abdomen. Back: There is no tenderness to palpation in the midline, paralumbar, parathoracic or buttocks region. There is no obvious deformity . Musculoskeletal: ROM limited secondary to pain and stiffness from surgical procedure. Muscle strength in all major muscle groups of bilateral upper extremities 5/5, bilateral lower extremities 4-/5. Neurological: CN 2-12 intact. There are no obvious motor or sensory deficits. Movement and coordination equal and intact. Sensory exam to light touch intact C5-T1 and intact from L2-S1. Reflexes 2/4 in bilateral upper and lower extremities. Negative Hoffmans, babinski, and clonus signs. Psychiatric: Cooperative, appropriate mood & affect, normal judgment. - Labs CBC & Chem 7: 03/16/23 07:10 03/15/23 07:21 Assessment and Plan Assessment: Postop day 3: Minimally invasive stabilization from T9 to L4 with ORIF and kyphoplasty T11, T12, L2 1. T11 compression fracture 50% compressed 2. T12 burst compression fracture 2% compressed 3. L2 burst fracture AO type A 3 4. Status post L1 kyphoplasty 5. 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 Severe low back pain with debility Plan: -Appreciate datapower consultant and team management. -Activity: Ambulate QID, OOB all meals, up and about, limit lifting bending twisting to less than 5 lbs. Use walker or cane if needed for stability. -Daily PT/OT, increase ambulation strength and balance. -Pain control: Adequate at this time -Meds: reviewed -GI ppx: senna, Miralax -DVT PPX: Eliquis -Hygiene: Shower today. Maintain dressing clean and dry. Meticulous cleaning after BMs away from the incision site -Encourage IS 10x/hr -Dispo: Anticipate discharge to Inpatient rehab vs [facility] within the next 24hrs *I reviewed and discussed this case with my attending Dr. Burton, whom has reviewed this chart and films and is in agreement with assessment and plan of care as outlined above. I have personally seen and examined the patient, performed the documentation and the assessment and plan as written. Number of minutes spent on the visit: 20m.
[2023-03-17] MEDS: HYDROcodone/APAP 10-325MG 1 EACH TAB PO PRN ×2 (12:45→21:58)
--- NOTE | 2023-03-17 14:23 | P.PN ---
Subjective Progress Note Date: 03/17/23 82-year-old man with history of diffuse large B-cell lymphoma chemotherapy, paroxysmal atrial fibrillation, hypertension, recent kyphoplasty after L1 compression fracture presented for elective T9-L4 segmental stabilization. 03/15 Patient was seen and examined. No acute events overnight. BP 96/59 P 89, RR 16, 98% on 3L NC. CBC shows hemoglobin of 10.5 with MCV of 101.2. BMP shows sodium of 133 and glucose 112. PT and OT consultation pending. Plans for SNF vs inpatient rehab. Currently has garcia cathter. No bowel movement or passing gas. 03/16 Patient was seen and examined. No acute events overnight. BP 116/75 P 85, RR 17, 99% on 3L NC. CBC shows hemoglobin of 10.5 with Plt count of 138. Plans for SNF vs inpatient rehab. Garcia cathter discontinued. No bowel movement or passing gas. 03/17 Patient was seen and examined. No acute events overnight. BP 102/68 P 86, RR 17, 97% on RA. Plans for SNF vs inpatient rehab pending [facility] approval. Garcia cathter discontinued yesterday. No bowel movement or passing gas. General: non toxic, no distress, appears at stated age Derm: warm, dry Head: atraumatic, normocephalic, symmetric Eyes: EOMI, no lid lag, anicteric sclera Cardiovascular: good distal perfusion in all 4 extremities Lungs: breathing comfortably, no accessory muscle use Ext: no gross muscle atrophy, no edema, no contractures Neuro: no focal neuro deficits Psych: Alert, oriented, appropriate affect T11, L1, L2, L3 compression deformities, status post L1 vertebral plasty on 12/05 and T9-L4 vertebral stabilization on 03/14. Paroxysmal atrial fibrillation Hypertension Diffuse large B-cell lymphoma Based on my assessment of this patient, this patient meets a moderate complexity level of care. Patient is status post T9-L4 segmental stabilization POD 3. T11, L1, L2, L3 compression deformities, status post L1 vertebral plasty on 12/05 and T9-L4 vertebral stabilization on 03/14: Management as per Orthopedic surgery. Paroxysmal atrial fibrillation: Amiodarone 100 mg by mouth daily. Discussed with Marcella PERALTA, OK to restart Apixiban 5 mg by mouth 2 times a day. Hypertension Diffuse large B-cell lymphoma I have reviewed the following business system consultant notes: Orthopedic surgery note reviewed. I have reviewed the results of the following tests: I have ordered the following tests: I have discussed the care of this patient with the following independent historian: I have independently interpreted the following test below: I have discussed the management of this patient with the following physician: Objective - Vital Signs Vital signs: Vital Signs Temp 97.9 F 03/17/23 13:12 Pulse 86 03/17/23 13:12 Resp 18 03/17/23 13:12 BP 102/68 03/17/23 13:12 Pulse Ox 97 03/17/23 13:12 FiO2 Intake & Output 03/16/23 03/17/23 03/17/23 18:59 06:59 18:59 Output Total 250 300 600 Balance -250 -300 -600 Output: Urine 250 300 600 Other: Voiding Method Toilet Toilet Toilet Urinal Urinal Urinal # Voids 1 3 1 # Bowel Movements 1 - Labs CBC & Chem 7: 03/16/23 07:10 03/15/23 07:21
--- NOTE | 2023-03-17 14:45 | P.PN ---
Subjective Progress Note Date: 03/17/23 Mr Juan Quevedo is an 82 y/o male who lives with his daughter in a SS home with 5 PERFECTO. Prior to admission, reports that he was independent with a cane and ADLs. Records state he has been having some issues over the last month with back pain and recurrent falls. He had an L1 kyphoplasty in December 06, 2022 and had been doing well until 3-4 subsequent falls since then. He has a walker and a cane at home. Patient presented to the [facility] for elective back surgery with Dr Burton. Patient had an outpatient CT scan which revealed T11, T12, and L2 compression fractures. He had tried an outpatient LSO brace with no improvements of his pain. On 03/14/23 he underwent T9-L4 segmental stabilization with kyphoplasty at T11, T12, and L2. Post surgical pain management with Tylenol 650 mg Q 6 hrs, Flexeril 5 mg TID prn and 10 mg QHS, Gabapentin 300 mg TID, [employer] 5/325 mg Q hrs 6 prn (pain scale 4-6) and [employer] 10/325 mg Q 6 hrs prn severe pain (7-10), Dilaudid prn. Of note, patient has Large B cell Lymphoma, undergoing treatment. PM&R consulted for rehab recommendations. Patient has been seen by physical therapy; min assist with transfers 2wwm, bed mobility mod I, gait 30 ft min assist 2ww; OT evaluations pending. Patient complains of severe back pain, non radiating. He feels his pain is his main limiting factor currently for progress in therapies. He lives in a mobile home with his daughter with 4 PERFECTO with b/l hand rails. He was independent with ADLs; he has not been driving in years. Daughter is his main support system. 03/17/23: Patient seeing sitting up in chair today. He states he is doing ok but not sure that his back pain is any better after surgery. He has been able to work with therapy he states, doing some walking. He denies CP,SOB, and abdominal pain. He has not had a BM in a couple of days, passing flatus denies nausea. He denies issues with urination. Reviewed therapy notes from yesterday; patient is min assist with bathing and LB dressing, supervision for UB dressing, grooming, toileting, transfers, and gait 200 ft 2ww Objective - Vital Signs Vital signs: Vital Signs Temp 97.9 F 03/17/23 13:12 Pulse 86 03/17/23 13:12 Resp 18 03/17/23 13:12 BP 102/68 03/17/23 13:12 Pulse Ox 97 03/17/23 13:12 FiO2 Intake & Output 03/16/23 03/17/23 03/17/23 18:59 06:59 18:59 Output Total 250 300 600 Balance -250 -300 -600 Output: Urine 250 300 600 Other: Voiding Method Toilet Toilet Toilet Urinal Urinal Urinal # Voids 1 3 1 # Bowel Movements 1 - Exam General: Well-developed, well-nourished, male, sitting up in chair, in no acute distress, appears tired HEENT: NC/AT, external ears intact, hearing aid in place Cardiovascular: B/L calves are supple, nontender, no cords, without peripheral edema Respiratory: Even and unlabored breathing on RA Abdomen: Soft, nontender, nondistended Musculoskeletal: ROM WFL MMT: B/L UE 5/5 throughout B/L LE HF 4+/5 b/l, KE 5/5, ADF 5/5 Neurological: Alert and oriented x 3. CN II-XII: Grossly intact. Speech is clear, fluent Sensation: intact to light touch in b/l upper and lower ext Skin: Skin intact where visible to head, neck, and bilateral upper and lower extremities, back incisions not visualized, left IJ line Psychiatric: Mood calm, affect appropriate, cooperative - Labs CBC & Chem 7: 03/16/23 07:10 03/15/23 07:21 Assessment and Plan Assessment: # Traumatic T11, T12, and L2 compression fractures secondary to recurrent falls s/p T9-L4 segmental stabilization with T11, 12, L2 kyphoplasty -fall precautions -PT/OT -back precautions per Ortho Spine [facility] # Recurrent Falls # Back pain secondary to above # Impaired gait and ADLs # Diffuse Large B Cell lymphoma- undergoing treatment # Recent L1 kyphoplasty (November 2022) # Anemia #Bowel/Bladder -encourage bowel regimen # Pain Management -per MAR # Comorbidities: PAfib, History of DVT s/p IVC, OA # Your medical dx and management Dispo Recommendations: Patient no longer functionally qualifies for IPR as he is now supervision for most mobility and ADLs. He has progressed well and will likely be successful with [facility]. Discussed with IPR Liaison at [facility] that patient no longer qualifies for IPR as he is too functional. She will discuss with [facility] Team Patient seen, examined, and discussed in coordination with Dr Aaron
[2023-03-17] MEDS: CYCLOBENZAPRINE 10 MG TAB PO SCH (21:58)
[2023-03-17] MEDS: HEPARIN SODIUM,PORCINE 5,000 UNIT/ML 1 ML VIAL SQ SCH (21:58)
[2023-03-17] MEDS: APIXABAN 5 MG TAB PO SCH (21:58)
[2023-03-18] MEDS: ACETAMINOPHEN TAB 325 MG TAB PO SCH ×4 (01:24→17:14)
[2023-03-18] MEDS: LACTATED RINGERS 1,000 ML IV SCH (06:16)
--- NOTE | 2023-03-18 07:59 | P.PN ---
Subjective Progress Note Date: 03/18/23 Principal diagnosis: 1. T11 compression fracture 50% compressed 2. T12 burst compression fracture 2% compressed 3. L2 burst fracture AO type A 3 4. Status post L1 kyphoplasty 5. 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 Severe low back pain with debility Patient seen and examined this morning. Patient is resting completely bed. Familia gical dressings are CDI, no shadowing present. Patient reports that his pain is managed on current regimen. He continues to have complaint of right hip pain that has been present prior to procedure. Awaiting authorization for [facility] vs IPR. No acute events overnight. Patient has been afebrile, denies nausea/vomiting, or chest pain. Objective - Vital Signs Vital signs: Vital Signs Temp 98.4 F 03/18/23 06:56 Pulse 82 03/18/23 06:56 Resp 18 03/18/23 06:56 BP 154/88 03/18/23 06:56 Pulse Ox 96 03/18/23 06:56 FiO2 Intake & Output 03/17/23 03/18/23 03/18/23 18:59 06:59 18:59 Output Total 600 1400 Balance -600 -1400 Output: Urine 600 1400 Other: Voiding Method Toilet Toilet Urinal Urinal # Voids 1 # Bowel Movements 1 - Exam Physical Examination General: The patient is awake and alert, in no acute distress Skin: Skin is warm and dry with no obvious rashes or lesions. Surgical incisions to the sacral lumbar spine, dressings are intact. Eye: Pupils are equal, round and reactive to light, extra-ocular movements are intact; there is normal conjunctiva bilaterally. Neck: The neck is supple, there is no tenderness and ROM intact. Cardiovascular: There is a regular rate and rhythm. No murmur, rub or gallop is appreciated. Respiratory: Lungs are clear to auscultation, respirations are non-labored, breath sounds are equal. Gastrointestinal: Soft, non-distended, non-tender abdomen. Back: There is no tenderness to palpation in the midline, paralumbar, par athoracic or buttocks region. There is no obvious deformity . Musculoskeletal: ROM limited secondary to pain and stiffness from surgical procedure. Muscle strength in all major muscle groups of bilateral upper extremities 5/5, bilateral lower extremities 4-/5. Neurological: CN 2-12 intact. There are no obvious motor or sensory deficits. Movement and coordination equal and intact. Sensory exam to light touch intact C5-T1 and intact from L2-S1. Reflexes 2/4 in bilateral upper and lower extremiti es. Negative Hoffmans, babinski, and clonus signs. Psychiatric: Cooperative, appropriate mood & affect, normal judgment. - Labs CBC & Chem 7: 03/16/23 07:10 03/15/23 07:21 Assessment and Plan Assessment: Postop day 4: Minimally invasive stabilization from T9 to L4 with ORIF and kyphoplasty T11, T12, L2 1. T11 compression fracture 50% compressed 2. T12 burst compression fracture 2% compressed 3. L2 burst fracture AO type A 3 4. Status post L1 kyphoplasty 5. 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 Severe low back pain with debility Plan: -Appreciate [employer] sales consultant and team management. -Remove external jugular catheter. -Change dressing to lumbar spine when patient is up. -Activity: Ambulate QID, OOB all meals, up and about, limit lifting bending twisting to less than 5 lbs. Use walker or cane if needed for stability. -Daily PT/OT, increase ambulation strength and balance. -Pain control: Adequate at this time -Meds: reviewed -GI ppx: senna, Miralax -DVT PPX: Eliquis -Hygiene: Shower today. Maintain dressing clean and dry. Meticulous cleaning after BMs away from the incision site -Encourage IS 10x/hr -Dispo: Anticipate discharge to Inpatient rehab vs [facility] within the next 24hrs *I reviewed and discussed this case with my attending Dr. Burton, whom has reviewed this chart and films and is in agreement with assessment and plan of care as outlined above. I have personally seen and examined the patient, performed the documentation and the assessment and plan as written. Number of minutes spent on the visit: 20m.
[2023-03-18] MEDS: GABAPENTIN 300 MG CAP PO SCH ×3 (08:17→22:54)
[2023-03-18] MEDS: HEPARIN SODIUM,PORCINE 5,000 UNIT/ML 1 ML VIAL SQ SCH ×2 (08:17→22:54)
[2023-03-18] MEDS: AMIODARONE 100 MG TAB PO SCH (08:17)
[2023-03-18] MEDS: APIXABAN 5 MG TAB PO SCH ×2 (08:17→22:55)
[2023-03-18] MEDS: polyethylene glycoL 3350 17 GM POWD.PACK PO SCH (08:18)
[2023-03-18] MEDS: SENNOSIDES-DOCUSATE SODIUM 1 EACH TAB PO SCH (08:18)
[2023-03-18] MEDS ORDERED: ERGOCALCIFEROL 1,250 MCG (50,000 IU) CAPSULE PO SCH (09:00)
--- NOTE | 2023-03-18 12:50 | P.DS ---
Providers Date of admission: 03/14/23 08:26 Attending physician: Fito Burton DO Consults: 03/14/23 14:17 Consult Physician Routine Consulting Provider: Rosa Alcazar Consult Reason/Comments: medical management s/p T9-L4 stabilization Do you want consulting provider notified?: Yes 03/15/23 12:41 Consult Physician Routine Consulting Provider: Vicky Aaron Consult Reason/Comments: Evaluate IP rehab, post thoracolumbar surgery Do you want consulting provider notified?: Yes Primary care physician: [facility] Hospital Course: Hospital Course: The patient was evaluated preoperatively and found to have the diagnosis of T11, T12, L2 compression fractures. They underwent appropriate preoperative care and were willing to undergo the intended procedure. They underwent a successful Minimally invasive stabilization from T9 to L4 with ORIF and kyphoplasty T11, T12, L2 were recovered appropriately and sent to the floor. While on the floor they worked with physical therapy, occupational therapy and nursing to enhance their recovery experience. Their pain was well controlled through their stay and they were started on appropriate medications, DVT ppx modalities, activity and dietary needs. Daily labs were monitored closely, and transfusions were only used when necessary. Medicine as well as other consulting services have made their input and have helped with our team approach and multidisciplinary care. PT milestones have been met and passed and they have made the recommendation of MICHEL for this patient and treating providers agree with this care path. The patient will be discharged home with appropriate medications, instructions and follow-up information and in stable condition. Patient Condition at Discharge: Good Plan - Discharge Summary Discharge Rx Participant: No New Discharge Prescriptions: New cefaDROXiL [Duricef] 500 mg PO Q12HR 5 Days #10 cap Gabapentin 300 mg PO TID #90 cap Cyclobenzaprine [Flexeril] 5 mg PO HS #30 tab HYDROcodone/APAP 10-325MG [Gilmore 10-325] 1 tab PO Q4-6H PRN #42 tab PRN Reason: Pain Sennosides/Docusate Sodium [Senna Plus 8.6-50 mg Softgel] 1 each PO DAILY PRN #20 capsule PRN Reason: Constipation No Action Amiodarone [Cordarone] 100 mg PO QAM Gabapentin [Neurontin] 300 mg PO TID #9 cap Ergocalciferol [Vitamin D2 (1250 Mcg = 71937 Iu)] 1,250 mcg PO FR Acetaminophen [Tylenol Arthritis] 1,300 mg PO Q12H Apixaban [Eliquis] 5 mg PO BID Cyclobenzaprine [Flexeril] 10 mg PO HS Discharge Medication List Apixaban [Eliquis] 5 mg PO BID 08/18/22 [History] Amiodarone [Cordarone] 100 mg PO QAM 12/02/22 [History] Cyclobenzaprine [Flexeril] 10 mg PO HS 12/16/22 [History] Gabapentin [Neurontin] 300 mg PO TID #9 cap 12/22/22 [Rx] Acetaminophen [Tylenol Arthritis] 1,300 mg PO Q12H 03/08/23 [History] Ergocalciferol [Vitamin D2 (1250 Mcg = 45346 Iu)] 1,250 mcg PO FR 03/08/23 [History] Cyclobenzaprine [Flexeril] 5 mg PO HS #30 tab 03/18/23 [Rx] Gabapentin 300 mg PO TID #90 cap 03/18/23 [Rx] HYDROcodone/APAP 10-325MG [Gilmore 10-325] 1 tab PO Q4-6H PRN #42 tab 03/18/23 [Rx] Sennosides/Docusate Sodium [Senna Plus 8.6-50 mg Softgel] 1 each PO DAILY PRN #20 capsule 03/18/23 [Rx] cefaDROXiL [Duricef] 500 mg PO Q12HR 5 Days #10 cap 03/18/23 [Rx] Follow up Appointment(s)/Referral(s): Fito Burton DO [Doctor of Osteopathic Medicine] - 03/31/23 11:30 am [facility]Clinic [Primary Care Provider] - 1 Week Activity/Diet/Wound Care/Special Instructions: Spine Discharge and Recovery Instructions Date of Surgery: 03/14/2023 Diagnosis: Fractures T11, T12, L2 Procedure: Minimally invasive stabilization from T9 to L4 with ORIF and kyphoplasty T11, T12, L2 Medications: See medication list All medication refills should be obtained through your primary care doctor or your clinic spine surgeon. Please discuss prescription refills at your follow up appointment. Do not call the hospital for medication refills. Dressing: Leave your dressing in place for a total of 5 days post operatively. Then you may remove your dressing and leave open to air. Keep the area clean and if not able to keep area clean, then cover with sterile gauze and tape. Showering: You may shower 3 days after your procedure allowing soap and water to run over incision. Do not scrub. Do not soak. Blot dry. Follow up: Please confirm a follow up appointment with your surgeon 3 weeks post operatively. Please make an appointment to follow up with your PCP in 1-2 weeks after surgery for evaluation 3 phase, 3-week plan POST OP WEEKS 1-3 1. Lifting/carrying/pushing/pulling limited to less than 5 pounds. 2. Do not sit for longer than 15 minutes at one time. Get up and walk around. Prolonged sitting is NOT advised. If you lay down, see if you can tolerate laying down on you front (belly side) 3. Walk for periods of 15 minutes = 1 mile but no longer; do it multiple times times each day. 4. Ice your low back after activity. POST OP WEEKS 3-6 1. Lifting limited to less than 20 pounds. 2. Do not sit for longer than 30 minutes at a time. Frequently change positions. Use a sit-to stand workstation or take frequent breaks from sitting if you have returned to work. 3. Walk for 30 minutes each day. If possible, do these three or more times a day POST OP WEEKS 6+ At your 6-week appointment we will give you a physical therapy referral to focus on a core stabilization and strengthening program. You should also work on leg & buttock strengthening, hamstring & quadriceps stretching, and continue a low impact aerobic activity program such as swimming, walking, or riding a stationary bicycle. During the initial 6 weeks after your surgery, you are at the highest risk of re-injuring your spine. You should generally avoid BLTs (bending, lifting and twisting combination motions) and follow the above guidelines to reduce the chance of reinjury. You can anticipate post op appointments in our office at approximately 3 weeks and 6 weeks after your surgery. INCISION CARE: If your incision is not draining you do NOT need to cover it with a dressing. Keep your incision clean, dry and intact. In most cases, we apply skin glue, ricardo or sutures to the incision at the time of surgery. This will be like a crust or have the appearance of a scab and will fall off in time on its own. The stitches or ricardo need to be removed at 3 weeks post op appointment. You may begin to shower 3 days after surgery (this allows the glue to brenner well). However, please avoid scrubbing the incision site or peeling off any of the skin glue. This will ensure optimal healing of your incision. Also, during this time avoid soaking the incision area in water - this includes swimming pools, hot tubs or baths. No ointments, lotions or oils on the incision until your surgeon allows. Leave ricardo, sutures or glue in place. Neurological dysfunction that comes on suddenly can also be a sign of a stroke. Below some common symptoms of a stroke are listed: B - balance difficulty such as sudden onset walking or leaning to one side - NEW E - eye problem such as sudden double vision or trouble seeing on one side - NEW F - Facial weakness or numbness on one side - NEW A - Arm or leg weakness or numbness on one side - NEW S - Slurred speech or difficulty with word finding - NEW T - Time is BRAIN! Call 911 as soon as you recognize these symptoms Diet: Consume a regular diet rich in vegetables and lean protein such as chicken or fish. You should consume in a ratio of approximately 20% fats|40% carbohydrates|40%protein. Vegetables, sweet potatoes, brown rice or quinoa are examples of good carbohydrates. Chips, white bread, cookies and sweets/sugar are examples of bad carbohydrates. Limit your bad carbs, go wild with good carbs. 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 (1) Get Active. Physical activity can help people lose weight, control high blood pressure and cholesterol, feel emotionally better, and sleep better. (2) Control Cholesterol. Avoid a diet high in saturated fat, trans fat, & cholesterol. Limit whole milk & cream, ice cream, butter, egg yolks, processed meats (like sausage and hot dogs), and fatty meats. Choose healthy foods that are low in saturated fat, trans fat and cholesterol which include: Fruits and vegetables, fiber rich grain products (like whole grain pasta and brown rice), lean meat such as chicken, fish, nuts, seeds, and legumes. (3) Eat Better. Eat small portions. Shop at the grocery with a list and do not stray from it. Tips for a healthy diet include: Limit sodium intake to less than 1500mg daily, avoid prepackaged, processed, and fast foods, choose a d iet rich in fruits, vegetables, and whole grain, high fiber foods, and limit saturated & cholesterol in your diet. (4) Manage Blood Pressure. If you have high blood pressure, you should have a cuff at home so that you can check your blood pressure regularly. Be sure you have a good cuff. An arm one is generally better than a wrist one. Bring the cuff to a doctor's appointment to validate that the measurements that your cuff are taking are accurate. Take your blood pressure twice daily when you are sitting down and relaxing. Record the numbers in a log and bring this log with you to your doctors' appointments. (5) Lose Weight if your BMI is above 25. A healthy BMI is between 19-25. To calculate Your BMI, you may use a Standard BMI Calculator on the NIH BMI website: <www.nhlbi.nih.gov/guidelines/obesity/BMI/bmicalc.htm>. Weigh oneself daily. If you are overweight, set a goal to lose weight. A pound a week loss if needed is a good target. (6) Reduce Blood Sugar. Limit foods and liquids with "added sugars." (Added sugars include sucrose, fructose, glucose, maltose, dextrose, high fructose corn syrup, corn syrup, concentrated fruit juice and honey). (7) Stop Smoking. If you smoke, quitting smoking is one of the best things that you can do for your health. Smoking increases your risk of heart attack, stroke, and peripheral vascular disease, which is a build-up of plaque in your arteries. Please discard all the cigarettes and lighters in your house. Have a plan for what you will do when you have the urge to smoke. Direct and second- hand smoke shortens your life as well as the lives of your family, friends and others around you. For your health and the health of those around you, please consider quitting! Proper Bending Body Mechanics: Maintain a wide stance with one foot slightly in front of the other. Keep your back straight. Bend utilizing the strength in your hips and knees. Do not bend at the waist. Maintain the lifted object at your waist-level close to your body. Avoid lifting weight that causes immediately pain or pain anywhere in the body afterwards. Smoking/Nicotine If there was ever one thing that you could do to increase your overall health, decrease your risk of cardiovascular problems by about 39% the second you make the choice, it is to STOP SMOKING. Your body's most instant gratification is the second you stop smoking. We have all heard the studies, read the articles but it is true, smoking is extremely bad for your overall health, and moreover it is detrimental to your bone health. Nicotine, IN ANY FORM, kills bone cells, prevents your body from healing fractures, and significantly prolongs healing after surgery. In spine surgery specifically, it increases your risk of not healing your bones to create a fusion and increases your risk of having a revision surgery due to this up to 60%. I know it is hard. I know it feels impossible. But there are ways. Take control of your life. We are here to help you through it. And when you are ready, ask us and we can direct you to help if you desire. Use the START Plan to Quit Smoking (please visit the Helpguide.org website listed below for more information): S = Set a quit date. Choose a date within the next 2 weeks, so you have enough time to prepare without losing your motivation to quit. If you mainly smoke at work, quit on the weekend, so you have a few days to adjust to the change. T = Tell family, friends, and co-workers that you plan to quit. Let your friends and family in on your plan to quit smoking and tell them you need their support and encouragement to stop. Look for a quit luis e who wants to stop smoking as well. You can help each other get through the rough times. A = Anticipate and plan for the challenges you'll face while quitting. Most people who begin smoking again do so within the first 3 months. You can help yourself make it through by preparing ahead for common challenges, such as nicotine withdrawal and cigarette cravings. R = Remove cigarettes and other tobacco products from your home, car, and work. Throw away all your cigarettes (no emergency pack!), lighters, ashtrays, and matches. Wash your clothes and freshen up anything that smells like smoke. S hampoo your car, clean your drapes and carpet, and steam your furniture. T = Talk to your doctor about getting help to quit. Your doctor can prescribe medication to help with withdrawal and suggest other alternatives. If you can't see a doctor, you can get many products over the counter at your local pharmacy or grocery store, including the nicotine patch, nicotine lozenges, and nicotine gum. Resources for Quitting Smoking: <https://www.[place].gov/documents/[facility]/Quit_Tobacco_Resources_for_patients_313 480_7.pdf> Supplementation: Take recommended dosages of Vitamin D and Calcium to help fortify your bones and help them to heal. See your health maintenance packet for dosages and recommended levels. DVT/VTE prophylaxis: You will be given compression stockings from the hospital. Wear these daily for the first two weeks after surgery. You may take them off at night. You may be prescribed a medication to help thin your blood. Take this as directed. If you are not prescribed this medication, early and frequent ambulation has been shown to be the best prophylaxis to deep vein thrombosis and sequelae related to this event. Discharge Disposition: TRANSFER TO SNF/ECF
--- NOTE | 2023-03-18 13:21 | P.PN ---
Subjective Progress Note Date: 03/18/23 82-year-old man with history of diffuse large B-cell lymphoma chemotherapy, paroxysmal atrial fibrillation, hypertension, recent kyphoplasty after L1 compression fracture presented for elective T9-L4 segmental stabilization. 03/15 Patient was seen and examined. No acute events overnight. BP 96/59 P 89, RR 16, 98% on 3L NC. CBC shows hemoglobin of 10.5 with MCV of 101.2. BMP shows sodium of 133 and glucose 112. PT and OT consultation pending. Plans for SNF vs inpatient rehab. Currently has garcia cathter. No bowel movement or passing gas. 03/16 Patient was seen and examined. No acute events overnight. BP 116/75 P 85, RR 17, 99% on 3L NC. CBC shows hemoglobin of 10.5 with Plt count of 138. Plans for SNF vs inpatient rehab. Garcia cathter discontinued. No bowel movement or passing gas. 03/17 Patient was seen and examined. No acute events overnight. BP 102/68 P 86, RR 17, 97% on RA. Plans for SNF vs inpatient rehab pending [facility] approval. Garcia cathter discontinued yesterday. No bowel movement or passing gas. 03/18 Patient was seen and examined. No acute events overnight. Urinating freely. Passing gas. He has no complaints. He is medically stable for discharge. Pending insurance authorization for SNF. General: non toxic, no distress, appears at stated age Derm: warm, dry Head: atraumatic, normocephalic, symmetric Eyes: EOMI, no lid lag, anicteric sclera Cardiovascular: good distal perfusion in all 4 extremities Lungs: breathing comfortably, no accessory muscle use Ext: no gross muscle atrophy, no edema, no contractures Neuro: no focal neuro deficits Psych: Alert, oriented, appropriate affect T11, L1, L2, L3 compression deformities, status post L1 vertebral plasty on 12/05 and T9-L4 vertebral stabilization on 03/14. Paroxysmal atrial fibrillation Hypertension Diffuse large B-cell lymphoma Based on my assessment of this patient, this patient meets a moderate complexity level of care. Patient is status post T9-L4 segmental stabilization POD 4. T11, L1, L2, L3 compression deformities, status post L1 vertebral plasty on 12/05 and T9-L4 vertebral stabilization on 03/14: Management as per Orthopedic surgery. Paroxysmal atrial fibrillation: Amiodarone 100 mg by mouth daily. Discussed with Marcella PERALTA, OK to restart Apixiban 5 mg by mouth 2 times a day. Hypertension Diffuse large B-cell lymphoma I have reviewed the following individual pension consultant notes: Orthopedic surgery note reviewed. I have reviewed the results of the following tests: I have ordered the following tests: I have discussed the care of this patient with the following independent historian: I have independently interpreted the following test below: I have discussed the management of this patient with the following physician: Objective - Vital Signs Vital signs: Vital Signs Temp 98.4 F 03/18/23 06:56 Pulse 82 03/18/23 06:56 Resp 18 03/18/23 06:56 BP 154/88 03/18/23 06:56 Pulse Ox 96 03/18/23 06:56 FiO2 Intake & Output 03/17/23 03/18/23 03/18/23 18:59 06:59 18:59 Output Total 600 1400 Balance -600 -1400 Output: Urine 600 1400 Other: Voiding Method Toilet Toilet Toilet Urinal Urinal Urinal # Voids 1 3 # Bowel Movements 1 - Labs CBC & Chem 7: 03/16/23 07:10 03/15/23 07:21
[2023-03-18] MEDS: CYCLOBENZAPRINE 10 MG TAB PO SCH (22:55)
[2023-03-19] MEDS: ACETAMINOPHEN TAB 325 MG TAB PO SCH ×5 (01:02→23:40)
[2023-03-19] MEDS: LACTATED RINGERS 1,000 ML IV SCH (06:19)
[2023-03-19] MEDS: GABAPENTIN 300 MG CAP PO SCH ×3 (08:22→21:45)
[2023-03-19] MEDS: HEPARIN SODIUM,PORCINE 5,000 UNIT/ML 1 ML VIAL SQ SCH ×2 (08:22→21:45)
[2023-03-19] MEDS: polyethylene glycoL 3350 17 GM POWD.PACK PO SCH (08:22)
[2023-03-19] MEDS: SENNOSIDES-DOCUSATE SODIUM 1 EACH TAB PO SCH (08:22)
[2023-03-19] MEDS: APIXABAN 5 MG TAB PO SCH ×2 (08:23→21:45)
[2023-03-19] MEDS: AMIODARONE 100 MG TAB PO SCH (08:23)
--- NOTE | 2023-03-19 11:49 | P.PN ---
Subjective Progress Note Date: 03/19/23 Principal diagnosis: 1. T11 compression fracture 50% compressed 2. T12 burst compression fracture 2% compressed 3. L2 burst fracture AO type A 3 4. Status post L1 kyphoplasty 5. 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 Severe low back pain with debility patient seen and examined to sleeping on his room he has no complaints at this time. Denies any fevers chills shortness of breath or chest pain denies any numbness or tingling low back is feeling better he states he has been up and walked with therapy. Denies any peroneal numbness or tingling Objective - Vital Signs Vital signs: Vital Signs Temp 97.6 F 03/19/23 07:00 Pulse 78 03/19/23 07:00 Resp 16 03/19/23 07:00 BP 118/69 03/19/23 07:00 Pulse Ox 95 03/19/23 08:25 FiO2 Intake & Output 03/18/23 03/19/23 03/19/23 18:59 06:59 18:59 Output Total 1175 Balance -1175 Output: Urine 1175 Other: Voiding Method Toilet Toilet Urinal Urinal # Voids 4 - Exam exam repeated today and is stable dressings are clean dry and intact Physical Examination General: The patient is awake and alert, in no acute distress Skin: Skin is warm and dry with no obvious rashes or lesions. Surgical incisions to the sacral lumbar spine, dressings are intact. Eye: Pupils are equal, round and reactive to light, extra-ocular movements are intact; there is normal conjunctiva bilaterally. Neck: The neck is supple, there is no tenderness and ROM intact. Cardiovascular: There is a regular rate and rhythm. No murmur, rub or gallop is appreciated. Respiratory: Lungs are clear to auscultation, respirations are non-labored, breath sounds are equal. Gastrointestinal: Soft, non-distended, non-tender abdomen. Back: There is no tenderness to palpation in the midline, paralumbar, parathoracic or buttocks region. There is no obvious deformity . Musculoskeletal: ROM limited secondary to pain and stiffness from surgical procedure. Muscle strength in all major muscle groups of bilateral upper extremities 5/5, bilateral lower extremities 4-/5. Neurological: CN 2-12 intact. There are no obvious motor or sensory deficits. Movement and coordination equal and intact. Sensory exam to light touch intact C5-T1 and intact from L2-S1. Reflexes 2/4 in bilateral upper and lower extremities. Negative Hoffmans, babinski, and clonus signs. Psychiatric: Cooperative, appropriate mood & affect, normal judgment. - Labs CBC & Chem 7: 03/16/23 07:10 03/15/23 07:21 Assessment and Plan Assessment: status post Minimally invasive stabilization from T9 to L4 with ORIF and kyphoplasty T11, T12, L2 1. T11 compression fracture 50% compressed 2. T12 burst compression fracture 2% compressed 3. L2 burst fracture AO type A 3 4. Status post L1 kyphoplasty 5. 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 Severe low back pain with debility Plan: -Appreciate applications consultant and team management. -Activity: Ambulate QID, OOB all meals, up and about, limit lifting bending twisting to less than 5 lbs. Use walker or cane if needed for stability. -Daily PT/OT, increase ambulation strength and balance. -Brace when up and about, not needed in bed or chair -Pain control: Adequate at this time -Meds: reviewed -GI ppx: senna, Miralax -DC garcia when up and about, bedside commode if needed -DVT PPX: OK to restart Heparin tonight -Hygiene: Shower today. Maintain dressing clean and dry. Meticulous cleaning after BMs away from the incision site -Encourage IS 10x/hr -Dispo: fourth of stable for discharge to subacute rehab
[2023-03-19] MEDS: CYCLOBENZAPRINE 10 MG TAB PO SCH (21:45)
[2023-03-20] MEDS: ACETAMINOPHEN TAB 325 MG TAB PO SCH ×3 (05:22→18:16)
[2023-03-20] MEDS: LACTATED RINGERS 1,000 ML IV SCH (05:23)
--- NOTE | 2023-03-20 08:06 | P.PN ---
Subjective Progress Note Date: 03/20/23 82-year-old man with history of diffuse large B-cell lymphoma chemotherapy, paroxysmal atrial fibrillation, hypertension, recent kyphoplasty after L1 compression fracture presented for elective T9-L4 segmental stabilization. 03/15 Patient was seen and examined. No acute events overnight. BP 96/59 P 89, RR 16, 98% on 3L NC. CBC shows hemoglobin of 10.5 with MCV of 101.2. BMP shows sodium of 133 and glucose 112. PT and OT consultation pending. Plans for SNF vs inpatient rehab. Currently has garcia cathter. No bowel movement or passing gas. 03/16 Patient was seen and examined. No acute events overnight. BP 116/75 P 85, RR 17, 99% on 3L NC. CBC shows hemoglobin of 10.5 with Plt count of 138. Plans for SNF vs inpatient rehab. Garcia cathter discontinued. No bowel movement or passing gas. 03/17 Patient was seen and examined. No acute events overnight. BP 102/68 P 86, RR 17, 97% on RA. Plans for SNF vs inpatient rehab pending [facility] approval. Garcia cathter discontinued yesterday. No bowel movement or passing gas. 03/18 Patient was seen and examined. No acute events overnight. Urinating freely. Passing gas. He has no complaints. He is medically stable for discharge. Pending insurance authorization for SNF. 03/19 This is a late note entry. Patient was seen around 6PM last night. He was sleeping comfortably when I walked in the room. He has no complaints. He is pending insurance authorization for SNF. General: non toxic, no distress, appears at stated age Derm: warm, dry Head: atraumatic, normocephalic, symmetric Eyes: EOMI, no lid lag, anicteric sclera Cardiovascular: good distal perfusion in all 4 extremities Lungs: breathing comfortably, no accessory muscle use Ext: no gross muscle atrophy, no edema, no contractures Neuro: no focal neuro deficits Psych: Alert, oriented, appropriate affect T11, L1, L2, L3 compression deformities, status post L1 vertebral plasty on 12/05 and T9-L4 vertebral stabilization on 03/14. Paroxysmal atrial fibrillation Hypertension Diffuse large B-cell lymphoma Based on my assessment of this patient, this patient meets a moderate complexity level of care. Patient is status post T9-L4 segmental stabilization POD 4. T11, L1, L2, L3 compression deformities, status post L1 vertebral plasty on 12/05 and T9-L4 vertebral stabilization on 03/14: Management as per Orthopedic surgery. Paroxysmal atrial fibrillation: Amiodarone 100 mg by mouth daily. Apixiban 5 mg by mouth 2 times a day. Hypertension Diffuse large B-cell lymphoma I have reviewed the following financial operations consultant notes: Orthopedic surgery note reviewed. I have reviewed the results of the following tests: I have ordered the following tests: I have discussed the care of this patient with the following independent historian: I have independently interpreted the following test below: I have discussed the management of this patient with the following physician: Objective - Vital Signs Vital signs: Vital Signs Temp 97.8 F 03/20/23 01:12 Pulse 85 03/20/23 01:12 Resp 17 03/20/23 01:12 BP 153/83 03/20/23 01:12 Pulse Ox 95 03/20/23 07:49 FiO2 Intake & Output 03/19/23 03/20/23 03/20/23 18:59 06:59 18:59 Output Total 400 Balance -400 Output: Urine 400 Other: Voiding Method Toilet Toilet Urinal Urinal # Voids 1 # Bowel Movements 1 - Labs CBC & Chem 7: 03/16/23 07:10 03/15/23 07:21
[2023-03-20] MEDS: GABAPENTIN 300 MG CAP PO SCH ×3 (08:47→20:39)
[2023-03-20] MEDS: SENNOSIDES-DOCUSATE SODIUM 1 EACH TAB PO SCH (08:47)
[2023-03-20] MEDS: HEPARIN SODIUM,PORCINE 5,000 UNIT/ML 1 ML VIAL SQ SCH ×2 (08:47→20:39)
[2023-03-20] MEDS: APIXABAN 5 MG TAB PO SCH ×2 (08:47→20:39)
[2023-03-20] MEDS: polyethylene glycoL 3350 17 GM POWD.PACK PO SCH (08:47)
[2023-03-20] MEDS: AMIODARONE 100 MG TAB PO SCH (08:47)
--- NOTE | 2023-03-20 12:04 | P.PN ---
Subjective Progress Note Date: 03/20/23 82-year-old man with history of diffuse large B-cell lymphoma chemotherapy, paroxysmal atrial fibrillation, hypertension, recent kyphoplasty after L1 compression fracture presented for elective T9-L4 segmental stabilization. 03/15 Patient was seen and examined. No acute events overnight. BP 96/59 P 89, RR 16, 98% on 3L NC. CBC shows hemoglobin of 10.5 with MCV of 101.2. BMP shows sodium of 133 and glucose 112. PT and OT consultation pending. Plans for SNF vs inpatient rehab. Currently has garcia cathter. No bowel movement or passing gas. 03/16 Patient was seen and examined. No acute events overnight. BP 116/75 P 85, RR 17, 99% on 3L NC. CBC shows hemoglobin of 10.5 with Plt count of 138. Plans for SNF vs inpatient rehab. Garcia cathter discontinued. No bowel movement or passing gas. 03/17 Patient was seen and examined. No acute events overnight. BP 102/68 P 86, RR 17, 97% on RA. Plans for SNF vs inpatient rehab pending [facility] approval. Garcia cathter discontinued yesterday. No bowel movement or passing gas. 03/18 Patient was seen and examined. No acute events overnight. Urinating freely. Passing gas. He has no complaints. He is medically stable for discharge. Pending insurance authorization for SNF. 03/19 This is a late note entry. Patient was seen around 6PM last night. He was sleeping comfortably when I walked in the room. He has no complaints. He is pending insurance authorization for SNF. 03/20 Patient was seen and examined. No acute events overnight. Had a bowel movement yesterday. He reports well controlled pain in his lower back. He is pending insurance authorization for SNF. General: non toxic, no distress, appears at stated age Derm: warm, dry Head: atraumatic, normocephalic, symmetric Eyes: EOMI, no lid lag, anicteric sclera Cardiovascular: good distal perfusion in all 4 extremities Lungs: breathing comfortably, no accessory muscle use Ext: no gross muscle atrophy, no edema, no contractures Neuro: no focal neuro deficits Psych: Alert, oriented, appropriate affect T11, L1, L2, L3 compression deformities, status post L1 vertebral plasty on 12/05 and T9-L4 vertebral stabilization on 03/14. Paroxysmal atrial fibrillation Hypertension Diffuse large B-cell lymphoma Based on my assessment of this patient, this patient meets a moderate complexity level of care. Patient is status post T9-L4 segmental stabilization POD 4. T11, L1, L2, L3 compression deformities, status post L1 vertebral plasty on 12/05 and T9-L4 vertebral stabilization on 03/14: Management as per Orthopedic surgery. Paroxysmal atrial fibrillation: Amiodarone 100 mg by mouth daily. Apixiban 5 mg by mouth 2 times a day. Hypertension Diffuse large B-cell lymphoma I have reviewed the following renewable energy consultant notes: Orthopedic surgery note reviewed. I have reviewed the results of the following tests: I have ordered the following tests: I have discussed the care of this patient with the following independent historian: I have independently interpreted the following test below: I have discussed the management of this patient with the following physician: Objective - Vital Signs Vital signs: Vital Signs Temp 97.4 F L 03/20/23 07:07 Pulse 85 03/20/23 08:00 Resp 17 03/20/23 08:00 BP 147/86 03/20/23 07:07 Pulse Ox 95 03/20/23 07:49 FiO2 Intake & Output 03/19/23 03/20/23 03/20/23 18:59 06:59 18:59 Output Total 400 350 Balance -400 -350 Output: Urine 400 350 Other: Voiding Method Toilet Toilet Toilet Urinal Urinal Urinal # Voids 1 # Bowel Movements 1 - Labs CBC & Chem 7: 03/16/23 07:10 03/15/23 07:21
--- NOTE | 2023-03-20 19:28 | P.ANPRN ---
Procedure Note - Anesthesia - Invasive Line Right Central Line Time Out Performed: Yes Date of Procedure: 03/14/23 Time of Procedure: 10:31 Location of Patient: PreOp Preparation: Sterile Prep, Sterile Dressing Central Line Location: Internal Jugular Image Stored and Saved: No Narrative: Central line placement per sterile protocol utilized.
--- NOTE | 2023-03-20 19:28 | P.ANPRN ---
Procedure Note - Anesthesia - Invasive Line Left Arterial Line Time Out Performed: Yes Date of Procedure: 03/14/23 Time of Procedure: 10:19 Location of Patient: PreOp Preparation: Sterile Prep, Sterile Dressing Arterial Line Location: Briachial Ultrasound Used: No Purpose - Visualization and Identification of Vasculature: No Image Stored and Saved: No Narrative: Central line placement per sterile protocol utilized.
[2023-03-20] MEDS: CYCLOBENZAPRINE 10 MG TAB PO SCH (20:39)
[2023-03-21] MEDS: ACETAMINOPHEN TAB 325 MG TAB PO SCH ×3 (00:09→11:44)
[2023-03-21 07:37] VITALS: PULSE 84; TEMP 97.6
[2023-03-21] MEDS: APIXABAN 5 MG TAB PO SCH (07:38)
[2023-03-21] MEDS: HEPARIN SODIUM,PORCINE 5,000 UNIT/ML 1 ML VIAL SQ SCH (07:38)
[2023-03-21] MEDS: SENNOSIDES-DOCUSATE SODIUM 1 EACH TAB PO SCH (07:38)
[2023-03-21] MEDS: GABAPENTIN 300 MG CAP PO SCH (07:38)
[2023-03-21] MEDS: AMIODARONE 100 MG TAB PO SCH (07:38)
[2023-03-21] MEDS: polyethylene glycoL 3350 17 GM POWD.PACK PO SCH (07:38)
--- NOTE | 2023-03-21 07:38 | P.PN ---
Subjective Progress Note Date: 03/20/23 Principal diagnosis: 1. T11 compression fracture 50% compressed 2. T12 burst compression fracture 2% compressed 3. L2 burst fracture AO type A 3 4. Status post L1 kyphoplasty 5. 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 Severe low back pain with debility Pt s/e. No issues. Sitting up eating breakfast. Watching TV. Was up mi nimally yesterday walked with PT. Surgical pain only. Fracture feels better. No bowel or bladder issues. No perineal numbness/tingling. Objective - Vital Signs Vital signs: Vital Signs Temp 97.4 F L 03/20/23 07:07 Pulse 85 03/20/23 08:00 Resp 17 03/20/23 08:00 BP 147/86 03/20/23 07:07 Pulse Ox 95 03/20/23 07:49 FiO2 Intake & Output 03/19/23 03/20/23 03/20/23 18:59 06:59 18:59 Output Total 400 Balance -400 Output: Urine 400 Other: Voiding Method Toilet Toilet Toilet Urinal Urinal Urinal # Voids 1 # Bowel Movements 1 - Exam exam repeated today Stable. Physical Examination General: The patient is awake and alert, in no acute distress Skin: Skin is warm and dry with no obvious rashes or lesions. Surgical incisions to the sacral lumbar spine, dressings are intact. Eye: Pupils are equal, round and reactive to light, extra-ocular movements are intact; there is normal conjunctiva bilaterally. Neck: The neck is supple, there is no tenderness and ROM intact. Cardiovascular: There is a regular rate and rhythm. No murmur, rub or gallop is appreciated. Respiratory: Lungs are clear to auscultation, respirations are non-labored, breath sounds are equal. Gastrointestinal: Soft, non-distended, non-tender abdomen. Back: There is no tenderness to palpation in the midline, paralumbar, parathoracic or buttocks region. There is no obvious deformity . Musculoskeletal: ROM limited secondary to pain and stiffness from surgical procedure. Muscle strength in all major muscle groups of bilateral upper extremities 5/5, bilateral lower extremities 4-/5. Neurological: CN 2-12 intact. There are no obvious motor or sensory deficits. Movement and coordination equal and intact. Sensory exam to light touch intact C5-T1 and intact from L2-S1. Reflexes 2/4 in bilateral upper and lower extremities. Negative Hoffmans, babinski, and clonus signs. Psychiatric: Cooperative, appropriate mood & affect, normal judgment. - Labs CBC & Chem 7: 03/16/23 07:10 03/15/23 07:21 Assessment and Plan Assessment: status post Minimally invasive stabilization from T9 to L4 with ORIF and kyphoplasty T11, T12, L2 1. T11 compression fracture 50% compressed 2. T12 burst compression fracture 2% compressed 3. L2 burst fracture AO type A 3 4. Status post L1 kyphoplasty 5. 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 Severe low back pain with debility Plan: -Appreciate cardiology consultant and team management. -Activity: Ambulate QID, OOB all meals, up and about, limit lifting bending twisting to less than 5 lbs. Use walker or cane if needed for stability. -Daily PT/OT, increase ambulation strength and balance. -Brace when up and about, not needed in bed or chair -Pain control: Adequate at this time -Meds: reviewed -GI ppx: senna, Miralax -DC garcia when up and about, bedside commode if needed -DVT PPX: OK to restart Heparin tonight -Hygiene: Shower today. Maintain dressing clean and dry. Meticulous cleaning after BMs away from the incision site -Encourage IS 10x/hr -Dispo: fourth of stable for discharge to subacute rehab
[2023-03-21 08:50] LABS: HCT 34.6 % (39.0-53.0); HGB 11.7 gm/dL (13.0-17.5); MCH 33.4 pg (25.0-35.0); MCHC 33.7 g/dL (31.0-37.0); Mean Platelet Volume 7.7; Platelet Count 238 k/uL (150-450); RBC 3.49 m/uL (4.30-5.90); RDW 13.8 % (11.5-15.5); WBC 4.8 k/uL (3.8-10.6)
[2023-03-21 09:05] LABS: African American GFR (CKD) >90 (>60 ml/min/1.73 sqM); Anion Gap 7 mmol/L; Blood Urea Nitrogen 21 mg/dL (9-20); Carbon Dioxide 28 mmol/L (22-30); Chloride 100 mmol/L (98-107); Glucose 150 mg/dL (74-99); Non-African American GFR(CKD) 81 (>60 ml/min/1.73 sqM); Potassium 3.9 mmol/L (3.5-5.1); Sodium 135 mmol/L (137-145)
--- NOTE | 2023-03-21 09:07 | P.PN ---
Subjective Progress Note Date: 03/21/23 Principal diagnosis: 1. T11 compression fracture 50% compressed 2. T12 burst compression fracture 2% compressed 3. L2 burst fracture AO type A 3 4. Status post L1 kyphoplasty 5. 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 Severe low back pain with debility Patient seen and examined this morning. Patient is sitting up in bed with his breakfast in front of him. Surgical dressings are CDI, no shadowing present. Patient reports that his pain is managed on current regimen. Awaiting authorization for [facility] vs [facility]. No acute events overnight. Patient has been afebrile, denies nausea/vomiting, or chest pain. Objective - Vital Signs Vital signs: Vital Signs Temp 97.6 F 03/21/23 07:37 Pulse 84 03/21/23 07:37 Resp 17 03/21/23 07:37 BP 128/83 03/21/23 07:37 Pulse Ox 95 03/21/23 07:37 FiO2 Intake & Output 03/20/23 03/21/23 03/21/23 18:59 06:59 18:59 Output Total 950 400 Balance -950 -400 Output: Urine 950 400 Other: Voiding Method Toilet Toilet Urinal Urinal - Exam Physical Examination General: The patient is awake and alert, in no acute distress Skin: Skin is warm and dry with no obvious rashes or lesions. Surgical incisions to the sacral lumbar spine, dressings are intact. Eye: Pupils are equal, round and reactive to light, extra-ocular movements are intact; there is normal conjunctiva bilaterally. Neck: The neck is supple, there is no tenderness and ROM intact. Cardiovascular: There is a regular rate and rhythm. No murmur, rub or gallop is appreciated. Respiratory: Lungs are clear to auscultation, respirations are non-labored, breath sounds are equal. Gastrointestinal: Soft, non-distended, non-tender abdomen. Back: There is no tenderness to palpation in the midline, paralumbar, parathora cic or buttocks region. There is no obvious deformity . Musculoskeletal: ROM limited secondary to pain and stiffness from surgical procedure. Muscle strength in all major muscle groups of bilateral upper extremities 5/5, bilateral lower extremities 4-/5. Neurological: CN 2-12 intact. There are no obvious motor or sensory deficits. Movement and coordination equal and intact. Sensory exam to light touch intact C5-T1 and intact from L2-S1. Reflexes 2/4 in bilateral upper and lower extremities. Negative Hoffmans, babinski, and clonus signs. Psychiatric: Cooperative, appropriate mood & affect, normal judgment. - Labs CBC & Chem 7: 03/21/23 08:30 03/15/23 07:21 Assessment and Plan Assessment: Postop day 7: Minimally invasive stabilization from T9 to L4 with ORIF and kypho plasty T11, T12, L2 1. T11 compression fracture 50% compressed 2. T12 burst compression fracture 2% compressed 3. L2 burst fracture AO type A 3 4. Status post L1 kyphoplasty 5. 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 Severe low back pain with debility Plan: -Appreciate senior treasury consultant and team management. -Activity: Ambulate QID, OOB all meals, up and about, limit lifting bending twisting to less than 5 lbs. Use walker or cane if needed for stability. -Daily PT/OT, increase ambulation strength and balance. -Pain control: Adequate at this time -Meds: reviewed -GI ppx: senna, Miralax -DVT PPX: Eliquis -Hygiene: Shower today. Maintain dressing clean and dry. Meticulous cleaning after BMs away from the incision site -Encourage IS 10x/hr -Dispo: Anticipate discharge today to Inpatient rehab vs [facility] *I reviewed and discussed this case with my attending Dr. Burton, whom has reviewed this chart and films and is in agreement with assessment and plan of care as outlined above. I have personally seen and examined the patient, performed the documentation and the assessment and plan as written. Number of minutes spent on the visit: 20m.
[2023-03-21] MEDS: LACTATED RINGERS 1,000 ML IV SCH (10:23)
--- NOTE | 2023-03-21 13:02 | P.PN ---
Subjective Progress Note Date: 03/21/23 82-year-old man with history of diffuse large B-cell lymphoma chemotherapy, paroxysmal atrial fibrillation, hypertension, recent kyphoplasty after L1 compression fracture presented for elective T9-L4 segmental stabilization. 03/15 Patient was seen and examined. No acute events overnight. BP 96/59 P 89, RR 16, 98% on 3L NC. CBC shows hemoglobin of 10.5 with MCV of 101.2. BMP shows sodium of 133 and glucose 112. PT and OT consultation pending. Plans for SNF vs inpatient rehab. Currently has garcia cathter. No bowel movement or passing gas. 03/16 Patient was seen and examined. No acute events overnight. BP 116/75 P 85, RR 17, 99% on 3L NC. CBC shows hemoglobin of 10.5 with Plt count of 138. Plans for SNF vs inpatient rehab. Garcia cathter discontinued. No bowel movement or passing gas. 03/17 Patient was seen and examined. No acute events overnight. BP 102/68 P 86, RR 17, 97% on RA. Plans for SNF vs inpatient rehab pending [facility] approval. Garcia cathter discontinued yesterday. No bowel movement or passing gas. 03/18 Patient was seen and examined. No acute events overnight. Urinating freely. Passing gas. He has no complaints. He is medically stable for discharge. Pending insurance authorization for SNF. 03/19 This is a late note entry. Patient was seen around 6PM last night. He was sleeping comfortably when I walked in the room. He has no complaints. He is pending insurance authorization for SNF. 03/20 Patient was seen and examined. No acute events overnight. Had a bowel movement yesterday. He reports well controlled pain in his lower back. He is pending insurance authorization for SNF. 03/21 Patient was seen and examined. No acute events overnight. He reports well controlled pain in his lower back. CBC shows hemoglobin of 11.7. BMP shows sodium 135 and BUN of 21, glucose of 150. He is pending insurance authorization for SNF. General: non toxic, no distress, appears at stated age Derm: warm, dry Head: atraumatic, normocephalic, symmetric Eyes: EOMI, no lid lag, anicteric sclera Cardiovascular: good distal perfusion in all 4 extremities Lungs: breathing comfortably, no accessory muscle use Ext: no gross muscle atrophy, no edema, no contractures Neuro: no focal neuro deficits Psych: Alert, oriented, appropriate affect T11, L1, L2, L3 compression deformities, status post L1 vertebral plasty on 12/05 and T9-L4 vertebral stabilization on 03/14. Paroxysmal atrial fibrillation Hypertension Diffuse large B-cell lymphoma Based on my assessment of this patient, this patient meets a moderate complexity level of care. Patient is status post T9-L4 segmental stabilization POD 4. T11, L1, L2, L3 compression deformities, status post L1 vertebral plasty on 12/05 and T9-L4 vertebral stabilization on 03/14: Management as per Orthopedic surgery. Paroxysmal atrial fibrillation: Amiodarone 100 mg by mouth daily. Apixiban 5 mg by mouth 2 times a day. Hypertension Diffuse large B-cell lymphoma I have reviewed the following apartment leasing consultant notes: Orthopedic surgery note reviewed. I have reviewed the results of the following tests: CBC and BMP I have ordered the following tests: I have discussed the care of this patient with the following independent historian: I have independently interpreted the following test below: I have discussed the management of this patient with the following physician: Objective - Vital Signs Vital signs: Vital Signs Temp 97.6 F 03/21/23 07:37 Pulse 84 03/21/23 07:37 Resp 17 03/21/23 08:00 BP 128/83 03/21/23 07:37 Pulse Ox 95 03/21/23 09:23 FiO2 21 03/21/23 09:23 Intake & Output 03/20/23 03/21/23 03/21/23 18:59 06:59 18:59 Output Total 950 400 100 Balance -950 -400 -100 Output: Urine 950 400 100 Other: Voiding Method Toilet Toilet Urinal Urinal # Voids 1 - Labs CBC & Chem 7: 03/21/23 08:30 03/21/23 08:30 Labs: Abnormal Lab Results - Last 24 Hours (Table) 03/21/23 03/21/23 Range/Units 08:30 08:30 RBC 3.49 L (4.30-5.90) m/uL Hgb 11.7 L (13.0-17.5) gm/dL Hct 34.6 L (39.0-53.0) % Sodium 135 L (137-145) mmol/L BUN 21 H (9-20) mg/dL Glucose 150 H (74-99) mg/dL
[2023-03-21 13:52] VITALS: BMI 24.3
[2023-03-21 15:30] VITALS: BP 118/73; RESP 19
--- NOTE | 2023-03-22 15:21 | CDI ---
Documentation Clarification Form Date: 03/22/2023 03:09:47 PM From: Rox Garcia Phone: Admit Date: 03/14/2023 08:26:00 AM Patient Name: Juan Quevedo Visit Number: [id number] Discharge Date: 03/21/2023 04:11:00 PM ATTENTION: The Clinical Documentation Specialists (CDI) and [facility] Coding Staff appreciate your assistance in clarifying documentation. Please respond to the clarification below the line at the bottom and electronically sign. The CDI & [facility] Coding staff will review the response and follow-up if needed. Please note: Queries are made part of the Legal Health Record. If you have any questions, please contact the author of this message via ITS. Dr. Fito Burton Conflicting documentation has been found in the medical record. As attending physician, please provide clarification. Biopsywas taken of T11 and L2 per Operative Note Bone, Biopsy/Curetting - T11 biopsy per Pathology Report History/Risk Factors: 82yo M, T11, L1, L2, [id number],s/pL1 vertebralplasty on 12/05, diffuse large B-cell lymphomachemo, PAF, HTN, frequent/repeated falls Clinical Indicators: Benign bone showing focal features consistent with afracture Treatment: ORIF T11, L2 & 3 Fx, stabilization, Kyphoplasty, Lynn navigation Please clarify which diagnosis is most appropriate: [ ] Biopsywas taken of T11 and L2 [ ] Biopsywas taken of T11 only [ ] Other (please specify) [ ] Unable to determine (Template Last Revised: October 2020) Biopsywas taken of T11 and L2, appears that L2 spec was misplaced or did not get processed. MTDD
--- NOTE | 2023-03-22 15:36 | CDI ---
Documentation Clarification Form Date: 03/22/2023 03:27:17 PM From: Rox Garcia Phone: Admit Date: 03/14/2023 08:26:00 AM Patient Name: Juan Quevedo Visit Number: [id number] Discharge Date: 03/21/2023 04:11:00 PM ATTENTION: The Clinical Documentation Specialists (CDI) and [facility] Coding Staff appreciate your assistance in clarifying documentation. Please respond to the clarification below the line at the bottom and electronically sign. The CDI & [facility] Coding staff will review the response and follow-up if needed. Please note: Queries are made part of the Legal Health Record. If you have any questions, please contact the author of this message via ITS. Dr. Fito Burton Unspecified anemia is documented per Consult Note 03/15 and Progress Note 03/17. Additional specificity regarding the type and acuity of anemia is requested. History/Risk Factors: 82yo M, T11, L1, L2, L3 compression Fx, s/p L1 vertebralplasty on 12/05, diffuse large B-cell lymphoma w chemo, PAF, HTN, frequent/repeated falls Clinical indicators: Hemoglobin: 03/15 10.5 03/21 11.7 Hematocrit: 03/15 32.6 03/21 34.6 Treatment: monitored Please clarify the type and acuity of anemia: [ ] Acute blood loss anemia [ ] Anemia due to malignancy [ ] Unable to determine [ ] Other, please specify (Template Last Revised: September 2020) Please inquire provider who documented this finding. Unable to determine. MTDD
--- NOTE | 2023-03-28 11:36 | CDI ---
Documentation Clarification Form Date: 03/28/2023 11:32:06 AM From: Rox Garcia Phone: Admit Date: 03/14/2023 08:26:00 AM Patient Name: Juan Quevedo Visit Number: [id number] Discharge Date: 03/21/2023 04:11:00 PM ATTENTION: The Clinical Documentation Specialists (CDI) and [facility] Coding Staff appreciate your assistance in clarifying documentation. Please respond to the clarification below the line at the bottom and electronically sign. The CDI & [facility] Coding staff will review the response and follow-up if needed. Please note: Queries are made part of the Legal Health Record. If you have any questions, please contact the author of this message via ITS. Dr. Vicky Aaron Unspecifiedanemiais documented per your 03/15 Consult Note and Progress Note 03/17. Additional specificity regarding the type and acuity ofanemiais requested. History/Risk Factors: 82yo M, T11, L1, L2,L3 compression Fx,s/pL1 vertebralplasty on 12/05,diffuse large B-cell lymphomawchemo,PAF,HTN, frequent/repeated falls Clinical indicators: Hemoglobin: 03/15 10.5 03/21 11.7 Hematocrit: 03/15 32.6 03/21 34.6 Treatment: monitored Please clarify the type and acuity ofanemia: [ ]Acute blood loss anemia [ ]Anemiadue tomalignancy [x ] Unable to determine [ ] Other, please specify (Template LastRevised: September 2020) MTDD
== END 2023-03-21 16:11 | DRG 478 ==
LOC: 2ORMAIN 08:26 → 4SSUR 15:53
PROVIDERS: ADMIT Orthopaedic Surgery; ATTEND Orthopaedic Surgery
PROC: 0QS004Z Reposition Lumbar Vertebra with Internal Fixation Device, Open Approach (ICD-10-PCS; 2023-03-14)
PROC: 0PS404Z Reposition Thoracic Vertebra with Internal Fixation Device, Open Approach (ICD-10-PCS; 2023-03-14)
PROC: 0QB00ZX Excision of Lumbar Vertebra, Open Approach, Diagnostic (ICD-10-PCS; 2023-03-14)
PROC: 0PU Upper Bones, Supplement (ICD-10-PCS; 2023-03-14)
PROC: 0QU00KZ Supplement Lumbar Vertebra with Nonautologous Tissue Substitute, Open Approach (ICD-10-PCS; 2023-03-14)
PROC: 8E0WXBZ Computer Assisted Procedure of Trunk Region (ICD-10-PCS; principal; 2023-03-14 10:15)
PROC: 0PB40ZX Excision of Thoracic Vertebra, Open Approach, Diagnostic (ICD-10-PCS; 2023-03-14 10:15)
DX: S22.081A Stable burst fracture of T11-T12 vertebra, initial encounter for closed fracture (principal); C83.30 Diffuse large B-cell lymphoma, unspecified site; S32.031A Stable burst fracture of third lumbar vertebra, initial encounter for closed fracture; S32.022A Unstable burst fracture of second lumbar vertebra, initial encounter for closed fracture; I48.0 Paroxysmal atrial fibrillation; I10 Essential (primary) hypertension; W18.30XA Fall on same level, unspecified, initial encounter; D64.9 Anemia, unspecified; M19.90 Unspecified osteoarthritis, unspecified site; R26.9 Unspecified abnormalities of gait and mobility; R29.6 Repeated falls; R53.81 Other malaise; Z74.1 Need for assistance with personal care; Z95.828 Presence of other vascular implants and grafts; Z86.718 Personal history of other venous thrombosis and embolism; Z98.1 Arthrodesis status; Z91.81 History of falling; Z85.828 Personal history of other malignant neoplasm of skin; Z92.21 Personal history of antineoplastic chemotherapy; Z79.01 Long term (current) use of anticoagulants; Z79.899 Other long term (current) drug therapy; Z79.891 Long term (current) use of opiate analgesic
CPT/HCPCS: 72100; 72128; 72131; 80048; 85025; 85027; 88307; 88311; 94760

== ENCOUNTER → 2023-09-06 | Outpatient (CLI) | payer OTHER | LOC: CPPFTMAIN 10:11 | DX: I48.91 Unspecified atrial fibrillation (principal); Z79.01 Long term (current) use of anticoagulants | CPT/HCPCS: 94060; 94726; 94729 ==

== ENCOUNTER → 2023-09-06 | Outpatient (CLI) | payer OTHER ==
--- NOTE | 2023-09-06 15:33 | US ---
EXAMINATION TYPE: US venous doppler duplex LE DATE OF EXAM: 09/06/2023 3:19 PM COMPARISON: NONE CLINICAL INDICATION: Male, 83 years old with history of R22.43 LOCALIZED SWELLING LOWER LIMB, BILATER AL; bilat lower leg swelling x a few months, redness and itching SIDE PERFORMED: Bilateral TECHNIQUE: The lower extremity deep venous system is examined utilizing real time linear array sonog fern with graded compression, doppler sonography and color-flow sonography. VESSELS IMAGED: Common Femoral Vein Deep Femoral Vein Greater Saphenous Vein * Femoral Vein Popliteal Vein Small Saphenous Vein * Proximal Calf Veins (* superficial vessels) Grayscale, color doppler, spectral doppler imaging performed of the deep veins of the lower extremiti es. There is normal flow, compressibility, vascular waveforms. Right Leg: Negative for DVT Left Leg: Negative for DVT exam limited by edema IMPRESSION: 1. No ultrasound evidence for deep venous thrombosis of the bilateral lower extremities. 2. Bilateral lower extremity edema limits evaluation.
== END | disposition home or self-care (01) ==
LOC: RADUSWWP 14:47
PROVIDERS: ATTEND Internal Medicine
DX: C83.30 Diffuse large B-cell lymphoma, unspecified site (principal); I48.91 Unspecified atrial fibrillation; D64.9 Anemia, unspecified; R22.43 Localized swelling, mass and lump, lower limb, bilateral
CPT/HCPCS: 93970

== ENCOUNTER → 2024-02-28 | Outpatient (CLI) | payer OTHER ==
[2024-02-28 10:46] LABS: African American GFR (CKD) 89 (>60 ml/min/1.73 sqM); Blood Urea Nitrogen 24 mg/dL (9-20); Non-African American GFR(CKD) 77 (>60 ml/min/1.73 sqM)
--- NOTE | 2024-02-28 12:04 | CT ---
EXAMINATION TYPE: CT ChestAbdPelvis w con CT DLP: 1258.10 mGycm, Automated exposure control for dose reduction was used. DATE OF EXAM: 02/28/2024 11:21 AM COMPARISON: CT thoracolumbar spine 03/15/2023. CT abdomen 04/21/2022, CTA chest 02/13/2018, CT pelvis 013. 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 FU LYMPHOM A. Technique: Multiple axial images of the chest, abdomen, and pelvis were obtained following the intrav enous administration of 100 mL Isovue-300. Two-dimensional coronal and sagittal reconstructions were obtained. Findings: CHEST: LUNGS/ PLEURA: No pleural effusion, pneumothorax, focal consolidation. Linear left lower lobe scarrin g and/or atelectasis. Fat filled right Bochdalek hernia. Stable left upper lobe anterior 4.3 mm pulm onary nodule (series 5, image 20). No new or enlarging pulmonary nodules. AIRWAY: Patent and unremarkable.. HEART: Size within normal limits. No pericardial effusion. Aortic valvular and mitral annulus calcifi cations. Mild to moderate quantity of calcifications most prominently within the LAD. MEDIASTINUM: No evidence of adenopathy. VASCULATURE: No aortic aneurysm. Right anterior chest wall Mediport catheter distal tip terminating in the low SVC. Mild atherosclerotic calcification of the aorta and its branches. MUSCULOSKELETAL: No acute osseous abnormalities. Diffuse bone demineralization. Postsurgical change f rom posterior T9-L4 stabilization with bilateral pedicle screws and rods. Hardware appears intact. Ve rtebral augmentation changes identified at T9, T11, T12, L1, L3, and L4 vertebral bodies. Compression fractures are redemonstrated involving the T11, L1, L2, and L3 vertebral bodies. No spondylolisthesi s. Multilevel degenerative disc disease. SOFT TISSUES/LYMPH NODES: Unremarkable. LOWER NECK: No significant findings. ABDOMEN: ABDOMEN LIVER: Unremarkable GALLBLADDER AND BILE DUCTS: Contracted gallbladder. No biliary duct dilatation. PANCREAS: Unremarkable. SPLEEN: Unremarkable. ADRENAL GLANDS: Unremarkable. KIDNEYS AND URETERS: No evidence of hydronephrosis or renal calculus. The kidneys enhance symmetrical ly. Contrast is demonstrated within both collecting systems on the delayed phase. PELVIS BLADDER: Incompletely distended but grossly unremarkable. REPRODUCTIVE: Unremarkable. ABDOMEN & PELVIS STOMACH AND BOWEL: Stomach and duodenum are unremarkable. No focal bowel wall thickening or surroundi ng inflammatory changes. Colon is identified anterior to the liver. No evidence of bowel obstruction. PERITONEUM/RETROPERITONEUM: No evidence of pneumoperitoneum or free fluid. Bilateral retroperitoneal soft tissue nodularity the largest on the right measuring up to 2.2 cm (series 4, image 67). VASCULATURE: No evidence of aortic aneurysm. Similar infrarenal fusiform ectasia of the down diameter measuring up to 2.8 cm. IVC filter redemonstrated. Pelvic phleboliths. MUSCULOSKELETAL: No acute osseous abnormalities. Diffuse bone demineralization. Postsurgical change f rom posterior T9-L4 stabilization with bilateral pedicle screws and rods. Hardware appears intact. Ve rtebral augmentation changes identified at T9, T11, T12, L1, L3, and L4 vertebral bodies. Compression fractures are redemonstrated involving the T11, L1, L2, and L3 vertebral bodies. No spondylolisthesi s. Multilevel degenerative disc disease. Stable organized fluid collection along the left iliopsoas m easuring 3.9 x 1.9 cm. LYMPH NODES: Enlarged left external iliac chain with irregular 1.7 cm soft tissue nodule. Not visuali zed on prior CT. No periaortic lymphadenopathy. No mesenteric lymphadenopathy. SOFT TISSUE/ABDOMINAL WALL: Small fat filled umbilical hernia. IMPRESSION: 1. Enlarged left external iliac chain irregular soft tissue nodule with additional bilateral retrope ritoneal irregular nodularity not definitively visualized on prior imaging. Unclear if this represent s treated lymphoma versus new sites of disease. Previously seen conglomerate lymphadenopathy within t he pelvis and chest from 2018 is no longer visualized. Surveillance imaging versus tissue sampling is recommended. 2. Stable small organized fluid collection along the left iliopsoas muscle. 3. Postoperative changes of the spine redemonstrated.
== END | disposition home or self-care (01) ==
LOC: RADCTMAIN 10:07
PROVIDERS: ATTEND Internal Medicine
DX: C83.30 Diffuse large B-cell lymphoma, unspecified site (principal); D64.9 Anemia, unspecified; I48.91 Unspecified atrial fibrillation; Z71.3 Dietary counseling and surveillance
CPT/HCPCS: 82565; 84520; 71260; 74177; 36415; Q9967